=== PATIENT | female | born 1960 | race Caucasian/White ===

== ENCOUNTER 2020-02-05 17:50 | Emergency (ER) | payer BC, SELFPAY ==
[2020-02-05] VITALS (10 sets, daily range): BP systolic 138–160; BP diastolic 84–96; PULSE 77–105; RESP 14–20; TEMP 36.8; O2SAT 94–100
--- NOTE | ~2020-02-05 | XR_ITS ---
XR chest 1V portable DATE: 02/05/2020 18:18 INDICATION: Mid chest pain. Shortness of breath. TECHNIQUE: Portable AP chest on 02/05/2020 at 1822 hours COMPARISON: 12/08/2016 PA and lateral chest FINDINGS: Normal heart size. No hilar or mediastinal enlargement. No pulmonary infiltrate or consolid ation, pleural effusion or pulmonary vascular congestion or pneumothorax. Included skeletal structures are unremarkable. IMPRESSION: No active cardiopulmonary disease Reviewed, dictated and finalized at location A.
--- NOTE | 2020-02-05 18:13 | ECG_ITS ---
Measurements Intervals [place] Rate: 95 P: 61 VT: 158 QRS: 11 QRSD: 82 T: 50 QT: 360 QTc: 454 Interpretive Statements SINUS RHYTHM LOW QRS VOLTAGE IN PRECORDIAL LEADS DELAYED PRECORDIAL R/S TRANSITION BASELINE ARTIFACT- I, III, AVF BORDERLINE ECG Electronically Signed On 02-06-2020 7:15:15 CDT by Ryan Sun D.O.
--- NOTE | 2020-02-05 18:38 | ED.GENADULT ---
HPI - General Adult General Chief complaint: Chest Pain Stated complaint: panic attack Source: patient Mode of arrival: ambulatory Limitations: no limitations History of Present Illness HPI narrative: This 59-year-old female has a history of anxiety attacks and hypothyroidism. All day today she has felt anxious. Approximately 2 hours ago her chest started feeling heavy, while feeling short of breath and scared. The pressure is like a band over her lower chest. She takes a deep breath periodically which helps slightly. She states she feels scared, shaky. She has a hx of similar epidsodes just not as intense as this one. Her landlord has been around her, was recently dx with Covid. Chong Thrasher denies Covid symptoms. She's very worried about having Covid. Also, her Synthroid was increased from 100-112 mcg last week. She states she's very sensitive to thyroid and would like to be tested to see if she's getting too much. Related Data Home Medications Medication Instructions Recorded Confirmed levothyroxine [Synthroid] 112 mcg PO DAILY 02/05/20 02/05/20 Allergies Allergy/AdvReac Type Severity Reaction Status Date / Time ciprofloxacin Allergy Intermediate RASH Verified 11/28/16 13:00 SWELLING nitrofurantoin Allergy Intermediate RASH/SWELLI Verified 11/28/16 13:00 NG Penicillins Allergy Intermediate RASH/SWELLI Verified 11/28/16 13:00 NG sulfamethoxazole Allergy Intermediate RASH Verified 11/28/16 13:00 trimethoprim Allergy Intermediate RASH Verified 11/28/16 13:00 Review of Systems Constitutional: Constitutional: Denies chills and Denies fever(s) ENT: Denies nasal congestion and Denies sore throat Cardiovascular: Cardiovascular: Reports no additional cardiovascular complaints Respiratory: Respiratory: Reports no additional respiratory complaints Genitourinary: Genitourinary: Denies dysuria [facility] Past Medical History Medical History (Updated 02/07/20 @ 16:21 by Yusef Franco MD) Anxiety Chronic kidney disease Hypothyroidism Surgical History Surgical History (Updated 02/07/20 @ 16:17 by Yusef Franco MD) H/O: hysterectomy History of cholecystectomy History of right hip replacement Exam Const: Orientation/consciousness: patient oriented x3 HENMT: Head: normal to inspection Face and sinus: sinuses nontender Mouth: Yes Normal oral and palatal mucosa present Eyes: Conjunctivae: conjunctivae normal Neck: Neck: no lymphadenopathy Chest: Chest palpation & inspection: normal inspection of the chest Resp: Effort & Inspection: normal respiratory effort and not labored Auscultation: clear to auscultation bilaterally Cardio: Rate: regular rate Rhythm: regular rhythm Heart sounds: no murmurs GI: GI Palp: Yes Soft to palpation, No Tenderness to palpation present (GI) and No Guarding due to palpation present (GI) : General: Yes no CVA tenderness Neuro: General: patient oriented x3 Extrem: General: normal to inspection Psych: Appearance: well kempt Affect: Anxious affect present Thought content: Yes Normal thought content present Course Course Emergency Course: Pt drank approximately 1 liter of water while in the E.D. Chest symptoms, SOB resolved after Xanax 0.5 mg. TSH and FT4 ordered to document thyroid status. Covid ordered. Pt. encouraged to f/u with PCP to discuss anxiety and CKD. Vital Signs Vital signs: Vital Signs Temperature 36.8 C 02/05/20 18:00 Pulse Rate 88 02/05/20 18:00 Respiratory Rate 18 02/05/20 18:00 Blood Pressure 160/93 H 02/05/20 18:00 Pulse Oximetry 94 02/05/20 18:00 Temperature 36.8 C 02/05/20 18:00 Pulse Rate 80 02/05/20 20:57 Respiratory Rate 14 02/05/20 20:57 Blood Pressure 138/92 H 02/05/20 20:57 Pulse Oximetry 96 02/05/20 20:57 Medical Decision Making MDM Narrative Medical decision making narrative: no evidence of cardiac etiology of pain. Symptoms, response to Xanax and hx c/w anxiety disorder wi
[2020-02-05] MEDS: ALPRAZolam 0.5 MG TABLET PO (18:45)
[2020-02-05 18:48] LABS: Basophils Absolute Auto 0.02 K/mm3 (0.00-0.10); Basophils Percent Auto 0.4 % (0.0-1.0); Eosinophils Absolute Auto 0.13 K/mm3 (0.02-0.50); Eosinophils Percent Auto 2.6 % (1.0-6.0); Hematocrit 40.6 % (35.0-49.0); Hemoglobin 13.8 g/dL (12.0-15.0); Immature Granulocyte Absolute 0.01 K/mm3 (0.00-0.00); Immature Granulocyte Percent A 0.2 % (0.0-0.0); Lymphocytes Absolute Auto 2.26 K/mm3 (1.10-4.50); Lymphocytes Percent Auto 44.8 % (18.0-42.0); Mean Corpuscular Hemoglobin 31.2 pg (27.0-31.0); Mean Corpuscular Volume 91.6 fL (78.0-102.0); Mean Platelet Volume 9.6 fl (9.2-11.8); Monocytes Absolute Auto 0.45 K/mm3 (0.10-0.90); Monocytes Percent Auto 8.9 % (2.0-11.0); Neutrophils Absolute Auto 2.2 K/mm3 (1.7-7.2); Neutrophils Percent Auto 43.1 % (50.0-70.0); Platelet Count Result 261 K/mm3 (150-420); Red Blood Count 4.43 M/mm3 (4.20-5.40); Red Cell Distribution Width 12.4 % (11.6-14.4); White Blood Count 5.1 K/mm3 (4.8-10.8)
[2020-02-05 19:02] LABS: Alanine Aminotransferase 27 U/L (14-59); Alkaline Phosphatase 82 U/L (46-116); Anion Gap 8 mmol/L (8-16); Aspartate Amino Transferase 22 U/L (15-37); Bilirubin,Total 0.5 mg/dL (0.00-1.00); Blood Urea Nitrogen 16 mg/dL (7-18); Calcium 8.8 mg/dL (8.5-10.1); Carbon Dioxide 28 mmol/L (21-32); Chloride 108 mmol/L (98-108); D Dimer 0.31 mg/L (0.19-0.50); Estimated CRCL calculation 42 ml/min; Estimated Glomerular Filt Rate 44; Glucose 104 mg/dL (70-99); Lipase 105 U/L (73-393); Osmolality Calculated 299 mOsm/kg (285-295); Partial Thromboplastin Time 27.1 SEC (22.3-31.6); Potassium 3.8 mmol/L (3.5-5.1); Prothrombin Time 10.3 Seconds (9.64-11.0); Sodium 144 mmol/L (136-145); Total Protein 7.5 g/dL (6.4-8.2)
[2020-02-05 19:05] LABS: BNP 33 pg/mL (0-100)
[2020-02-05 19:07] LABS: Troponin I < 0.02 ng/mL (0.00-0.056)
[2020-02-05 20:10] LABS: Thyroid Stimulating Hormone 2.87 uIU/mL (0.36-3.74)
[2020-02-05 20:28] LABS: Free T4 Free Thyroxine 1.36 ng/dL (0.76-1.46)
[2020-02-07 00:09] LABS: SARS-CoV-2 RNA PCR Negative
== END 2020-02-05 21:05 | disposition home or self-care (01) ==
PROVIDERS: Emergency Provider Family Medicine
DX: F41.0 Panic disorder [episodic paroxysmal anxiety] (principal); R06.02 Shortness of breath
CPT/HCPCS: 36415; 71045; 80053; 83690; 83880; 84439; 84443; 84484; 85025; 85380; 85610; 85730; 87635; 93005; 99283; 99284; A9270; C9803; U0003

== ENCOUNTER 2020-03-08 16:57 | Outpatient (CLI) | payer BC, SELFPAY ==
[2020-03-12 03:13] LABS: Hepatitis B Core Antibody Nonreactive (Nonreactive)
== END 2020-03-08 16:58 | disposition home or self-care (01) ==
LOC: CHSLAB 17:00
PROVIDERS: Visit Provider Obstetrics & Gynecology
DX: A64 Unspecified sexually transmitted disease (principal)
CPT/HCPCS: 36415; 86705

== ENCOUNTER 2020-05-01 12:18 | Outpatient (CLI) | payer OTHER, SELFPAY ==
[2020-05-02 18:52] LABS: SARS-CoV-2 RNA PCR Negative
== END 2020-05-01 12:19 | disposition home or self-care (01) ==
LOC: CHSLAB 12:24
DX: Z20.828 Contact with and (suspected) exposure to other viral communicable diseases (principal)
CPT/HCPCS: 87635; C9803; U0003

== ENCOUNTER 2020-12-05 19:37 | Emergency (ER) | payer BC, SELFPAY ==
--- NOTE | ~2020-12-05 | XR_ITS ---
[id number]_CR DATE: 12/05/2020 20:17 INDICATION: Back pain radiating to right side and pop after lifting TECHNIQUE: PA chest. 3 views of the right ribs. COMPARISON: None FINDINGS: No right rib fracture or bone destruction is evident. Normal heart size. No hilar or mediastinal enlargement. The lungs appear normally inflated and clear of infiltrate or consolidation. No pleural effusion or pulmonary vascular congestion or pneumothorax. Surgical clips, right upper quadrant, likely due to cholecystectomy. Degenerative spurring of the thoracic and lumbar spine. IMPRESSION: No displaced rib fracture is noted on the right No active cardiopulmonary disease Status post cholecystectomy Reviewed, dictated and finalized at Location [facility]. Reviewed, dictated and finalized at location A.
[2020-12-05 19:40] VITALS: BP 160/85; PULSE 90; RESP 18; TEMP 36.6; O2SAT 98
[2020-12-05 19:56] LABS: Add Urine Microscopic? YES; Appearance Urine Clear (Clear); Bilirubin Urine Negative (Negative); Blood Urine Negative (Negative); Color Urine Light Yellow (Yellow); Glucose Urine UA Negative (Negative); Ketones Urine Negative (Negative); Leukocyte Esterase Ur Trace (Negative); Nitrate Urine Negative (Negative); Protein Urine Negative (Negative); Urobilinogen Urine 0.2 mg/dL (0.2-1.0); pH Urine 5.5 (5.0-8.0)
--- NOTE | 2020-12-05 20:00 | ED.GENADULT ---
HPI - General Adult General Chief complaint: Back Pain/Injury Stated complaint: back pain Source: patient Mode of arrival: ambulatory Limitations: no limitations History of Present Illness HPI narrative: Price Campos is a 60F with a PMH of hypothyroidism that presented to the ED with back pain. She has had mid back pain for a few days. It was getting better until she opened a gate for her horses when she heard a pop and had immediate pain in her right mid back and spasms. No radiation. No trauma. No weakness, numbness or tingling. Related Data Home Medications Medication Instructions Recorded Confirmed alprazolam [Xanax] 0.25 mg PO BID PRN 12/05/20 12/05/20 levothyroxine [Synthroid] 88 mcg PO DAILY 12/05/20 12/05/20 Allergies Allergy/AdvReac Type Severity Reaction Status Date / Time ciprofloxacin Allergy Unknown [place] Verified 12/05/20 19:56 nitrofurantoin Allergy Unknown Hives Verified 12/05/20 19:56 Penicillins Allergy Unknown Hives Verified 12/05/20 19:56 Sulfa (Sulfonamide Allergy Unknown Hives Verified 12/05/20 19:56 Antibiotics) trimethoprim Allergy Unknown Rash Verified 03/27/20 12:21 Review of Systems Constitutional: Constitutional: Reports no additional constitutional complaints Eyes: Eyes: Reports no additional eye complaints ENT: Reports system reviewed and no additional complaints, except as documented Cardiovascular: Cardiovascular: Reports no additional cardiovascular complaints Respiratory: Respiratory: Reports no additional respiratory complaints Gastrointestinal: Gastrointestinal: Reports no additional gastrointestinal complaints Genitourinary: Genitourinary: Reports no additional female genitourinary complaints Musculoskeletal: Musculoskeletal: Reports as per HPI Integumentary/Breasts: Skin/Breast: Reports system reviewed and no additional complaints, except as docu Neurologic: Reports system reviewed and no additional complaints, except as documented Psychiatric: Psychiatric: Reports no additional psychiatric complaints Endocrine: Endocrine: Reports no additional endocrine complaints Hematologic/Lymphatic: Hematologic/Lymphatic: Reports no additional hematologic/lymphatic complaints Allergic/Immunologic: Allergic/Immunologic: Reports no additional allergic/immunologic complaints [facility] Family History Family History Mother Family history of thyroid disease Grandparent Diabetes mellitus, Onset Age: 75 Family history of congestive heart failure, Onset Age: 72 Father Family history of elevated blood lipids Other Family history of malignant neoplasm Social History Social History Smoking status: Never smoker Second hand tobacco smoke exposure: No Alcohol intake: current Gender identity (if verbalized by the patient): Female Exam Const: General: no acute distress and alert Orientation/consciousness: patient oriented x3 Limitations: No altered mental status HENMT: Head: normal to inspection Other: atraumatic Eyes: Conjunctivae: conjunctivae normal Pupils: Equal, round and reactive pupils present Neck: Neck: normal visual inspection Chest: Chest palpation & inspection: normal inspection of the chest Resp: Effort & Inspection: normal respiratory effort, not labored, no retractions, not tachypneic and no use of accessory muscles Cardio: Rate: regular rate Back/Spine/Pelvis: Other: No midline tenderness. Normal ROM. hypertonic paraspinal musculature in the right thoracic region. Skin: General skin exam: normal color Rashes: no rashes Neuro: General: patient oriented x3, moves all extremities, no meningeal signs, no focal motor deficits and CN's II-XI intact bilaterally Speech: normal speech Extrem: General: normal to inspection Other: 5/5 strength in the upper extremities. Psych: Appearance: grossly normal Mental
[2020-12-05 20:01] LABS: Bacteria Urine Trace /hpf; RBC Urine 0-2 /hpf (0-2); Squamous Epithelial Cell Urine Rare /hpf (Few); WBC Urine 0-3 /hpf (0-3)
[2020-12-05 20:27] VITALS: BP 140/88; PULSE 72; RESP 18; TEMP 37; O2SAT 98
== END 2020-12-05 20:29 | disposition home or self-care (01) ==
PROVIDERS: Emergency Provider Family Medicine
DX: M54.9 Dorsalgia, unspecified (principal)
CPT/HCPCS: 71101; 81001; 99283

== ENCOUNTER 2021-01-10 08:17 | Outpatient (CLI) | payer BC, SELFPAY ==
[2021-01-10 08:32] LABS: Basophils Absolute Auto 0.02 K/mm3 (0.00-0.10); Basophils Percent Auto 0.4 % (0.0-1.0); Eosinophils Absolute Auto 0.18 K/mm3 (0.02-0.50); Eosinophils Percent Auto 3.3 % (1.0-6.0); Hematocrit 41.3 % (35.0-49.0); Immature Granulocyte Absolute 0.01 K/mm3 (0.00-0.00); Immature Granulocyte Percent A 0.2 % (0.0-0.0); Lymphocytes Absolute Auto 2.17 K/mm3 (1.10-4.50); Lymphocytes Percent Auto 40.3 % (18.0-42.0); Mean Corpuscular HGB Conc 33.9 g/dL (32.0-36.0); Mean Corpuscular Hemoglobin 31.3 pg (27.0-31.0); Mean Corpuscular Volume 92.2 fL (78.0-102.0); Mean Platelet Volume 9.5 fl (9.2-11.8); Monocytes Absolute Auto 0.35 K/mm3 (0.10-0.90); Monocytes Percent Auto 6.5 % (2.0-11.0); Neutrophils Absolute Auto 2.7 K/mm3 (1.7-7.2); Neutrophils Percent Auto 49.3 % (50.0-70.0); Platelet Count Result 271 K/mm3 (150-420); Red Blood Count 4.48 M/mm3 (4.20-5.40); Red Cell Distribution Width 12.7 % (11.6-14.4); White Blood Count 5.4 K/mm3 (4.8-10.8)
[2021-01-10 08:42] LABS: Hemoglobin A1C 5.2 % (<5.7)
[2021-01-10 08:46] LABS: Add Urine Microscopic? YES; Appearance Urine Sl Cloudy (Clear); Bilirubin Urine Negative (Negative); Blood Urine Negative (Negative); Color Urine Light Yellow (Yellow); Glucose Urine UA Negative (Negative); Ketones Urine Negative (Negative); Leukocyte Esterase Ur 1+ (Negative); Nitrate Urine Negative (Negative); Protein Urine Negative (Negative); Specific Grav Ur >= 1.030 (1.010-1.020); Urobilinogen Urine 0.2 mg/dL (0.2-1.0); pH Urine 5.5 (5.0-8.0)
[2021-01-10 08:59] LABS: Bacteria Urine 1+ /hpf; RBC Urine None seen /hpf (0-2); Squamous Epithelial Cell Urine Moderate /hpf (Few)
[2021-01-10 09:52] LABS: Alanine Aminotransferase 27 U/L (14-59); Albumin Level 3.8 g/dL (3.4-5.0); Alkaline Phosphatase 69 U/L (46-116); Anion Gap 10 mmol/L (8-16); Aspartate Amino Transferase 17 U/L (15-37); Bilirubin,Total 0.5 mg/dL (0.00-1.00); Blood Urea Nitrogen 17 mg/dL (7-18); Calcium 8.8 mg/dL (8.5-10.1); Carbon Dioxide 29 mmol/L (21-32); Chloride 106 mmol/L (98-108); Cholesterol 203 mg/dL (0-200); Estimated Glomerular Filt Rate 52; Free T4 Free Thyroxine 0.54 ng/dL (0.76-1.46); Glucose 100 mg/dL (70-99); HDL Direct 47 mg/dL (40-60); LDL Cholesterol Calculated 125 mg/dL (<130); Osmolality Calculated 301 mOsm/kg (285-295); Potassium 4.5 mmol/L (3.5-5.1); Sodium 145 mmol/L (136-145); Thyroid Stimulating Hormone 58.03 uIU/mL (0.36-3.74); Total Protein 6.8 g/dL (6.4-8.2); Triglycerides 156 mg/dL (0-150)
== END 2021-01-10 08:18 | disposition home or self-care (01) ==
LOC: CHSLAB 08:22
PROVIDERS: PCP Physician Assistant; Visit Provider Physician Assistant
DX: Z00.01 Encounter for general adult medical examination with abnormal findings (principal); E03.9 Hypothyroidism, unspecified; Z13.220 Encounter for screening for lipoid disorders; Z13.1 Encounter for screening for diabetes mellitus
CPT/HCPCS: 36415; 80053; 80061; 81001; 83036; 84439; 84443; 85025; 86769

== ENCOUNTER 2021-03-12 11:21 | Emergency (ER) | payer BC, SELFPAY ==
--- NOTE | ~2021-03-12 | XR_ITS ---
EXAMINATION: XR chest 1V portable EXAM DATE: 03/12/2021 11:43 INDICATION: chest pain radiating into LUE . TECHNIQUE: Portable AP frontal chest x-ray was obtained. Comparison is made to prior examination from 02/05/2020. FINDINGS: The lungs are clear. There are no pleural effusions. The cardiomediastinal silhouette is within normal limits. There is no pneumothorax suspected. The bones and soft tissues are unremarkab le. IMPRESSION: Unremarkable chest x-ray exam. Reviewed, dictated and finalized at location B.
--- NOTE | ~2021-03-12 | CT_ITS ---
EXAMINATION: CTA chest PE protocol EXAM DATE: 03/12/2021 15:55 INDICATION: SOB SOB with pressure @ center of chest with nausea x couple of days. TECHNIQUE: Spiral CTA of the chest (pulmonary arteries) was performed with 100 cc Omnipaque 350 intr avenous contrast injection. Images were acquired during the pulmonary arterial phase. Coronal maxi mum intensity projection 3D-reconstructions were created by the technologist on dedicated workstation . Axial, coronal and sagittal reformatted images were reviewed. The dose-length product (DLP) for t his examination was 428.55 mGy-cm. The exposure was tailored according to patient size (auto mA exp osure control), and iterative reconstruction (ASIR) was used as additional dose reduction technique. There is no prior study for comparison. FINDINGS: Pulmonary arteries are well opacified and without intraluminal filling defects. No thora cic aortic dissection. The lungs are clear. There are no pleural or pericardial effusions. Trach eobronchial tree is patent. There is no mediastinal, hilar or axillary lymphadenopathy. There is no pneumothorax. Heart normal in size. There is mild coronary arterial calcification, arterial sc lerosis. Cholecystectomy clips.There is mild to moderate thoracic spondylosis. Several vague regions of decreased density within the vertebral bodies including T2, T12, L2. These could be hemangiomata but can't exclude metastatic disease or myeloma. No cortical destruction. Consider follow-up nonemerg ent MR thoracic spine without and with contrast. IMPRESSION: 1. No pulmonary emboli or acute findings. 2. Several low-density vertebral body regions could be focal osteopenia or hemangiomata but recommen d follow-up nonemergent MR thoracic spine to exclude metastatic disease or myeloma. Reviewed, dictated and finalized at location B. IMPRESSION: 1. No pulmonary emboli or acute findings. 2. Several low-density vertebral body regions could be focal osteopenia or hem angiomata but recommend follow-up nonemergent MR thoracic spine to exclude meta static disease or myeloma.
[2021-03-12 11:29] VITALS: BP 160/98; PULSE 69; RESP 14; TEMP 36.1; O2SAT 100
--- NOTE | 2021-03-12 11:29 | ECG_ITS ---
Measurements Intervals [place] Rate: 68 P: 65 HI: 157 QRS: 48 QRSD: 82 T: 58 QT: 381 QTc: 406 Interpretive Statements SINUS RHYTHM DELAYED PRECORDIAL R/S TRANSITION LOW QRS VOLTAGE IN PRECORDIAL LEADS BASELINE ARTIFACT- II, III, AVF BORDERLINE ECG Electronically Signed On 03-12-2021 13:00:00 CDT by Ryan Sun D.O.
[2021-03-12 11:30] VITALS: PULSE 69
[2021-03-12] MEDS: ASPIRIN 325 MG ENTERIC TABLET PO (11:50)
[2021-03-12] MEDS: MAG HYDROX/ALUMINUM HYD/SIMETH 30 ML, PHENobarb/HYOSCY/ATROPINE/SCOP 32.4 MG, LIDOCAINE... PO (11:52)
[2021-03-12 11:54] LABS: Basophils Absolute Auto 0.03 K/mm3 (0.00-0.10); Basophils Percent Auto 0.6 % (0.0-1.0); Eosinophils Absolute Auto 0.14 K/mm3 (0.02-0.50); Eosinophils Percent Auto 2.7 % (1.0-6.0); Hematocrit 42.3 % (35.0-49.0); Hemoglobin 14.5 g/dL (12.0-15.0); Immature Granulocyte Absolute 0.02 K/mm3 (0.00-0.00); Immature Granulocyte Percent A 0.4 % (0.0-0.0); Lymphocytes Absolute Auto 2.06 K/mm3 (1.10-4.50); Lymphocytes Percent Auto 39.3 % (18.0-42.0); Mean Corpuscular HGB Conc 34.3 g/dL (32.0-36.0); Mean Corpuscular Hemoglobin 31.4 pg (27.0-31.0); Mean Corpuscular Volume 91.6 fL (78.0-102.0); Mean Platelet Volume 9.8 fl (9.2-11.8); Monocytes Absolute Auto 0.32 K/mm3 (0.10-0.90); Monocytes Percent Auto 6.1 % (2.0-11.0); Neutrophils Absolute Auto 2.7 K/mm3 (1.7-7.2); Neutrophils Percent Auto 50.9 % (50.0-70.0); Platelet Count Result 281 K/mm3 (150-420); Red Blood Count 4.62 M/mm3 (4.20-5.40); White Blood Count 5.2 K/mm3 (4.8-10.8)
[2021-03-12] MEDS: PANTOPRAZOLE SODIUM IV 40 MG VIAL IV PUSH (12:00)
[2021-03-12] MEDS: SODIUM CHLORIDE 0.9% IV 1,000 ML 150 ML IV CONT (12:05)
[2021-03-12] MEDS: ONDANSETRON INJ 4 MG/2 ML VIAL IV PUSH (12:05)
[2021-03-12 12:11] LABS: Alanine Aminotransferase 33 U/L (14-59); Albumin Level 4.1 g/dL (3.4-5.0); Alkaline Phosphatase 69 U/L (46-116); Anion Gap 9 mmol/L (8-16); Aspartate Amino Transferase 25 U/L (15-37); Bilirubin,Total 0.5 mg/dL (0.00-1.00); Blood Urea Nitrogen 16 mg/dL (7-18); Calcium 9.1 mg/dL (8.5-10.1); Carbon Dioxide 29 mmol/L (21-32); Chloride 105 mmol/L (98-108); Estimated CRCL calculation 46 ml/min; Estimated Glomerular Filt Rate 48; Glucose 116 mg/dL (70-99); Osmolality Calculated 298 mOsm/kg (285-295); Sodium 143 mmol/L (136-145); Total Protein 7.3 g/dL (6.4-8.2); Troponin I 4.3 ng/L (0.00-60.4)
--- NOTE | 2021-03-12 13:30 | PC.NURSE ---
PT AMBULATORY TO BATHROOM, PT STATES SHE IS FEELING BETTER.
[2021-03-12 13:33] LABS: Add Urine Microscopic? NO; Appearance Urine Clear (Clear); Bilirubin Urine Negative (Negative); Blood Urine Negative (Negative); Color Urine Light Yellow (Yellow); Glucose Urine UA Negative (Negative); Ketones Urine Negative (Negative); Leukocyte Esterase Ur Negative (Negative); Nitrate Urine Negative (Negative); Protein Urine Negative (Negative); Specific Grav Ur <= 1.005 (1.010-1.020); Urobilinogen Urine 0.2 mg/dL (0.2-1.0)
[2021-03-12 13:36] VITALS: BP 115/78; PULSE 68; RESP 14; O2SAT 98
[2021-03-12 15:14] VITALS: BP 132/80; PULSE 64; RESP 16; O2SAT 98
[2021-03-12 16:17] LABS: Troponin I < 4.0 ng/L (0.00-60.4)
--- NOTE | 2021-03-12 16:51 | ED.CHESTPAIN ---
HPI - Chest Pain General Chief Complaint: Chest Pain Stated Complaint: Chest tightness,nausea Time Seen by Provider: 03/12/21 11:23 Source: patient and RN notes reviewed Mode of arrival: ambulatory Limitations: no limitations History of Present Illness complaint: chest pain Onset (ago): hour(s) Timing of current episode: constant Prior episodes: Yes Onset: during rest Pain location: substernal Pain radiation: none Severity: mild Pain scale (0-10): 5 Quality: tightness, aching and dull Relieving factors: nothing Exacerbating factors: nothing Associated symptoms: nausea Treatment prior to arrival: none Related Data Home Medications Medication Instructions Recorded Confirmed alprazolam [Xanax] 0.25 mg PO BID PRN 12/05/20 03/12/21 levothyroxine 100 mcg PO DAILY 03/12/21 03/12/21 Allergies Allergy/AdvReac Type Severity Reaction Status Date / Time ciprofloxacin Allergy Intermediate RASH Verified 02/15/21 15:45 SWELLING nitrofurantoin Allergy Intermediate RASH/SWELLI Verified 02/15/21 15:45 NG Penicillins Allergy Intermediate RASH/SWELLI Verified 02/15/21 15:45 NG sulfamethoxazole Allergy Intermediate RASH Verified 02/15/21 15:45 trimethoprim Allergy Intermediate RASH Verified 02/15/21 15:45 Sulfa (Sulfonamide Allergy Unknown Hives Verified 02/15/21 15:45 Antibiotics) Review of Systems Review of Systems: All systems reviewed & are unremarkable except as noted in HPI and below PMFSH Past Medical History Medical History Anxiety Chronic kidney disease Hypothyroidism Surgical History Surgical History H/O: hysterectomy History of cholecystectomy History of right hip replacement Family History Family History Mother Family history of thyroid disease Grandparent Diabetes mellitus, Onset Age: 75 Family history of congestive heart failure, Onset Age: 72 Father Family history of elevated blood lipids Other Family history of malignant neoplasm Social History Social History Smoking status: Never smoker Second hand tobacco smoke exposure: No Alcohol intake: current Gender identity (if verbalized by the patient): Female Exam Const: General: cooperative, no acute distress and well developed Nutritional Appearance: average body habitus Orientation/consciousness: oriented to person, oriented to place and patient oriented x3 Limitations: no limitations HENMT: Head: normal to inspection, normocephalic and atraumatic Ears: hearing grossly normal bilaterally and external ears normal General nose exam: Normal external nose present and Normal nares present Face and sinus: normal facial exam Mouth: Yes Normal oral and palatal mucosa present, Yes oropharynx normal and Yes moist mucous membranes Throat: posterior oropharynx normal Eyes: General: appearance normal, both eyes and all related structures Eyelids: eyelids normal Conjunctivae: conjunctivae normal Sclera: sclerae normal Cornea: corneas normal Pupils: Equal, round and reactive pupils present EOM: EOMs intact bilaterally Neck: Neck: normal visual inspection and no lymphadenopathy Chest: Chest palpation & inspection: normal inspection of the chest Resp: Effort & Inspection: normal respiratory effort Auscultation: clear to auscultation bilaterally Cardio: Jugular venous distension: no JVD Rate: regular rate Rhythm: regular rhythm GI: Inspection: normal to inspection GI Palp: Yes abdominal tenderness Auscultation: normal bowel sounds : General: Yes bladder normal to inspection and Yes bladder normal to palpation Back/Spine/Pelvis: Back: no CVA tenderness Thoracic/Lumbar Spine: thoracic and lumbar spine normal to inspection Skin: General skin exam: normal color, no rashes or le
[2021-03-12 17:20] VITALS: BP 113/79; PULSE 78; RESP 18; O2SAT 97
== END 2021-03-12 17:20 | disposition home or self-care (01) ==
PROVIDERS: Emergency Provider Emergency Medicine; PCP Physician Assistant
DX: R10.13 Epigastric pain (principal); R07.89 Other chest pain
CPT/HCPCS: 36415; 71045; 71275; 80053; 81003; 84484; 85025; 93005; 96361; 96374; 96375; 99283; 99284; A9270; C9113; J2405; J7030; Q9967

== ENCOUNTER 2021-03-14 12:01 | Outpatient (CLI) | payer BC, SELFPAY ==
[2021-03-14 13:27] LABS: SARS-CoV-2 RNA PCR Negative (Negative)
== END 2021-03-14 12:02 | disposition home or self-care (01) ==
PROVIDERS: PCP Physician Assistant; Visit Provider Physician Assistant
DX: R06.00 Dyspnea, unspecified (principal); Z20.822 Contact with and (suspected) exposure to COVID-19
CPT/HCPCS: C9803; U0003; U0005

== ENCOUNTER 2021-03-26 16:43 | Outpatient (CLI) | payer BC, SELFPAY ==
--- NOTE | ~2021-03-26 | MR_ITS ---
EXAMINATION: MR thoracic spine wo/w con DATE: 03/26/2021 18:25 INDICATION: Lytic lesions in thoracic spine. Biomechanical lesion. TECHNIQUE: Magnetic resonance imaging (MRI) of the thoracic spine was performed without and with 15 m L MultiHance intravenous contrast. Sequences included sagittal and axial T2-weighted FSE, sagittal ST IR FSE, and sagittal and axial T1-weighted FSE. Postcontrast sequences included sagittal and axial T1 -weighted FS FSE. COMPARISON: Chest CT 03/12/2021, lumbar spine MRI 09/26/2016 FINDINGS: There is 3 mm anterolisthesis of T9 and T10. There is mild chronic anterior wedging of T12 vertebral body. There are hemangiomas in T2, T12, and L2 vertebral bodies. There is mildly decreased disc height at multiple levels in mid and lower thoracic spine. The discs are bulging from T4-T5 thro ugh T8-T9 and at T10-T11 and T11-T12 with mild central canal stenosis. There is multilevel facet join t osteoarthritis, severe bilaterally at T9-T10 and T10-T11 on the right at T2-T3 and T3-T4. There is multilevel mild neural foraminal stenosis bilaterally. On the right, there is moderate neural foramin al stenosis at T9-T10. The spinal cord signal intensity is normal. IMPRESSION: 1. 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 No evidence of malignancy. 2. Mild thoracic spondylosis. Reviewed, dictated and finalized at location A.
[2021-03-26 17:49] LABS: Estimated Glomerular Filt Rate 50
== END 2021-03-26 16:44 | disposition home or self-care (01) ==
PROVIDERS: PCP Physician Assistant; Visit Provider Physician Assistant
DX: M99.9 Biomechanical lesion, unspecified (principal); M47.814 Spondylosis without myelopathy or radiculopathy, thoracic region; D18.09 Hemangioma of other sites
CPT/HCPCS: 72157; A9577

== ENCOUNTER 2021-04-05 07:15 | Outpatient (CLI) | payer BC, SELFPAY ==
--- NOTE | ~2021-04-05 | DEXA_ITS ---
Bone Density Report Name: Shahrzad AggarwalChong Price Dixon Age: 61 Sex: Female Ethnicity: White Date of : 1960 Indication: postmenopausal; screening for osteoporosis; prior fracture; hysterectomy; secondary osteoporosis; Referring Provider: Juan R, Levi Study: Bone densitometry was performed. Exam Date: April 05, 2021 Accession number: [id number] Bone Density: Region BMD T-score Z-score Classification Femoral Neck (Left) 1.018 1.5 2.9 Normal Total Hip (Left) 1.226 2.3 3.3 Normal World Health Organization criteria for BMD impression classify patients as: Normal (T-score at or above -1.0), Osteopenia (T-score between -1.0 and -2.5), or Osteoporosis (T-score at or below -2.5). 10-year Fracture Risk: FRAX not reported because: All T-scores for Spine Total, Hip Total, Femoral Neck at or above -1.0 Prior hip or vertebral fracture Clinical Information Provided by Patient: Have had a previous hip or vertebral fracture Has had a low trauma fracture Has secondary osteoporosis Has the following medical conditions: Hysterectomy Patient maximum height was 63 Menopause Age: 52 No regular weight bearing exercise Drinks caffeinated beverages Onset of menses at age 12 Number of children 3 Impression: The patient has normal bone mass. The patient has risk factors, including: previous fracture. Discussion: INCREASED RISK OF FRACTURE DUE TO HISTORY OF FRACTURE. The patient's previous fracture puts the patient at high risk of a future fracture. In untreated patients, the risk of osteoporotic fracture increases approximately two-fold for each 1.0 SD decrease in T-score. Low bone density is not the only risk factor for fracture; also consider factors such as patient's age, frailty or poor health, risk of falling, risk of injury, previous osteoporotic fracture, family history of osteoporosis, cigarette smoking, low body weight, etc. Not everyone with a low trauma fracture has osteoporosis; osteomalacia and other metabolic bone disorders should also be considered. Patients who have osteoporosis should be evaluated for specific diseases and conditions (secondary causes) that may cause or contribute to bone loss and fracture risk. National Osteoporosis Foundation (NOF) recommends pharmacologic intervention for patients with a prior hip or vertebral fracture regardless of BMD T-score. The patient should follow a healthful lifestyle (good nutrition with adequate calcium and vitamin D, and appropriate weight-bearing exercise). Follow-Up: Consider a repeat BMD and Vertebral Fracture Assessment (VFA) exam in 2 years or sooner if medically necessary, to reassess this patient's status. Reported by: Dr. Luis Alberto Anguiano on 04/05/2021 7:56:00 AM. Reviewed, dictated and finalized at location [facility] JETER
== END 2021-04-05 07:16 | disposition home or self-care (01) ==
LOC: CHSIMG 07:17
PROVIDERS: PCP Physician Assistant; Visit Provider Physician Assistant
DX: Z78.0 Asymptomatic menopausal state (principal)
CPT/HCPCS: 77080

== ENCOUNTER 2021-06-19 07:24 | Outpatient (CLI) | payer BC, SELFPAY ==
--- NOTE | ~2021-06-19 | US_ITS ---
EXAMINATION: US carotid duplex BI DATE: 06/19/2021 07:51 INDICATION: Screening for cardiovascular disease. TECHNIQUE: Grayscale, color Doppler, and pulsed Doppler images of the cervical carotid arteries were obtained. The degree of vessel stenosis is placed in one of the following categories: normal, <50%, 5 0-69%, >=70% but less than near-occlusion, near-occlusion, or total occlusion. Note that percent sten osis relative to normal distal artery lumen diameter is indirectly measured from velocity measurement s as described by Peña, et al. Radiology 2003; 229:340-346. COMPARISON: None. FINDINGS: RIGHT: The right common carotid artery (CCA) peak systolic velocity (PSV) is 83 cm/s. The right internal car otid artery (ICA) PSV is 83 cm/s. The right ICA end-diastolic velocity (EDV) is 39 cm/s. The right IC A/CCA PSV ratio is 1.0. Grayscale and color Doppler images yield an estimate of <50% diameter reducti on from plaque in the ICA. There is antegrade flow in the right vertebral artery. LEFT: The left CCA PSV is 98 cm/s. The left ICA PSV is 87 cm/s. The left ICA EDV is 39 cm/s. The left ICA/C CA PSV ratio is 0.9. Grayscale and color Doppler images yield an estimate of <50% diameter reduction from plaque in the ICA. There is antegrade flow in the left vertebral artery. IMPRESSION: 1. <50% stenosis in the right internal carotid artery. 2. <50% stenosis in the left internal carotid artery. Reviewed, dictated and finalized at location B. HIC MANAGER
== END 2021-06-19 07:25 | disposition home or self-care (01) ==
LOC: CHSIMG 07:27
PROVIDERS: PCP Physician Assistant; Visit Provider Physician Assistant
DX: Z13.6 Encounter for screening for cardiovascular disorders (principal)
CPT/HCPCS: 93880

== ENCOUNTER 2021-07-30 10:07 | Outpatient (CLI) | payer BC, SELFPAY ==
[2021-07-30 11:05] LABS: Free T3 1.95 pg/mL (2.18-3.98); Thyroid Stimulating Hormone 12.45 uIU/mL (0.36-3.74)
== END 2021-07-30 10:08 | disposition home or self-care (01) ==
LOC: CHSLAB 10:10
PROVIDERS: PCP Physician Assistant; Visit Provider Physician Assistant
DX: E03.9 Hypothyroidism, unspecified (principal)
CPT/HCPCS: 36415; 84439; 84443; 84481

== ENCOUNTER 2021-10-14 12:34 | Emergency (ER) | payer BC, SELFPAY ==
[2021-10-14 12:48] VITALS: BP 145/87; PULSE 79; RESP 16; TEMP 36.2; O2SAT 100
--- NOTE | 2021-10-14 12:52 | ECG_ITS ---
Measurements Intervals [place] Rate: 60 P: 42 TN: 155 QRS: 5 QRSD: 85 T: 27 QT: 419 QTc: 422 Interpretive Statements SINUS RHYTHM LOW QRS VOLTAGE IN PRECORDIAL LEADS [QRS DEFLECTION < 1.0 mV IN CHEST LEADS] POOR R-WAVE PROGRESSION COMPARED TO ECG 03/12/2021 11:31:00 NO SIGNIFICANT CHANGES Electronically Signed On 10-14-2021 16:59:25 CDT by Izaiah Ag M.D.
--- NOTE | 2021-10-14 12:54 | ED.GENADULT ---
HPI - General Adult General Chief complaint: Unspecified Stated complaint: numbess in face, chest and arms,difficulty swallow Source: patient Mode of arrival: ambulatory Limitations: no limitations History of Present Illness HPI narrative: patient with history of hypothyroidism and history of panic attacks presents with over the last hour having numbness and tingling in her face with a heaviness in her chest with numbness tingling in her hands and her feet currently there is no shortness of breath no fever chills the patient states that her symptoms have improved but still they are somewhat, the patient does have Xanax that she takes as needed but not take did not take any today after she started having the symptoms. Onset (ago): hour(s) Location: face Severity: mild Related Data Home Medications Medication Instructions Recorded Confirmed alprazolam [Xanax] 0.25 mg PO BID PRN 12/05/20 10/14/21 levothyroxine 100 mcg PO DAILY 03/12/21 10/14/21 Allergies Allergy/AdvReac Type Severity Reaction Status Date / Time ciprofloxacin Allergy Intermediate RASH Verified 10/14/21 12:52 SWELLING nitrofurantoin Allergy Intermediate RASH/SWELLI Verified 10/14/21 12:52 NG Penicillins Allergy Intermediate RASH/SWELLI Verified 10/14/21 12:52 NG sulfamethoxazole Allergy Intermediate RASH Verified 10/14/21 12:52 trimethoprim Allergy Intermediate RASH Verified 10/14/21 12:52 Sulfa (Sulfonamide Allergy Unknown Hives Verified 10/14/21 12:52 Antibiotics) Review of Systems Review of Systems: All systems reviewed & are unremarkable except as noted in HPI and below PMFSH Past Medical History Medical History Anxiety Chronic kidney disease Hypothyroidism Surgical History Surgical History H/O: hysterectomy History of cholecystectomy History of right hip replacement Family History Family History Mother Family history of thyroid disease Grandparent Diabetes mellitus, Onset Age: 75 Family history of congestive heart failure, Onset Age: 72 Father Family history of elevated blood lipids Other Family history of malignant neoplasm Social History Social History Smoking status: Never smoker Second hand tobacco smoke exposure: No Alcohol intake: current Gender identity (if verbalized by the patient): Female Exam Const: General: cooperative HENMT: Head: normal to inspection Ears: hearing grossly normal bilaterally General nose exam: Normal external nose present Face and sinus: normal facial exam Mouth: Yes Normal oral and palatal mucosa present Teeth and gingiva: dentition normal and gingiva normal Throat: posterior oropharynx normal Eyes: General: appearance normal, both eyes and all related structures Neck: Neck: normal visual inspection, full ROM, no lymphadenopathy and no meningeal signs Chest: Chest palpation & inspection: normal inspection of the chest Resp: Effort & Inspection: normal respiratory effort and able to speak in complete sentences Cardio: Jugular venous distension: no JVD Palpation: normal PMI Rate: regular rate Rhythm: regular rhythm GI: Inspection: normal to inspection Back/Spine/Pelvis: Back: no CVA tenderness Skin: General skin exam: normal color and no rashes or lesions noted Neuro: General: oriented to person, oriented to place and oriented to time Course Course Emergency Course: Patient received 0.5 p.o. Xanax, EKG performed as well as blood work, the patient's symptoms have improved after reassessment. Vital Signs Vital signs: Vital Signs Temperature 36.2 C L 10/14/21 12:48 Pulse Rate 79 10/14/21 12:48 Respiratory Rate 16 10/14/21 12:48 Blood Pressure 145/87 H 10/14/21 12:48 Pulse Oximetry 100 10/14/21 12:48
[2021-10-14] MEDS: ALPRAZolam (*CRX) 0.5 MG TABLET PO (13:00)
[2021-10-14 13:09] LABS: Basophils Absolute Auto 0.03 K/mm3 (0.00-0.10); Basophils Percent Auto 0.6 % (0.0-1.0); Eosinophils Absolute Auto 0.14 K/mm3 (0.02-0.50); Eosinophils Percent Auto 2.8 % (1.0-6.0); Hematocrit 40.2 % (35.0-49.0); Hemoglobin 13.7 g/dL (12.0-15.0); Immature Granulocyte Absolute 0.01 K/mm3 (0.00-0.00); Immature Granulocyte Percent A 0.2 % (0.0-0.0); Lymphocytes Absolute Auto 2.13 K/mm3 (1.10-4.50); Lymphocytes Percent Auto 42.6 % (18.0-42.0); Mean Corpuscular HGB Conc 34.1 g/dL (32.0-36.0); Mean Corpuscular Hemoglobin 31.4 pg (27.0-31.0); Monocytes Absolute Auto 0.36 K/mm3 (0.10-0.90); Monocytes Percent Auto 7.2 % (2.0-11.0); Neutrophils Absolute Auto 2.3 K/mm3 (1.7-7.2); Neutrophils Percent Auto 46.6 % (50.0-70.0); Platelet Count Result 260 K/mm3 (150-420); Red Blood Count 4.37 M/mm3 (4.20-5.40); Red Cell Distribution Width 12.8 % (11.6-14.4)
[2021-10-14 13:34] LABS: Alanine Aminotransferase 26 U/L (14-59); Alkaline Phosphatase 65 U/L (46-116); Anion Gap 7 mmol/L (8-16); Aspartate Amino Transferase 18 U/L (15-37); Bilirubin,Total 0.3 mg/dL (0.00-1.00); Blood Urea Nitrogen 18 mg/dL (7-18); Carbon Dioxide 28 mmol/L (21-32); Chloride 105 mmol/L (98-108); Estimated Glomerular Filt Rate 52; Glucose 98 mg/dL (70-99); Osmolality Calculated 291 mOsm/kg (285-295); Sodium 140 mmol/L (136-145); Thyroid Stimulating Hormone 32.79 uIU/mL (0.36-3.74); Total Protein 7.9 g/dL (6.4-8.2); Troponin I 4.7 ng/L (0.00-60.4)
[2021-10-14 13:55] VITALS: BP 125/80; PULSE 66; RESP 16; TEMP 36.2; O2SAT 98
== END 2021-10-14 14:09 | disposition home or self-care (01) ==
PROVIDERS: Emergency Provider Emergency Medicine; PCP Physician Assistant
DX: F41.9 Anxiety disorder, unspecified (principal); E03.9 Hypothyroidism, unspecified
CPT/HCPCS: 36415; 80053; 84443; 84484; 85025; 93005; 99284; A9270

== ENCOUNTER 2021-10-18 07:24 | Outpatient (CLI) | payer BC, SELFPAY ==
--- NOTE | ~2021-10-18 | US_ITS ---
EXAMINATION: US thyroid DATE: 10/18/2021 07:41 INDICATION: Hypothyroidism. TECHNIQUE: Multiple ultrasound images of the thyroid were obtained. COMPARISON: None. FINDINGS: The right thyroid lobe measures 3.0 x 1.6 x 1.2 cm. The left thyroid lobe measures 3.2 x 1.0 x 0.9 c m. The thyroid demonstrates heterogeneous echogenicity. Vascularity is normal. No discrete nodule. IMPRESSION: 1. Heterogeneous thyroid, consistent with chronic lymphocytic (Harshil) thyroiditis. Reviewed, dictated and finalized at location A. IMPRESSION: 1. Heterogeneous thyroid, consistent with chronic lymphocytic (Harshil) thyro iditis.
== END 2021-10-18 07:25 | disposition home or self-care (01) ==
LOC: CHSIMG 07:25
PROVIDERS: PCP Physician Assistant; Visit Provider Physician Assistant
DX: E03.9 Hypothyroidism, unspecified (principal)
CPT/HCPCS: 76536

== ENCOUNTER 2021-11-13 22:28 | Emergency (ER) | payer BC, SELFPAY ==
--- NOTE | ~2021-11-13 | XR_ITS ---
EXAMINATION: XR chest 1V portable DATE: 11/13/2021 23:22 INDICATION: Palpitations. TECHNIQUE: A single frontal view of the chest was obtained. COMPARISON: Chest single view 03/12/2021 FINDINGS: The chest demonstrates clear lungs without pneumonia, pleural effusion, or pneumothorax. Th e heart size is normal. IMPRESSION: 1. No acute cardiopulmonary disease. Reviewed, dictated and finalized at location A.
[2021-11-13 22:43] VITALS: BP 162/92; PULSE 81; RESP 18; TEMP 36.5; O2SAT 100
--- NOTE | 2021-11-13 22:54 | PC.NURSE ---
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 ERP at bedside to assess Pt.
--- NOTE | 2021-11-13 23:04 | ECG_ITS ---
Measurements Intervals [place] Rate: 69 P: 38 OK: 163 QRS: -11 QRSD: 77 T: 19 QT: 393 QTc: 422 Interpretive Statements SINUS RHYTHM LOW QRS VOLTAGE IN PRECORDIAL LEADS BORDERLINE R WAVE PROGRESSION, ANTERIOR LEADS BORDERLINE T WAVE ABNORMALITY- ANT/INF LEADS BASELINE ARTIFACT- I, II, AVL, V1-V3 BORDERLINE ECG Electronically Signed On 11-14-2021 6:35:51 CDT by Ryan Sun D.O.
--- NOTE | 2021-11-13 23:10 | ED.ANXIETY ---
HPI - Anxiety General Chief Complaint: Anxiety Stated Complaint: panic attack Time Seen by Provider: 11/13/21 22:32 Source: patient and RN notes reviewed Mode of arrival: ambulatory Limitations: no limitations History of Present Illness MD complaint: anxiety and heart racing Onset (ago): hour(s) (1) Symptoms: palpitations and other (feels as if she cannot swallow) Severity: mild Quality: constant Place: outdoors History of similar episodes: Yes Provoking factors: none known Relieving factors: medication Exacerbating factors: nothing Associated symptoms: palpitations Related Data Home Medications Medication Instructions Recorded Confirmed alprazolam 0.25 mg tablet (Xanax) 0.25 mg PO BID PRN Anxiety 12/05/20 11/13/21 levothyroxine 100 mcg tablet 100 mcg PO DAILY 03/12/21 11/13/21 Allergies Allergy/AdvReac Type Severity Reaction Status Date / Time ciprofloxacin Allergy Intermediate RASH Verified 11/13/21 22:39 SWELLING nitrofurantoin Allergy Intermediate RASH/SWELLI Verified 11/13/21 22:39 NG Penicillins Allergy Intermediate RASH/SWELLI Verified 11/13/21 22:39 NG sulfamethoxazole Allergy Intermediate RASH Verified 11/13/21 22:39 trimethoprim Allergy Intermediate RASH Verified 11/13/21 22:39 Sulfa (Sulfonamide Allergy Unknown Hives Verified 11/13/21 22:39 Antibiotics) Review of Systems Review of Systems: All systems reviewed & are unremarkable except as noted in HPI and below PMFSH Past Medical History Medical History (Updated 11/14/21 @ 00:56 by Thomas Díaz MD) Anxiety Chronic kidney disease Heart palpitations Hypothyroidism Surgical History Surgical History H/O: hysterectomy History of cholecystectomy History of right hip replacement Family History Family History Mother Family history of thyroid disease Grandparent Diabetes mellitus, Onset Age: 75 Family history of congestive heart failure, Onset Age: 72 Father Family history of elevated blood lipids Other Family history of malignant neoplasm Social History Social History Smoking status: Never smoker Second hand tobacco smoke exposure: No Alcohol intake: current Substance use type: does not use Gender identity (if verbalized by the patient): Female Exam Const: General: healthy appearing and no acute distress Nutritional Appearance: well nourished Orientation/consciousness: patient oriented x3 Limitations: no limitations HENMT: Head: normal to inspection Ears: external ears normal, TM's normal bilaterally and EAC's normal General nose exam: Normal external nose present and Normal nares present Face and sinus: normal facial exam and sinuses nontender Mouth: Yes Normal oral and palatal mucosa present, Yes lip normal and Yes moist mucous membranes Teeth and gingiva: dentition normal Throat: posterior oropharynx normal Eyes: Conjunctivae: conjunctivae normal Pupils: Equal, round and reactive pupils present EOM: EOMs intact bilaterally Neck: Neck: normal visual inspection and no lymphadenopathy Chest: Chest palpation & inspection: normal inspection of the chest Resp: Effort & Inspection: normal respiratory effort Auscultation: clear to auscultation bilaterally Cardio: Rate: regular rate Rhythm: regular rhythm GI: GI Palp: Yes Soft to palpation and No Tenderness to palpation present (GI) Auscultation: normal bowel sounds : General: Yes bladder normal to palpation and Yes no CVA tenderness Back/Spine/Pelvis: Back: no CVA tenderness Skin: General skin exam: normal color Neuro: General: patient oriented x3, moves all extremities, no meningeal signs, no focal motor deficits and CN's II-XI intact bilaterally Speech: normal speech Gait exam (Neuro): Normal gait present Extrem: General: normal to inspection and
[2021-11-13] MEDS: SODIUM CHLORIDE 0.9% IV 1,000 ML 999 ML IV CONT (23:22)
[2021-11-13 23:23] LABS: Basophils Absolute Auto 0.02 K/mm3 (0.00-0.10); Basophils Percent Auto 0.3 % (0.0-1.0); Eosinophils Absolute Auto 0.13 K/mm3 (0.02-0.50); Hematocrit 41.4 % (35.0-49.0); Hemoglobin 13.8 g/dL (12.0-15.0); Immature Granulocyte Absolute 0.02 K/mm3 (0.00-0.00); Immature Granulocyte Percent A 0.3 % (0.0-0.0); Lymphocytes Absolute Auto 2.92 K/mm3 (1.10-4.50); Lymphocytes Percent Auto 45.6 % (18.0-42.0); Mean Corpuscular HGB Conc 33.3 g/dL (32.0-36.0); Mean Corpuscular Hemoglobin 30.7 pg (27.0-31.0); Mean Corpuscular Volume 92.2 fL (78.0-102.0); Mean Platelet Volume 9.5 fl (9.2-11.8); Monocytes Percent Auto 7.8 % (2.0-11.0); Neutrophils Absolute Auto 2.8 K/mm3 (1.7-7.2); Platelet Count Result 298 K/mm3 (150-420); Red Blood Count 4.49 M/mm3 (4.20-5.40); Red Cell Distribution Width 12.5 % (11.6-14.4); White Blood Count 6.4 K/mm3 (4.8-10.8)
[2021-11-13 23:25] LABS: Appearance Urine Clear (Clear); Bilirubin Urine Negative (Negative); Color Urine Light Yellow (Yellow); Glucose Urine UA Negative (Negative); Ketones Urine Negative (Negative); Leukocyte Esterase Ur 2+ (Negative); Nitrate Urine Negative (Negative); Protein Urine Negative (Negative); Specific Grav Ur <= 1.005 (1.010-1.020); Urobilinogen Urine 0.2 mg/dL (0.2-1.0)
[2021-11-13 23:30] LABS: Add Urine Microscopic? YES; Blood Urine Trace-Intact (Negative)
[2021-11-13 23:31] LABS: Amphetamine Screen Urine Negative (Negative); Bacteria Urine Trace /hpf; Barbiturate Screen Urine Negative (Negative); Benzodiazepines Screen Urine Negative (Negative); Cannabinoid Screen Urine Negative (Negative); Cocaine Screen Urine Negative (Negative); Methadone Screen Urine Negative (Negative); Opiate Screen Urine Negative (Negative); Phencyclidine Screen Urine Negative (Negative); RBC Urine 0-2 /hpf (0-2); Squamous Epithelial Cell Urine Few /hpf (Few)
[2021-11-13 23:47] LABS: Alanine Aminotransferase 36 U/L (14-59); Albumin Level 4.2 g/dL (3.4-5.0); Alkaline Phosphatase 74 U/L (46-116); Anion Gap 7 mmol/L (8-16); Aspartate Amino Transferase 21 U/L (15-37); Bilirubin,Total 0.5 mg/dL (0.00-1.00); Blood Urea Nitrogen 13 mg/dL (7-18); Calcium 9.1 mg/dL (8.5-10.1); Carbon Dioxide 29 mmol/L (21-32); Chloride 104 mmol/L (98-108); Estimated CRCL calculation 51 ml/min; Estimated Glomerular Filt Rate 54; Glucose 114 mg/dL (70-99); Osmolality Calculated 291 mOsm/kg (285-295); Potassium 3.5 mmol/L (3.5-5.1); Sodium 140 mmol/L (136-145); Total Protein 7.7 g/dL (6.4-8.2); Troponin I 4.3 ng/L (0.00-60.4)
[2021-11-13 23:48] LABS: Ethanol < 3 mg/dL (0-6)
[2021-11-14 00:36] VITALS: BP 140/89; PULSE 73; RESP 16; O2SAT 98
--- NOTE | 2021-11-14 00:58 | PC.NURSE ---
ERP ordered rocephin for UTI. Pt concerned that she is allergic to medication, saying usually the only thing I take is levaquin . Confirmed with ERP that rocephin is safe to take with Pt's listed allergies. Pt refusing medication at this time, saying I've had enough excitement today. I'll follow up with my doctor tomorrow about the UTI . ERP aware.
[2021-11-14 01:07] VITALS: BP 148/93; PULSE 76; RESP 18; TEMP 36.5; O2SAT 99
== END 2021-11-14 01:11 | disposition home or self-care (01) ==
PROVIDERS: Emergency Provider Emergency Medicine; PCP Physician Assistant
DX: F41.9 Anxiety disorder, unspecified (principal); N39.0 Urinary tract infection, site not specified; N18.9 Chronic kidney disease, unspecified; E03.9 Hypothyroidism, unspecified; R00.2 Palpitations; Z96.641 Presence of right artificial hip joint; Z79.899 Other long term (current) drug therapy
CPT/HCPCS: 36415; 71045; 80053; 80307; 81001; 84443; 84484; 85025; 93005; 96360; 99284; J7030

== ENCOUNTER 2021-11-29 07:05 | Outpatient (CLI) | payer BC, SELFPAY ==
[2021-11-29 08:24] LABS: Hemoglobin A1C 5.3 % (<5.7)
[2021-11-29 08:46] LABS: Alanine Aminotransferase 30 U/L (14-59); Alkaline Phosphatase 76 U/L (46-116); Anion Gap 6 mmol/L (8-16); Aspartate Amino Transferase 15 U/L (15-37); Bilirubin,Total 0.5 mg/dL (0.00-1.00); Blood Urea Nitrogen 18 mg/dL (7-18); Calcium 9.1 mg/dL (8.5-10.1); Carbon Dioxide 31 mmol/L (21-32); Chloride 105 mmol/L (98-108); Cholesterol 202 mg/dL (0-200); Estimated Glomerular Filt Rate 53; Free T3 2.09 pg/mL (2.18-3.98); Free T4 Free Thyroxine 0.92 ng/dL (0.76-1.46); Glucose 99 mg/dL (70-99); HDL Direct 42 mg/dL (40-60); LDL Cholesterol Calculated 130 mg/dL (<130); Osmolality Calculated 295 mOsm/kg (285-295); Potassium 4.1 mmol/L (3.5-5.1); Sodium 142 mmol/L (136-145); Thyroid Stimulating Hormone 5.07 uIU/mL (0.36-3.74); Total Protein 7.6 g/dL (6.4-8.2); Triglycerides 151 mg/dL (0-150); Vitamin B12 400 pg/mL (193-986)
[2021-12-02 07:00] LABS: Folic Acid 15.2 ng/mL (8.6->20)
[2021-12-02 07:58] LABS: Insulin Level Total 9.1 uIU/mL (<=19.6); Thyroid Peroxidase Antibodies 68 IU/mL (<9)
[2021-12-04 10:55] LABS: Metanephrine, Free <25 pg/mL (<=57); Normetanephrine, Free 76 pg/mL (<=148); Total, Free (MN + NMN) 76 pg/mL (<=205)
[2021-12-09 13:36] LABS: Chromogranin A 117
== END 2021-11-29 07:06 | disposition home or self-care (01) ==
LOC: CHSLAB 07:09
PROVIDERS: PCP Physician Assistant; Visit Provider Internal Medicine Endocrinology, Diabetes & Metabolism
DX: F41.9 Anxiety disorder, unspecified (principal); R73.01 Impaired fasting glucose; E03.9 Hypothyroidism, unspecified
CPT/HCPCS: 36415; 80053; 80061; 82607; 82746; 83036; 83525; 83835; 84439; 84443; 84481; 86316; 86376

== ENCOUNTER 2022-03-04 17:57 | Outpatient (CLI) | payer BC, SELFPAY ==
[2022-03-04 18:44] LABS: Alanine Aminotransferase 31 U/L (14-59); Albumin Level 3.9 g/dL (3.4-5.0); Alkaline Phosphatase 75 U/L (46-116); Anion Gap 6 mmol/L (8-16); Aspartate Amino Transferase 21 U/L (15-37); Bilirubin,Total 0.3 mg/dL (0.00-1.00); Blood Urea Nitrogen 16 mg/dL (7-18); Calcium 8.7 mg/dL (8.5-10.1); Carbon Dioxide 28 mmol/L (21-32); Chloride 106 mmol/L (98-108); Estimated Glomerular Filt Rate 46; Free T3 1.92 pg/mL (2.18-3.98); Free T4 Free Thyroxine 0.96 ng/dL (0.76-1.46); Glucose 114 mg/dL (70-99); Osmolality Calculated 292 mOsm/kg (285-295); Potassium 3.7 mmol/L (3.5-5.1); Sodium 140 mmol/L (136-145); Thyroid Stimulating Hormone 5.99 uIU/mL (0.36-3.74); Total Protein 6.8 g/dL (6.4-8.2)
== END 2022-03-04 17:58 | disposition home or self-care (01) ==
LOC: CHSLAB 18:02
PROVIDERS: PCP Physician Assistant; Visit Provider Internal Medicine Endocrinology, Diabetes & Metabolism
DX: E03.9 Hypothyroidism, unspecified (principal)
CPT/HCPCS: 36415; 80053; 84439; 84443; 84481

== ENCOUNTER 2022-03-10 14:23 | Emergency (ER) | payer BC, SELFPAY ==
[2022-03-10] VITALS (10 sets, daily range): BP systolic 126–136; BP diastolic 85–97; PULSE 75–89; RESP 0–24; TEMP 36.5; O2SAT 96–100
--- NOTE | ~2022-03-10 | XR_ITS ---
XR chest 1V portable DATE: 03/10/2022 14:55 INDICATION: Palpitations TECHNIQUE: Portable AP chest on 03/10/2022 at 1457 hours COMPARISON: 11/13/2021 portable AP chest at 2326 hours FINDINGS: Normal heart size. No hilar or mediastinal enlargement. No pulmonary infiltrate or consolid ation, pleural effusion or pulmonary vascular congestion or pneumothorax. Included skeletal structures are unremarkable. IMPRESSION: No active cardiopulmonary disease Reviewed, dictated and finalized at location B.
--- NOTE | 2022-03-10 14:32 | ECG_ITS ---
Measurements Intervals [place] Rate: 82 P: 60 VA: 156 QRS: 8 QRSD: 80 T: 49 QT: 359 QTc: 422 Interpretive Statements SINUS RHYTHM DELAYED PRECORDIAL R/S TRANSITION LOW QRS VOLTAGE IN PRECORDIAL LEADS BORDERLINE T WAVE ABNORMALITY- ANTERIOR LEADS BORDERLINE ECG COMPARED TO ECG 11/13/2021 23:25:31 NO SIGNIFICANT CHANGES Electronically Signed On 03-10-2022 16:59:40 CDT by Ryan Sun D.O.
[2022-03-10 14:53] LABS: Basophils Absolute Auto 0.03 K/mm3 (0.00-0.10); Basophils Percent Auto 0.5 % (0.0-1.0); Eosinophils Absolute Auto 0.16 K/mm3 (0.02-0.50); Eosinophils Percent Auto 2.7 % (1.0-6.0); Hematocrit 38.8 % (35.0-49.0); Hemoglobin 13.3 g/dL (12.0-15.0); Immature Granulocyte Absolute 0.01 K/mm3 (0.00-0.00); Immature Granulocyte Percent A 0.2 % (0.0-0.0); Lymphocytes Absolute Auto 2.24 K/mm3 (1.10-4.50); Lymphocytes Percent Auto 37.3 % (18.0-42.0); Mean Corpuscular HGB Conc 34.3 g/dL (32.0-36.0); Mean Corpuscular Hemoglobin 30.8 pg (27.0-31.0); Mean Corpuscular Volume 89.8 fL (78.0-102.0); Monocytes Absolute Auto 0.45 K/mm3 (0.10-0.90); Monocytes Percent Auto 7.5 % (2.0-11.0); Neutrophils Absolute Auto 3.1 K/mm3 (1.7-7.2); Neutrophils Percent Auto 51.8 % (50.0-70.0); Platelet Count Result 257 K/mm3 (150-420); Red Blood Count 4.32 M/mm3 (4.20-5.40); Red Cell Distribution Width 12.3 % (11.6-14.4)
[2022-03-10] MEDS: SODIUM CHLORIDE 0.9% IV 1,000 ML 999 ML IV CONT (15:00)
[2022-03-10 15:13] LABS: Amphetamine Screen Urine Negative (Negative); Barbiturate Screen Urine Negative (Negative); Benzodiazepines Screen Urine Negative (Negative); Cannabinoid Screen Urine Negative (Negative); Cocaine Screen Urine Negative (Negative); Methadone Screen Urine Negative (Negative); Opiate Screen Urine Negative (Negative); Phencyclidine Screen Urine Negative (Negative)
[2022-03-10 15:17] LABS: Alanine Aminotransferase 27 U/L (14-59); Alkaline Phosphatase 71 U/L (46-116); Anion Gap 7 mmol/L (8-16); Aspartate Amino Transferase 17 U/L (15-37); Bilirubin,Total 0.4 mg/dL (0.00-1.00); Blood Urea Nitrogen 16 mg/dL (7-18); Calcium 8.9 mg/dL (8.5-10.1); Carbon Dioxide 28 mmol/L (21-32); Chloride 104 mmol/L (98-108); Estimated CRCL calculation 42 ml/min; Estimated Glomerular Filt Rate 45; Glucose 105 mg/dL (70-99); Osmolality Calculated 289 mOsm/kg (285-295); Potassium 3.6 mmol/L (3.5-5.1); Sodium 139 mmol/L (136-145); Thyroid Stimulating Hormone 8.01 uIU/mL (0.36-3.74); Total Protein 7.1 g/dL (6.4-8.2); Troponin I 5.6 ng/L (0.00-60.4)
[2022-03-10 15:18] LABS: Ethanol < 3 mg/dL (0-6)
--- NOTE | 2022-03-10 15:35 | ED.ARRPALP ---
HPI - Arrhythmia/Palpitations General Chief Complaint: Arrhythmia/Palpitations Stated Complaint: heart palpatations Time Seen by Provider: 03/10/22 14:27 History of Present Illness HPI narrative: Patient experienced 2 now resolved episodes of heart palpitations. No acute chest pain or shortness of breath. MD complaint: rapid heart beat, heart racing , skipped beats and palpitations Onset (ago): hour(s) (2) Duration: now resolved Severity: mild Context: occurred during exertion Arrhythmia history: atrial fibrillation Associated symptoms: denies other symptoms and chest pain Treatments prior to arrival: other (none.) Related Data Home Medications Medication Instructions Recorded Confirmed alprazolam 0.25 mg tablet (Xanax) 0.25 mg PO BID PRN Anxiety 12/05/20 03/10/22 levothyroxine 100 mcg tablet 100 mcg PO DAILY 03/12/21 03/10/22 Allergies Allergy/AdvReac Type Severity Reaction Status Date / Time ciprofloxacin Allergy Intermediate RASH Verified 03/10/22 14:32 SWELLING nitrofurantoin Allergy Intermediate RASH/SWELLI Verified 03/10/22 14:32 NG Penicillins Allergy Intermediate RASH/SWELLI Verified 03/10/22 14:32 NG sulfamethoxazole Allergy Intermediate RASH Verified 03/10/22 14:32 trimethoprim Allergy Intermediate RASH Verified 03/10/22 14:32 Sulfa (Sulfonamide Allergy Unknown Hives Verified 03/10/22 14:32 Antibiotics) Review of Systems Review of Systems: All systems reviewed & are unremarkable except as noted in HPI and below Constitutional: Constitutional: Reports no additional constitutional complaints Eyes: Eyes: Reports no additional eye complaints ENT: Reports system reviewed and no additional complaints, except as documented Cardiovascular: Cardiovascular: Reports no additional cardiovascular complaints and Reports rapid heart rate Respiratory: Respiratory: Reports no additional respiratory complaints Gastrointestinal: Gastrointestinal: Reports no additional gastrointestinal complaints Genitourinary: Genitourinary: Reports no additional female genitourinary complaints Musculoskeletal: Musculoskeletal: Reports no additional musculoskeletal complaints Integumentary/Breasts: Skin/Breast: Reports system reviewed and no additional complaints, except as docu Neurologic: Reports system reviewed and no additional complaints, except as documented Psychiatric: Psychiatric: Reports no additional psychiatric complaints Endocrine: Endocrine: Reports no additional endocrine complaints Hematologic/Lymphatic: Hematologic/Lymphatic: Reports no additional hematologic/lymphatic complaints Allergic/Immunologic: Allergic/Immunologic: Reports no additional allergic/immunologic complaints PMFSH Past Medical History Medical History Anxiety Chronic kidney disease Heart palpitations Hypothyroidism Surgical History Surgical History H/O: hysterectomy History of cholecystectomy History of right hip replacement Family History Family History Mother Family history of thyroid disease Grandparent Diabetes mellitus, Onset Age: 75 Family history of congestive heart failure, Onset Age: 72 Father Family history of elevated blood lipids Other Family history of malignant neoplasm Social History Social History Smoking status: Never smoker Second hand tobacco smoke exposure: No Alcohol intake: current Substance use type: does not use Gender identity (if verbalized by the patient): Female Exam Const: General: healthy appearing and no acute distress Nutritional Appearance: well nourished Orientation/consciousness: patient oriented x3 Limitations: no limitations HENMT: Head: normal to inspection Ears: external ears normal, TM's normal bilaterally
--- NOTE | 2022-03-10 15:37 | PC.NURSE ---
PT IS SITTING ON STRETCHER, NAD NOTED. PT DENIES ANY NEEDS OR COMPLAINTS. VSS PER MONITOR. WILL CONTINUE TO MONITOR.
== END 2022-03-10 15:50 | disposition home or self-care (01) ==
PROVIDERS: Emergency Provider Emergency Medicine; PCP Physician Assistant
DX: R00.2 Palpitations (principal); E03.9 Hypothyroidism, unspecified
CPT/HCPCS: 36415; 71045; 80053; 80307; 84443; 84484; 85025; 93005; 96360; 99284; J7030

== ENCOUNTER 2022-03-26 07:23 | Outpatient (CLI) | payer BC, SELFPAY ==
--- NOTE | ~2022-03-26 | CT_ITS ---
EXAMINATION: CT abdomen pelvis w con DATE: 03/26/2022 08:16 INDICATION: RT sided abd discomfort/fullness/stiffness x2mo inermittent . History of remote cholecyst ectomy and partial hysterectomy. TECHNIQUE: Computed tomography (CT) of the abdomen and pelvis was performed with 100 mL Omnipaque-350 intravenous contrast. Automated exposure control and iterative reconstruction technique were employe d. The dose-length product was 619.62 mGy-cm. COMPARISON: None. FINDINGS: Lower thorax: Unremarkable Liver: Diffuse fatty infiltration. Biliary/Gallbladder: Gallbladder is absent. No bile duct dilation. Pancreas: Multiple ill-defined hypodense areas in the pancreatic body and pancreatic head. Spleen: Normal. Adrenals:No mass. Kidneys: No mass, stone, or hydronephrosis. GI tract: Mild distal esophageal and gastric wall edema. No small or large bowel dilation. Normal ector endix. Diverticulosis without diverticulitis. Mesentery/Peritoneum: No ascites, mass, or free air. Retroperitoneum: No mass. Pelvis: Obscuration by metallic artifact. Pelvic organs are unremarkable. Soft Tissues: Soft tissues and body wall unremarkable. Bones: No acute osseous finding. Uncomplicated but partially visualized right hip arthroplasty. IMPRESSION: Mild esophagitis/gastritis. Steatosis. Ill-defined hypodensities in the pancreatic head and body, cor relate with pancreatic labs and consider MR of the pancreas for further evaluation. Reviewed, dictated and finalized at location K. IMPRESSION: Mild esophagitis/gastritis. Steatosis. Ill-defined hypodensities in the pancrea tic head and body, correlate with pancreatic labs and consider MR of the pancre as for further evaluation.
[2022-03-26 08:06] LABS: Estimated Glomerular Filt Rate 54
== END 2022-03-26 07:24 | disposition home or self-care (01) ==
LOC: CHSIMG 07:26
PROVIDERS: PCP Physician Assistant; Visit Provider Physician Assistant
DX: R10.9 Unspecified abdominal pain (principal)
CPT/HCPCS: 74177; Q9967

== ENCOUNTER 2022-04-24 06:49 | Outpatient (CLI) | payer BC, SELFPAY ==
--- NOTE | ~2022-04-24 | MR_ITS ---
EXAMINATION: MR abdomen wo/w con DATE: 04/24/2022 08:46 INDICATION: Abnormal findings at the pancreas on prior diagnostic CT imaging TECHNIQUE: Magnetic resonance imaging (MRI) of the abdomen was performed without and with 16 mL Multi [place] intravenous contrast. Sequences included coronal T2-weighted SS-FSE, coronal T2-weighted FS SS -FSE, coronal T2-weighted FS FIESTA, axial T2-weighted FS FIESTA, axial T2-weighted FIESTA, sagittal T2-weighted SS-FSE, axial T1-weighted dual-echo FSPGR, axial T2-weighted SS-FSE, axial T1-weighted LA VA, axial T2-weighted STIR FSE. Thick-slab T2-weighted FRFSE-XL images were obtained for magnetic res onance cholangiopancreatography (MRCP). Rotating maximum intensity projection 3-D reconstructions of the volumetric data were created by the technologist. Postcontrast sequences included a time course o f axial T1-weighted LAVA. COMPARISON: CT abdomen and pelvis dated 03/26/2022 FINDINGS: Heart size is normal. No pericardial or pleural effusion. Diffuse hepatic steatosis with signal dropo ut on opposed phase images. Cholecystectomy clips the gallbladder fossa. Spleen, bilateral adrenal gl ands and kidneys are normal. There is some fatty infiltration in the region of the head and neck of t he pancreas with small foci of T1 hyperintense and saturating fat which correspond to the regions of the decreased attenuation on CT. Pancreatic parenchymal enhancement at appears otherwise uniform with no concerning pancreatic lesions identified. Common bile duct, intrahepatic biliary tree and main pa ncreatic duct are all normal. Visualized bowels are unremarkable. No pathologically enlarged abdomina l lymphadenopathy. Normal bone marrow signal throughout. IMPRESSION: 1. Mild fatty infiltration of the head and neck of the pancreas which accounts for the foci of decrea sed attenuation on prior CT. 2. Diffuse hepatic steatosis. Reviewed, dictated and finalized at location B. IMPRESSION: 1. Mild fatty infiltration of the head and neck of the pancreas which accounts for the foci of decreased attenuation on prior CT. 2. Diffuse hepatic steatosis.
== END 2022-04-24 06:50 | disposition home or self-care (01) ==
LOC: CHSIMG 06:50
PROVIDERS: PCP Physician Assistant; Visit Provider Physician Assistant
DX: R93.3 Abnormal findings on diagnostic imaging of other parts of digestive tract (principal)
CPT/HCPCS: 74183; A9577

== ENCOUNTER 2022-04-29 01:25 | Day surgery (SDC) | payer BC, SELFPAY ==
[2022-04-21 13:58] VITALS: BMI 30.4
[2022-04-29 09:27] VITALS: BP 167/86; PULSE 85; RESP 17; TEMP 36.6; O2SAT 100
[2022-04-29] MEDS: LACTATED RINGERS 1,000 ML 150 ML IV CONT (09:39)
--- NOTE | 2022-04-29 10:02 | WPDANESEPPF ---
Anes - Initial Pre Proc Eval Procedure: Operation Date: 04/29/22 10:45 Proposed Procedures p Esophagogastroduodenoscopy EGD - Jeovany Ha MD Date/Time: 04/29/22 10:02 Surgeon: Jeovany Ha MD Pre Op Diagnosis: GERD Patient Data Age: 62 Gender: F Height: 1.6 m Weight: 75.7 kg Last Vital Signs Temp 36.6 C 04/29/22 09:27 Pulse 85 04/29/22 09:27 Resp 17 04/29/22 09:27 BP 167/86 H 04/29/22 09:27 Pulse Ox 100 04/29/22 09:27 O2 Del Method Room Air 04/29/22 09:27 Allergies Allergy/AdvReac Type Severity Reaction Status Date / Time ciprofloxacin Allergy Intermediate RASH Verified 04/29/22 09:25 SWELLING nitrofurantoin Allergy Intermediate RASH/SWELLI Verified 04/29/22 09:25 NG Penicillins Allergy Intermediate RASH/SWELLI Verified 04/29/22 09:25 NG sulfamethoxazole Allergy Intermediate RASH Verified 04/29/22 09:25 trimethoprim Allergy Intermediate RASH Verified 04/29/22 09:25 Sulfa (Sulfonamide Allergy Unknown Hives Verified 04/29/22 09:25 Antibiotics) injection with animal Allergy Unknown Uncoded 04/29/22 09:25 derivatives Home Medications Medication Instructions Recorded Confirmed Type alprazolam 0.25 mg tablet (Xanax) 0.25 mg PO BID PRN Anxiety 12/05/20 04/29/22 History aspirin 81 mg tablet 81 mg PO DAILY 04/21/22 04/29/22 History levothyroxine 112 mcg tablet 112 mcg PO DAILY 04/21/22 04/29/22 History Patient hx anesthesia problems: none Family hx anesthesia problems: none Results Review: All pre-operative results and documents have been reviewed as part of the pre-operative evaluation. FOR[facility]LY [facility], [facility] Past Medical History Medical History Anxiety Chronic kidney disease Depression GERD (gastroesophageal reflux disease) Heart palpitations Hypothyroidism Panic attacks Surgical History Surgical History H/O: hysterectomy History of cholecystectomy History of right hip replacement Family History Family History Mother Family history of thyroid disease Grandparent Diabetes mellitus, Onset Age: 75 Family history of congestive heart failure, Onset Age: 72 Father Family history of elevated blood lipids Other Family history of malignant neoplasm Social History Social History Smoking status: Never smoker Second hand tobacco smoke exposure: No Alcohol intake: current Substance use type: does not use Gender identity (if verbalized by the patient): Female Spiritual care concerns: No Anes - Eval Final PreProcedure Day of Procedure 04/29/22 10:02 Patient weight: overweight Heart: regular rate and rhythm Lungs: clear to auscultation Airway: Mallampati scale class II Neurological: alert and oriented Last oral intake: >/= 8 hours ASA classification: III Emergent: no Anesthetic plan: proceed Anesthesia type and monitoring: general GIVS and standard monitoring Results Review: All pre-operative results and documents have been reviewed as part of the pre-operative evaluation. Informed Consent: The patient's anesthetic plan and its attendant risks and benefits were discussed with the patient/family/POA. Questions were solicited and answers provided to the satisfaction of the patient/family/POA.
--- NOTE | 2022-04-29 10:48 | PM.HPGS ---
History of Present Illness History of Present Illness Consent: Risks, benefits, and alternatives have been discussed and questions answered. Patient agrees to proceed with procedure. Chief complaint: GERD Narrative: Chong Aggarwal is a 62 year old female with epigastric pain that prompted CT scan that showed mild esophagitis, MRI pancreas only fatty infiltration. She also noted few occasions food getting stuck after eating dry meat. Review of Systems Constitutional: Constitutional: Denies headache(s) and Denies weakness Eyes: Eyes: Denies blurry vision ENT: Reports Normal hearing present, Denies headache(s) and Denies neck pain Cardiovascular: Cardiovascular: Denies chest pain and Denies dyspnea Respiratory: Respiratory: Denies dyspnea Gastrointestinal: Gastrointestinal: Reports no additional gastrointestinal complaints Genitourinary: Genitourinary: Denies dysuria Musculoskeletal: Musculoskeletal: Denies neck pain Integumentary/Breasts: Skin/Breast: Denies dry skin Neurologic: Reports Normal hearing present, Denies headache(s) and Denies weakness Psychiatric: Psychiatric: Denies anxiety Endocrine: Endocrine: Denies change in body appearance Hematologic/Lymphatic: Hematologic/Lymphatic: Denies easy bleeding Allergic/Immunologic: Allergic/Immunologic: Denies urticaria PMFSH Past Medical History Medical History Anxiety Chronic kidney disease Depression GERD (gastroesophageal reflux disease) Heart palpitations Hypothyroidism Panic attacks Surgical History Surgical History H/O: hysterectomy History of cholecystectomy History of right hip replacement Family History Family History Mother Family history of thyroid disease Grandparent Diabetes mellitus, Onset Age: 75 Family history of congestive heart failure, Onset Age: 72 Father Family history of elevated blood lipids Other Family history of malignant neoplasm Social History Social History Smoking status: Never smoker Second hand tobacco smoke exposure: No Alcohol intake: current Substance use type: does not use Gender identity (if verbalized by the patient): Female Spiritual care concerns: No Meds Home Medications and Allergies Home Medications Medication Instructions Recorded Confirmed Type alprazolam 0.25 mg tablet (Xanax) 0.25 mg PO BID PRN Anxiety 12/05/20 04/29/22 History aspirin 81 mg tablet 81 mg PO DAILY 04/21/22 04/29/22 History levothyroxine 112 mcg tablet 112 mcg PO DAILY 04/21/22 04/29/22 History Allergies Allergy/AdvReac Type Severity Reaction Status Date / Time ciprofloxacin Allergy Intermediate RASH Verified 04/29/22 09:25 SWELLING nitrofurantoin Allergy Intermediate RASH/SWELLI Verified 04/29/22 09:25 NG Penicillins Allergy Intermediate RASH/SWELLI Verified 04/29/22 09:25 NG sulfamethoxazole Allergy Intermediate RASH Verified 04/29/22 09:25 trimethoprim Allergy Intermediate RASH Verified 04/29/22 09:25 Sulfa (Sulfonamide Allergy Unknown Hives Verified 04/29/22 09:25 Antibiotics) injection with animal Allergy Unknown Uncoded 04/29/22 09:25 derivatives Vital Signs Vital Signs - 24 hr 04/29/22 09:27 Temperature 97.9 F Pulse Rate 85 Respiratory Rate 17 Blood Pressure 167/86 H Pulse Oximetry 100 Oxygen Delivery Room Air Exam Const: General: comfortable and no acute distress HENMT: Face/Nose/Sinus: Normal nares present Eyes: General: appearance normal, both eyes and all related structures Neck: Neck: no JVD Resp: Auscultation: clear to auscultation bilaterally Cardio: Rate: regular rate Rhythm: regular rhythm GI: Inspection: non-distended GI Palp: Yes Soft to palpation Skin: General skin exam:
[2022-04-29 11:15] VITALS: BP 123/82; PULSE 75; RESP 30; O2SAT 100
[2022-04-29 11:25] VITALS: BP 130/90; PULSE 73; RESP 18; O2SAT 100
[2022-04-29 11:35] VITALS: BP 138/96; PULSE 70; RESP 22; O2SAT 100
== END 2022-04-29 11:44 | disposition home or self-care (01) ==
PROVIDERS: PCP Physician Assistant; Visit Provider Internal Medicine Gastroenterology
PROC: 0DJ08ZZ Inspection of Upper Intestinal Tract, Via Natural or Artificial Opening Endoscopic (ICD-10-PCS; CPT 43235; principal; 2022-04-29 10:45)
DX: K22.2 Esophageal obstruction (principal); K44.9 Diaphragmatic hernia without obstruction or gangrene; K29.70 Gastritis, unspecified, without bleeding; Z79.82 Long term (current) use of aspirin; F41.9 Anxiety disorder, unspecified
CPT/HCPCS: 43239; 43249; 88305; C1726; J2704; J7120

== ENCOUNTER 2022-07-26 18:50 | Emergency (ER) | payer BC, SELFPAY ==
[2022-07-26 18:56] VITALS: BP 155/88; PULSE 88; RESP 17; TEMP 36.6; O2SAT 100
--- NOTE | 2022-07-26 19:10 | ED.ANXIETY ---
HPI - Anxiety General Chief Complaint: Dizziness Stated Complaint: BP 159/105, felt like she was having panic attack Time Seen by Provider: 07/26/22 19:10 Source: patient Mode of arrival: ambulatory Limitations: no limitations History of Present Illness HPI narrative: 62-year-old female with a history of anxiety / depression, panic attacks, CKD, hypothyroidism presents to the ER with -- unsteadiness. took meclizine without any benefit. -- anxiety -- difficulty swallowing complaint: anxiety Onset (ago): day(s) ( Started today) Severity: mild Quality: constant Place: home History of similar episodes: Yes Provoking factors: none known Relieving factors: nothing Exacerbating factors: nothing Associated symptoms: denies other symptoms Related Data Home Medications Medication Instructions Recorded Confirmed alprazolam 0.25 mg tablet (Xanax) 0.25 mg PO BID PRN Anxiety 12/05/20 07/26/22 aspirin 81 mg tablet 81 mg PO DAILY 04/21/22 07/26/22 levothyroxine 112 mcg tablet 112 mcg PO DAILY 04/21/22 07/26/22 Allergies Allergy/AdvReac Type Severity Reaction Status Date / Time ciprofloxacin Allergy Intermediate RASH Verified 04/29/22 09:25 SWELLING nitrofurantoin Allergy Intermediate RASH/SWELLI Verified 04/29/22 09:25 NG Penicillins Allergy Intermediate RASH/SWELLI Verified 04/29/22 09:25 NG sulfamethoxazole Allergy Intermediate RASH Verified 04/29/22 09:25 trimethoprim Allergy Intermediate RASH Verified 04/29/22 09:25 Sulfa (Sulfonamide Allergy Unknown Hives Verified 04/29/22 09:25 Antibiotics) injection with animal Allergy Unknown Uncoded 04/29/22 09:25 derivatives Review of Systems Review of Systems: All systems reviewed & are unremarkable except as noted in HPI and below Constitutional: Constitutional: Reports as per HPI and Reports no additional constitutional complaints Eyes: Eyes: Reports as per HPI and Reports no additional eye complaints ENT: Reports system reviewed and no additional complaints, except as documented and Reports as per HPI Cardiovascular: Cardiovascular: Reports as per HPI and Reports no additional cardiovascular complaints Respiratory: Respiratory: Reports as per HPI and Reports no additional respiratory complaints Gastrointestinal: Gastrointestinal: Reports as per HPI and Reports no additional gastrointestinal complaints Comments: feels like a lump in the throat Genitourinary: Genitourinary: Reports no additional female genitourinary complaints and Reports as per HPI Musculoskeletal: Musculoskeletal: Reports no additional musculoskeletal complaints and Reports as per HPI Integumentary/Breasts: Skin/Breast: Reports system reviewed and no additional complaints, except as docu and Reports as per HPI Neurologic: Reports system reviewed and no additional complaints, except as documented and Reports as per HPI Psychiatric: Psychiatric: Reports no additional psychiatric complaints and Reports as per HPI Endocrine: Endocrine: Reports no additional endocrine complaints and Reports as per HPI Hematologic/Lymphatic: Hematologic/Lymphatic: Reports no additional hematologic/lymphatic complaints and Reports as per HPI Allergic/Immunologic: Allergic/Immunologic: Reports no additional allergic/immunologic complaints and Reports as per HPI PMF Past Medical History Medical History Anxiety Chronic kidney disease Depression GERD (gastroesophageal reflux disease) Heart palpitations Hypothyroidism Panic attacks Surgical History Surgical History H/O: hysterectomy History of cholecystectomy History of right hip replacement Family History Family History Mother Family history of thyroid disease Grandparent Diabetes mellitus, Onset Age: 75 Family history of congestive heart failure, Onset
[2022-07-26 20:00] VITALS: BP 137/87; PULSE 90; RESP 20; O2SAT 100
[2022-07-26 20:06] LABS: Basophils Absolute Auto 0.02 K/mm3 (0.00-0.10); Basophils Percent Auto 0.3 % (0.0-1.0); Eosinophils Absolute Auto 0.13 K/mm3 (0.02-0.50); Eosinophils Percent Auto 2.2 % (1.0-6.0); Hematocrit 44.1 % (35.0-49.0); Hemoglobin 14.9 g/dL (12.0-15.0); Immature Granulocyte Absolute 0.02 K/mm3 (0.00-0.00); Immature Granulocyte Percent A 0.3 % (0.0-0.0); Lymphocytes Absolute Auto 2.04 K/mm3 (1.10-4.50); Lymphocytes Percent Auto 35.1 % (18.0-42.0); Mean Corpuscular HGB Conc 33.8 g/dL (32.0-36.0); Mean Corpuscular Volume 88.9 fL (78.0-102.0); Mean Platelet Volume 9.7 fl (9.2-11.8); Monocytes Absolute Auto 0.41 K/mm3 (0.10-0.90); Neutrophils Absolute Auto 3.2 K/mm3 (1.7-7.2); Neutrophils Percent Auto 55.1 % (50.0-70.0); Platelet Count Result 297 K/mm3 (150-420); Red Blood Count 4.96 M/mm3 (4.20-5.40); Red Cell Distribution Width 12.3 % (11.6-14.4); White Blood Count 5.8 K/mm3 (4.8-10.8)
[2022-07-26 20:07] LABS: Add Urine Microscopic? NO; Appearance Urine Clear (Clear); Bilirubin Urine Negative (Negative); Blood Urine Negative (Negative); Color Urine Light Yellow (Yellow); Glucose Urine UA Negative (Negative); Ketones Urine Negative (Negative); Leukocyte Esterase Ur Negative LEU/UL (Negative); Nitrate Urine Negative (Negative); Protein Urine Negative (Negative); Urobilinogen Urine 0.2 mg/dL (0.2-1.0)
[2022-07-26 20:25] LABS: Lactic Acid Reflex 1.2 mmol/L (0.4-2.0)
[2022-07-26 20:39] LABS: Alanine Aminotransferase 46 U/L (14-59); Albumin Level 4.3 g/dL (3.4-5.0); Alkaline Phosphatase 82 U/L (46-116); Anion Gap 11 mmol/L (8-16); Aspartate Amino Transferase 17 U/L (15-37); Bilirubin,Total 0.3 mg/dL (0.00-1.00); Blood Urea Nitrogen 23 mg/dL (7-18); Calcium 9.6 mg/dL (8.5-10.1); Carbon Dioxide 29 mmol/L (21-32); Chloride 105 mmol/L (98-108); Estimated CRCL calculation 45 ml/min; Estimated Glomerular Filt Rate 47; Glucose 110 mg/dL (70-99); Osmolality Calculated 304 mOsm/kg (285-295); Sodium 145 mmol/L (136-145); Thyroid Stimulating Hormone 0.07 uIU/mL (0.36-3.74); Troponin I 6.1 ng/L (0.00-60.4)
[2022-07-26 20:57] VITALS: BP 135/90; PULSE 92; RESP 20; TEMP 36.6; O2SAT 100
[2022-07-28 09:46] LABS: Free T4 Free Thyroxine 1.38 ng/dL (0.76-1.46)
== END 2022-07-26 21:06 | disposition home or self-care (01) ==
PROVIDERS: Emergency Provider Internal Medicine Critical Care Medicine; PCP Physician Assistant
DX: F41.9 Anxiety disorder, unspecified (principal); N18.2 Chronic kidney disease, stage 2 (mild); E03.9 Hypothyroidism, unspecified; F32.A Depression, unspecified; Z79.82 Long term (current) use of aspirin
CPT/HCPCS: 36415; 80053; 81003; 83605; 84439; 84443; 84481; 84484; 85025; 99284

== ENCOUNTER 2022-11-18 12:10 | Outpatient (CLI) | payer BC, SELFPAY ==
--- NOTE | ~2022-11-18 | CT_ITS ---
. EXAMINATION: CT IAC/mastoids BI wo con DATE: 11/18/2022 12:33 INDICATION: Left-sided hearing loss. TECHNIQUE: Computed tomography (CT) of the temporal bones was performed without intravenous contrast. Automated exposure control and iterative reconstruction technique were employed. The dose-length pro duct was 238.46 mGy-cm. COMPARISON: CT temporal bone 03/09/15 FINDINGS: RIGHT TEMPORAL BONE: The internal auditory canal, cochlea, vestibule, semicircular canals, vestibular aqueduct, carotid ca nal, jugular bulb, facial nerve course, ossicles, scutum, Prussak space are normal. There is a small right mastoid effusion with hypoplastic air cells. A myringotomy tube is noted. There is a small volu me of cerumen in the external auditory canal. LEFT TEMPORAL BONE: The internal auditory canal, cochlea, vestibule, semicircular canals, vestibular aqueduct, carotid ca nal, jugular bulb, and facial nerve course are normal. There is material abutting the posterior and i nferior aspects of the ossicles and the posterior medial aspect of the tympanic membrane. There are e rosions of scutum. A myringotomy tube is noted. There is material at the posterior lateral aspect of the tympanic membrane and posterior aspect of the external auditory canal. There are changes of left mastoidectomy. There is opacification of some of the inferior mastoid air cells. IMPRESSION: 1. Material in left tympanic cavity abutting the ossicles and tympanic membrane with erosions of scut um that may be chronic otitis media or cholesteatoma. 2. Bilateral myringotomy tubes. 3. Left mastoidectomy. Reviewed, dictated and finalized at location [facility]. IMPRESSION: 1. Material in left tympanic cavity abutting the ossicles and tympanic membrane with erosions of scutum that may be chronic otitis media or cholesteatoma. 2. Bilateral myringotomy tubes. 3. Left mastoidectomy.
== END 2022-11-18 12:11 | disposition home or self-care (01) ==
LOC: CHSIMG 12:12
PROVIDERS: PCP Physician Assistant; Visit Provider Otolaryngology
DX: H90.5 Unspecified sensorineural hearing loss (principal); Z96.22 Myringotomy tube(s) status; Z98.890 Other specified postprocedural states
CPT/HCPCS: 70480

== ENCOUNTER 2022-12-06 08:41 | Outpatient (CLI) | payer BC, SELFPAY ==
[2022-12-06 09:32] LABS: Alanine Aminotransferase 37 U/L (14-59); Albumin Level 3.9 g/dL (3.4-5.0); Alkaline Phosphatase 80 U/L (46-116); Anion Gap 6 mmol/L (8-16); Aspartate Amino Transferase 20 U/L (15-37); Bilirubin,Total 0.4 mg/dL (0.00-1.00); Blood Urea Nitrogen 17 mg/dL (7-18); Carbon Dioxide 31 mmol/L (21-32); Chloride 105 mmol/L (98-108); Cholesterol 212 mg/dL (0-200); Estimated Glomerular Filt Rate 52; Free T4 Free Thyroxine 0.74 ng/dL (0.76-1.46); Glucose 98 mg/dL (70-99); HDL Direct 41 mg/dL (40-60); LDL Cholesterol Calculated 126 mg/dL (<130); Osmolality Calculated 295 mOsm/kg (285-295); Potassium 4.1 mmol/L (3.5-5.1); Sodium 142 mmol/L (136-145); Thyroid Stimulating Hormone 11.58 uIU/mL (0.36-3.74); Total Protein 6.9 g/dL (6.4-8.2); Triglycerides 227 mg/dL (0-150)
== END 2022-12-06 08:42 | disposition home or self-care (01) ==
LOC: CHSLAB 08:43
PROVIDERS: PCP Physician Assistant; Visit Provider Internal Medicine Endocrinology, Diabetes & Metabolism
DX: E03.9 Hypothyroidism, unspecified (principal)
CPT/HCPCS: 36415; 80053; 80061; 84439; 84443

== ENCOUNTER 2023-03-09 14:51 | Emergency (ER) | payer BC, SELFPAY ==
[2023-03-09 14:51] VITALS: BP 127/89; PULSE 88; RESP 16; TEMP 36.7; O2SAT 97
--- NOTE | 2023-03-09 15:17 | ED.GENADULT ---
HPI - General Adult General Chief complaint: Wound/Laceration Stated complaint: Scratch; needs tetanus shot Time Seen by Provider: 03/09/23 15:10 History of Present Illness HPI narrative: Healthy 63yo woman presents to request a tetanus shot after stumbling backward against an old metal fence and getting an abrasion to her right back. Pain very mild. No other injuries. Related Data Home Medications Medication Instructions Recorded Confirmed aspirin 81 mg tablet 81 mg PO DAILY 04/21/22 03/09/23 levothyroxine 112 mcg tablet 112 mcg PO DAILY 04/21/22 03/09/23 Allergies Allergy/AdvReac Type Severity Reaction Status Date / Time ciprofloxacin Allergy Intermediate RASH Verified 03/09/23 14:58 SWELLING nitrofurantoin Allergy Intermediate RASH/SWELLI Verified 03/09/23 14:58 NG Penicillins Allergy Intermediate RASH/SWELLI Verified 03/09/23 14:58 NG sulfamethoxazole Allergy Intermediate RASH Verified 03/09/23 14:58 trimethoprim Allergy Intermediate RASH Verified 03/09/23 14:58 Sulfa (Sulfonamide Allergy Unknown Hives Verified 03/09/23 14:58 Antibiotics) injection with animal Allergy Unknown Uncoded 04/29/22 09:25 derivatives Review of Systems Review of Systems: All systems reviewed & are unremarkable except as noted in HPI and below Constitutional: Constitutional: Denies fever(s) ENT: Denies dysphagia Cardiovascular: Cardiovascular: Denies chest pain Respiratory: Respiratory: Denies dyspnea [facility] Past Medical History Medical History Anxiety Chronic kidney disease Depression GERD (gastroesophageal reflux disease) Heart palpitations Hypothyroidism Panic attacks Surgical History Surgical History H/O: hysterectomy History of cholecystectomy History of right hip replacement Family History Family History Mother Family history of thyroid disease Grandparent Diabetes mellitus, Onset Age: 75 Family history of congestive heart failure, Onset Age: 72 Father Family history of elevated blood lipids Other Family history of malignant neoplasm Social History Social History Smoking status: Never smoker Second hand tobacco smoke exposure: No Alcohol intake: current Substance use type: does not use Gender identity (if verbalized by the patient): Female Spiritual care concerns: No Exam Const: General: healthy appearing and no acute distress Nutritional Appearance: well nourished Eyes: Conjunctivae: conjunctivae normal Skin: General skin exam: normal color, no jaundice and no pallor Other: single transverse abrasion to right upper back Neuro: Gait exam (Neuro): Normal gait present Course Vital Signs Vital signs: Vital Signs Temperature 36.7 C 03/09/23 14:51 Pulse Rate 88 03/09/23 14:51 Respiratory Rate 16 03/09/23 14:51 Blood Pressure 127/89 03/09/23 14:51 Pulse Oximetry 97 03/09/23 14:51 Oxygen Delivery Room Air 03/09/23 14:51 Temperature 36.7 C 03/09/23 14:51 Pulse Rate 88 03/09/23 14:51 Respiratory Rate 16 03/09/23 14:51 Blood Pressure 127/89 03/09/23 14:51 Pulse Oximetry 97 03/09/23 14:51 Oxygen Delivery Room Air 03/09/23 14:51 Medical Decision Making MDM Narrative Medical decision making narrative: blunt trauma DDx abrasion, contusion. TDaP provided per request. Vital Signs Vital Signs: Vital Signs Temperature 36.7 C 03/09/23 14:51 Pulse Rate 88 03/09/23 14:51 Respiratory Rate 16 03/09/23 14:51 Blood Pressure 127/89 03/09/23 14:51 Pulse Oximetry 97 03/09/23 14:51 Oxygen Delivery Room Air 03/09/23 14:51 Temperature 36.7 C 03/09/23 14:51 Pulse Rate 88 03/09/23 14:51 Respiratory Rate 16 03/09/23 14:51 Blood Pressure 1
[2023-03-09] MEDS: TETANUS,DIPHTHERIA,AC PERTUSSIS ADULT 0.5 ML (ADACEL) IM (15:27)
== END 2023-03-09 15:53 | disposition home or self-care (01) ==
PROVIDERS: Emergency Provider Emergency Medicine; PCP Physician Assistant
DX: S20.411A Abrasion of right back wall of thorax, initial encounter (principal); N18.9 Chronic kidney disease, unspecified; E03.9 Hypothyroidism, unspecified; Z79.82 Long term (current) use of aspirin; Z23 Encounter for immunization; W01.118A Fall on same level from slipping, tripping and stumbling with subsequent striking against other sharp object, initial encounter
CPT/HCPCS: 90471; 90715; 99282

== ENCOUNTER 2023-04-25 08:03 | Outpatient (CLI) | payer BC, SELFPAY ==
[2023-04-25 08:29] LABS: Basophils Absolute Auto 0.03 K/mm3 (0.00-0.10); Basophils Percent Auto 0.6 % (0.0-1.0); Eosinophils Absolute Auto 0.15 K/mm3 (0.02-0.50); Eosinophils Percent Auto 2.9 % (1.0-6.0); Hematocrit 39.8 % (35.0-49.0); Hemoglobin 13.6 g/dL (12.0-15.0); Immature Granulocyte Absolute 0.02 K/mm3 (0.00-0.00); Immature Granulocyte Percent A 0.4 % (0.0-0.0); Lymphocytes Absolute Auto 2.11 K/mm3 (1.10-4.50); Mean Corpuscular HGB Conc 34.2 g/dL (32.0-36.0); Mean Corpuscular Hemoglobin 30.8 pg (27.0-31.0); Mean Corpuscular Volume 90.2 fL (78.0-102.0); Mean Platelet Volume 9.7 fl (9.2-11.8); Monocytes Absolute Auto 0.36 K/mm3 (0.10-0.90); Neutrophils Absolute Auto 2.5 K/mm3 (1.7-7.2); Neutrophils Percent Auto 48.1 % (50.0-70.0); Platelet Count Result 257 K/mm3 (150-420); Red Blood Count 4.41 M/mm3 (4.20-5.40); Red Cell Distribution Width 12.5 % (11.6-14.4); White Blood Count 5.2 K/mm3 (4.8-10.8)
[2023-04-25 08:37] LABS: Hemoglobin A1C 5.1 % (<5.7)
[2023-04-25 08:41] LABS: Appearance Urine Slightly Cloudy (Clear); Bilirubin Urine Negative (Negative); Blood Urine Negative (Negative); Color Urine Yellow (Yellow); Glucose Urine UA Negative (Negative); Ketones Urine Negative (Negative); Leukocyte Esterase Ur 1+ LEU/UL (Negative); Nitrate Urine Negative (Negative); Protein Urine Trace (Negative); Specific Grav Ur >= 1.030 (1.010-1.020); Urobilinogen Urine 0.2 mg/dL (0.2-1.0); pH Urine 5.5 (5.0-8.0)
[2023-04-25 08:44] LABS: Add Urine Microscopic? YES; Bacteria Urine 1+ /hpf; RBC Urine None seen /hpf (0-2); Renal Epithelial Cells Urine Few /hpf; Squamous Epithelial Cell Urine Few /hpf (Few)
[2023-04-25 08:56] LABS: Alanine Aminotransferase 37 U/L (14-59); Albumin Level 3.6 g/dL (3.4-5.0); Alkaline Phosphatase 78 U/L (46-116); Anion Gap 11 mmol/L (8-16); Aspartate Amino Transferase 18 U/L (15-37); Bilirubin,Total 0.6 mg/dL (0.00-1.00); Blood Urea Nitrogen 16 mg/dL (7-18); Calcium 9.1 mg/dL (8.5-10.1); Carbon Dioxide 26 mmol/L (21-32); Chloride 105 mmol/L (98-108); Cholesterol 183 mg/dL (0-200); Estimated Glomerular Filt Rate 50; Free T3 2.23 pg/mL (2.18-3.98); Free T4 Free Thyroxine 1.27 ng/dL (0.76-1.46); Glucose 104 mg/dL (70-99); HDL Direct 48 mg/dL (40-60); LDL Cholesterol Calculated 110 mg/dL (<130); Magnesium 2.3 mg/dL (1.8-2.4); Osmolality Calculated 295 mOsm/kg (285-295); Potassium 4.1 mmol/L (3.5-5.1); Sodium 142 mmol/L (136-145); Thyroid Stimulating Hormone 2.09 uIU/mL (0.36-3.74); Total Protein 6.5 g/dL (6.4-8.2); Triglycerides 126 mg/dL (0-150)
[2023-04-28 13:51] LABS: Insulin Level Total 11.6 uIU/mL (<=18.4)
== END 2023-04-25 08:04 | disposition home or self-care (01) ==
LOC: CHSLAB 08:10
PROVIDERS: PCP Physician Assistant; Visit Provider Physician Assistant
DX: Z79.899 Other long term (current) drug therapy (principal)
CPT/HCPCS: 36415; 80053; 80061; 81001; 83036; 83525; 83735; 84439; 84443; 84481; 85025; 87086

== ENCOUNTER 2023-06-12 08:06 | Emergency (ER) | payer BC, SELFPAY ==
--- NOTE | ~2023-06-12 | XR_ITS ---
EXAMINATION: XR chest 2V DATE: 06/12/2023 08:41 INDICATION: Shortness of breath TECHNIQUE: PA and lateral views of the chest are obtained. COMPARISON: 03/09/2022 FINDINGS: The lungs are free of acute opacities. No pleural effusion or pneumothorax. The cardiomedia stinal silhouette is normal. There is moderate thoracic spondylosis. Surgical clips in the right uppe r quadrant are likely from prior cholecystectomy. IMPRESSION: 1. No acute cardiopulmonary abnormality. Reviewed, dictated and finalized at location B. [facility]
[2023-06-12 08:10] VITALS: BP 153/97; PULSE 94; RESP 19; TEMP 36.2; O2SAT 100
--- NOTE | 2023-06-12 08:14 | ECG_ITS ---
Measurements Intervals [place] Rate: 83 P: 51 CO: 161 QRS: 0 QRSD: 85 T: 28 QT: 395 QTc: 465 Interpretive Statements SINUS RHYTHM LOW QRS VOLTAGE IN PRECORDIAL LEADS [QRS DEFLECTION < 1.0 mV IN CHEST LEADS] POOR R-WAVE PROGRESSION BORDERLINE ECG COMPARED TO ECG 03/10/2022 14:32:08 NO SIGNIFICANT CHANGES Electronically Signed On 06-12-2023 15:34:02 CALIBRATION CHECKER by Izaiah Ag M.D.
--- NOTE | 2023-06-12 08:28 | ED.BACK ---
HPI - Back Pain/Injury General Chief Complaint: Back Pain/Injury Stated Complaint: Shoulder/back pain Time Seen by Provider: 06/12/23 08:14 Source: patient Mode of arrival: ambulatory Limitations: no limitations History of Present Illness HPI Narrative: Patient is a 63-year-old female with right upper back pain. The pain is worse with movement. She is very anxious. Patient gets anxiety and try to Xanax which helped. She was making the bed and started having this back pain. It is very specific to doing movements. Pain was noted after urinating today. MD elicited complaint: back pain Pertinent past history: prior back pain Onset (ago): day(s) (1) Timing: intermittent Severity: moderate Pain scale (0-10): 5 Similar Symptoms Previously: Yes Quality: burning and sharp Location: right upper back Radiation: none Exacerbating factors: movement Relieving factors: none Context: while lifting and turning/twisting Associated symptoms: denies other symptoms Treatments prior to arrival: NSAIDS Work related injury: No Related Data Home Medications Medication Instructions Recorded Confirmed aspirin 81 mg tablet 81 mg PO DAILY 04/21/22 06/12/23 levothyroxine 112 mcg tablet 112 mcg PO DAILY 04/21/22 06/12/23 Allergies Allergy/AdvReac Type Severity Reaction Status Date / Time ciprofloxacin Allergy Intermediate RASH Verified 06/12/23 08:14 SWELLING nitrofurantoin Allergy Intermediate RASH/SWELLI Verified 06/12/23 08:14 NG Penicillins Allergy Intermediate RASH/SWELLI Verified 06/12/23 08:14 NG sulfamethoxazole Allergy Intermediate RASH Verified 06/12/23 08:14 trimethoprim Allergy Intermediate RASH Verified 06/12/23 08:14 Sulfa (Sulfonamide Allergy Unknown Hives Verified 06/12/23 08:14 Antibiotics) injection with animal Allergy Unknown Uncoded 06/12/23 08:14 derivatives Review of Systems Review of Systems: All systems reviewed & are unremarkable except as noted in HPI and below Constitutional: Constitutional: Reports as per HPI and Reports no additional constitutional complaints Eyes: Eyes: Reports no additional eye complaints ENT: Reports system reviewed and no additional complaints, except as documented Cardiovascular: Cardiovascular: Reports no additional cardiovascular complaints Respiratory: Respiratory: Reports no additional respiratory complaints Gastrointestinal: Gastrointestinal: Reports no additional gastrointestinal complaints Genitourinary: Genitourinary: Reports no additional female genitourinary complaints Musculoskeletal: Musculoskeletal: Reports no additional musculoskeletal complaints Integumentary/Breasts: Skin/Breast: Reports system reviewed and no additional complaints, except as docu Neurologic: Reports system reviewed and no additional complaints, except as documented Psychiatric: Psychiatric: Reports no additional psychiatric complaints Endocrine: Endocrine: Reports no additional endocrine complaints Hematologic/Lymphatic: Hematologic/Lymphatic: Reports no additional hematologic/lymphatic complaints Allergic/Immunologic: Allergic/Immunologic: Reports no additional allergic/immunologic complaints PMFSH Past Medical History Medical History Anxiety Chronic kidney disease Depression GERD (gastroesophageal reflux disease) Heart palpitations Hypothyroidism Panic attacks Surgical History Surgical History H/O: hysterectomy History of cholecystectomy History of right hip replacement Family History Family History Mother Family history of thyroid disease Grandparent Diabetes mellitus, Onset Age: 75 Family history of congestive heart failure, Onset Age: 72 Father Family history of elevated blood lipids Other Family history of malignant neoplasm Social History Social History (
[2023-06-12 08:40] LABS: Basophils Absolute Auto 0.03 K/mm3 (0.00-0.10); Basophils Percent Auto 0.4 % (0.0-1.0); Eosinophils Absolute Auto 0.19 K/mm3 (0.02-0.50); Eosinophils Percent Auto 2.6 % (1.0-6.0); Hematocrit 43.1 % (35.0-49.0); Hemoglobin 14.6 g/dL (12.0-15.0); Immature Granulocyte Absolute 0.02 K/mm3 (0.00-0.00); Immature Granulocyte Percent A 0.3 % (0.0-0.0); Lymphocytes Absolute Auto 3.65 K/mm3 (1.10-4.50); Lymphocytes Percent Auto 50.4 % (18.0-42.0); Mean Corpuscular HGB Conc 33.9 g/dL (32.0-36.0); Mean Corpuscular Hemoglobin 30.7 pg (27.0-31.0); Mean Corpuscular Volume 90.5 fL (78.0-102.0); Mean Platelet Volume 10.1 fl (9.2-11.8); Monocytes Absolute Auto 0.54 K/mm3 (0.10-0.90); Monocytes Percent Auto 7.5 % (2.0-11.0); Neutrophils Absolute Auto 2.8 K/mm3 (1.7-7.2); Neutrophils Percent Auto 38.8 % (50.0-70.0); Platelet Count Result 291 K/mm3 (150-420); Red Blood Count 4.76 M/mm3 (4.20-5.40); Red Cell Distribution Width 12.7 % (11.6-14.4); White Blood Count 7.2 K/mm3 (4.8-10.8)
[2023-06-12 08:55] LABS: D Dimer 0.19 mg/L (0.19-0.50); Partial Thromboplastin Time 28.4 SEC (23.90-30.70); Prothrombin Time 10.5 Seconds (9.50-12.10)
[2023-06-12 09:02] LABS: Alanine Aminotransferase 41 U/L (14-59); Albumin Level 4.1 g/dL (3.4-5.0); Alkaline Phosphatase 94 U/L (46-116); Anion Gap 8 mmol/L (8-16); Aspartate Amino Transferase 12 U/L (15-37); Bilirubin,Total 0.3 mg/dL (0.00-1.00); Blood Urea Nitrogen 16 mg/dL (7-18); Calcium 9.5 mg/dL (8.5-10.1); Carbon Dioxide 29 mmol/L (21-32); Chloride 103 mmol/L (98-108); Estimated CRCL calculation 35 ml/min; Estimated Glomerular Filt Rate 36; Glucose 115 mg/dL (70-99); Lipase 41 U/L (16-77); NT Pro B Type Natriuretic Pept 25 pg/mL (0-125); Osmolality Calculated 292 mOsm/kg (285-295); Potassium 3.6 mmol/L (3.5-5.1); Sodium 140 mmol/L (136-145); Total Protein 8.2 g/dL (6.4-8.2); Troponin I 4.9 ng/L (0.00-60.4)
[2023-06-12] MEDS: ACETAMINOPHEN 500 MG TABLET 1000 MG PO (09:18)
[2023-06-12 09:53] LABS: Appearance Urine Clear (Clear); Bilirubin Urine Negative (Negative); Blood Urine Negative (Negative); Color Urine Light Yellow (Yellow); Glucose Urine UA Negative (Negative); Ketones Urine Negative (Negative); Leukocyte Esterase Ur Trace LEU/UL (Negative); Nitrate Urine Negative (Negative); Protein Urine Negative (Negative); Urobilinogen Urine 0.2 mg/dL (0.2-1.0)
[2023-06-12 09:58] LABS: Add Urine Microscopic? YES; Bacteria Urine Trace /hpf; RBC Urine None seen /hpf (0-2); Squamous Epithelial Cell Urine Rare /hpf (Few); WBC Urine 0-3 /hpf (0-3)
[2023-06-12 11:08] VITALS: BP 140/100; PULSE 78; RESP 16; O2SAT 99
== END 2023-06-12 11:10 | disposition home or self-care (01) ==
PROVIDERS: Emergency Provider Emergency Medicine; PCP Physician Assistant
DX: M62.830 Muscle spasm of back (principal); N17.9 Acute kidney failure, unspecified; N30.00 Acute cystitis without hematuria; Z79.899 Other long term (current) drug therapy; Z79.82 Long term (current) use of aspirin; N18.9 Chronic kidney disease, unspecified; E03.9 Hypothyroidism, unspecified
CPT/HCPCS: 36415; 71046; 80053; 81001; 83690; 83880; 84484; 85025; 85380; 85610; 85730; 93005; 99284

== ENCOUNTER 2023-07-17 11:59 | Outpatient (CLI) | payer BC, SELFPAY ==
[2023-07-17 12:59] LABS: Anion Gap 9 mmol/L (8-16); Blood Urea Nitrogen 19 mg/dL (7-18); Calcium 8.8 mg/dL (8.5-10.1); Carbon Dioxide 29 mmol/L (21-32); Chloride 104 mmol/L (98-108); Estimated Glomerular Filt Rate 51; Glucose 107 mg/dL (70-99); Osmolality Calculated 296 mOsm/kg (285-295); Potassium 4.3 mmol/L (3.5-5.1); Sodium 142 mmol/L (136-145)
== END 2023-07-17 12:00 | disposition home or self-care (01) ==
LOC: CHSLAB 12:01
PROVIDERS: PCP Physician Assistant; Visit Provider Physician Assistant
DX: R79.89 Other specified abnormal findings of blood chemistry (principal)
CPT/HCPCS: 36415; 80048

== ENCOUNTER 2024-04-23 07:49 | Outpatient (CLI) | payer BC, SELFPAY ==
[2024-04-23 08:19] LABS: Basophils Absolute Auto 0.04 K/mm3 (0.00-0.10); Basophils Percent Auto 0.7 % (0.0-1.0); Eosinophils Absolute Auto 0.16 K/mm3 (0.02-0.50); Eosinophils Percent Auto 2.6 % (1.0-6.0); Hematocrit 41.9 % (35.0-49.0); Hemoglobin 14.1 g/dL (12.0-15.0); Immature Granulocyte Absolute 0.03 K/mm3 (0.00-0.00); Immature Granulocyte Percent A 0.5 % (0.0-0.0); Lymphocytes Absolute Auto 2.31 K/mm3 (1.10-4.50); Lymphocytes Percent Auto 38.1 % (18.0-42.0); Mean Corpuscular HGB Conc 33.7 g/dL (32-36); Mean Corpuscular Hemoglobin 30.5 pg (27.0-31.0); Mean Corpuscular Volume 90.5 fL (78.0-102.0); Monocytes Absolute Auto 0.45 K/mm3 (0.10-0.90); Monocytes Percent Auto 7.4 % (2.0-11.0); Neutrophils Absolute Auto 3.07 K/mm3 (1.70-7.20); Neutrophils Percent Auto 50.7 % (50.0-70.0); Platelet Count Result 239 K/mm3 (150-420); Red Blood Count 4.63 M/mm3 (4.20-5.40); Red Cell Distribution Width 12.5 % (11.6-14.4); White Blood Count 6.1 K/mm3 (4.8-10.8)
[2024-04-23 08:59] LABS: Hemoglobin A1C 5.4 % (<5.7)
[2024-04-23 09:06] LABS: Alanine Aminotransferase 50 U/L (14-59); Albumin Level 3.8 g/dL (3.4-5.0); Alkaline Phosphatase 80 U/L (46-116); Anion Gap 8 mmol/L (4-12); Aspartate Amino Transferase 25 U/L (15-37); Bilirubin,Total 0.5 mg/dL (0.00-1.00); Blood Urea Nitrogen 18 mg/dL (7-18); Calcium 8.8 mg/dL (8.5-10.1); Carbon Dioxide 30 mmol/L (21-32); Chloride 106 mmol/L (98-108); Cholesterol 198 mg/dL (0-200); Estimated Glomerular Filt Rate 49; Folic Acid 14.8 ng/mL (8.6->20); Free T3 1.82 pg/mL (2.18-3.98); Free T4 Free Thyroxine 0.73 ng/dL (0.76-1.46); Glucose 96 mg/dL (70-99); HDL Direct 45 mg/dL (40-60); LDL Cholesterol Calculated 124 mg/dL (<130); Osmolality Calculated 299 mOsm/kg (285-295); Potassium 4.3 mmol/L (3.5-5.1); Sodium 144 mmol/L (136-145); Triglycerides 144 mg/dL (0-150); Vitamin B12 468 pg/mL (193-986)
[2024-04-26 02:33] LABS: Cortisol Random 15.8 mcg/dL; Vitamin D 25 Hydroxy 25 ng/mL (30-100)
== END 2024-04-23 07:50 | disposition home or self-care (01) ==
LOC: CHSLAB 07:52
PROVIDERS: PCP Physician Assistant; Visit Provider Physician Assistant
DX: E03.9 Hypothyroidism, unspecified (principal); Z79.899 Other long term (current) drug therapy; Z13.220 Encounter for screening for lipoid disorders; Z13.1 Encounter for screening for diabetes mellitus; E55.9 Vitamin D deficiency, unspecified; R63.5 Abnormal weight gain
CPT/HCPCS: 36415; 80053; 80061; 82306; 82533; 82607; 82746; 83036; 84439; 84443; 84481; 85025

== ENCOUNTER 2024-06-13 00:27 | Emergency (ER) | payer SELFPAY ==
--- NOTE | ~2024-06-13 | XR_ITS ---
EXAMINATION: XR chest 2V DATE: 06/13/2024 01:02 INDICATION: Cough. TECHNIQUE: Frontal and lateral views of the chest were obtained. COMPARISON: Chest 2 views 06/12/2023 FINDINGS: There are mild airspace opacities in right lower lung zone. No pleural effusion or pneumoth orax. The heart size is normal. Surgical clips in the right upper quadrant are likely from cholecyste ctomy. IMPRESSION: 1. Mild airspace opacities in right lower lung zone, consistent with atelectasis versus pneumonia. Reviewed, dictated and finalized at location A. ALOGY TEACHER IMPRESSION: 1. Mild airspace opacities in right lower lung zone, consistent with atelectasi s versus pneumonia.
[2024-06-13 00:27] VITALS: BP 164/107; PULSE 103; RESP 18; TEMP 36.4; O2SAT 98
--- NOTE | 2024-06-13 01:02 | ED.URI ---
HPI - URI/Sore Throat General Chief Complaint: Upper Respiratory Infection Stated Complaint: upper respiratory Time Seen by Provider: 06/13/24 00:42 Source: patient Mode of arrival: ambulatory Limitations: no limitations History of Present Illness HPI Narrative: Patient is a 64-year-old female with significant past medical history presents today for a bad cough. She is has cough now for 2 days his headache got a really deep rattling cough. She feels rattling in her lungs when she coughs. She was worried and does she need to go the emergency department for this. She denies any fevers any sick contacts. Has slight rhinorrhea. MD elicited complaint: cough and rhinorrhea Onset (ago): day(s) Consistency: intermittent Severity: moderate Description of mucous: yellow and green Able to tolerate fluids by mouth: Yes Exacerbating factors: swallowing, exertion and speaking Relieving factors: nothing Associated symptoms: denies other symptoms Treatments prior to arrival: none Related Data Home Medications ?Medication ?Instructions ?Recorded ?Confirmed ?Last Taken ?Type levothyroxine 112 mcg tablet 112 mcg PO DAILY 04/21/22 06/12/23 04/28/22 History alprazolam 0.25 mg tablet (Xanax) 0.25 mg PO PRN anxiety 06/13/24 06/13/24 Unknown History Allergies Allergy/AdvReac Type Severity Reaction Status Date / Time ciprofloxacin Allergy Intermediate RASH Verified 06/13/24 00:54 SWELLING nitrofurantoin Allergy Intermediate RASH/SWELLI Verified 06/13/24 00:54 NG Penicillins Allergy Intermediate RASH/SWELLI Verified 06/13/24 00:54 NG sulfamethoxazole Allergy Intermediate RASH Verified 06/13/24 00:54 trimethoprim Allergy Intermediate RASH Verified 06/13/24 00:54 Sulfa (Sulfonamide Allergy Unknown Hives Verified 06/13/24 00:54 Antibiotics) injection with animal Allergy Unknown Uncoded 06/13/24 00:54 derivatives Review of Systems Review of Systems: All systems reviewed & are unremarkable except as noted in HPI and below Constitutional: Constitutional: Reports as per HPI Eyes: Eyes: Reports no additional eye complaints ENT: Reports as per HPI, Reports nasal congestion and Reports sore throat Cardiovascular: Cardiovascular: Reports as per HPI Respiratory: Respiratory: Reports as per HPI and Reports cough Gastrointestinal: Gastrointestinal: Reports no additional gastrointestinal complaints Genitourinary: Genitourinary: Reports no additional female genitourinary complaints Musculoskeletal: Musculoskeletal: Reports no additional musculoskeletal complaints Integumentary/Breasts: Skin/Breast: Reports system reviewed and no additional complaints, except as docu Neurologic: Reports system reviewed and no additional complaints, except as documented Psychiatric: Psychiatric: Reports no additional psychiatric complaints Endocrine: Endocrine: Reports no additional endocrine complaints Hematologic/Lymphatic: Hematologic/Lymphatic: Reports no additional hematologic/lymphatic complaints Allergic/Immunologic: Allergic/Immunologic: Reports no additional allergic/immunologic complaints [facility] Past Medical History Medical History GERD (gastroesophageal reflux disease) Panic attacks Depression Heart palpitations Chronic kidney disease Anxiety Hypothyroidism Surgical History Surgical History H/O: hysterectomy History of right hip replacement History of cholecystectomy Family History Family History Mother Family history of thyroid disease Grandparent Diabetes mellitus, Onset Age: 75 Family history of congestive heart failure, Onset Age: 72 Father Family history of elevated blood lipids Other Family history of malignant neoplasm Social History Social History Smoking status: Never smoker Second hand tobacco smoke exposure: No Alcohol intake: current Substance use type: does not use Gender identity (if verbalized by the patient): Female Spiritual care concerns: No Exam Const: General: healthy appearing Nutritional Appearance: well nourished Orientation/consciousness: patient oriented x3 HENMT: Head: normal to inspection Ears: external ears normal Face/Nose/Sinus: Normal external nose present Face and sinus: normal facial exam Mouth: Yes Normal oral and palatal mucosa present Teeth and gingiva: dentition normal Throat: posterior oropharynx normal Eyes: Conjunctivae: conjunctivae normal Pupils: Equal, round and reactive pupils present EOM: EOMs intact bilaterally Neck: Neck: normal visual inspection Chest: Chest palpation & inspection: normal inspection of the chest Resp: Effort & Inspection: normal respiratory effort Auscultation: clear to auscultation bilaterally Cardio: Rate: regular rate Rhythm: regular rhythm GI: GI Palp: Yes Soft to palpation Back/Spine/Pelvis: Back: no CVA tenderness Skin: General skin exam: normal color Rashes: no rashes Wounds: no wounds Neuro: General: patient oriented x3 Cranial nerves: Yes Nystagmus not present Speech: normal speech Gait exam (Neuro): Normal gait present Extrem: General: normal to inspection Psych: Mental Status: mental status grossly normal Affect: normal affect Attitude: cooperative Course Vital Signs Vital signs: Vital Signs Temperature 97.5 F L 06/13/24 00:27 Pulse Rate 103 H 06/13/24 00:27 Respiratory Rate 18 06/13/24 00:27 Blood Pressure 164/107 H 06/13/24 00:27 Pulse Oximetry 98 06/13/24 00:27 Oxygen Delivery Room Air 06/13/24 00:27 Temperature 97.5 F L 06/13/24 00:27 Pulse Rate 103 H 06/13/24 00:27 Respiratory Rate 18 06/13/24 00:27 Blood Pressure 164/107 H 06/13/24 00:27 Pulse Oximetry 98 06/13/24 00:27 Oxygen Delivery Room Air 06/13/24 00:27 MDM - URI/Sore Throat MDM Narrative Medical decision making narrative: Patient possibly has pneumonia because she does have crackles and her right upper lower lobes of upon auscultation. She does have a productive cough as well. Will do a chest x-ray to check for pneumonia and do some blood work. She has multiple allergies. Will treat pneumonia with cefdinir and doxycycline. Differential Diagnosis Differential diagnosis: Likely upper respiratory infection and other ( Pneumonia) Medical Records Attestation: I reviewed the patient's medical records. Lab Data Attestation: I reviewed the patient's lab results. Labs: Lab Results 06/13/24 06/13/24 Range/Units 00:42 00:49 Influenza A (RT-PCR) Pending Influenza B (RT-PCR) Pending RSV (RT-PCR) Pending SARS-CoV-2 RNA (RT-PCR) Pending Group A Strep (PCR) Pending Imaging Data Attestation: I personally reviewed and interpreted this imaging study as follows: Discharge Plan Discharge Clinical Impression: Pneumonia Patient Disposition: Home, Self-Care Condition: Stable Instructions: Antibiotic Form, Bacterial Pneumonia (DC) Patient Language: Greek Prescriptions: No Action cephalexin 500 mg capsule 500 mg PO Q12H 5 Days Qty: 10 0RF levothyroxine 112 mcg tablet 112 mcg PO DAILY Adult Low Dose Aspirin 81 mg Tablet 81 mg PO DAILY omeprazole 40 mg capsule,delayed release(DR/EC) 40 mg PO DAILY Qty: 30 5RF Follow-up/Referrals: Juan R,EBONIE Chua [Primary Care Provider] - Time of Disposition: 01:12
[2024-06-13] MEDS: DOXYCYCLINE HYCLATE 100 MG TABLET PO (01:10)
[2024-06-13] MEDS: CEFDINIR 300 MG CAPSULE PO (01:10)
[2024-06-13 01:37] LABS: Strep Group A RT-PCR NOT DETECTED (Negative)
[2024-06-13 01:48] LABS: SARS-CoV-2 RNA PCR Negative (Negative)
[2024-06-13 01:50] LABS: Influenza A QL RT-PCR Negative (Negative); Influenza B QL RT-PCR Negative (Negative); RSV RNA, RT-PCR Negative (Negative)
[2024-06-13] MEDS: LORazepam (*CRX) 0.5 MG TABLET PO (01:51)
[2024-06-13 02:00] VITALS: BP 158/95; PULSE 85; RESP 16; TEMP 36.4; O2SAT 100
--- NOTE | 2024-06-13 02:00 | PC.NURSE ---
ERP aware of pt's vitals. No new orders.
--- OUTSIDE RECORDS SUMMARY | 2024-06-20 02:00 | XMS_ITS | Encounter Summary ---
Author Organization [facility] Address [address] [place] [address] [place] [address] Care Team Providers Care Biomaterials Engineer Name Role Phone Kathy Hooker MD Primary Care Provider [phone] Encounter Details Date Type Department Care Team (Latest Contact Info) Description 06/06/2019 7:22 AM LOG GRADER - 06/06/2019 11:59 PM [facility] Hospital Encounter [facility] [address] [place] [address] Kathy Hooker MD [address] [place], [place] [address] Discharge Disposition: Home or Self Care (Routine Discharge) Social History Tobacco Use Types Packs/Day Years Used Date Smoking Tobacco: Never Smokeless Tobacco: Never Alcohol Use Standard Drinks/Week Comments Yes 0 (1 standard drink = 0.6 oz pur e alcohol) socially AUDIT-C Answer Date Recorded Frequency of Alcohol Consumption 2-4 times a thu06/07/2019 Average Number of Drinks Not on file 019 Frequency of Binge Drinking Not on file 05/22 Comments Unknown Sex and Gender Information Value Date Recorded Sex Assigned at Female 11/04/2022 9:01 AM CDT Legal Sex Female 11:19 PM LOG GRADER Gender Identity Female 11/04/2022 9:01 AM CDT Sexual Orientation Straight 11/04/2022 9: 01 AM CDT documented as of this encounter Functional Status * RETIRED Are you deaf or do you have serious difficulty hearing Answer Date of Assessment Author Status No 07/15/2018 4:29 PM LOG GRADER Activ e * RETIRED Are you blind or do you have serious difficulty seeing, even when wearing glasses? Answer Date of Assessment Author Status No 07/15/2018 4:29 PM LOG GRADER Activ e * Do you have serious difficulty walking or climbing stairs? Answer Date of Assessment Author Status No 07/15/2018 4:29 PM Deidre Merritt RN Active * Do you have difficulty dressing or bathing? Answer Date of Assessment Author Status No 07/15/2018 4:29 PM Deidre Merritt RN Active * Because of a physical, mental, or emotional condition, do you have difficulty doing errands alone such as visiting a doctor's office or shopping? Answer Date of Assessment Author Status No 07/15/2018 4:29 PM Deidre Merritt RN Active documented as of this encounter Mental Status * Because of a physical, mental, or emotional condition, do you have serious difficulty concentrating, remembering, or making decisions? Answer Entry Date Author Status No 07/15/2018 4:29 PM Deidre Merritt RN Active documented in this encounter Medications at Time of Discharge ALPRAZolam 0.25 MG tablet Take 0.25 mg by mouth 3 (three) times daily as needed for Sleep or Anxiety. levothyroxine 100 MCG tabletIndications :Hypothyroidism Take 100 mcg by mouth nightly at bedtime. hydrocodone-aceta minophen (NORCO) 10-325 MG tablet Take 1 tablet by mouth every 6 (six) hours as needed for Pain. 30 tablet 07/15/2018 06/07/2019 traMADol 50 MG tablet Take 1 tablet (50 mg total) by mouth every 6 (six) hours as needed for Pain. 30 tablet 2 07/15/2018 06/07/2019 documented as of this encounter Plan of Treatment Not on file documented as of this encounter Procedures Procedure Name Priority Date/Time Associated Diagnosis Comments LIPID PANEL Routine 06/06/2019 7:50 AM LOG GRADER Healthcare maintenance THYROXINE, FREE (FT4) Routine 06/06/2019 7:50 AM LOG GRADER Hypothyroidism THYROID STIM HORMONE TSH Routine 06/06/2019 7:50 AM LOG GRADER Hypothyroidism documented in this encounter Results * THYROXINE, FREE (FT4) (06/06/2019 7:50 AM LOG GRADER) FREE T4 0.93 0.76 - 1.46 NG/DL 06/06/2019 8:[address] [facility] 06/06/2019 7:50 AM LOG GRADER us Kathy Hooker MD LABORATORY Final Res ult [facility] [address] [place] [address], * (ABNORMAL) LIPID PANEL (06/06/2019 7:50 AM LOG GRADER) CHOLESTEROL 196 <200 MG/DL 06/06/2019 8:[address] [facility] Comment: THE NATIONAL LIPID ASSOCIATION AND THE NATIONAL CHOLESTEROL EDUCATION PROGRAM (NCEP) HAVE SET THE FOLLOWING GUIDELINES FOR TOTAL CHOLESTEROL IN ADULTS AGES 18 AND UP. DESIRABLE: <200 BORDERLINE HIGH: 200-239 HIGH: > OR = 240 TRIGLYCERIDES 165(H) <150 MG/DL 06/06/2019 8:[address] [facility] Comment: THE NATIONAL LIPID ASSOCIATION AND THE NATIONAL CHOLESTEROL EDUCATION PROGAM (NCEP) HAVE SET THE FOLLOWING GUIDELINES FOR TRIGLYCERIDES IN ADULTS AGES 18 AND UP. NORMAL: <150 BORDERLINE HIGH: 150 TO 199 HIGH: 200 TO 499 VERY HIGH: >499 HDL 46(L) >49 MG/DL 06/06/2019 8:[address] [facility] Comment: THE NATIONAL LIPID ASSOCIATION AND THE NATIONAL CHOLESTEROL EDUCATION PROGAM (NCEP) HAVE SET THE FOLLOWING GUIDELINES FOR HDL CHOLESTEROL IN ADULTS AGES 18 AND UP. MALES: >39 FEMALES: >49 LDL (CALCULATED) 117(H) <100 MG/DL 06/06/20 19 8:[address] [facility] Comment: THE NATIONAL LIPID ASSOCIATION AND THE NATIONAL CHOLESTEROL EDUCATION PROGAM (NCEP) HAVE SET THE FOLLOWING GUIDELINES FOR LDL CHOLESTEROL IN ADULTS AGES 18 AND UP. DESIRABLE: <100 ABOVE DESIRABLE: 100 TO 129 BORDERLINE HIGH: 130 TO 159 HIGH: 160 TO 189 VERY HIGH: >189 VLDL CALCULATION 33 MG/DL 06/06/20 19 8:[address] [facility] Comment:REFERENCE RANGE NOT ESTABLISHED CHOL/HDL RATIO 4.3 06/06/2019 8:[address] [facility] Comment:REFERENCE RANGE NOT ESTABLISHED LDL/HDL 2.5 06/06/2019 8:[address] [facility] Comment:REFERENCE RANGE NOT ESTABLISHED NON HDL CHOLESTEROL 150 MG/DL 06/06/2019 8:[address] [facility] Comment:REFERENCE RANGE NOT ESTABLISHED 06/06/2019 7:50 AM LOG GRADER us Kathy Hooker MD LABORATORY Final Res ult Performing Organization Address [facility]/ZIP Co de Phone Number [facility] [address] [place] [address], * (ABNORMAL) THYROID STIM HORMONE, TSH (06/06/2019 7:50 AM LOG GRADER) TSH 14.019(H) 0.358 - 3.740 uIU/ML 06/06/2019 8:[address] [facility] 06/06/2019 7:50 AM LOG GRADER Kathy Hooker MD LABORATORY Final Res ult Performing Organization Address City/[facility] Co de Phone Number [facility] [address] [place] [address], documented in this encounter Visit Diagnoses Diagnosis Hypothyroidism Unspecified hypothyroidism Healthcare maintenance Routine general medical examination at a health care facility documented in this encounter Care Teams Biomaterials Engineer Relationship Specialty Start Date End Date Kathy Hooker MD PCP - General INTERNAL MEDICINE 05/04/18 11/18/22 documented as of this encounter
--- OUTSIDE RECORDS SUMMARY | 2024-06-20 02:00 | XMS_ITS | Encounter Summary ---
Author Organization [facility] Address Formerly [facility], [id number] [facility] [place] [address] [place] [address] Care Team Providers Care Manager Call Name Role Phone Stephany Novoa MD Primary Care Provider [phone] Reason for Visit * Auth/Cert Specialty Diagnoses / Procedures Referred By Umair freeman Referred To Contact Diagnoses OSTEOARTHRITIS, PAIN Procedures ARTHROPLASTY HIP TOTAL, AUTOGRAFT TO ACETABULUM Referral ID Status Reason Start Date Expiration Date Visits Re quested Visits Authorized [id number] 1 1 Encounter Details Date Type Department Care Team (Late st Contact Info) Description 07/15/2018 10:30 AM ANIMAL ATTENDANT - 07/15/2018 1:01 PM ANIMAL ATTENDANT Surgery [facility] OR [address] [place] [address] Chong Brenner MD [facility] [place], [place] [address] ARTHROPLASTY HIP TOTAL, AUTOGRAFT TO ACETABULUM Surgery Details Date/Time Status Location OR Service Patient Class Case Class Case Type Trauma Case? 07/15/2018 10:30 AM Posted [facility] OR [facility] 15 Orthopedics Morning Admit E - Elective No Panel 1 Procedure LRB Anes Op Region Wound Class Comments ARTHROPLASTY HIP TOTAL, AUTO GRAFT TO ACETABULUM Right Spinal Hip Clean Surgeon Surgeon Role Service Panel Chong Brenner MD Primary Orthopedics 1 Antoine Sharif MD Resident - Assisting Orthopedics 1 Case Notes HEATH ML TAPER CERAMIC/POLYDIRECT LATERALOFFICE TO NOTIFY REPREP CONTACTED BY [facility] HOSPITALIST documented in this encounter Social History Tobacco Use Types Packs/Day Years Used Date Smoking Tobacco: Never Smokeless Tobacco: Never Alcohol Use Standard Drinks/Week Comments Yes 0 (1 standard drink = 0.6 oz pur e alcohol) socially Comments Unknown Sex and Gender Information Value Date Recorded Sex Assigned at Female 11/04/2022 9:01 AM CDT Legal Sex Female 11:19 PM ANIMAL ATTENDANT Gender Identity Female 11/04/2022 9:01 AM CDT Sexual Orientation Straight 11/04/2022 9: 01 AM CDT documented as of this encounter Last Filed Vital Signs Vital Sign Reading Time Taken Comments Blood Pressure 148/94 07/15/2018 9:34 AM ANIMAL ATTENDANT Pulse 88 07/15/2018 9:34 AM ANIMAL ATTENDANT Temperature 36.8 ??C (98.2 ??F) 07/15/2018 9:34 AM CS T Respiratory Rate 20 07/15/2018 9:34 AM ANIMAL ATTENDANT Oxygen Saturation 98% 07/15/2018 9:34 AM ANIMAL ATTENDANT Inhaled Oxygen Concentration - - Weight 78.9 kg (174 lb) 06/18/2018 3:06 PM ANIMAL ATTENDANT Height 157.5 cm (5' 2 ) 06/18/2018 3:06 PM ANIMAL ATTENDANT Body Mass Index 31.83 07/15/2018 3:59 PM ANIMAL ATTENDANT documented in this encounter Functional Status * RETIRED Are you deaf or do you have serious difficulty hearing Answer Date of Assessment Author Status No 07/15/2018 4:29 PM ANIMAL ATTENDANT Activ e * RETIRED Are you blind or do you have serious difficulty seeing, even when wearing glasses? Answer Date of Assessment Author Status No 07/15/2018 4:29 PM ANIMAL ATTENDANT Activ e * Do you have serious difficulty walking or climbing stairs? Answer Date of Assessment Author Status No 07/15/2018 4:29 PM ANIMAL ATTENDANT Deidre Escalera RN Active * Do you have difficulty [...] Date Author Status No 07/15/2018 4:29 PM ANIMAL ATTENDANT Deidre Escalera RN Active documented in this encounter Discharge Summaries * Chrissy Juárez PA-C - 07/16/2018 10:06 AM CST Physician Discharge Summary Patient ID: Ciera Aggarwal [id number] 58-year-old 1960 Admit date: 07/15/2018 Expected Discharge Date: Admitting Physician: Chong Brenner MD Discharge Physician: Chong Brenner MD Admission Diagnoses: OSTEOARTHRITIS, PAIN Primary osteoarthritis of right hip Discharge Diagnoses: Patient Active Problem List Diagnosis ??? Primary osteoarthritis of right hip Admission Condition: good Discharged Condition: stable Hospital Course: Patient was admitted for the above diagnosis. Hospital course was as expected. Please see progress notes for full details. Consults: Code Status: Full Code Procedures: ARTHROPLASTY HIP TOTAL, AUTOGRAFT TO ACETABULUM Follow up: Patient to follow up in Dr. Brenner's office in 6 weeks. Other follow ups as described to patient in discharge. Disposition: Final discharge disposition not confirmed Patient Instructions: Weight bearing status: weight bearing as tolerated right lower extremity Diet:Diet general Appropriate Wound Care: The Prineo dressing should remain in place and intact for two weeks. After two weeks, you may remove it by gently pealing it away from your skin. Discharge Medications: Current Discharge Medication List START taking these medications Details aspirin EC 81 MG EC tablet Take 1 tablet (81 mg total) by mouth 2 (two) times a day for 30 days. Qty: 60 tablet, Refills: 0 hydrocodone-acetaminophen (NORCO) 10-325 MG tablet Take 1 tablet by mouth every 6 (six) hours as needed for Pain. Qty: 30 tablet, Refills: 0 meloxicam 15 MG tablet Take 1 tablet (15 mg total) by mouth daily for 14 days. Qty: 14 tablet, Refills: 3 traMADol 50 MG tablet Take 1 tablet (50 mg total) by mouth every 6 (six) hours as needed for Pain. Qty: 30 tablet, Refills: 2 CONTINUE these medications which have NOT CHANGED Details ALPRAZolam 0.25 MG tablet Take 0.25 mg by mouth 3 (three) times daily as needed for Sleep or Anxiety. levothyroxine 100 MCG tablet Take 100 mcg by mouth nightly at bedtime. Signed: CHRISSY JUÁREZ PA-C 07/16/2018 10:06 AM Cosigned by Chong Brenner MD at 07/19/2018 8:15 AM ANIMAL ATTENDANT AL ATTENDANT AL ATTENDANT documented in this encounter Discharge Instructions * Discharge Instructions* Chrissy Juárez PA-C - 07/16/2018 10:09 AM ANIMAL ATTENDANT - If you have a Prineo dressing, it should remain intact and in place for 14 days. Do not tamper with or remove the Prineo dressing for the entire 14 days. - After 14 days you may remove the Prineo dressing yourself by gently peeling it away from your skin. It will not be necessary for a medical professional to do this. - Resume light activity. Walk for 5-10 minutes every hour during waking hours. - Begin outpatient physical therapy as soon as possible, no later than 7 days after surgery. Make arrangements for this as soon as you get home. - Blood thinner as prescribed and instructed. - If possible, use Tylenol (acetaminophen) to control your pain. Use [place]field (hydrocodone) and tramadol pain medication only if the Tylenol doesn't work. Stay ahead of the pain, but do not take you pain medication based on time. Only use them as needed. - Your hip precautions are: - No extension beyond 10?? - No external rotation - No vigorous abduction - If you have question contact Dr. Brenner at [facility] ([phone]). Do not contact your primary care provider for concerns about this surgery or surgical incision. AL ATTENDANT * Attachments The following attachments cannot be sent through Care Everywhere. * Anterior Hip Replacement (Belgian) * Deep Vein Thrombosis (Blood Clots in the Legs) (Belgian) * Pulmonary Embolism (Blood Clot in the Lungs) (Belgian) * How to Prevent Surgical Site Infections (Belgian) documented in this encounter Medications at Time of Discharge ALPRAZolam 0.25 MG tablet Take 0.25 mg by mouth 3 (three) times daily as needed for Sleep or Anxiety. levothyroxine 100 MCG tabletIndications :Hypothyroidism Take 100 mcg by mouth nightly at bedtime. aspirin EC 81 MG EC tablet Take 1 tablet (81 mg total) by mouth 2 (two) times a day for 30 days. 60 tablet 07/15/2018 08/14/2018 hydrocodone-aceta minophen (NORCO) 10-325 MG tablet Take 1 tablet by mouth every 6 (six) hours as needed for Pain. 30 tablet 07/15/2018 06/07/2019 meloxicam 15 MG tablet Take 1 tablet (15 mg total) by mouth daily for 14 days. 14 tablet 3 07/15/2018 07/29/2018 traMADol 50 MG tablet Take 1 tablet (50 mg total) by mouth every 6 (six) hours as needed for Pain. 30 tablet 2 07/15/2018 06/07/2019 documented as of this encounter Progress Notes * Teena Ellington RN - 07/16/2018 10:37 AM CST CM met with pt to discuss discharge plan and needs. Pt lives alone but her mother will be staying with her for a few days upon discharge. She has outpt therapy set up at [facility] 3 times a week and has a front wheeled walker. CM will continue to follow for a safe discharge plan. 07/16/18 1036 Referral Data Referral Source Self-referral Referral Reason Discharge Planning Source of Information Patient Patient Information Primary Caregiver Self Support System Immediate family Baseline ADL's Functional Status Independent Assistive Device Front wheel walker Living Arrangements Alone Type of Residence Private residence Ambulation Independent Bathing/Grooming Independent Dressing Independent Behavior Oriented Communication Talks Psychological Needs: Potential Harm to Self or Others No Suspected Drug or Alcohol Abuse No Inappropriate Patient/Family Behaviors No Difficult Adjustment to Diagnosis No Anticipated Discharge Needs In-Home Care or Equipment No Discharge Planning Living Arrangements Alone Support Systems Children;Family members Type of Residence Private residence Patient expects to be discharged to: Home AL ATTENDANT * Antoine Sharif MD - 07/16/2018 10:36 AM CST Orthopaedic Surgery - Progress Note - Total Hip Arthroplasty Attending Physician: Dr. Brenda Brenner MD Date of Admission: 07/15/2018 Admission Diagnosis: Primary osteoarthritis of the right hip Date of Procedure: 07/15/2018 Procedure Performed: Primary total hip arthroplasty, cementless right Postoperative Day: 1 Day Post-Op Subjective: No acute events were reported overnight to orthopaedics. Ciera reports that her pain is well controlled with oral pain medications. She has been working well with physical therapy. She is eating and drinking without difficulty. She denies new calf pain, chest pain, or shortness of breath. She denies new lightheadedness, dizziness, numbness or weakness. She has no new or acute complaints. Objective: Vitals: 07/16/18 0814 BP: 146/80 Pulse: 91 Resp: Temp: 98.2 ??F (36.8 ??C) SpO2: Physical Exam: General - Alert, no acute distress. Respiratory - Non-labored respirations. Cardiovascular - Limbs are warm and well perfused. Abdomen - Soft, non-tender, non-distended. Musculoskeletal - right lower extremity - The incision over the anterolateral hip is well approximated with Dermabond/Prineo. There is no drainage, erythema, induration or sign of infection. The hip is appropriately swollen and tender to palpation. There is no pain with palpation of bilateral calves. Range of motion is 0-65 degrees of flexion at the hip limited further by pain and swelling. Neurologic: The patient actively dorsi/plantar flexes the right ankle and great toe. Moves all toes. 5/5 of strength in the lower extremities except that which is limited by pain. Sensibility to light touch throughout the lower extremity is reported as normal. Pulses: 2+ pedal pulses with brisk capillary refill in the toes. Labs: No results for input(s): WBC, RBC, HGB, HCT, PLT in the last 168 hours. Lab Results Component Value Date/Time CR 1.03 (H) 07/05/2018 09:52 AM Lab Results Component Value Date/Time GLU 99 07/05/2018 09:52 AM Lab Results Component Value Date/Time NA 140 07/05/2018 09:52 AM Lab Results Component Value Date/Time K 3.7 07/05/2018 09:52 AM Medications: ??? acetaminophen 500 mg Oral Q6H ??? aspirin 81 mg Oral BID ??? docusate sodium 100 mg Oral Daily ??? levothyroxine 100 mcg Oral Nightly at bedtime ??? meloxicam 15 mg Oral Daily ??? traMADol 50 mg Oral Q6H acetaminophen, ALPRAZolam, diphenhydrAMINE OR diphenhydrAMINE OR diphenhydrAMINE, hydrocodone-acetaminophen, HYDROmorphone, ketorolac, metaxalone, ondansetron, oxyCODONE immediate release Assessment: Ciera Aggarwal is a 58-year-old She with osteoarthritis of the right hip now 1 Day Post-Op s/p primary total hip arthroplasty, cementless, right via direct lateral approach. Medical Problems: Patient Active Problem List Diagnosis ??? Primary osteoarthritis of right hip Plan: Admitted to: Orthopaedic Surgery, 9th Floor. Consults to: Hospitalists, PT/OT Pain Control: Roxicodone, [place], Tramadol, Celebrex, Tylenol, Skelaxin. Activity: Weightbearing as tolerated, no formal hip precautions, directed by PT/OT. Labs: As above. Expected acute blood loss anemia. Continue to monitor clinically. Diet: Advance to home diet. Medications: Home medications restarted. Drains: None. GI/: Docusate. No urinary retention. Dressing: Reinforce for drainage as needed per nursing. Stays on for 2 weeks to be removed at home by the patient. DVT Prophylaxis: SCD's, ASA 81 mg BID for 30 days at discharge. Disposition: Home when cleared by physical therapy and pain is well controlled. Plan for return to clinic in 6 weeks. Antoine Sharif MD Adult Hip and Knee Reconstruction Fellow Department of Orthopaedic Surgery [facility] [employer] Cosigned by Chong Brenner MD at 07/19/2018 8:15 AM ANIMAL ATTENDANT AL ATTENDANT AL ATTENDANT * Yuly Damian, PT - 07/16/2018 9:00 AM CST PT Re-Evaluation Discharge Recommendation: home with assistance; outpatient P/T DME equipment recommendation: 2 wheeled walker Activity Recommendation for speech and drama teacher: Up with supervision and 2 wheeled walker Time in: 818 Time out: 0900 Total time: 41 minutes 07/16/18818 Therapy Visit Ordering Provider Arjun Brenner MD PT Received On 07/16/18 Subjective Patient was agreeable to therapy evaluation and RN okayed session. Patient reports overall her hip pain is different and improved but still hurts when standing or walking due to surgicalpain. She feels able to return home and has outpatient P/T scheduled. Reason for admission Patient presented for scheduled non-cemented R YAEL with autograft to acetabulum secondary to primary OA on 07/15/18.......PMH: hypothyroidism, arthritis, anxiety, mastoidectomy, B/L oophorectomy, cholecystectomy, myringotomy, self reports peripheral neuropathy........Orders: Eval and treat.........Activity: WBAT RLE; Anterior Hip Precautions; Up with assist Relevant Comorbidities/ Personal Factors to PT anxiety, arthritis Verified Two Patient Identifiers Yes Patient consents to therapy Yes Precautions Total Hip Replacement Extension (Limited active R hip abduction) Weight Bearing Status RLE;As tolerated Instructed on Precautions Yes;Verbalizes understanding Skin Integrity R hip lateral incision Other IV Home Living Type of Home House Home Layout One level Home Accessibility 2-4 Steps to enter (3 JITENDRA with HR) Bathroom Shower/Tub Walk-in shower Bathroom Toilet Grab bars around toilet;Sink/counter next to toilet;Standard Toilet Bathroom Equipment Grab bars in shower;Built-in shower seat Bathroom Accessibility Accessible Home Equipment 2 Wheeled walker Prior Function Level of [place] Independent with ADLs;Independent with functional transfers;Independent with ambulation;Independent with homemaking with ambulation Device used at baseline None (Sheep's crook occasionally) Fall History No Lives With Alone Receives Help From Family ADL Assistance Independent Homemaking Assistance Independent 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 Grown chidren that can assist PRN. Pain Pain Yes Pain Score (1/10 sitting; 8/10 in standing/ambulating) Location R hip Interventions Re-direction;Re-positioning Activity Tolerance Activity Tolerance Comments Limited by post-op pain and weakness Vision - Basic Assessment Current Vision Wears glasses only for reading Vision - Complex Assessment Additional Comments No acute visual changes Cognition Overall Cognitive Status WFL Arousal/Alertness Appropriate responses to stimuli Attention Span Appears intact Memory Appears intact Orientation Level Oriented X4 Following Commands Follows all commands and directions without difficulty Safety Judgment Good awareness of safety precautions Awareness of Errors Good awareness of errors made Deficits Fully aware of deficits Problem Solving Able to problem solve independently Sensation Light Touch No apparent deficits Additional Comments Reports baseline tingling in B/L feet - states she may have history of peripheral neuropathy. No acute changes and intact to light touch sensation Proprioception Proprioception No apparent deficits Overall Extremity Assessment Lower Extremity AROM WFL;Tone WFL;Strength WFL Lower Extremity Comment Gross coordination intact RLE Assessment RLE Comment Gross MMT: hip flexion: 3-/5, knee extension/flexion: 3/5, ankle dorsiflexion: 4+/5 (limited assessment due to post-op pain) LLE Assessment LLE Comment Gross MMT: 4+/5 TRANSFERS Sit to Stand SBA/supervision (2 wheeled walker) Other (Comment) Verbal cues for sequencing and hand placement with use of walker Gait Gait Assistance SBA/supervision Assistive Device 2 Wheeled walker Ambulation Distance (Feet) 100 feet Other (Comment) Patient exhibited antalgic gait with decreased gait speed. Patient able to demonstrate reciprocal step pattern with cueing, but appears to have slight leg length discrepancy (RLE greater than LLE). Patient limited with distance due to pain. Utilized walker significantly as a result.No loss of balance exhibited. Stairs Stair Management Assistance SBA/supervision Stair Management Technique One rail L;One rail R;Two rails;Step to pattern Number of Stairs 3 Other (Comment) Patient educated on step-to pattern, use of 1 handrail vs bilateral handheld support on rail. Balance Sitting - Static Independent Sitting - Dynamic Independent Standing - Static SBA;Support of both upper extremities Standing - Dynamic SBA;Support of both upper extremities Other (Comment) 2 wheeled walker for support in standing. No loss of balance demonstrated, but patient reports increased pain in R hip in standing, compensates with weight shift to L Patient/Family Training Exercise Program Patient educated on YAEL exercises in sitting and supine. Patient stated understanding Assessment Personal Factors/Comorbidities Impacting Care 1-2 personal factors/comorbidities Examination of Body Systems Moderate (3 or more Elements) Objectives of Body Systems Impaired ambulation;Impaired stair negotiation;Decreased LE ROM;Decreased LE strength;Decreased endurance Clinical Presentation of Patient Evolving and changing characteristics Complexity Level of Evaluation Moderate Prognosis Good Recommendation PT Recommendation Home with assistance;Outpatient PT PT Equipment Recommended 2 Wheeled walker Plan PT Treatments/Interventions Gait Training;Therapeutic Exercises;Therapeutic Activities;Patient/family training PT Frequency BID PT - Next Appointment 07/16/18 If this is the last treatment note,it will serve as the discharge summary Yes Assessment: Patient is a pleasant 58 y/o female who presented for elective R YAEL on 07/15/18. She demonstrates post-op limitations in strength and ROM of RLE, but compensates well, completing functional tasks with only supervision. Patient was noted to have significant antalgic gait, utilizing walker for support and would recommend continued use of device at this time. Recommend return home at [facility] with family assist and follow-up outpatient P/T to address impairments. AL ATTENDANT * Radha Middleton, OT - 07/16/2018 8:19 AM CST OT Initial Evaluation Discharge Recommendation: home with assistance Activity Recommendation for speech and drama teacher: Up with SBA and 2ww, gait belt. Up to chair for all meals. Ambulate to/from bathroom Time in: 08 Time out: 0900 Total time: 41 07/16/18 0800 Therapy Visit OT Received On 07/16/18 Reason for admission Patient presented for scheduled non-cemented R YAEL with autograft to acetabulum secondary to primary OA on 07/15/18.......PMH: hypothyroidism, arthritis, anxiety, mastoidectomy, B/L oophorectomy, cholecystectomy, myringotomy, self reports peripheral neuropathy........Orders: Eval and treat.........Activity: WBAT RLE; Anterior Hip Precautions; Up with assist Ordering Provider Arjun Muñoz MD Verified Two Patient Identifiers Yes Patient consents to therapy Yes Precautions Total Hip Replacement Extension (Limited active R hip abduction) Weight Bearing Status RLE;As tolerated Skin Integrity R hip incision Other IV Subjective Subjective RN ok'd therapy. Pt finishing up using bathroom upon arrival, agreeable to therapy session. Home Living Type of Home House Home Layout One level Home Accessibility 2-4 Steps to enter (3 JITENDRA with HR) Bathroom Shower/Tub Walk-in shower Bathroom Toilet Grab bars around toilet;Sink/counter next to toilet;Standard Toilet Bathroom Equipment Grab bars in shower;Built-in shower seat Bathroom Accessibility Accessible Home Equipment 2 Wheeled walker Prior Function Level of [place] Independent with ADLs;Independent with functional transfers;Independent with ambulation;Independent with homemaking with ambulation Device used at baseline None (Sheep's crook occasionally) Fall History No Lives With Alone Receives Help From Family ADL Assistance Independent Homemaking Assistance Independent 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 Grown chidren that can assist PRN. Pain Pain Yes Pain Score 1 (in sitting, 8 in walking) Location R hip Interventions Re-direction;Re-positioning;Informed RN Activity Tolerance Endurance Endurance does not limit participation in activity Vision - Basic Assessment Current Vision Wears glasses only for reading Vision - Complex Assessment Additional Comments No visual changes post-op Cognition Overall Cognitive Status WFL Arousal/Alertness Appropriate responses to stimuli Attention Span Appears intact Memory Appears intact Orientation Level Oriented X4 Following Commands Follows all commands and directions without difficulty Safety Judgment Good awareness of safety precautions Awareness of Errors Good awareness of errors made Deficits Fully aware of deficits Problem Solving Able to problem solve independently Overall Extremity Assessment Upper Extremity Bilat UE AROM and MMT WFL Hand Function Hand Dominance Left Gross Grasp Functional Coordination Functional Sensation Light Touch Partial deficits in the RUE;Partial deficits in the LUE (Tingling in fingers at baseline) ADL Additional Comments Dressed UB and LB with modified independence requiring extra time, min verbal cues for dressing affected side first. Functional Transfers Sit to Stand SBA/supervision Toilet Transfers Supervision;Grab bars Balance Sitting - Static Independent Sitting - Dynamic Independent Standing - Static SBA;Support of both upper extremities Standing - Dynamic SBA;Support of both upper extremities Assessment Pt admitted s/p elective R YAEL. Pt demonstrates independence with ADL's and is safe to return home with assist from family PRN upon D/C. No skilled OT is recommended at this time, OT will sign off. Occupational Profile and History Complexity Low (Brief) Performance Skills Deficits Functional mobility Performance Deficit Level Low (1-3 deficits) Clinical Decision Making Low (no modifications) Complexity Level of Evaluation Low Prognosis Good Recommendation OT Recommendation Home with assistance;No skilled OT No Skilled OT Safe to return home Plan Progress Discontinue OT OT - Next Appointment 07/16/18 If this is the last treatment note,it will serve as the discharge summary Yes Objective Objective Pt seen for therapy seated EOB. AL ATTENDANT documented in this encounter Consult Notes * Katie Gonzales MD - 07/16/2018 12:22 PM CST [place] Hospitalist Consultation Note Attending Provider: Chong Brenner MD PCP: STEPHANY NOVOA MD IMPRESSION: Hypothyroidism Recent urinary tract infection completed antibiotic course Arthritis status post hip replacement Anxiety PLAN: Postoperatively she feels much better denies any pain she is planning to be discharged home today restarted home medications Advised to watch for constipation DVT prophylaxis as per primary team thank you for consult will follow prn Reason for Consult: Hypothyroidism HPI: 58-year-old female who has a known history of hypothyroidism history of right hip arthritis was admitted by orthopedics for elective right hip replacement surgery. She is relatively healthy lady not much medical history. She was recently seen by primary care physician and July 05 at that time UA was positive urine culture was growing more than 100,000 E. coli. CBC BMP noted she was treated with levofloxacin for 3 days She was noted to have elevated TSH of 6.3 free T4 was within normal limits she is on levothyroxine of 100 mcg daily. She was trying to go home today her mom is going to stay with her for a couple of days Past medical history Hypothyroidism Osteoarthritis Anxiety past surgical history Cholecystectomy Hysterectomy Mastoidectomy Tubal ligation Family history Arthritis and cardiac disorder Diabetes mellitus Social history never smoker occasional alcohol use Allergies Allergen Reactions ??? Bactrim [Sulfamethoxazole-Trimethoprim] Swelling Facial swelling, was on Bactrim, Cipro & Macrobid for ear infection-so not sure which one I wasallergic to ??? Ciprofloxacin Swelling ??? Macrobid [Nitrofurantoin] Swelling ??? Penicillins Rash No current facility-administered medications on file prior to encounter. Current Outpatient Medications on File Prior to Encounter Medication Sig ??? ALPRAZolam 0.25 MG tablet Take 0.25 mg by mouth 3 (three) times daily as needed for Sleep or Anxiety. ??? levothyroxine 100 MCG tablet Take 100 mcg by mouth nightly at bedtime. Review of Systems GENERAL --denies any fever or chills, denies any weakness fatigue, denies any recent weight loss HEENT - denies any recent hearing problems denies any vision changes, denies any sore throat, denies any swallowing difficulty denies any nasal congestion LUNGS - denies any shortness of breath, denies any cough, CVS - denies any chest pain, denies any orthopnea, denies any palpitations ABDOMEN -denies any nausea or vomiting denies any abdominal pain, denies any diarrhea or change in bowelhabits MUSCULOSKELETAL -denies any swelling of the legs denies any back pain denies any joint pains, SKIN -denies any rash or pruritus NEUROLOGICAL -denies change in mental status denies any speech difficulties or swallowing difficulty denies any Gait changes Past Medical History: Diagnosis Date ??? Anxiety ??? Arthritis to have Right THR ??? Hypothyroid Past Surgical History: Procedure Laterality Date ??? BREAST SURGERY Augmentation & then reduction ??? CHOLECYSTECTOMY ??? LAPAROSCOPIC OOPHORECTOMY Bilateral ??? MASTOIDECTOMY ??? MYRINGOTOMY WITH TUBE INSERTION Bilateral ??? TUBAL LIGATION Social History Tobacco Use ??? Smoking status: Never Smoker ??? Smokeless tobacco: Never Used Substance Use Topics ??? Alcohol use: Yes Comment: socially Family History Problem Relation Name Age of Onset ??? Heart Disease Father Blood pressure 145/82, pulse 84, temperature 98.1 ??F (36.7 ??C), resp. rate 18, height 5' 2 (1.575 m), weight 78.9 kg (174 lb), SpO2 98 %. Physical exam GENERAL -alert awake oriented, no acute distress HEENT-extraocular movements are intact , normal conjunctiva, nonicteric, normocephalic, oral mucosamoist, no jugular venous distention LUNGS -clear to auscultation Bilaterally, nonlabored respiration, symmetrical chest wall expansion,no wheezing, no tachypnea CVS - regular rate and rhythm nondisplaced PMI ABDOMEN -soft non tender non distended normal bowel sounds, no organomegaly MUSCULOSKELETAL -normal range of motion normal strength no edema SKIN -warm, no rash NEUROLOGICAL -alert awake Oriented, no focal deficits, cranial examination within normal limits, noweakness PSYCHIATRY -appropriate mood and affect cooperative Results for orders placed or performed during the hospital encounter of 07/09/18 CULTURE URINE (OUTPATIENTS) Result Value Ref Range Spec. Description URINE, UNSPECIFIED Special Requests: NO SPECIAL REQUEST Culture Result: >100,000 CFU/mL ESCHERICHIA COLI Susceptibility Escherichia coli - BHUPENDRA (VITEK) AMPICILLIN Intermediate AMOXICILLIN/CLAVULANIC A Sensitive AZTREONAM Sensitive CEFEPIME Sensitive CEFTRIAXONE Sensitive CEFAZOLIN Sensitive CIPROFLOXACIN Sensitive ESBL NEG Sensitive ERTAPENEM Sensitive NITROFURANTOIN Sensitive GENTAMICIN Sensitive IMIPENEM Sensitive LEVOFLOXACIN Sensitive MEROPENEM Sensitive PIPRACIL/TAZO Sensitive TRIMETH-SULFAMETH. Sensitive TETRACYCLINE Sensitive KATIE GONZALES MD 07/16/2018 AL ATTENDANT * Katie Gonzales MD - 07/15/2018 2:45 PM CST [place] Hospitalist Consultation Note AL ATTENDANT documented in this encounter OR Notes * Op Note - Chong Brenner MD - 07/15/2018 12:48 PM CST Ciear Lundy Jasen, 1960, CSN: @[email or web address]@ D ARJUN BRENNER MD 07/15/2018 Surgeon: Chong BRENNER MD Anesthesia: Anesthesiologist: Sandrine Contreras MD AUTOMATIC HEAD SAWYER: Hayley Shankar CRNA Implants: Implant Name Type Inv. Item Serial No. Bulk Station Agent Lot No. LRB No. Used SHELL HEATH CONTINUUM TM CH 48MM GG - [id number] SHELL HEATH CONTINUUM TM CH 48MM GG [employer] [id number] Right 1 continium trilogy poly HEATH INC [id number] Right 1 SCREW HEATH BONE 30MM - [id number] SCREW HEATH BONE 30MM [employer] [id number] Right 1 SCREW HEATH BONE 30MM - [id number] SCREW HEATH BONE 30MM [employer] INC [id number] Right 1 femoral stem HEATH INC [id number] Right 1 SHELL HEATH CONTINUUM TM CH 48MM GG - [id number] SHELL HEATH CONTINUUM TM CH 48MM GG [employer] [id number] Right 1 HEAD FEMORAL BIOLOX OPTION CERAMIC HEATH - [id number] HEAD FEMORAL BIOLOX OPTION CERAMIC HEATH [employer] [id number] Right 1 Preoperative diagnosis: Primary osteo-arthritis right hip Operation proposed: Right non- cemented total hip arthroplasty Postoperative diagnosis: As preop Operation performed: As preop nutrition services assistant: Antoine Sharif M.D. Indications for procedure: This 58-year-old lady has advanced primary osteo- arthritis of the right hip that has failed conservative measures. She has a large supra acetabular cyst that will likely require bone grafting as it communicates with the joint. Risks and alternatives to care have been discussed and the patient wishes to proceed with surgery today. Description of procedure: Under spinal anesthesia the patient was positioned laterally. The hip wasprepped and draped in usual fashion. A formal timeout was called and patient was identified as was the side and site of surgery. Intravenous antibiotics were given. A longitudinal skin incision was made over the greater trochanter. We dissected down through the subcutaneous tissues and the fascia was opened longitudinally. The anterior half of the vastus lateralis was taken down in conjunction with the anterior half of the abductors. The joint capsule was taken up with these structures. The hip was dislocated anteriorly. The femoral neck was transected with an oscillating saw. The femoral head is markedly arthritic and eroded. We exposed the acetabulum andremoved what remained of the labrum. We reamed sequentially up to a size of 47 mm, medializing as we went. The medial wall was quite thick and that has some shallow. We entered the subchondral cyst an teromedially and we curetted out the contents. We packed it with morselized femoral head autograft.A 48 mm Continuum cup was impacted in place with an excellent press fit. It was secured with 2 further screws and a 28 mm inner diameter vitamin E impregnated polyethylene was inserted. The proximal femur was delivered into the wound and we gained entrance to the canal to box osteotome and a canal finder. We broached sequentially stopping at a size 4 and a x-ray was obtained. This showed good proximal filling of the metaphysis. The soft tissue was still a little lax we did trial reduction so we thought we could go up one size further. We broached to a size 5 and a repeat trial reduction was excellent. The trial was removed and and a Heath ML taper standard neck length standard offset size 5 stem was inserted was inserted with an excellent press fit. A trial reduction was done and we selected a -3 mm 28 mm diameter ceramic head was impacted in place and it was reduced. It was very stable and soft tissue tension seem to be appropriate. Stability was assessed both anteriorly and posteriorly. We irrigated and closed the capsule, the gluteus minimus, gluteus medius and the fascia of the vastus lateralis all with #5 Ethibond. The fascia angeles was closed using #1 Stratofix and interspersed # 5 Ethibond. The subcutaneous tissues were closed with 2-0 Stratofix. A Prineo dressing was applied and the patient was returned to the recovery room in satisfactory condition. Blood loss was approximately 200 mL. There were no specimens and there were no complications. AL ATTENDANT documented in this encounter Plan of Treatment Not on file documented as of this encounter Procedures Procedure Name Priority Date/Time Associated Diagnosis Comments SURG XR HIP RT 1V Routine 07/15/2018 12:31 PM ANIMAL ATTENDANT ARTHROPLASTY HIP TOTAL 07/15/2018 10:58 AM ANIMAL ATTENDANT OSTEOARTHRITIS, PAIN Case Notes HEATH ML TAPER CERAMIC/POLYDIRECT LATERALOFFICE TO NOTIFY REPREP CONTACTED BY [facility] HOSPITALIST documented in this encounter Results * SURG XR HIP RT 1V (07/15/2018 12:31 PM ANIMAL ATTENDANT) Anatomical Region Laterality Modality Hip Radiographic Mary Jo ging 07/15/2018 6:23 PM ANIMAL ATTENDANT Narrative 07/15/2018 6:24 PM ANIMAL ATTENDANT Examination: SURG XR HIP RT 1V Exam time: 07/15/2018 11:55 PM Clinical history: Right hip arthroplasty Comparison: 10/17/2017 Technique: Right hip, one view Findings: Post surgical changes of right hip arthroplasty. The acetabular component appears anchored with 2 screws. The acetabular and femoral components appear grossly intact and without definite fracture on this single supine image. The femoral head has not yet been placed upon the stem. The femoral stem projects over the inferomedial margin of the acetabular cup. Post surgical changes and gas seen within the overlying soft tissues. Pelvic phleboliths. IMPRESSION: 1. Changes of right hip arthroplasty as above. Interpreted By: Joseph Scott MD, 07/15/2018 6:23 PM Procedure Note Joseph Scott MD - 07/15/2018 Examination: SURG XR HIP RT 1V Exam time: 07/15/2018 11:55 PM Clinical history: Right hip arthroplasty Comparison: 10/17/2017 Technique: Right hip, one view Findings: Post surgical changes of right hip arthroplasty. The acetabularcomponent appears anchored with 2 screws. The acetabular and femoralcomponents appear grossly intact and without definite fracture on thissingle supine image. The femoral head has not yet been placed upon thestem. The femoral stem projects over the inferomedial margin of theacetabular cup. Post surgical changes and gas seen within the overlyingsoft tissues. Pelvic phleboliths. IMPRESSION: 1. Changes of right hip arthroplasty as above. Interpreted By: Joseph Scott MD, 07/15/2018 6:23 PM D Arjun Brenner MD IMAGES ONLY Final Result documented in this encounter Visit Diagnoses Not on filedocumented in this encounter Administered Medications Inactive Administered Medications - up to 3 most recent administrations Medication Order MAR Action Action Date Dose Rate Site aspirin chewable tablet 81 mg 81 mg, Oral, 2 times daily, First dose on Thu07/16/18 at 0915, Until Discontinued Given 07/16/2018 9:31 AM ANIMAL ATTENDANT 81 mg BUpivacaine-EPINEPHrine (PF) 0.25% -[id number] injection As needed, Starting on Thu07/15/18 at 1218, Until Thu07/15/18 at 1302, Intra-Op Given 07/15/2018 12:18 PM ANIMAL ATTENDANT 20 mLs Right Hip diphenhydrAMINE (BENADRYL) 12.5 MG/5ML elixir 25 mg 25 mg, Oral, Every 6 hours PRN, Itching, Starting on Thu07/15/18 at 1551, Until Thu07/16/18 at 1446, Give if unable to swallow tablets/capsules or if patient prefers liquid., Post-Op diphenhydrAMINE (BENADRYL) capsule 25 mg 25 mg, Oral, Every 6 hours PRN, Itching, Starting on Mana 07/15/18 at 1551, Until Thu07/16/18 at 1446, Post-Op diphenhydrAMINE (BENADRYL) injection 25 mg 25 mg, Intravenous, Every 6 hours PRN, Itching, Starting on Mana 07/15/18 at 1551, Until Thu07/16/18 at 1446, Give if unable to take PO. For IV administration, give no faster than 25 mg/min., Post-Op docusate sodium (COLACE) capsule 100 mg 100 mg, Oral, Daily, First dose on Thu07/15/18 at 1700, Until Discontinued, Post-Op Given 07/16/2018 8:04 AM ANIMAL ATTENDANT 100 mg ketorolac (TORADOL) injection 15 mg 15 mg, Intravenous, Every 6 hours PRN, Moderate pain (Scale 4 - 7), Starting on Thu07/15/18 at 1325, Until Thu07/16/18 at 1324, For patients 65 years or greater, less than 50 kg, or CrCl less than 30 mL/min., Post-Op Given 07/15/2018 1:31 PM ANIMAL ATTENDANT 15 mg lactated ringers infusion at 10 mL/hr, Intravenous, Continuous, Starting on Thu07/15/18 at 1000, Until Thu07/16/18 at 1446, Pre-Op New Bag 07/15/2018 12:56 PM ANIMAL ATTENDANT New Bag 07/15/2018 12:00 PM ANIMAL ATTENDANT New Bag 07/15/2018 9:55 AM ANIMAL ATTENDANT 10 mL/hr lactated ringers infusion at 100 mL/hr, Intravenous, Continuous, Starting on Thu07/15/18 at 1345, Until Thu07/16/18 at 1446, May discontinue IV Fluid when adequate oral intake, Post-Op New Bag 07/15/2018 1:27 PM ANIMAL ATTENDANT 100 mL/hr levothyroxine (SYNTHROID) tablet 100 mcg 100 mcg, Oral, Nightly at bedtime, First dose on Thu07/15/18 at 2100, Until Discontinued, Avoid iron, calcium, and antacids within 4 hours of administration.Indications:Hypothy roidism Given 07/15/2018 8:27 PM ANIMAL ATTENDANT 100 mcg meloxicam (MOBIC) tablet 15 mg 15 mg, Oral, Daily, First dose on Thu07/15/18 at 1700, Until Discontinued Given 07/16/2018 8:04 AM ANIMAL ATTENDANT 15 mg Given 07/15/2018 5:40 PM ANIMAL ATTENDANT 15 mg traMADol (ULTRAM) tablet 50 mg 50 mg, Oral, Every 6 hours, 4 doses, First dose on Mana 07/15/18 at 1915, Last dose on Thu07/16/18 at 1315, Max daily dose of tramadol equals 400 mg (200 mg if elderly or renally impaired), Post-Op Given 07/16/2018 8:04 AM ANIMAL ATTENDANT 50 mg Given 07/16/2018 1:32 AM ANIMAL ATTENDANT 50 mg Given 07/15/2018 7:06 PM ANIMAL ATTENDANT 50 mg documented in this encounter Active and Recently Administered Medications Times are shown in ANIMAL ATTENDANT. Scheduled Medication Order 07/14/2018 07/15/2018 07/16/2018 acetaminophen (TYLENOL) tablet 1,000 mg (COMPLETED) 1,000 mg, Oral, Once, 1 dose, On Mana 07/15/18 at 1045, Maximum dose of acetaminophen is 4000 mg from all sources in 24 hours., Pre-Op 0936 (Given - Provider: Melba Gifford RN) acetaminophen (TYLENOL) tablet 500 mg 500 mg, Oral, Every 6 hours, 4 doses, First dose on Mana 07/15/18 at 1615, Last dose on Thu07/16/18 at 1200, Maximum dose of acetaminophen is 4000 mg from all sources in 24 hours., Post-Op 1740 (Given - Provider: Deidre Escalera RN)2355 (Given - Provider: Hansa Boateng RN) 0534 (Given - Provider: Marcus Bunch RN)1200 (Canceled Entry - Provider: Automatic Discharge Provider - Comment: Automatically canceled at discontinue of medication order) aspirin chewable tablet 81 mg 81 mg, Oral, 2 times daily, First dose on Thu07/16/18 at 0915, Until Discontinued 0931 (Given - Provid er: Beau Valenzuela RN) ceFAZolin (ANCEF) syringe 2 g (COMPLETED) 2 g, Intravenous, at 240 mL/hr, Once, 1 dose, On Mana 07/15/18 at 1045, Pre-Op 1144 (Given - Provider: Hayley Shankar CRNA)1149 (Infusion Stop Time - Provider: Hayley Shankar CRNA) ceFAZolin (ANCEF) syringe 2 g (COMPLETED)(Linked Group 1) 2 g, Intravenous, at 240 mL/hr, Every 8 hours, 2 doses, First dose on Mana 07/15/18 at 2000, Last dose on Thu07/16/18 at 0400, Give 2 gram dose for patients less than 120 kg. PHARMACY TO ADJUST administration times based on pre-op/intra-op dose. Do NOT continue greater than 24 hours after anesthesia end time., Post-Op 1735 (See Alternative - Provider: Deidre Escalera RN)2020 (Given - Provider: Hansa Boateng RN) 435 (Given - Provider: Marcus Bunch, RAVI) dexamethasone (DECADRON) injection 10 mg (COMPLETED) 10 mg, Intravenous, Once, 1 dose, On Mana 07/15/18 at 1045, Administer slowly over 1-4 minutes., Pre-Op 09 (Given - Provider: Melba Gifford RN) dexamethasone PF (DECADRON) injection 10 mg (COMPLETED) 10 mg, Intravenous, Once, 1 dose, On Thu07/16/18 at 0600, Administer slowly over 1-4 minutes., Post-Op 05 (Given - Provid er: Marcus Bunch RN) docusate sodium (COLACE) capsule 100 mg 100 mg, Oral, Daily, First dose on Mana 07/15/18 at 1700, Until Discontinued, Post-Op 174 (Not Given - Provider: Deidre Escalera RN - Reason: Patient/family declined) 08 (Given - Provider: Beau Valenzuela, RAVI) levothyroxine (SYNTHROID) tablet 100 mcg 100 mcg, Oral, Nightly at bedtime, First dose on Mana 07/15/18 at 2100, Until Discontinued, Avoid iron, calcium, and antacids within 4 hours of administration. 2026 (Given - Provider: Hansa Boateng, RAVI) meloxicam (MOBIC) tablet 15 mg 15 mg, Oral, Daily, First dose on Mana 07/15/18 at 1700, Until Discontinued 1740 (Given - Provider: Deidre Escalera RN) 0804 (Given - Provider: Beau Valenzuela, RAVI) meloxicam (MOBIC) tablet 7.5 mg (COMPLETED) 7.5 mg, Oral, Once, 1 dose, On Mana 07/15/18 at 1045, Pre-Op 0936 (Given - Provider: Melba Gifford, RAVI) ondansetron (ZOFRAN) injection 4 mg (COMPLETED) 4 mg, Intravenous, Once, 1 dose, On Mana 07/15/18 at 1045, IV push over 2-5 minutes., Pre-Op 0937 (Given - Provider: Melba Gifford, RN) traMADol (ULTRAM) tablet 100 mg (COMPLETED) 100 mg, Oral, Once, 1 dose, On Mana 07/15/18 at 1045, Pre-Op 0935 (Given - Provider: Melba Gifford, RAVI) traMADol (ULTRAM) tablet 50 mg 50 mg, Oral, Every 6 hours, 4 doses, First dose on Mana 07/15/18 at 1915, Last dose on Thu07/16/18 at 1315, Max daily dose of tramadol equals 400 mg (200 mg if elderly or renally impaired), Post-Op 1906 (Given - Provider: Deidre Escalera RN) 0132 (Given - Provider: Marcus Bunch RN)0804 (Given - Provider: Beau Valenzuela RN)1315 (Canceled Entry - Provider: Automatic Discharge Provider - Comment: Automatically canceled at discontinue of medication order) Continuous Medication Order 07/14/2018 07/15/2018 07/16/2018 lactated ringers infusion at 10 mL/hr, Intravenous, Continuous, Starting on Mana 07/15/18 at 1000, Until Thu07/16/18 at 1446, Pre-Op 0955 (New Bag - Provider: Melba Gifford RN)1200 (New Bag - Provider: Hayley Shankar CRNA)1256 (New Bag - Provider: Hayley Shankar CRNA)1301 (Anesthesia Volume Adjustment - Provider: Hayley Shankar CRNA) lactated ringers infusion at 100 mL/hr, Intravenous, Continuous, Starting on Mana 07/15/18 at 1345, Until Thu07/16/18 at 1446, May discontinue IV Fluid when adequate oral intake, Post-Op 1327 (New Bag - Provider: James Palomino RN) PRN Medication Order 07/14/2018 07/15/2018 07/16/2018 acetaminophen (TYLENOL) tablet 650 mg 650 mg, Oral, Every 4 hours PRN, Mild pain (Scale 1 - 3), Fever, Starting on Mana 07/15/18 at 1551, Until Thu07/16/18 at 1446, Maximum dose of acetaminophen is 4000 mg from all sources in 24 hours., Post-Op ALPRAZolam (XANAX) tablet 0.25 mg 0.25 mg, Oral, 3 times daily PRN, Sleep, Anxiety, Starting on Mana 07/15/18 at 1551, Until Thu07/16/18 at 1446 BUpivacaine-EPINEPHrine (PF) 0.25% -1:[id number] injection (CANCELED) As needed, Starting on Mana 07/15/18 at 1218, Until Mana 07/15/18 at 1302, Intra-Op 1218 (Given - Provider: Chong Brenner MD) diphenhydrAMINE (BENADRYL) 12.5 MG/5ML elixir 25 mg(Linked Group 2) 25 mg, Oral, Every 6 hours PRN, Itching, Starting on Mana 07/15/18 at 1551, Until Thu07/16/18 at 1446, Give if unable to swallow tablets/capsules or if patient prefers liquid., Post-Op diphenhydrAMINE (BENADRYL) capsule 25 mg(Linked Group 2) 25 mg, Oral, Every 6 hours PRN, Itching, Starting on Mana 07/15/18 at 1551, Until Thu07/16/18 at 1446, Post-Op diphenhydrAMINE (BENADRYL) injection 25 mg(Linked Group 2) 25 mg, Intravenous, Every 6 hours PRN, Itching, Starting on Mana 07/15/18 at 1551, Until Thu07/16/18 at 1446, Give if unable to take PO. For IV administration, give no faster than 25 mg/min., Post-Op hydrocodone-acetaminophen (NORCO) 10-325 MG tablet 1 tablet 1 tablet, Oral, Every 4 hours PRN, Moderate pain (Scale 4 - 7), Starting on Mana 07/15/18 at 1551, Until Thu07/16/18 at 1446, Maximum dose of acetaminophen is 4000 mg from all sources in 24 hours., Post-Op HYDROmorphone (DILAUDID) injection 0.2 mg 0.2 mg, Intravenous, Every 30 min PRN, Other, Breakthrough Pain, Starting on Mana 07/15/18 at 1551, Until Thu07/16/18 at 1446, Post-Op ketorolac (TORADOL) injection 15 mg 15 mg, Intravenous, Every 6 hours PRN, Moderate pain (Scale 4 - 7), Starting on Mana 07/15/18 at 1325, Until Thu07/16/18 at 1324, For patients 65 years or greater, less than 50 kg, or CrCl less than 30 mL/min., Post-Op 1331 (Given - Provider: Esthela Palomino RN) metaxalone (SKELAXIN) tablet 800 mg 800 mg, Oral, Every 8 hours PRN, Spasms, Starting on Mana 07/15/18 at 1551, Until Thu07/16/18 at 1446, Post-Op ondansetron (ZOFRAN) injection 4 mg 4 mg, Intravenous, Every 6 hours PRN, Nausea, Vomiting, Starting on Mana 07/15/18 at 1551, Until Thu07/16/18 at 1446, Post-Op oxyCODONE immediate release (ROXICODONE) tablet 10 mg 10 mg, Oral, Every 4 hours PRN, Severe pain (Scale 8 - 10), Starting on Mana 07/15/18 at 1551, Until Thu07/16/18 at 1446, Post-Op Linked Groups Order Group 1: ceFAZolin (ANCEF) syringe 2 g (COMPLETED)Jump to med 2 g, Intravenous, at 240 mL/hr, Every 8 hours, 2 doses, First dose on Mana 07/15/18 at 2000, Last dose on Thu07/16/18 at 0400, Give 2 gram dose for patients less than 120 kg. PHARMACY TO ADJUST administration times based on pre-op/intra-op dose. Do NOT continue greater than 24 hours after anesthesia end time., Post-Op Or ceFAZolin (ANCEF) 3 g in NS 100 mL IVPB (CANCELED) 3 g, Intravenous, at 200 mL/hr, Every 8 hours, 2 doses, First dose on Mana 07/15/18 at 1615, Last dose on Thu07/16/18 at 0015, Give 3 gram dose for patients 120 kg and greater. PHARMACY TO ADJUST administration times based on pre-op/intra-op dose. Do NOT continue greater than 24 hours after anesthesia end time., Post-Op Group 2: diphenhydrAMINE (BENADRYL) injection 25 mgJump to med 25 mg, Intravenous, Every 6 hours PRN, Itching, Starting on Mana 07/15/18 at 1551, Until 07/16/18 at 1446, Give if unable to take PO. For IV administration, give no faster than 25 mg/min., Post-Op Or diphenhydrAMINE (BENADRYL) capsule 25 mgJump to med 25 mg, Oral, Every 6 hours PRN, Itching, Starting on Mana 07/15/18 at 1551, Until Thu07/16/18 at 1446, Post-Op Or diphenhydrAMINE (BENADRYL) 12.5 MG/5ML elixir 25 mgJump to med 25 mg, Oral, Every 6 hours PRN, Itching, Starting on Mana 07/15/18 at 1551, Until Thu07/16/18 at 1446, Give if unable to swallow tablets/capsules or if patient prefers liquid., Post-Op documented in this encounter Care Teams Manager Call Relationship Specialty Start Date End Date Stephany Novoa MD PCP - General INTERNAL MEDICINE 05/04/18 11/18/22 documented as of this encounter
--- OUTSIDE RECORDS SUMMARY | 2024-06-20 02:00 | XMS_ITS | Encounter Summary ---
Author Organization [facility] Address [address] [place] [address]. [place] [address] [place] [address] Care Team Providers Care Benefit Director Name Role Phone Kathy Hooker MD Primary Care Provider [phone] Encounter Details Date Type Department Care Team (Latest Contact Info) Description 11/28/2019 Travel Social History Tobacco Use Types Packs/Day Years [...] AM CDT Legal Sex Female 11:19 PM INTERNAL COMBUSTION ENGINE ASSEMBLER Gender Identity Female 11/04/2022 9:01 AM CDT Sexual Orientation Straight 11/04/2022 9: 01 AM CDT COVID-19 Exposure Response Date Recorded In the last month, have you been in contact with someone who was confirmed or suspected to have Coronavirus / COVID-19? No / Unsure 11/28/2019 3:01 PM CDT documented as of this encounter Functional Status * RETIRED Are you deaf or do you have serious difficulty hearing Answer Date of Assessment Author Status No 07/15/2018 4:29 PM INTERNAL COMBUSTION ENGINE ASSEMBLER Activ e * RETIRED Are you blind or do you have serious difficulty seeing, even when wearing glasses? Answer Date of Assessment Author Status No 07/15/2018 4:29 PM INTERNAL COMBUSTION ENGINE ASSEMBLER Activ e * Do you have serious [...] Merritt RN Active documented in this encounter Plan of Treatment Not on file documented as of this encounter Visit Diagnoses Not on filedocumented in this encounter Care Teams Benefit Director Relationship Specialty Start Date End Date Kathy Hooker MD PCP - General INTERNAL MEDICINE 05/04/18 11/18/22 documented as of this encounter
--- OUTSIDE RECORDS SUMMARY | 2024-06-20 02:00 | XMS_ITS | Encounter Summary ---
Author Organization [facility] Address [address] [place] [address]. [place] [address] [place] [address] Care Team Providers Care Hazardous Substances Engineer Name Role Phone Kathy Hooker MD Primary Care Provider [phone] Encounter Details Date Type Department Care Team (Late st Contact Info) Description 11/28/2019 Orders Only [facility] [address] [facility] [place] [address] Kathy Hooker MD [address] [place] [address] Social History Tobacco Use Types Packs/Day Years [...] AM CDT Legal Sex Female 11:19 PM INSPECTOR CHIEF Gender Identity Female 11/04/2022 9:01 AM CDT [...] Assessment Author Status No 07/15/2018 4:29 PM INSPECTOR CHIEF Activ e * RETIRED Are you blind or do you have serious difficulty seeing, even when wearing glasses? Answer Date of Assessment Author Status No 07/15/2018 4:29 PM INSPECTOR CHIEF Activ e * Do you have serious [...] on file documented as of this encounter Results * THYROXINE, FREE (FT4) (11/28/2019 3:17 PM CDT) FREE T4 0.86 0.76 - 1.46 NG/DL 11/28/2019 3:50 PM CDT [facility] 11/28/2019 3:17 PM CDT us Kathy Hooker MD LABORATORY Final Res ult [facility] [address] [place] [address], * (ABNORMAL) THYROID STIM HORMONE, TSH (11/28/2019 3:17 PM CDT) TSH 8.973(H) 0.358 - 3.740 uIU/ML 11/28/2019 3:50 PM CDT [facility] 11/28/2019 3:17 PM CDT us Kathy Hooker MD LABORATORY Final Res ult [facility] [address] [place] [address], documented in this encounter Visit Diagnoses Diagnosis Hypothyroidism- Primary Unspecified hypothyroidism documented in this encounter Care Teams Hazardous Substances Engineer Relationship Specialty Start Date End Date Kathy Hooker MD PCP - General INTERNAL MEDICINE 05/04/18 11/18/22 documented as of this encounter
--- OUTSIDE RECORDS SUMMARY | 2024-06-20 02:00 | XMS_ITS | Encounter Summary ---
Author Organization [facility] Address Formerly [facility] [facility] [place] [address] [place] [address] Care Team Providers Care Solar Designer Name Role Phone Kathy Hooker MD Primary Care Provider [phone] Encounter Details Date Type Department Care Team (Latest Contact Info) Description 11/28/2019 3:00 PM CDT - 11/28/2019 11:59 PM CDT Hospital Encounter [facility] [place] [address] Kathy Hooker MD [address] [place] [address] Discharge Disposition: Home or Self Care (Routine [...] AM CDT Legal Sex Female 11:19 PM BOAT WRAPPER Gender Identity Female 11/04/2022 9:01 AM CDT [...] Assessment Author Status No 07/15/2018 4:29 PM BOAT WRAPPER Activ e * RETIRED Are you blind or do you have serious difficulty seeing, even when wearing glasses? Answer Date of Assessment Author Status No 07/15/2018 4:29 PM BOAT WRAPPER Activ e * Do you have serious [...] 100 mcg by mouth nightly at bedtime. documented as of this encounter Plan of Treatment Not on file documented as of this encounter Procedures Procedure Name Priority Date/Time Associated Diagnosis Comments THYROXINE, FREE (FT4) Routine 11/28/2019 3:17 PM CDT Hypothyroidism THYROID STIM HORMONE TSH Routine 11/28/2019 3:17 PM CDT Hypothyroidism documented in this encounter Results * THYROXINE, FREE (FT4) (11/28/2019 3:17 PM CDT) FREE T4 0.86 0.76 - 1.46 NG/DL 11/28/2019 3:50 PM CDT [facility] 11/28/2019 3:17 PM CDT Kathy Hooker MD LABORATORY Final Res ult Performing Organization Address City/[facility]/ZIP Co de Phone Number [facility] [address] [place] [address], * (ABNORMAL) THYROID STIM HORMONE, TSH (11/28/2019 3:17 PM CDT) TSH 8.973(H) 0.358 - 3.740 uIU/ML 11/28/2019 3:50 PM CDT [facility] 11/28/2019 3:17 PM CDT Kathy Hooker MD LABORATORY Final Res ult Performing Organization Address [facility]/ZIP Co de Phone Number [facility] [address] [place] [address], documented in this encounter Visit Diagnoses Diagnosis Hypothyroidism Unspecified hypothyroidism documented in this encounter Care Teams Solar Designer Relationship Specialty Start Date End Date Kathy Hooker MD PCP - General INTERNAL MEDICINE 05/04/18 11/18/22 documented as of this encounter
--- OUTSIDE RECORDS SUMMARY | 2024-06-20 02:00 | XMS_ITS | Clinical Summary ---
Author Organization [facility] Address Critical access hospital[address] [facility] [place] [address] [place] [address] Care Team Providers Care Sports Book Writer Name Role Phone Toma Pete Primary Care Provider [phone] Allergies Active Allergy Reactions Criticality Noted Date Comments Sulfamethoxazole-Trimethoprim Swelling 2017 Facial swelling, was on Bactrim, Cipro & Macrobid for ear infection-so not sure which one I was allergic to Ciprofloxacin Swelling Low 06/18/2018 Nitrofurantoin Swelling Low 06/18/2018 Penicillins Rash Low 06/18/2018 Medications levothyroxine 100 MCG tabletIndicatio ns:Hypothyroidi sm Take 100 mcg by mouth nightly at bedtime. Active ALPRAZolam 0.25 MG tablet Take 0.25 mg by mouth 3 (three) times daily as needed for Sleep or Anxiety. Active Active Problems Problem Noted Date Diagnosed Date Primary osteoarthritis of right hip 07/15/2018 Family History Medical History Relation Comments Heart Disease Father Breast Cancer Maternal Aunt Cancer Paternal Uncle melanoma Relation Status Comments Father Alive Maternal Aunt Mother Alive Paternal Uncle Social History Tobacco Use Types Packs/Day Years [...] AM CDT Legal Sex Female 11:19 PM LOGGING SUPERVISOR Gender Identity Female 11/04/2022 9:01 AM CDT Sexual Orientation Straight 11/04/2022 9: 01 AM CDT Last Filed Vital Signs Vital Sign Reading Time Taken Comments Blood Pressure 140/90 06/07/2019 11:31 AM LOGGING SUPERVISOR Pulse 96 06/07/2019 11:31 AM LOGGING SUPERVISOR Temperature 37 ??C (98.6 ??F) 06/07/2019 11:31 AM LOGGING SUPERVISOR Respiratory Rate 16 06/07/2019 11:31 AM LOGGING SUPERVISOR Oxygen Saturation 98% 06/07/2019 11:31 AM LOGGING SUPERVISOR Inhaled Oxygen Concentration - - Weight 78.9 kg (174 lb) 07/15/2018 3:59 PM LOGGING SUPERVISOR Height 157.5 cm (5' 2 ) 06/07/2019 11:31 AM LOGGING SUPERVISOR Body Mass Index 31.83 07/15/2018 3:59 PM LOGGING SUPERVISOR Plan of Treatment Health Maintenance Due Date Last Done Comments Cervical Cancer Screening Pa p Smear (Age 30 to 64) Every 3 Years 1960 Colorectal Cancer Screening Colonoscopy (10 Years) 1960 Annual Physical 02/08/1963 Hepatitis C 02/08/1978 Cervical Cancer Screening Pa p with HPV Testing (Age 30 to 64) Every 5 Years 02/08/1990 Cervical Cancer Screening wi th HPV 02/08/1990 Zoster Vaccines (1 of 2) 02/08/2010 DTaP, Tdap and Td Vaccines ( 2 - Td or Tdap) 09/15/2023 09/14/2013 COVID-19 Vaccine (1 - 2023-2 5 season) 2024 Influenza Adult (#1) 2024 Mammogram Screening 11/19/2024 11/19/2022, 06/06/2019 RSV Immunization or 60+ Years (1 - 1-dose 75+ series) 02/08/2035 Meningococcal Vaccine Aged Out No osman dov eligible based on patient's age to complete this topic Pneumococcal Vaccine: Pediatrics (0 to 5 Years) and At-Risk Patients (6 to 64 Years) Aged Out No longer eligible b ased on patient's age to complete this topic RSV Immunizations Under 20 Months Aged Out No longer eligible b ased on patient's age to complete this topic Medical Devices Implanted Type Area Senior Firmware Engineer Device Identifier Shelf Expiration Date Model / Serial / Lot Shell Heath Continuum Tm Ch 48mm Gg - [id number] Implanted:Qty: 1 on 07/15/2018 by Chong Aviles MD at [facility] Right: Hip [employer] 04/21/2028 [id number] / / [id number] Continium Trilogy Poly Implanted:Qty: 1 on 07/15/2018 by Chong Aviles MD at [facility] Right: Hip [employer] 07/22/2022 [id number] / / [id number] Screw Heath Bone 30mm - [id number] Implanted:Qty: 1 on 07/15/2018 by Chong Aviles MD at [facility] Right: Hip [employer] 09/20/2027 [id number] / / [id number] Screw Heath Bone 30mm - [id number] Implanted:Qty: 1 on 07/15/2018 by Chong Aviles MD at [facility] Right: Hip [employer] 04/21/2028 [id number] / / [id number] Femoral Stem Implanted:Qty: 1 on 07/15/2018 by Chong Aviles MD at [facility] Right: Hip [employer] 10/20/2027 [id number] / / [id number] Head Femoral Biolox Option Ceramic Heath - [id number] Implanted:Qty: 1 on 07/15/2018 by Chong Aviles MD at [facility] Right: Hip [employer] 03/21/2028 [id number] / / [id number] Explanted Type Area Senior Firmware Engineer Device Identifier Shelf Expiration Date Model / Serial / Lot Disposable Bit Explanted:Qty: 1 on 07/15/2018 at [facility] Right: Hip [employer] [id number] / / Procedures Procedure Name Priority Date/Time Associated Diagnosis Comments MG SCREENING W PATY DANIELLA DIGI Routine 11/19/2022 4:21 PM CDT Visit for screening mammogram from Last 3 Months or Most Recently Relevant to Health Maintenance Results * MG SCREENING W PATY DANIELLA DIGI (11/19/2022 4:21 PM CDT) Anatomical Region Laterality Modality Breast Bilateral Mammography 11/21/2022 3:32 PM CDT Narrative 11/21/2022 3:33 PM CDT Examination: Digital screening mammogram with CAD. Clinical history: Asymptomatic patient presents for routine screening. Comparison: 06/06/2019, 04/09/2018, 10/06/2014. Technique: Bilateral digital mammograms. The exam was interpreted with the use of a computer-aided detection (CAD) system. ??Additional 3-D tomosynthesis images were acquired. Tissue density: The breast tissue contains scattered fibroglandular densities. Findings: The breast tissue contains scattered fibroglandular densities. ?? Benign-appearing calcification noted. No suspicious mass, microcalcification or area of architectural distortion can be identified. From a mammographic standpoint, routine followup in one year would seem adequate. IMPRESSION: No suspicious change since the previous exams. Recommendation: 1: Routine Screening ??Bilateral ??in 1 Year Assessment: ACR BI-RADS 2 - BENIGN FINDING(S) Ordered By: ANGELINA OVALLES Interpreted By: Daniel Wilhelm MD, 11/21/2022 3:32 PM Angelina Ovalles BATHING SUIT MAKER-BC MAMMO Final Result from Last 3 Months or Most Recently Relevant to Health Maintenance Insurance [facility] Advance Directives * Full Code (Latest Code Status on File) Date Activated Date Inactivated Comments 07/15/2018 3:51 PM 07/16/2018 2:46 PM Care Teams Sports Book Writer Relationship Specialty Start Date End Date Toma Pete PA [address] [place] [address] PCP - General PHYSICIAN PATENTS EXAMINER 11/19/22
--- OUTSIDE RECORDS SUMMARY | 2024-06-20 02:00 | XMS_ITS | Encounter Summary ---
Author Organization [facility] Address [facility] [place] [address] [place] [address] Care Team Providers Care Bung Sewer Name Role Phone Stephany Hooker MD Primary Care Provider [phone] Reason for Visit * Reason Comments Anxiety feeling anxious. Sit ting at work looking at her computer and completely lost focus and can not remember what she is doing. [place] her heart was racing. Encounter Details Date Type Department Care Team (Late st Contact Info) Description 06/07/2019 11:30 AM HEAD COACH Office Visit [facility] Priority Care - [address] [place] [id number] Hair Buchanan MD [address] [place], [place] [address] Mckenzie Villarreal, PIPE AND TEST SUPERVISOR [address] [place] [address] Anxiety (feeling anxious. Sitting at work looking at her computer and completely lost focus and can not remember what she is doing. [place] her heart was racing.) Social History Tobacco Use Types Packs/Day Years [...] AM CDT Legal Sex Female 11:19 PM HEAD COACH Gender Identity Female 11/04/2022 9:01 AM CDT Sexual Orientation Straight 11/04/2022 9: 01 AM CDT documented as of this encounter Last Filed Vital Signs Vital Sign Reading Time Taken Comments Blood Pressure 140/90 06/07/2019 11:31 AM HEAD COACH Pulse 96 06/07/2019 11:31 AM HEAD COACH Temperature 37 ??C (98.6 ??F) 06/07/2019 11:31 AM HEAD COACH Respiratory Rate 16 06/07/2019 11:31 AM HEAD COACH Oxygen Saturation 98% 06/07/2019 11:31 AM HEAD COACH Inhaled Oxygen Concentration - - Weight - - Height 157.5 cm (5' 2 ) 06/07/2019 11:31 AM HEAD COACH Body Mass Index - - documented in this encounter Functional Status * RETIRED Are you deaf or do you have serious difficulty hearing Answer Date of Assessment Author Status No 07/15/2018 4:29 PM HEAD COACH Activ e * RETIRED Are you blind or do you have serious difficulty seeing, even when wearing glasses? Answer Date of Assessment Author Status No 07/15/2018 4:29 PM HEAD COACH Activ e * Do you have serious [...] Merritt RN Active documented in this encounter Progress Notes * Mckenzie Schwarz Phil, VIKTORIYA - 06/07/2019 11:30 AM CST Reason for Visit: Anxiety (feeling anxious. Sitting at work looking at her computer and completely lost focus and cannot remember what she is doing. [place] her heart was racing.) History of Present Illness: Erika is a 59 year old female here today for evaluation of anxiety. States that she was at work today and couldn't remember what she was doing. She states that she has been on xanax for quite some time. She states that she feels disconnected. Heart was racing in a meeting but it is better now. She states that after this happened, she couldn't remember things. States that her heart is racing andcan feel it coming and going. She has had a lot of stress over the past 6 months. Her parents both had CABGs. She herself has had a hip replacement. No headache or shortness of breath. ROS: Review of Systems Constitutional: Negative for fever. HENT: Negative for ear discharge. Eyes: Negative. Respiratory: Negative for cough. Cardiovascular: Negative for leg swelling. Gastrointestinal: Negative for constipation, nausea and vomiting. Genitourinary: Negative for hematuria. Musculoskeletal: Negative for joint pain. Skin: Negative for itching. Neurological: Negative for tingling. Endo/Heme/Allergies: Negative for environmental allergies. Psychiatric/Behavioral: Positive for memory loss. The patient is nervous/anxious. Medications: Current Outpatient Medications: ??? ALPRAZolam 0.25 MG tablet, Take 0.25 mg by mouth 3 (three) times daily as needed for Sleep or Anxiety., Disp: , Rfl: ??? levothyroxine 100 MCG tablet, Take 100 mcg by mouth nightly at bedtime. , Disp: , Rfl: Allergies Allergen Reactions ??? Bactrim [Sulfamethoxazole-Trimethoprim] Swelling Facial swelling, was on Bactrim, Cipro & Macrobid for ear infection-so not sure which one I wasallergic to ??? Ciprofloxacin Swelling ??? Macrobid [Nitrofurantoin] Swelling ??? Penicillins Rash Past Medical History: Diagnosis Date ??? Anxiety ??? Arthritis to have Right THR ??? Hypothyroid Past Surgical History: Procedure Laterality Date ??? BREAST SURGERY Augmentation & then reduction ??? CHOLECYSTECTOMY ??? LAPAROSCOPIC OOPHORECTOMY Bilateral ??? MASTOIDECTOMY ??? MYRINGOTOMY WITH TUBE INSERTION Bilateral ??? TUBAL LIGATION Social History Socioeconomic History ??? Marital status: Single Spouse name: Not on file ??? Number of children: Not on file ??? Years of education: Not on file ??? Highest education level: Not on file Occupational History ??? Not on file Social Needs ??? Financial resource strain: Not on file ??? Food insecurity: Worry: Not on file Inability: Not on file ??? Transportation needs: Medical: Not on file Non-medical: Not on file Tobacco Use ??? Smoking status: Never Smoker ??? Smokeless tobacco: Never Used Substance and Sexual Activity ??? Alcohol use: Yes Frequency: 2-4 times a month Comment: socially ??? Drug use: No ??? Sexual activity: Not on file Lifestyle ??? Physical activity: Days per week: Not on file Minutes per session: Not on file ??? Stress: Not on file Relationships ??? Social connections: Talks on phone: Not on file Gets together: Not on file Attends baptist service: Not on file Active member of club or organization: Not on file Attends meetings of clubs or organizations: Not on file Relationship status: Not on file ??? Intimate partner violence: Fear of current or ex partner: Not on file Emotionally abused: Not on file Physically abused: Not on file Forced sexual activity: Not on file Other Topics Concern ??? Not on file Social History Narrative ??? Not on file Family History Problem Relation Name Age of Onset ??? Heart Disease Father ??? Breast Cancer Maternal Aunt ??? Cancer Paternal Uncle melanoma Family Status Relation Name Status ??? Mother Alive ??? Father Alive ??? MAunt (Not Specified) ??? PUncle (Not Specified) Physical Exam Constitutional: She is oriented to person, place, and time. She appears well- developed and well-nourished. HENT: Head: Normocephalic and atraumatic. Right Ear: External ear normal. Left Ear: External ear normal. Nose: Nose normal. Mouth/Throat: Oropharynx is clear and moist. No oropharyngeal exudate. Eyes: Conjunctivae and EOM are normal. Pupils are equal, round, and reactive to light. Neck: Normal range of motion. Neck supple. Cardiovascular: Normal rate, regular rhythm, normal heart sounds and normal pulses. Pulmonary/Chest: Effort normal and breath sounds normal. Abdominal: Soft. Bowel sounds are normal. Musculoskeletal: Normal range of motion. Lymphadenopathy: She has no cervical adenopathy. Neurological: She is alert and oriented to person, place, and time. Skin: Skin is warm and dry. Psychiatric: Her speech is normal and behavior is normal. Judgment and thought content normal. Her mood appears anxious. Cognition and memory are normal. Sobbing and crying during exam Filed Vitals: 06/07/19 1131 BP: 140/90 Pulse: 96 Resp: 16 Temp: 98.6 ??F (37 ??C) SpO2: 98% Height: 5' 2 (1.575 m) Diagnoses/Impression: 1. Anxiety disorder, unspecified type ELECTROCARDIOGRAM, COMPLETE COMPREHENSIVE METABOLIC PANEL CBC W/DIFF AUTOMATED D-DIMER, QUANTITATIVE TROPONIN, QUANT 2. Abnormal heart rate ELECTROCARDIOGRAM, COMPLETE COMPREHENSIVE METABOLIC PANEL CBC W/DIFF AUTOMATED D-DIMER, QUANTITATIVE TROPONIN, QUANT Recommendations and Plan: All labs today are essentially normal. She did have previous labs done by PCP and TSH is abnormal. She does not take her thyroid meds as directed. I encouraged her to do so. I also encouraged her to seek counseling. She may have had an anxiety/panic attack. Should she have worsening symptoms or no i mprovement, she should RTC or follow up with PCP. She and I have discussed this plan of care. She is agreeable to the plan and verbalizes understanding. VIKTORIYA Deluca Referring Provider: No ref. provider found PCP: STEPHANY HOOKER MD COACH documented in this encounter Plan of Treatment Not on file documented as of this encounter Procedures Procedure Name Priority Date/Time Associated Diagnosis Comments COMPREHENSIVE METABOLIC PANEL STAT 06/07/2019 12:01 PM HEAD COACH Anxiety disorder, unspecified type Abnormal heart rate D-DIMER, QUANTITATIVE STAT 06/07/2019 12:01 PM HEAD COACH Anxiety disorder, unspecified type Abnormal heart rate CBC W/DIFF AUTOMATED STAT 06/07/2019 12:01 PM HEAD COACH Anxiety disorder, unspecified type Abnormal heart rate TROPONIN, QUANT STAT 06/07/2019 12:01 PM HEAD COACH Anxiety disorder, unspecified type Abnormal heart rate ELECTROCARDIOGRAM, COMPLETE Routine 06/07/2019 Anxiety disorder, unspecified type Abnormal heart rate documented in this encounter Results * TROPONIN, QUANT (06/07/2019 12:01 PM HEAD COACH) Pathologist [facility] TROPONIN I <0.05 0.00 - 0.40 ng/mL. 06/07/2019 12:37 PM HEAD COACH [facility] 06/07/2019 12:0 1 PM HEAD COACH Mckenzie Villarreal NP LABORATORY Final Result Performing Organization Address [facility] Co de Phone Number [facility] [address] [place] [address], * (ABNORMAL) D-DIMER, QUANTITATIVE (06/07/2019 12:01 PM HEAD COACH) Pathologist [facility] D-DIMER <100(L) 100 - 500 D DU ng/mL 06/07/2019 12:37 PM HEAD COACH [facility] 06/07/2019 12:0 1 PM HEAD COACH Mckenzie Villarreal NP LABORATORY Final Result Performing Organization Address City/[facility]/ZIP Co de Phone Number [facility] [address] [place] [address], * CBC W/DIFF AUTOMATED (06/07/2019 12:01 PM HEAD COACH) Pathologist [facility] WBC 5.1 4.50 - 10.80 x10'3/uL 06/07/2019 12:14 PM HEAD COACH [facility] RBC 4.96 4.10 - 5.40 x10'6/uL 06/07/2019 12:14 PM [facility] HGB 15.4 12.0 - 16.0 G/DL 06/07/2019 12:14 PM [facility] HCT 45.3 36.0 - 47.0 % 06/07/2019 12:14 PM [facility] MCV 91.3 78.0 - 100.0 FL 06/07/2019 12:14 PM [facility] MCH 31.0 27.0 - 31.0 PG 06/07/2019 12:14 PM [facility] MCHC 34.0 33.0 - 36.0 G/DL 06/07/2019 12:14 PM [facility] RDW 12.8 11.5 - 14.5 % 06/07/2019 12:14 PM [facility] PLT 280 150 - 350 x10'3/uL 06/07/2019 12:14 PM [facility] MPV 9.8 7.4 - 10.4 FL 06/07/2019 12:14 PM [facility] DIFFERENTIAL TYPE AUTOMATED DIFFERENTIAL 06/07/2019 12:14 PM [facility] NEUTROPHILS % 57.8 % 06/07/2019 12:14 PM [facility] LYMPHOCYTES % 32.3 % 06/07/2019 12:14 PM [facility] MONOCYTES % 7.7 % 06/07/2019 12:14 PM [facility] EOSINOPHILS % 1.8 % 06/07/2019 12:14 PM [facility] BASOPHILS % 0.4 % 06/07/2019 12:14 PM [facility] ABS. NEUTROPHILS 2.93 1.60 - 8.30 x10'3/uL 06/07/2019 12:14 PM [facility] ABS. LYMPHOCYTES 1.64 0.80 - 4.70 x10'3/uL 06/07/2019 12:14 PM [facility] [place] ABS. MONOCYTES 0.39 0.00 - 1.50 x10'3/uL 06/07/2019 12:14 PM [facility] [place] ABS. EOSINOPHILS 0.09 0.00 - 0.40 x10'3/uL 06/07/2019 12:14 PM [facility] [place] ABS. BASOPHILS 0.02 0.00 - 0.20 x10'3/uL 06/07/2019 12:14 PM [facility] [place] 06/07/2019 12:0 1 PM HEAD COACH Mckenzie Villarreal NP LABORATORY Final Result [facility] [address] [facility] [place] [address], * (ABNORMAL) COMPREHENSIVE METABOLIC PANEL (06/07/2019 12:01 PM HEAD COACH) [facility] SODIUM S/P/B 140 136 - 145 MMOL/L 06/07/2019 12:28 PM [facility] [place] POTASSIUM S/P/B 4.3 3.5 - 5.1 MMOL/L 06/07/2019 12:28 PM [facility] [place] CHLORIDE S/P/B 102 98 - 107 MMOL/L 06/07/2019 12:28 PM [facility] [place] CO2 26.7 21 - 32 MMOL/L 06/07/2019 12:28 PM [facility] 107(H) 70 - 99 MG/DL 06/07/2019 12:28 PM [facility] [place] BUN 12 6 - 24 MG/DL 06/07/2019 12:28 PM [facility] CREATININE S/P/B 1.09(H) 0.55 - 1.02 MG/DL 06/07/2019 12:28 PM [facility] CALCIUM S/P/B 9.3 8.4 - 10.5 MG/DL 06/07/2019 12:28 PM [facility] [place] BILIRUBIN TOTAL S/P/B 0.4 0.2 - 1.0 MG/DL 06/07/2019 12:28 PM [facility] [place] ALKALINE PHOSPHATASE S/P/B 96 46 - 118 U/L 06/07/2019 12:28 PM [facility] [place] AST 21 15 - 37 U/L 06/07/2019 12:28 PM [facility] [place] ALT 36 14 - 59 U/L 06/07/2019 12:28 PM [facility] [place] TOTAL PROTEIN S/P/B 8.7(H) 6.4 - 8.2 G/DL 06/07/2019 12:28 PM [facility] [place] ALBUMIN S/P/B 4.7 3.4 - 5.0 G/DL 06/07/2019 12:28 PM [facility] [place] ANION GAP 11.3 5 - 15 MMOL/L 06/07/2019 12:28 PM [facility] [place] Comment:REFERENCE RANGE NOT ESTABLISHED OSMOLALITY (CALC) 290 MOSM/KG 06/07/2019 12:28 PM [facility] [place] Comment:REFERENCE RANGE NOT ESTABLISHED EGFR NON-AFR. AMER. 56(L) >90 ML/MIN/1 .73 M2 06/07/2019 12:28 PM [facility] [place] EGFR AFR. AMER. 64(L) >90 ML/MIN/1 .73 M2 06/07/2019 12:28 PM [facility] [place] GFR NOTES THE ESTIMATED GFR IS CALCULATED USING THE 2009 CKD-EPI EQUATION. THE FOLLOWING CATEGORIES FOR GRADING RENAL FUNCTION ARE RECOMMENDED BY THE INTERNATIONAL SOCIETY OF NEPHROLOGY (KDIGO 2012 CLINICAL PRACTICE GUIDELINE). 06/07/2019 12:28 PM [facility] [place] Comment: G1,NORMAL OR HIGH: >89 ml/min/1.73 m2 G2,MILDLY DECREASED: 60-89 ml/min/1.73 m2 G3A,MILDLY TO MODERATELY DECREASED: 45-59 ml/min/1.73 m2 G3B,MODERATELY TO SEVERELY DECREASED: 30-44 ml/min/1.73 m2 G4,SEVERELY DECREASED: 15-29 ml/min/1.73 m2 G5,KIDNEY FAILURE: <15 ml/min/1.73 m2 06/07/2019 12:0 1 PM HEAD COACH Mckenzie Villarreal NP LABORATORY Final Result [facility] [address] [place] [address], * [id number] - Electrocardiogram, Complete (06/07/2019) Mckenzie Villarreal NP PROCEDURES-RESULTABLE Edited Result - Final documented in this encounter Visit Diagnoses Diagnosis Anxiety disorder, unspecified type- Primary Abnormal heart rate Other abnormal heart sounds documented in this encounter Care Teams Bung Sewer Relationship Specialty Start Date End Date Stephany Hooker MD PCP - General INTERNAL MEDICINE 05/04/18 11/18/22 documented as of this encounter
--- OUTSIDE RECORDS SUMMARY | 2024-06-20 02:00 | XMS_ITS | Encounter Summary ---
Author Organization [facility] Address [facility] [place] [address] [place] [address] Care Team Providers Care Lighting Equipment Operator Name Role Phone Ktahy Hooker MD Primary Care Provider [phone] Reason for Visit * Auth/Cert Specialty Diagnoses / Procedures Referred By Umair freeman Referred To Contact Diagnoses OSTEOARTHRITIS, PAIN Procedures ARTHROPLASTY HIP TOTAL, AUTOGRAFT TO ACETABULUM Referral ID Status Reason Start Date Expiration Date Visits Re quested Visits Authorized [id number] 1 1 Encounter Details Date Type Department Care Team (Late st Contact Info) Description 07/15/2018 11:19 AM DYNAMITE RECLAIMER Anesthesia Event [facility] [address] [place] [address] Sandrine Contreras MD [address] [place] [address] [place] [address] Charlotte Horan, RN Anesthesia Record Procedure Summary Procedure Name Responsible Anesthesiologist Anesthesia Start Time Anesthesia Stop Time ARTHROPLASTY HIP TOTAL, AUTOGRAFT TO ACETABULUM (Right: Hip) Sandrine Contreras MD 07/15/18 1119 07/15/18 1308 Events Date Time Event Comment 07/15/2018 0947 0922 AN Anesthesia Prepped 1119 An Start Patient ID and consent checked and patient reassessed. 1119 An Start Data 1127 An Block 1130 Face Mask Applied 1131 Anesthesia Ready 1301 Face Mask Removed 1301 an stop data 1305 Post Anesthetic Care Handoff I completed my handoff to the receiving nurse during which we: 1. Identified the patient 2. Identified the responsible provider 3. Reviewed the pertinent medical history 4. Discussed the surgical course 5. Reviewed intra-op anesthesia management and issues during anesthesia 6. Set expectations for post-procedure period 7. Allowed opportunity for questions and acknowledgement of understanding. 1308 An Stop Meds Name Total midazolam 2 mg/2 mL injection 5 mg propofol (DIPRIVAN) 500 mg/50 mL injecti on 717.99 mg phenylephrine (STEVEN-SYNEPHRINE) 1 mg/10 m L IV premix syringe 1,000 mcg tranexamic acid (CYKLOKAPRON) injection 1,000 mg BUpivacaine 0.75%-dextrose 8.25% intrath ecal injection 1.8 mL ceFAZolin (ANCEF) syringe 2 g 2 g lidocaine (PF) 1% injection 30 mg lactated ringers infusion 2,100 mL * Agents Name O2 N2O Air Ancillary O2 * Blood No blood administrations on file. Lines, Drains, and Airways Type Details Placement Removal Peripheral IV Placement Date: 07/15/18; Placement Time: 0932; Size: 18 G; Orientation: Right; Location: Forearm; Site Prep: Chlorhexidine; Local Anesthetic: None; Inserted By: Javad Bolden Rn ; Insertion attempts: (Lolis RODRIGUES (1 unsuccessful) ); Ultrasound-guided Placement?: No; Patient Tolerance: Tolerated well; Removal Date: 07/16/18; Removal Time: 1234; Removal Reason: Patient Discharged 07/15/18 0932 by Melba Gifford RN 07/16/18 1234 by Beau Valenzuela RN Supraglottic Airway Placement Date: 07/15/18; Placement Time: 1130; Airway Device: Facemask; Removal Date: 07/15/18; Removal Time: 1301 07/15/18 1130 by Hayley Shankar CRNA 07/15/18 1301 by Hayley Shankar CRNA Surgical/Incision 07/15/18; 1308; Surgical Wound; Hip; Right; ADHESIVE DERMABOND PRINEO SKIN CLOSURE STRIP; 07/16/18; 1441 07/15/18 1308 by Savannah Keys RN 07/16/18 1441 by Automatic Discharge Provider documented in this encounter Social History Tobacco Use Types Packs/Day Years Used Date Smoking Tobacco: Never Smokeless Tobacco: Never Alcohol Use Standard Drinks/Week Comments Yes 0 (1 standard drink = 0.6 oz pur e alcohol) socially Comments Unknown Sex and Gender Information Value Date Recorded Sex Assigned at Female 11/04/2022 9:01 AM CDT Legal Sex Female 11:19 PM DYNAMITE RECLAIMER Gender Identity Female 11/04/2022 9:01 AM CDT Sexual Orientation Straight 11/04/2022 9: 01 AM CDT documented as of this encounter Mental Status * Because of a physical, mental, or emotional condition, do you have serious difficulty concentrating, remembering, or making decisions? Answer Entry Date Author Status No 07/15/2018 4:29 PM DYNAMITE RECLAIMER Deidre Escalera RN Active documented in this encounter OR Notes * Anesthesia Postprocedure Evaluation - Ferny Clark MD - 07/15/2018 2:54 PM CST Anesthesia Post-op Note Ciera Aggarwal Procedure(s): ARTHROPLASTY HIP TOTAL, AUTOGRAFT TO ACETABULUM (Right Hip) Anesthesia type: spinal Vitals: 07/15/18 1400 BP: 123/85 Vitals: 07/15/18 1445 Pulse: 87 Vitals: 07/15/18 1445 Resp: 18 Vitals: 07/15/18 1305 Temp: 36 ??C Vitals: 07/15/18 1445 SpO2: 97% Patient Location: PACU Level of Consciousness: awake, alert and oriented Pain Management: adequate analgesia Airway Patency: patent Respiratory Status: acceptable Cardiovascular Status: acceptable Post-Op Nausea: none Postoperative Hydration: euvolemic Complications: no anesthesia complication MITE RECLAIMER * Anesthesia Procedure Notes - Hayley Shankar CRNA - 07/15/2018 11:29 AM DYNAMITE RECLAIMER Associated Order(s): Spinal Block Spinal Block Patient location during procedure: OR Reason for block: primary anesthetic Staffing Anesthesiology Provider: Sandrine Contreras MD Performed by: anesthesiologist Preanesthetic Checklist Completed: patient identified, site marked, surgical consent, pre-op evaluation, timeout performed,IV checked, risks and benefits discussed and monitors and equipment checked Spinal Block Patient position: sitting Prep: patient draped and chlorhexidine Patient monitoring: night monitor, continuous pulse oximetry and blood pressure Approach: midline Ultrasound-guided Placement: No Location: L3-4 L3-4 Attempts: 1 Local: lidocaine 1%, Dose: 2 mL Needle Needle type: Pencil tip Needle gauge: 25 G Needle length: 3.5 in Needle attempts: 1 Assessment Sensory level: T10 Events: negative paresthesia, negative aspiration, positive free flow CSF and patient tolerated well MITE RECLAIMER * Anesthesia Preprocedure Evaluation - Sandrine Contreras MD - 07/14/2018 11:52 AM CST Anesthesia ROS/MED History Reviewed: Patient summary , Nursing notes , Family history anesthesia, Anesthesia history , Medications , Labs Pre-Anesthetic State: alert, awake and responds appropriately no history of anesthetic complications Pulmonary neg pulmonary ROS Cardiovascular ROS comment: SINUS RHYTHM WITH SINUS ARRHYTHMIA LOW QRS VOLTAGE IN PRECORDIAL LEADS MITE RECLAIMER Neuro/Psych (+) neuromuscular disease, (neuropathy), psychiatric problem, (anxiety) Comments: Hip pain Generalized pain GI/Hepatic/Renal neg GI/hepatic/renal ROS Endo/Other (+) obese (BMI 31), hypothyroidism, arthritis, (OA) GENERAL COMMENTS Procedure: ARTHROPLASTY HIP TOTAL, AUTOGRAFT TO ACETABULUM (Right Hip) Pre-op diagnosis: OSTEOARTHRITIS, PAIN Physical Evaluation Airway Mallampati: I TM Distance: >3 FB Neck ROM: normal Dental (upper dentures) Pulmonary Breath sounds clear to auscultation Cardiovascular Rhythm: regular Rate: normal Anesthesia Plan ASA 2 Induction Anesthesia type: spinal Informed Consent Anesthetic plan and risks discussed with patient of whom consent was obtained. . MITE RECLAIMER MITE RECLAIMER MITE RECLAIMER MITE RECLAIMER documented in this encounter Plan of Treatment Not on file documented as of this encounter Procedures Procedure Name Priority Date/Time Associated Diagnosis Comments AN SPINAL Routine 07/15/2018 11:29 AM DYNAMITE RECLAIMER Procedure Note - Hayley ShankarTANYA - 07/15/2018 11:29 AM CSTThis note is in progress. Spinal Block Patient location during procedure: OR Reason for block: primary anesthetic Staffing Anesthesiology Provider: Sandrine Contreras MD Performed by: anesthesiologist Preanesthetic Checklist Completed: patient identified, site marked, surgical consent, pre-opevaluation, timeout performed, IV checked, risks and benefits discussedand monitors and equipment checked Spinal Block Patient position: sitting Prep: patient draped and chlorhexidine Patient monitoring: night monitor, continuous pulse oximetry and bloodpressure Approach: midline Ultrasound-guided Placement: No Location: L3-4 L3-4 Attempts: 1 Local: lidocaine 1%, Dose: 2 mL Needle Needle type: Pencil tip Needle gauge: 25 G Needle length: 3.5 in Needle attempts: 1 Assessment Sensory level: T10 Events: negative paresthesia, negative aspiration, positive free flow CSFand patient tolerated well documented in this encounter Visit Diagnoses Not on filedocumented in this encounter Administered Medications Inactive Administered Medications - up to 3 most recent administrations Medication Order MAR Action Action Date Dose Rate Site BUpivacaine 0.75% in dextrose 8.25% (intrathecal) (SENSORCAINE) 0.75-8.25 % injection PRN, Starting on Mana 07/15/18 at 1127, Until Mana 07/15/18 at 1308, Anesthesia Intra-Op Given 07/15/2018 11:27 AM DYNAMITE RECLAIMER 1.8 mLs ceFAZolin (ANCEF) syringe 2 g 2 g, Intravenous, at 240 mL/hr, Once, 1 dose, On Mana 07/15/18 at 1045, Pre-Op Given 07/15/2018 11:44 AM DYNAMITE RECLAIMER 2 g lactated ringers infusion at 10 mL/hr, Intravenous, Continuous, Starting on Mana 07/15/18 at 1000, Until Thu07/16/18 at 1446, Pre-Op New Bag 07/15/2018 12:56 PM DYNAMITE RECLAIMER New Bag 07/15/2018 12:00 PM DYNAMITE RECLAIMER New Bag 07/15/2018 9:55 AM DYNAMITE RECLAIMER 10 mL/hr lidocaine (PF) (XYLOCAINE) 1 % injection PRN, Starting on Mana 07/15/18 at 1127, Until Mana 07/15/18 at 1308, Anesthesia Intra-Op Given 07/15/2018 11:27 AM DYNAMITE RECLAIMER 30 mg midazolam (VERSED) injection Intravenous, PRN, Starting on Mana 07/15/18 at 1115, Until Mana 07/15/18 at 1308, Anesthesia Intra-Op Given 07/15/2018 11:27 AM DYNAMITE RECLAIMER 1 mg Given 07/15/2018 11:25 AM DYNAMITE RECLAIMER 1 mg Given 07/15/2018 11:22 AM DYNAMITE RECLAIMER 1 mg phenylephrine (STEVEN-SYNEPHRINE) injection Intravenous, PRN, Starting on Mana 07/15/18 at 1158, Until Mana 07/15/18 at 1308, Anesthesia Intra-Op Given 07/15/2018 12:54 PM DYNAMITE RECLAIMER 100 mcg Given 07/15/2018 12:50 PM DYNAMITE RECLAIMER 100 mcg Given 07/15/2018 12:44 PM DYNAMITE RECLAIMER 100 mcg propofol (DIPRIVAN) IV bolus Intravenous, Continuous PRN, Starting on Mana 07/15/18 at 1130, Until Mana 07/15/18 at 1308, Anesthesia Intra-Op Rate/Dose Change 07/15/2018 11:40 AM DYNAMITE RECLAIMER 100 mcg/kg/min 47.3 mL/hr New Bag 07/15/2018 11:30 AM DYNAMITE RECLAIMER 150 mcg/kg/min 71 mL/hr tranexamic acid (CYKLOKAPRON) injection Intravenous, PRN, Starting on Mana 07/15/18 at 1143, Until Mana 07/15/18 at 1308, Anesthesia Intra-Op Given 07/15/2018 11:43 AM DYNAMITE RECLAIMER 1,000 mg documented in this encounter Care Teams Lighting Equipment Operator Relationship Specialty Start Date End Date Kathy Hooker MD PCP - General INTERNAL MEDICINE 05/04/18 11/18/22 documented as of this encounter
--- OUTSIDE RECORDS SUMMARY | 2024-06-20 02:00 | XMS_ITS | Encounter Summary ---
Author Organization [facility] Address [facility] [place] [address] [place] [address] Care Team Providers Care Pattern Marking Supervisor Name Role Phone Kathy Hooker MD Primary Care Provider [phone] Encounter Details Date Type Department Care Team (Late st Contact Info) Description 08/23/2018 Abstract [facility] [address] [place] [address] Chong Aviles MD [address] [place], [place] [id number] Social History Tobacco Use Types Packs/Day Years Used Date Smoking Tobacco: Never Smokeless Tobacco: Never Alcohol Use Standard Drinks/Week Comments Yes 0 (1 standard drink = 0.6 oz pur e alcohol) socially Comments Unknown Sex and Gender Information Value Date Recorded Sex Assigned at Female 11/04/2022 9:01 AM CDT Legal Sex Female 11:19 PM INFORMATION TECHNOLOGY SECURITY ANALYST Gender Identity Female 11/04/2022 9:01 AM CDT Sexual Orientation Straight 11/04/2022 9: 01 AM CDT documented as of this encounter Functional Status * RETIRED Are you deaf or do you have serious difficulty hearing Answer Date of Assessment Author Status No 07/15/2018 4:29 PM INFORMATION TECHNOLOGY SECURITY ANALYST Activ e * RETIRED Are you blind or do you have serious difficulty seeing, even when wearing glasses? Answer Date of Assessment Author Status No 07/15/2018 4:29 PM INFORMATION TECHNOLOGY SECURITY ANALYST Activ e * Do you have serious [...] documented as of this encounter Visit Diagnoses Diagnosis Pain in right hip Pain in joint, pelvic region and thigh documented in this encounter Care Teams Pattern Marking Supervisor Relationship Specialty Start Date End Date Kathy Hooker MD PCP - General INTERNAL MEDICINE 05/04/18 11/18/22 documented as of this encounter
--- OUTSIDE RECORDS SUMMARY | 2024-06-20 02:00 | XMS_ITS | Encounter Summary ---
Author Organization [facility] Address [address] [place] [address]. [place] [address] [place] [address] Care Team Providers Care Wire Coiner Name Role Phone Kathy Hooker MD Primary Care Provider [phone] Encounter Details Date Type Department Care Team (Latest Contact Info) Description 06/07/2019 Scan HEALTH INFO [facility] Scanned, Documents Social History Tobacco Use Types Packs/Day Years [...] AM CDT Legal Sex Female 11:19 PM NURSING CARE PARTNER Gender Identity Female 11/04/2022 9:01 AM CDT Sexual Orientation Straight 11/04/2022 9: 01 AM CDT documented as of this encounter Functional Status * RETIRED Are you deaf or do you have serious difficulty hearing Answer Date of Assessment Author Status No 07/15/2018 4:29 PM NURSING CARE PARTNER Activ e * RETIRED Are you blind or do you have serious difficulty seeing, even when wearing glasses? Answer Date of Assessment Author Status No 07/15/2018 4:29 PM NURSING CARE PARTNER Activ e * Do you have serious [...] on filedocumented in this encounter Care Teams Wire Coiner Relationship Specialty Start Date End Date Kathy Hooker MD PCP - General INTERNAL MEDICINE 05/04/18 11/18/22 documented as of this encounter
--- OUTSIDE RECORDS SUMMARY | 2024-06-20 02:00 | XMS_ITS | Encounter Summary ---
Author Organization [facility] Address [address] [place] [address]. [place] [address] [place] [address] Care Team Providers Care Fruit Canner Name Role Phone Toma Pete Primary Care Provider [phone] Reason for Visit * Imaging (Routine) - Closed Specialty Diagnoses / Procedures Referred By Umair freeman Referred To Contact RADIOLOGY Diagnoses Visit for screening mammogram Procedures MG SCREENING W PATY DANIELLA DIGI Angelina Ovalles, STRAIGHT EDGER-BC [address] [place] [address] Phone: tel: fax: Referral ID Status Reason Start Date Expiration Date Visits Re quested Visits Authorized [id number] Closed 10/15/2022 10/16/2023 1 1 Encounter Details Date Type Department Care Team (Late st Contact Info) Description 11/19/2022 4:00 PM CDT - 11/19/2022 11:59 PM CDT Hospital Encounter [facility] [address] [place] [address] Angelina Ovalles, STRAIGHT EDGER-BC [address] [place] [address] Discharge Disposition: Home or Self Care (Routine [...] AM CDT Legal Sex Female 11:19 PM FORMING YARDAGE CONTROL OPERATOR Gender Identity Female 11/04/2022 9:01 AM CDT Sexual Orientation Straight 11/04/2022 9: 01 AM CDT COVID-19 Exposure Response Date Recorded In the last 10 days, have yo u been in contact with someone who was confirmed or suspected to have Coronavirus/COVID-19? No / Unsure 11/19/2022 4:03 PM CDT documented as of this encounter Functional Status * RETIRED Are you deaf or do you have serious difficulty hearing Answer Date of Assessment Author Status No 07/15/2018 4:29 PM FORMING YARDAGE CONTROL OPERATOR Activ e * RETIRED Are you blind or do you have serious difficulty seeing, even when wearing glasses? Answer Date of Assessment Author Status No 07/15/2018 4:29 PM FORMING YARDAGE CONTROL OPERATOR Activ e * Do you have serious [...] Assessment Author Status No 07/15/2018 4:29 PM eDidre Merritt RN Active documented as of this [...] 4:21 PM CDT Visit for screening mammogram documented in this encounter Results * MG SCREENING W PATY DANIELLA [...] Wilhelm MD, 11/21/2022 3:32 PM Angelina Ovalles STRAIGHT EDGER-BC MAMMO Final Result documented in this encounter Visit Diagnoses Not on filedocumented in this encounter Care Teams Fruit Canner Relationship Specialty Start Date End Date Toma Pete PA [address] [place] [id number] PCP - General PHYSICIAN PRODUCTION GRADER 11/19/22 documented as of this encounter
--- OUTSIDE RECORDS SUMMARY | 2024-06-20 02:00 | XMS_ITS | Encounter Summary ---
Author Organization [facility] Address [address] [place] [address]. [place] [address] [place] [address] Care Team Providers Care Printing Services Coordinator Name Role Phone Toma Pete Primary Care Provider [phone] Encounter Details Date Type Department Care Team (Latest Contact Info) Description 11/19/2022 Travel Social History Tobacco Use Types Packs/Day [...] AM CDT Legal Sex Female 11:19 PM HOSPITALITY WORKERS Gender Identity Female 11/04/2022 9:01 AM CDT [...] Assessment Author Status No 07/15/2018 4:29 PM HOSPITALITY WORKERS Activ e * RETIRED Are you blind or do you have serious difficulty seeing, even when wearing glasses? Answer Date of Assessment Author Status No 07/15/2018 4:29 PM HOSPITALITY WORKERS Activ e * Do you have serious [...] on filedocumented in this encounter Care Teams Printing Services Coordinator Relationship Specialty Start Date End Date Toma Pete PA [address] [place] [address] PCP - General PHYSICIAN RELAY WORKER 11/19/22 documented as of this encounter
--- OUTSIDE RECORDS SUMMARY | 2024-06-20 02:00 | XMS_ITS | Encounter Summary ---
Author Organization [facility] Address [address] [place] [address]. [place] [address] [place] [address] Care Team Providers Care Market Specialist Name Role Phone Kathy Hooker MD Primary Care Provider [phone] Encounter Details Date Type Department Care Team (Late st Contact Info) Description 06/06/2019 Orders Only [facility] [address] [place] [address] Kathy Hooker MD [address] [place] [address] Social History Tobacco Use Types [...] AM CDT Legal Sex Female 11:19 PM GERICARE AIDE Gender Identity Female 11/04/2022 9:01 AM CDT Sexual Orientation Straight 11/04/2022 9: 01 AM CDT documented as of this encounter Functional Status * RETIRED Are you deaf or do you have serious difficulty hearing Answer Date of Assessment Author Status No 07/15/2018 4:29 PM GERICARE AIDE Activ e * RETIRED Are you blind or do you have serious difficulty seeing, even when wearing glasses? Answer Date of Assessment Author Status No 07/15/2018 4:29 PM GERICARE AIDE Activ e * Do you have serious [...] * THYROXINE, FREE (FT4) (06/06/2019 7:50 AM GERICARE AIDE) FREE T4 0.93 0.76 - 1.46 NG/DL 06/06/2019 8:47 AM GERICARE AIDE [facility] 06/06/2019 7:50 AM GERICARE AIDE us Kathy Hooker MD LABORATORY Final Res ult [facility] [address] [place] [address], * (ABNORMAL) LIPID PANEL (06/06/2019 7:50 AM GERICARE AIDE) CHOLESTEROL 196 <200 MG/DL 06/06/2019 8:47 AM GERICARE AIDE [facility] Comment: THE NATIONAL LIPID ASSOCIATION AND THE NATIONAL CHOLESTEROL EDUCATION PROGRAM (NCEP) HAVE SET THE FOLLOWING GUIDELINES FOR TOTAL CHOLESTEROL IN ADULTS AGES 18 AND UP. DESIRABLE: <200 BORDERLINE HIGH: 200-239 HIGH: > OR = 240 TRIGLYCERIDES 165(H) <150 MG/DL 06/06/2019 8:[address] [facility] Comment: THE NATIONAL LIPID ASSOCIATION AND THE NATIONAL CHOLESTEROL EDUCATION PROGAM (NCEP) HAVE SET THE FOLLOWING GUIDELINES FOR TRIGLYCERIDES IN ADULTS AGES 18 AND UP. NORMAL: <150 BORDERLINE HIGH: 150 TO 199 HIGH: 200 TO 499 VERY HIGH: >499 HDL 46(L) >49 MG/DL 06/06/2019 8:47 AM GERICARE AIDE [facility] Comment: THE NATIONAL LIPID ASSOCIATION AND THE NATIONAL CHOLESTEROL EDUCATION PROGAM (NCEP) HAVE SET THE FOLLOWING GUIDELINES FOR HDL CHOLESTEROL IN ADULTS AGES 18 AND UP. MALES: >39 FEMALES: >49 LDL (CALCULATED) 117(H) <100 MG/DL 06/06/20 8:[address] [facility] Comment: THE NATIONAL LIPID ASSOCIATION AND THE NATIONAL CHOLESTEROL EDUCATION PROGAM (NCEP) HAVE SET THE FOLLOWING GUIDELINES FOR LDL CHOLESTEROL IN ADULTS AGES 18 AND UP. DESIRABLE: <100 ABOVE DESIRABLE: 100 TO 129 BORDERLINE HIGH: 130 TO 159 HIGH: 160 TO 189 VERY HIGH: >189 VLDL CALCULATION 33 MG/DL 06/06/20 8:[address] [facility] Comment:REFERENCE RANGE NOT ESTABLISHED CHOL/HDL RATIO 4.3 06/06/2019 8:[address] [facility] Comment:REFERENCE RANGE NOT ESTABLISHED LDL/HDL 2.5 06/06/2019 8:[address] [facility] Comment:REFERENCE RANGE NOT ESTABLISHED NON HDL CHOLESTEROL 150 MG/DL 06/06/2019 8:[address] [facility] Comment:REFERENCE RANGE NOT ESTABLISHED 06/06/2019 7:50 AM GERICARE AIDE us Kathy Hooker MD LABORATORY Final Res ult [facility] [address] [place] [address], * (ABNORMAL) THYROID STIM HORMONE, TSH (06/06/2019 7:50 AM GERICARE AIDE) TSH 14.019(H) 0.358 - 3.740 uIU/ML 06/06/2019 8:47 AM GERICARE AIDE [facility] 06/06/2019 7:50 AM GERICARE AIDE us Kathy Hooker MD LABORATORY Final Res ult [facility] [address] [address], documented in this encounter Visit Diagnoses Diagnosis Hypothyroidism- Primary Unspecified hypothyroidism Healthcare maintenance Routine general medical examination at a health care facility documented in this encounter Care Teams Market Specialist Relationship Specialty Start Date End Date Kathy Hooker MD PCP - General INTERNAL MEDICINE 05/04/18 11/18/22 documented as of this encounter
--- OUTSIDE RECORDS SUMMARY | 2024-06-20 02:00 | XMS_ITS | Encounter Summary ---
Author Organization [facility] Address [facility] [place] [address] [place] [address] Care Team Providers Care Angiography Nurse Name Role Phone Stephany Novoa MD Primary Care Provider [phone] Reason for Referral * (Routine) - Canceled Specialty Diagnoses / Procedures Referred By Contac t Referred To Contact Procedures PT Eval and Treat Chong Brenner MD [address] [place] [address] Phone: tel: fax: Referral ID Status Reason Start Date Expiration Date V isits Requested Visits Authorized [id number] Canceled 07/15/2018 08/15/2019 1 1 AND SHANK DEPARTMENT SUPERVISOR * (Routine) - Closed Specialty Diagnoses / Procedures Referred By Contac t Referred To Contact Procedures OT Eval and Treat Chong Brenner MD [address] [place] [address] Phone: tel: fax: Referral ID Status Reason Start Date Expiration Date Visits Re quested Visits Authorized [id number] Closed 07/15/2018 08/15/2019 1 1 AND SHANK DEPARTMENT SUPERVISOR Reason for Visit * Auth/Cert Specialty Diagnoses / Procedures Referred By Contac t Referred To Contact Diagnoses OSTEOARTHRITIS, PAIN Procedures ARTHROPLASTY HIP TOTAL, AUTOGRAFT TO ACETABULUM Referral ID Status Reason Start Date Expiration Date Visits Re quested Visits Authorized [id number] 1 1 Encounter Details Date Type Department Care Team (Latest Contact Info) Description 07/15/2018 8:09 AM BIT AND SHANK DEPARTMENT SUPERVISOR - 07/16/2018 12:27 PM BIT AND SHANK DEPARTMENT SUPERVISOR Hospital Encounter [facility] [address] [place] [address] Chong Brenner MD [address] [place] [address] Discharge Disposition: Home or Self Care (Routine Discharge) Social History Tobacco Use Types Packs/Day Years Used Date Smoking Tobacco: Never Smokeless Tobacco: Never Alcohol Use Standard Drinks/Week Comments Yes 0 (1 standard drink = 0.6 oz pur e alcohol) socially Comments Unknown Sex and Gender Information Value Date Recorded Sex Assigned at Female 11/04/2022 9:01 AM CDT Legal Sex Female 11:19 PM BIT AND SHANK DEPARTMENT SUPERVISOR Gender Identity Female 11/04/2022 9:01 AM CDT Sexual Orientation Straight 11/04/2022 9: 01 AM CDT documented as of this encounter Last Filed Vital Signs Vital Sign Reading Time Taken Comments Blood Pressure 145/82 07/16/2018 12:01 PM BIT AND SHANK DEPARTMENT SUPERVISOR Pulse 84 07/16/2018 12:01 PM BIT AND SHANK DEPARTMENT SUPERVISOR Temperature 36.7 ??C (98.1 ??F) 07/16/2018 12:01 PM C Respiratory Rate 18 07/16/2018 5:03 AM BIT AND SHANK DEPARTMENT SUPERVISOR Oxygen Saturation 98% 07/16/2018 12:01 PM BIT AND SHANK DEPARTMENT SUPERVISOR Inhaled Oxygen Concentration - - Weight 78.9 kg (174 lb) 07/15/2018 3:59 PM BIT AND SHANK DEPARTMENT SUPERVISOR Height 157.5 cm (5' 2 ) 07/15/2018 3:59 PM BIT AND SHANK DEPARTMENT SUPERVISOR Body Mass Index 31.83 07/15/2018 3:59 PM BIT AND SHANK DEPARTMENT SUPERVISOR documented in this encounter Functional Status * Question Answer Date of Assessment Author Status Do you have serious difficulty walking or climbing stairs? No 07/15/2018 4:29 PM BIT AND SHANK DEPARTMENT SUPERVISOR Deidre Escalera RN Activ e * Question Answer Date of Assessment Author Status Do you have difficulty dressing or bathing? No 07/15/2018 4:29 PM BIT AND SHANK DEPARTMENT SUPERVISOR Deidre Escalera RN A ctive Because of a physical, mental, or emotional condition, do you have difficulty doing errands alone such as visiting a doctor's office or shopping? No 07/15/2018 4:29 PM Shahrzad Merritt RN Active * RETIRED Are you deaf or do you have serious difficulty hearing Answer Date of Assessment Author Status No 07/15/2018 4:29 PM BIT AND SHANK DEPARTMENT SUPERVISOR Activ e * RETIRED Are you blind or do you have serious difficulty seeing, even when wearing glasses? Answer Date of Assessment Author Status No 07/15/2018 4:29 PM BIT AND SHANK DEPARTMENT SUPERVISOR Activ e * Do you have serious [...] as of this encounter Mental Status * Question Answer Entry Date Author Status Because of a physical, mental, or emotional condition, do you have serious difficulty concentrating, remembering, or making decisions? No 07/15/2018 4:29 PM Deidre Merritt RN A ctive * Because of a physical, mental, or emotional condition, do you have serious difficulty concentrating, remembering, or making decisions? Answer Entry Date Author Status No 07/15/2018 4:29 PM Deidre Merritt RN Active documented in this encounter Discharge Summaries * Chrissy Juárez PA-C - 07/16/2018 10:06 AM CST Physician Discharge Summary Patient ID: Ciera Aggarwal [id number] 58-year-old 1960 Admit date: 07/15/2018 Expected Discharge [...] Chong Brenner MD at 07/19/2018 8:15 AM BIT AND SHANK DEPARTMENT SUPERVISOR AND SHANK DEPARTMENT SUPERVISOR AND SHANK DEPARTMENT SUPERVISOR documented in this encounter Discharge Instructions * Discharge Instructions* Chrissy Juárez PA-C - 07/16/2018 10:09 AM BIT AND SHANK DEPARTMENT SUPERVISOR - If you have a Prineo dressing, [...] Tylenol (acetaminophen) to control your pain. Use Silverthorne (hydrocodone) and tramadol pain medication only if the Tylenol doesn't work. Stay ahead of the pain, but do not take you pain medication based on time. Only use them as needed. - Your hip precautions are: - No extension beyond 10?? - No external rotation - No vigorous abduction - If you have question contact Dr. Brenner at [facility] ([phone]). Do not contact your primary care provider for concerns about this surgery or surgical incision. AND SHANK DEPARTMENT SUPERVISOR * Attachments The following attachments cannot be sent through Care Everywhere. * Anterior Hip Replacement ([place]) * Deep Vein Thrombosis (Blood Clots in the Legs) ([place]) * Pulmonary Embolism (Blood Clot in the Lungs) ([place]) * How to Prevent Surgical Site Infections ([place]) documented in this encounter Medications at Time [...] She has outpt therapy set up at [facility] 3 times a week and has a [...] Patient expects to be discharged to: Home AND SHANK DEPARTMENT SUPERVISOR * Antoine Sharif MD - 07/16/2018 10:36 AM CST Orthopaedic Surgery - Progress Note - Total Hip Arthroplasty Attending Physician: Dr. Brenda Brennre MD Date of Admission: 07/15/2018 Admission Diagnosis: [...] Consults to: Hospitalists, PT/OT Pain Control: Roxicodone, Silverthorne, Tramadol, Celebrex, Tylenol, Skelaxin. Activity: Weightbearing as [...] Knee Reconstruction Fellow Department of Orthopaedic Surgery [facility] Cosigned by Chong Brenner MD at 07/19/2018 8:15 AM BIT AND SHANK DEPARTMENT SUPERVISOR AND SHANK DEPARTMENT SUPERVISOR AND SHANK DEPARTMENT SUPERVISOR * Yuly Damian, PT - 07/16/2018 9:00 AM CST PT Re-Evaluation Discharge Recommendation: home with assistance; outpatient P/T DME equipment recommendation: 2 wheeled walker Activity Recommendation for piano mover: Up with supervision and 2 wheeled walker Time in: 08 Time out: 0900 Total time: 41 minutes 07/16/18 08 Therapy Visit Ordering Provider Arjun Brenner MD [...] 2 Wheeled walker Prior Function Level of [place] Independent with ADLs;Independent with functional transfers;Independent with ambulation;Independent with homemaking with ambulation Device used at baseline None (Sheep's crook occasionally) Fall History No Lives With Alone Receives Help From Family ADL Assistance Independent Homemaking Assistance Independent 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 Grown chidren that can assist PRN. Pain [...] at this time. Recommend return home at [facility] with family assist and follow-up outpatient P/T to address impairments. AND SHANK DEPARTMENT SUPERVISOR * Radha Middleton, OT - 07/16/2018 8:19 AM CST OT Initial Evaluation Discharge Recommendation: home with assistance Activity Recommendation for piano mover: Up with SBA and 2ww, gait belt. Up to chair for all meals. 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 Grown chidren that can assist PRN. Pain [...] Objective Pt seen for therapy seated EOB. AND SHANK DEPARTMENT SUPERVISOR documented in this encounter Consult Notes * Katie Gonzales MD - 07/16/2018 12:22 PM CST [place] Hospitalist Consultation Note Attending Provider: Chong Brenner [...] Sensitive TETRACYCLINE Sensitive KATIE GONZALES MD 07/16/2018 AND SHANK DEPARTMENT SUPERVISOR * Katie Gonzales MD - 07/15/2018 2:45 PM CST [place] Hospitalist Consultation Note AND SHANK DEPARTMENT SUPERVISOR documented in this encounter OR Notes * Op Note - Chong Brenner MD - 07/15/2018 12:48 PM CST Ciera Aggarwal, 1960, CSN: @[email or web address]@ D ARJUN BRENNER MD 07/15/2018 Surgeon: Chong BRENNER MD Anesthesia: Anesthesiologist: Sandrine Contreras MD VESSEL BUILDER: Hayley Shankar CRNA Implants: Implant Name Type Inv. Item Serial No. Furnace Cooler Lot No. LRB No. Used SHELL HEATH CONTINUUM TM CH 48MM GG - [id number] SHELL HEATH CONTINUUM TM CH 48MM GG [employer] [id number] Right 1 continium trilogy poly HEATH INC [id number] Right 1 SCREW HEATH BONE 30MM - [id number] SCREW HEATH BONE 30MM BIOMET INC [id number] Right 1 SCREW HEATH BONE 30MM - [id number] SCREW HEATH BONE 30MM BIOMET INC [id number] Right 1 femoral stem HEATH INC [id number] Right 1 SHELL HEATH CONTINUUM TM CH 48MM GG - [id number] SHELL HEATH CONTINUUM TM CH 48MM GG [employer] [id number] Right 1 HEAD FEMORAL BIOLOX OPTION CERAMIC HEATH - [id number] HEAD FEMORAL BIOLOX OPTION CERAMIC HEATH BI[employer] INC [id number] Right 1 Preoperative diagnosis: Primary osteo-arthritis right hip Operation proposed: Right non- cemented total hip arthroplasty Postoperative diagnosis: As preop Operation performed: As preop botany laboratory assistant: Antoine Sharif M.D. Indications for procedure: [...] no specimens and there were no complications. AND SHANK DEPARTMENT SUPERVISOR documented in this encounter Plan of Treatment Not on file documented as of this encounter Procedures Procedure Name Priority Date/Time Associated Diagnosis Comments SURG XR HIP RT 1V Routine 07/15/2018 12:31 PM BIT AND SHANK DEPARTMENT SUPERVISOR ARTHROPLASTY HIP TOTAL 07/15/2018 10:58 AM BIT AND SHANK DEPARTMENT SUPERVISOR OSTEOARTHRITIS, PAIN Case Notes HEATH ML TAPER CERAMIC/POLYDIRECT LATERALOFFICE TO NOTIFY REPREP CONTACTED BY [facility] HOSPITALIST documented in this encounter Results * SURG XR HIP RT 1V (07/15/2018 12:31 PM BIT AND SHANK DEPARTMENT SUPERVISOR) Anatomical Region Laterality Modality Hip Radiographic Mary Jo ging 07/15/2018 6:23 PM BIT AND SHANK DEPARTMENT SUPERVISOR Narrative 07/15/2018 6:24 PM BIT AND SHANK DEPARTMENT SUPERVISOR Examination: SURG XR HIP RT 1V Exam [...] By: Joseph Scott MD, 07/15/2018 6:23 PM Chong Brenner MD IMAGES ONLY Final Result documented in this encounter Visit Diagnoses Diagnosis Primary osteoarthritis of right hip- Primary Primary localized osteoarthrosis, pelvic region and thigh Primary osteoarthritis of right hip Primary localized osteoarthrosis, pelvic region and thigh documented in this encounter Administered Medications Inactive Administered Medications - up to 3 most recent administrations Medication Order MAR Action Action Date Dose Rate Site acetaminophen (TYLENOL) tablet 1,000 mg 1,000 mg, Oral, Once, 1 dose, On Thu07/15/18 at 1045, Maximum dose of acetaminophen is 4000 mg from all sources in 24 hours., Pre-Op Given 07/15/2018 9:36 AM BIT AND SHANK DEPARTMENT SUPERVISOR 1,000 mg acetaminophen (TYLENOL) tablet 500 mg 500 mg, Oral, Every 6 hours, 4 doses, First dose on Thu07/15/18 at 1615, Last dose on Thu07/16/18 at 1200, Maximum dose of acetaminophen is 4000 mg from all sources in 24 hours., Post-Op Given 07/16/2018 5:34 AM BIT AND SHANK DEPARTMENT SUPERVISOR 500 mg Given 07/15/2018 11:55 PM BIT AND SHANK DEPARTMENT SUPERVISOR 500 mg Given 07/15/2018 5:40 PM BIT AND SHANK DEPARTMENT SUPERVISOR 500 mg aspirin chewable tablet 81 mg 81 mg, Oral, 2 times daily, First dose on Thu07/16/18 at 0915, Until Discontinued Given 07/16/2018 9:31 AM BIT AND SHANK DEPARTMENT SUPERVISOR 81 mg ceFAZolin (ANCEF) syringe 2 g 2 g, Intravenous, at 240 mL/hr, Every 8 hours, 2 doses, First dose on Thu07/15/18 at 2000, Last dose on Thu07/16/18 at 0400, Give 2 gram dose for patients less than 120 kg. PHARMACY TO ADJUST administration times based on pre-op/intra-op dose. Do NOT continue greater than 24 hours after anesthesia end time., Post-Op Given 07/16/2018 4:36 AM BIT AND SHANK DEPARTMENT SUPERVISOR 2 g 240 mL/hr Given 07/15/2018 8:21 PM BIT AND SHANK DEPARTMENT SUPERVISOR 2 g 240 mL/hr dexamethasone (DECADRON) injection 10 mg 10 mg, Intravenous, Once, 1 dose, On Mana 07/15/18 at 1045, Administer slowly over 1-4 minutes., Pre-Op Given 07/15/2018 9:36 AM BIT AND SHANK DEPARTMENT SUPERVISOR 10 mg dexamethasone PF (DECADRON) injection 10 mg 10 mg, Intravenous, Once, 1 dose, On Thu07/16/18 at 0600, Administer slowly over 1-4 minutes., Post-Op Given 07/16/2018 5:52 AM BIT AND SHANK DEPARTMENT SUPERVISOR 10 mg diphenhydrAMINE (BENADRYL) 12.5 MG/5ML elixir 25 mg [...] Until Discontinued, Post-Op Given 07/16/2018 8:04 AM BIT AND SHANK DEPARTMENT SUPERVISOR 100 mg ketorolac (TORADOL) injection 15 mg 15 mg, Intravenous, Every 6 hours PRN, Moderate pain (Scale 4 - 7), Starting on Mana 07/15/18 at 1325, Until Thu07/16/18 at 1324, For patients 65 years or greater, less than 50 kg, or CrCl less than 30 mL/min., Post-Op Given 07/15/2018 1:31 PM BIT AND SHANK DEPARTMENT SUPERVISOR 15 mg lactated ringers infusion at 10 mL/hr, Intravenous, Continuous, Starting on Mana 07/15/18 at 1000, Until Thu07/16/18 at 1446, Pre-Op New Bag 07/15/2018 12:56 PM BIT AND SHANK DEPARTMENT SUPERVISOR New Bag 07/15/2018 12:00 PM BIT AND SHANK DEPARTMENT SUPERVISOR New Bag 07/15/2018 9:55 AM BIT AND SHANK DEPARTMENT SUPERVISOR 10 mL/hr lactated ringers infusion at 100 mL/hr, Intravenous, Continuous, Starting on Mana 07/15/18 at 1345, Until Thu07/16/18 at 1446, May discontinue IV Fluid when adequate oral intake, Post-Op New Bag 07/15/2018 1:27 PM BIT AND SHANK DEPARTMENT SUPERVISOR 100 mL/hr levothyroxine (SYNTHROID) tablet 100 mcg 100 mcg, Oral, Nightly at bedtime, First dose on Mana 07/15/18 at 2100, Until Discontinued, Avoid iron, calcium, and antacids within 4 hours of administration.Indications:Hypothy roidism Given 07/15/2018 8:27 PM BIT AND SHANK DEPARTMENT SUPERVISOR 100 mcg meloxicam (MOBIC) tablet 15 mg 15 mg, Oral, Daily, First dose on Mana 07/15/18 at 1700, Until Discontinued Given 07/16/2018 8:04 AM BIT AND SHANK DEPARTMENT SUPERVISOR 15 mg Given 07/15/2018 5:40 PM BIT AND SHANK DEPARTMENT SUPERVISOR 15 mg meloxicam (MOBIC) tablet 7.5 mg 7.5 mg, Oral, Once, 1 dose, On Mana 07/15/18 at 1045, Pre-Op Given 07/15/2018 9:36 AM BIT AND SHANK DEPARTMENT SUPERVISOR 7.5 mg ondansetron (ZOFRAN) injection 4 mg 4 mg, Intravenous, Once, 1 dose, On Mana 07/15/18 at 1045, IV push over 2-5 minutes., Pre-Op Given 07/15/2018 9:37 AM BIT AND SHANK DEPARTMENT SUPERVISOR 4 mg traMADol (ULTRAM) tablet 100 mg 100 mg, Oral, Once, 1 dose, On Mana 07/15/18 at 1045, Pre-Op Given 07/15/2018 9:35 AM BIT AND SHANK DEPARTMENT SUPERVISOR 100 mg traMADol (ULTRAM) tablet 50 mg 50 mg, Oral, Every 6 hours, 4 doses, First dose on Mana 07/15/18 at 1915, Last dose on Thu07/16/18 at 1315, Max daily dose of tramadol equals 400 mg (200 mg if elderly or renally impaired), Post-Op Given 07/16/2018 8:04 AM BIT AND SHANK DEPARTMENT SUPERVISOR 50 mg Given 07/16/2018 1:32 AM BIT AND SHANK DEPARTMENT SUPERVISOR 50 mg Given 07/15/2018 7:06 PM BIT AND SHANK DEPARTMENT SUPERVISOR 50 mg documented in this encounter Active and Recently Administered Medications Times are shown in BIT AND SHANK DEPARTMENT SUPERVISOR. Scheduled Medication Order 07/14/2018 07/15/2018 07/16/2018 acetaminophen [...] Boateng RN) 0534 (Given - Provider: Marcus Bunch, RAVI)1200 (Canceled Entry - Provider: Automatic Discharge Provider [...] 24 hours after anesthesia end time., Post-Op 1736 (See Alternative - Provider: Deidre Escalera RN)202 (Given - Provider: Hansa Boateng RN) 0436 (Given - Provider: Marcus Bunch RN) dexamethasone (DECADRON) injection 10 mg (COMPLETED) 10 mg, Intravenous, Once, 1 dose, On Mana 07/15/18 at 1045, Administer slowly over 1-4 minutes., Pre-Op 09 (Given - Provider: Melba Gifford, RAVI) dexamethasone PF (DECADRON) injection 10 mg (COMPLETED) 10 mg, Intravenous, Once, 1 dose, On Thu07/16/18 at 0600, Administer slowly over 1-4 minutes., Post-Op 05 (Given - Provid er: Marcus Bunch RN) docusate sodium (COLACE) capsule 100 mg 100 mg, Oral, Daily, First dose on Mana 07/15/18 at 1700, Until Discontinued, Post-Op 1740 (Not Given - Provider: Deidre Escalera RN - Reason: Patient/family declined) 803 (Given - Provider: Beau Valenzuela RN) levothyroxine (SYNTHROID) tablet 100 mcg 100 mcg, Oral, Nightly at bedtime, First dose on Thu07/15/18 at 2100, Until Discontinued, Avoid iron, calcium, and antacids within 4 hours of administration. 2026 (Given - Provider: Hansa Boateng RN) meloxicam (MOBIC) tablet 15 mg 15 mg, Oral, Daily, First dose on Mana 07/15/18 at 1700, Until Discontinued 1740 (Given - Provider: Deidre Escalera RN) 803 (Given - Provider: Beau Valenzuela RN) meloxicam (MOBIC) tablet 7.5 mg (COMPLETED) 7.5 mg, Oral, Once, 1 dose, On Thu07/15/18 at 1045, Pre-Op 09 (Given - Provider: Melba Gifford, RAVI) ondansetron (ZOFRAN) injection 4 mg (COMPLETED) 4 mg, Intravenous, Once, 1 dose, On Mana 07/15/18 at 1045, IV push over 2-5 minutes., Pre-Op 09 (Given - Provider: Melba Gifford, RAVI) traMADol (ULTRAM) tablet 100 mg (COMPLETED) 100 mg, Oral, Once, 1 dose, On Mana 07/15/18 at 1045, Pre-Op 09 (Given - Provider: Melba Gifford RN) traMADol (ULTRAM) tablet 50 mg 50 mg, [...] Until Thu07/16/18 at 1446 BUpivacaine-EPINEPHrine (PF) 0.25% -[id number] injection (CANCELED) As needed, Starting on Mana [...] 07/15/18 at 1551, Until 07/16/18 at 1446, Post-Op Or diphenhydrAMINE (BENADRYL) 12.5 MG/5ML elixir 25 mgJump to med 25 mg, Oral, Every 6 hours PRN, Itching, Starting on Mana 07/15/18 at 1551, Until Thu07/16/18 at 1446, Give if unable to swallow tablets/capsules or if patient prefers liquid., Post-Op documented in this encounter Care Teams Angiography Nurse Relationship Specialty Start Date End Date Stephany Novoa MD PCP - General INTERNAL MEDICINE 05/04/18 11/18/22 documented as of this encounter
--- OUTSIDE RECORDS SUMMARY | 2024-06-20 02:00 | XMS_ITS | Encounter Summary ---
Author Organization [facility] Address [facility] [place] [address] [place] [address] Care Team Providers Care Glass Technician/Installer Name Role Phone Kathy Hooker MD Primary Care Provider [phone] Reason for Visit * Imaging (Routine) - Closed Specialty Diagnoses / Procedures Referred By Umair freeman Referred To Contact RADIOLOGY Diagnoses Breast cancer screening Procedures MG SCREENING W PATY DANIELLA Kathy Oreilly MD Phone: tel: fax: Referral ID Status Reason Start Date Expiration Date Visits Re quested Visits Authorized [id number] Closed 06/02/2019 07/03/2020 1 1 Encounter Details Date Type Department Care Team (Latest Contact Info) Description 06/06/2019 7:00 AM MANAGER TRUST - 06/06/2019 7:21 AM [facility] Hospital Encounter [facility] [address] [place] [address] Kathy Hooker MD [address] [place] [address] Discharge Disposition: Home or Self Care (Routine [...] AM CDT Legal Sex Female 11:19 PM MANAGER TRUST Gender Identity Female 11/04/2022 9:01 AM CDT Sexual Orientation Straight 11/04/2022 9: 01 AM CDT documented as of this encounter Functional Status * RETIRED Are you deaf or do you have serious difficulty hearing Answer Date of Assessment Author Status No 07/15/2018 4:29 PM MANAGER TRUST Activ e * RETIRED Are you blind or do you have serious difficulty seeing, even when wearing glasses? Answer Date of Assessment Author Status No 07/15/2018 4:29 PM MANAGER TRUST Activ e * Do you have serious [...] MG SCREENING W PATY DANIELLA DIGI Routine 06/06/2019 7:44 AM MANAGER TRUST Breast cancer screening documented in this encounter Results * MG SCREENING W PATY DANIELLA DIGI (06/06/2019 7:44 AM MANAGER TRUST) Anatomical Region Laterality Modality Breast Bilateral Mammography 06/08/2019 8:59 AM MANAGER TRUST Impressions 06/08/2019 9:01 AM MANAGER TRUST IMPRESSION: No suspicious change since the previous exams. Recommendation: 1: Routine screening mammogram ??Bilateral ?? in 1 Year Assessment: ACR BI-RADS Category 2 - Benign. Interpreted By: Daniel Wilhelm, 06/08/2019 8:59 AM Narrative 06/08/2019 9:01 AM MANAGER TRUST Examination: Digital screening mammogram with CAD. Clinical history: Asymptomatic patient presents for routine screening. History of retropectoral saline implant placement. Following spontaneous rupture of one of the implants, the patient requested deflation of the other. Comparison: 04/09/2018, 10/06/2014. Technique: Bilateral digital mammograms. The exam was interpreted with the use of a computer-aided detection (CAD) system. ??Additional 3-D tomosynthesis images were acquired. Tissue density: The breast tissue contains scattered fibroglandular densities. Findings: The breast tissue contains scattered fibroglandular densities. ?? Benign-appearing calcification noted. A portion of the left-sided implant is visible on the MLO view. No suspicious mass, microcalcification or area of architectural distortion can be identified. From a mammographic standpoint, routine followup in one year would seem adequate. us Kathy Hooker MD MAMMO Final Res ult documented in this encounter Visit Diagnoses Not on filedocumented in this encounter Care Teams Glass Technician/Installer Relationship Specialty Start Date End Date Kathy Hooker MD PCP - General INTERNAL MEDICINE 05/04/18 11/18/22 documented as of this encounter
--- OUTSIDE RECORDS SUMMARY | 2024-06-20 02:01 | XMS_ITS | Encounter Summary ---
Author Organization [facility] Address [facility] [place] [address] [place] [address] Care Team Providers Care Chef Passenger Vessel Name Role Phone Kathy Hooker MD Primary Care Provider [phone] Reason for Referral * Imaging (Routine) - Closed Specialty Diagnoses / Procedures Referred By Contac t Referred To Contact Diagnoses Acetabular dysplasia (HHS/HCC) Procedures CT HIP RT WO Chong Sauceda MD [address] [place] [address] Phone: tel: fax: [address] [address] Phone: tel: fax: Referral ID Status Reason Start Date Expiration Date Visits Re quested Visits Authorized [id number] Closed 05/06/2018 06/06/2019 1 1 CONDUCTOR WAFERS TESTER Reason for Visit * Imaging (Routine) - Closed Specialty Diagnoses / Procedures Referred By Contac t Referred To Contact Diagnoses Acetabular dysplasia (HHS/HCC) Procedures CT HIP RT WO Chong Sauceda MD [address] [place] [address] Phone: tel: fax: [facility] [address] [place] [address] Phone: tel: fax: Referral ID Status Reason Start Date Expiration Date Visits Re quested Visits Authorized [id number] Closed 05/06/2018 06/06/2019 1 1 Encounter Details Date Type Department Care Team (Latest Contact Info) Description 05/06/2018 3:46 PM SEMICONDUCTOR WAFERS TESTER - 05/06/2018 11:59 PM SEMICONDUCTOR WAFERS TESTER Hospital Encounter [facility] [address] [place] [address] Chong Aviles MD [address] [place] [address] Discharge Disposition: Home or Self Care (Routine Discharge) Social History Tobacco Use Types Packs/Day Years Used Date Smoking Tobacco: Never Assessed Comments Unknown Sex and Gender Information Value Date Recorded Sex Assigned at Female 11/04/2022 9:01 AM CDT Legal Sex Female 11:19 PM SEMICONDUCTOR WAFERS TESTER Gender Identity Female 11/04/2022 9:01 AM CDT Sexual Orientation Straight 11/04/2022 9: 01 AM CDT documented as of this encounter Plan of Treatment Not on file documented as of this encounter Procedures Procedure Name Priority Date/Time Associated Diagnosis Comments CT HIP RT WO CON Routine 05/06/2018 4:05 PM SEMICONDUCTOR WAFERS TESTER Acetabular dysplasia (HHS/HCC) documented in this encounter Results * CT HIP RT WO CON (05/06/2018 4:05 PM SEMICONDUCTOR WAFERS TESTER) Anatomical Region Laterality Modality Hip Computed Tomogra phy 05/06/2018 9:21 PM SEMICONDUCTOR WAFERS TESTER Narrative 05/06/2018 9:23 PM SEMICONDUCTOR WAFERS TESTER Examination: CT HIP RT WO CON Clinical history: Pain Comparison: X-ray February 08, 2018 DATE/TIME: 05/06/2018 3:46 PM Technique: Multiplanar images of the right hip were obtained. A dose lowering technique was used for this procedure, which may include, but is not limited to, dose reduction technique, automated exposure control, the use of iterative reconstruction, and ALARA (As Low As Reasonably Achievable) / Image Gently techniques. Findings: Severe right hip osteoarthritis with total loss of superior joint space suggesting full-thickness cartilage loss. ??Marked osteophyte formation and subchondral cyst formation associated, with subchondral sclerosis as well. ??No obvious avascular necrosis. ??No acute fracture or dislocation. ??No significant soft tissue abnormality about the hip. ??No worrisome bone lesion. ??Incidental low lumbar degenerative facet arthritis. ??Calcified pelvic phleboliths. IMPRESSION: Severe osteoarthritis. Interpreted By: Servando Hassan MD, 05/06/2018 9:21 PM Procedure Note Servando Hassan MD - 05/06/2018 Examination: CT HIP RT WO CON Clinical history: Pain Comparison: X-ray February 08, 2018 DATE/TIME: 05/06/2018 3:46 PM Technique: Multiplanar images of the right hip were obtained. A doselowering technique was used for this procedure, which may include, but isnot limited to, dose reduction technique, automated exposure control, theuse of iterative reconstruction, and ALARA (As Low As ReasonablyAchievable) / Image Gently techniques. Findings: Severe right hip osteoarthritis with total loss of superiorjoint space suggesting full-thickness cartilage loss. Marked osteophyteformation and subchondral cyst formation associated, with subchondralsclerosis as well. No obvious avascular necrosis. No acute fracture ordislocation. No significant soft tissue abnormality about the hip. Noworrisome bone lesion. Incidental low lumbar degenerative facetarthritis. Calcified pelvic phleboliths. IMPRESSION: Severe osteoarthritis. Interpreted By: Servando Hassan MD, 05/06/2018 9:21 PM us D Arjun Aviles MD CT Final Result documented in this encounter Visit Diagnoses Diagnosis Acetabular dysplasia (HHS/HCC) Other congenital deformity of hip (joint) documented in this encounter Care Teams Chef Passenger Vessel Relationship Specialty Start Date End Date Kathy Hooker MD PCP - General INTERNAL MEDICINE 05/04/18 11/18/22 documented as of this encounter
--- OUTSIDE RECORDS SUMMARY | 2024-06-20 02:01 | XMS_ITS | Encounter Summary ---
Author Organization [facility] Address [address] [place] [address]. [place] [address] [place] [address] Care Team Providers Care Bill Checker Name Role Phone Unavailable Primary Care Provider Unavailabl e Encounter Details Date Type Department Care Team (Latest Contact Info) Description 10/19/2017 7:00 PM CDT - 10/19/2017 11:59 PM CDT Hospital Encounter [facility] [address] [place] [address] External, Ordering Provider Discharge Disposition: Home or Self Care (Routine Discharge) Social History Tobacco Use Types Packs/Day Years Used Date Smoking Tobacco: Never Assessed Comments Unknown Sex and Gender Information Value Date Recorded Sex Assigned at Female 11/04/2022 9:01 AM CDT Legal Sex Female 11:19 PM LETTER OF CREDIT CLERK Gender Identity Female 11/04/2022 9:01 AM CDT Sexual Orientation Straight 11/04/2022 9: 01 AM CDT documented as of this encounter Plan of Treatment Not on file documented as of this encounter Procedures Procedure Name Priority Date/Time Associated Diagnosis Comments TBGOLD-TUBERCULOSIS TST CELL MEDIATED IMMUNITY Routine 10/20/2017 11:02 AM CDT VARICELLA ZOSTER IGG Routine 10/20/2017 11:02 AM CDT RUBEOLA IGG Routine 10/20/2017 11:02 AM CDT RUBELLA IGG Routine 10/20/2017 11:02 AM CDT MUMPS ANTIBODY Routine 10/20/2017 11:02 AM CDT documented in this encounter Results * TBGOLD-TUBERCULOSIS TST CELL MEDIATED IMMUNITY (10/20/2017 11:02 AM CDT) TB INTERPRETATION No immune response to Mycobacterium tuberculosis noted. 10/21/2017 12:22 PM CDT [facility] TB QUANTIFERON 0.00 IU/ML 10/21/2017 12:22 PM CDT [facility] Comment:ONLY QUALITATIVE RES ULTS ARE FDA APPROVED 10/20/2017 11:0 2 AM CDT us Ordering Provider External LABORATORY Final Result Performing Organization Address [facility] de Phone Number [facility] [address] [place] [address], [phone] * VARICELLA ZOSTER IGG (10/20/2017 11:02 AM CDT) Pathologist [facility] VARICELLA ZOSTER IGG EIA POSITIVE 10/22/2017 10:17 AM CDT [facility] Comment:IN THE ABSENCE OF AC [place] SYMPTOMS, A POSITIVE RESULT SUGGESTS PAST IMMUNITY. 10/20/2017 11:0 2 AM CDT us Ordering Provider External LABORATORY Final Result Performing Organization Address [facility] de Phone Number [facility] [address] [place] [address], [phone] * RUBELLA IGG (10/20/2017 11:02 AM CDT) RUBELLA IGG AB 99.4 IU/ML 10/21/2017 11:19 AM CDT [facility] Comment: In the absence of acute symptoms, a result of 10.0 or greater indicates past immunity. 10/20/2017 11:0 2 AM CDT us Ordering Provider External LABORATORY Final Result Performing Organization Address [facility] de Phone Number [facility] [address] [place] [address], [place] [phone] * RUBEOLA IGG (10/20/2017 11:02 AM CDT) RUBEOLA IGG POSITIVE 10/22/2017 10:17 AM CDT [facility] Comment:IN THE ABSENCE OF AC [place] SYMPTOMS, A POSITIVE RESULT SUGGESTS PAST IMMUNITY. 10/20/2017 11:0 2 AM CDT us Ordering Provider External LABORATORY Final Result Performing Organization Address [facility] de Phone Number [facility] [address] [place] [address], [place] [phone] * MUMPS ANTIBODY (10/20/2017 11:02 AM CDT) MUMPS IGG EIA POSITIVE 10/22/2017 10:17 AM CDT [facility] Comment:IN THE ABSENCE OF AC [place] SYMPTOMS, A POSITIVE RESULT SUGGESTS PAST IMMUNITY. 10/20/2017 11:0 2 AM CDT us Ordering Provider External LABORATORY Final Result Performing Organization Address [facility] de Phone Number [facility] [address] [place] [address], [place] [phone] documented in this encounter Visit Diagnoses Not on filedocumented in this encounter
--- OUTSIDE RECORDS SUMMARY | 2024-06-20 02:01 | XMS_ITS | Encounter Summary ---
Author Organization [facility] Address [address] [place] [address]. [place] [address] [place] [address] Care Team Providers Care Railroad Car Letterer Name Role Phone Unavailable Primary Care Provider Unavailabl e Encounter Details Date Type Department Care Team (Late st Contact Info) Description 02/03/[address] [facility] [address] [place] [address] , Joan Rizo MD Social History Tobacco Use Types Packs/Day Years Used Date Smoking Tobacco: Never Assessed Comments Unknown Sex and Gender Information Value Date Recorded Sex Assigned at Female 11/04/2022 9:01 AM CDT Legal Sex Female 11:19 PM EVIDENCE TECHNICIAN Gender Identity Female 11/04/2022 9:01 AM CDT Sexual Orientation Straight 11/04/2022 9: 01 AM CDT documented as of this encounter Plan of Treatment Not on file documented as of this encounter Visit Diagnoses Not on filedocumented in this encounter
--- OUTSIDE RECORDS SUMMARY | 2024-06-20 02:01 | XMS_ITS | Encounter Summary ---
Author Organization [facility] Address [facility] 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 Gender Identity Female 11/04/2022 9:01 AM CDT Sexual Orientation Straight 11/04/2022 9: 01 AM CDT documented as of this encounter Last Filed Vital Signs Vital Sign Reading Time Taken Comments Blood Pressure 112/70 04/20/2018 9:01 AM CDT Pulse 77 04/20/2018 9:01 AM CDT Temperature - - Respiratory Rate - - Oxygen Saturation - - Inhaled Oxygen Concentration - - Weight 54.4 kg (120 lb) 04/20/2018 9:01 AM CDT Height 165.1 cm (5' 5 ) 04/20/2018 9:01 AM CDT Body Mass Index 19.97 04/20/2018 9:01 AM CDT documented in this encounter Progress Notes * Hair Morris DPM - 04/20/2018 8:20 AM CDT Reason For Visit New patient. Bilateral foot pain. Left worse than Right foot, Pain in the ball of feet. PT states Right hip needs replaced. Feels like he is walking on rocks. X-rays at PCP. History of Present Illness Patient presents to clinic she has a multitude of foot issues. She has had pain associated with herright hip and is in need of a total hip replacement potentially on the right side. She has also hadfoot pain bilaterally mostly in the ball of the foot. She feels tightness or tingling in the ball of the foot and arch area. Also, some cimv-poz-lhzmbih type sensation especially at night when she isresting and she is unable to go barefoot because of the increased pain in the ball of the foot and toes. She has a hallux valgus deformity bilaterally but does not feel like this is contributing to the problem. She does not have a history of diabetes but has also had a history some upper extremity n europathy-type symptoms and underwent bilateral carpal tunnel release. Her medical history is notedhere in the chart and reviewed. No other issues noted per se. She notes that she has a family history of neuropathy and that her father had idiopathic neuropathy especially later in life and also hasa history of thyroid issues. Foot Problem: Corinna Aggarwal presents with complaints of foot problem. Associated symptoms include foot pain. Review of Systems Constitutional: as noted in HPI. Cardiovascular: negative. Respiratory: negative. Gastrointestinal: negative. Musculoskeletal: toe pain. Neurological: numbness, difficulty walking and increased pain/touch sensitivity. Psychiatric: negative. Active Problems 1. Laceration of finger (883.0) (S61.219A) Past Medical History 1. History of anxiety (V11.8) (Z86.59) 2. History of hypothyroidism (V12.29) (Z86.39) 3. History of Osteoarthritis (715.90) (M19.90) Social History ?? Consumes alcohol occasionally (V49.89) (Z78.9) ?? Never used tobacco (V49.89) (Z78.9) Current Meds 1. Synthroid 50 MCG Oral Tablet; Therapy: (Recorded:[id number]) to Recorded 2. Xanax 0.25 MG Oral Tablet; Therapy: (Recorded:[id number]) to Recorded Allergies 1. No Known Drug Allergies Vitals Recorded: 20Apr2018 09:01AM Heart Rate 77 Systolic 112 Diastolic 70 Height 5 ft 5 in Weight 120 lb BMI Calculated 19.97 BSA Calculated 1.59 Physical Exam Vascular: There are palpable pulses dorsalis pedis and posterior tibial bilaterally. Capillary refill is brisk. Neurological: Patient is able to palpate the Ogden-Jeremy monofilament 10/10 although again subjectively she reports odd numb-type sensation. Dermatological evaluation: Within normal limits. Musculoskeletal evaluation: Good range of motion noted and muscle strength is noted to be within normal limits. However, she has some pain associated with the metatarsophalangeal joint areas bilaterally, right greater than left and has a lateral deviated hallux with concomitant medial deviated 1st metatarsal head noted bilaterally with left worse than right. No other issues or abnormalities noted. Assessment 1. Metatarsalgia, unspecified laterality (726.70) (M77.40) 1. Painful metatarsalgia. 2. Idiopathic neuropathy. Plan Metatarsalgia, unspecified laterality 1. MethylPREDNISolone 4 MG Oral Tablet Therapy Pack; Take as directed 2. Pre-printed Instructions given to patient; Status:Complete; Done: 21Apr2018 I have advised the patient that I would like to do a short course of Medrol Dosepak to assess how the foot feels with the reduction in acute inflammation obtained by the oral steroid. If this helps the pain, then most of these symptoms may be associated with mechanical issues such as metatarsalgia.However if there continues to be problems, I would think this then seems to be suggesting neuropathy-type of sensations and we might consider a course of oral Lyrica. Certainly, there could be both issues concomitantly, but again I would like to see how she responds to one medication at a time. We also discussed appropriate shoe gear and the potential for insoles to help support the region. We will see her back when she has finished the Medrol Dosepak. Signatures Electronically signed by : Hair Morris DPM; Apr 21 2018 8:33AM MILK HOUSE WORKER (Author) HOUSE WORKER documented in this encounter Plan of Treatment Not on file documented as of this encounter Visit Diagnoses Not on filedocumented in this encounter
--- OUTSIDE RECORDS SUMMARY | 2024-06-20 02:01 | XMS_ITS | Encounter Summary ---
Author Organization [facility] Address [address] [place] [address]. 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 Finger Problem Patient is here with a cut across her finger. History of Present Illness HPI Free Text: 58 yo female presents with a laceration to the 3rd digit of her left hand. States she was cutting plastic off of a salt lick at home with a clean pocket knife and sliced her finger. Denies numbness and tingling of finger, coolness to finger. Review of Systems See HPI for pertinent positives. Allergies 1. No Known Drug Allergies Recorded By: Felicitas Raygoza; 03/11/2018 5:43:01 PM Vitals Signs Temperature: 98.4 F Heart Rate: 81 Systolic: 116 Diastolic: 78 O2 Saturation: 97 Physical Exam Constitutional. no acute distress, well appearing and well nourished.. Head/Face. normal.. Eyes. conjunctiva and lids with no swelling, erythema or discharge.. ENT. no sinus tenderness or nasal discharge and no erythema or edema of the ears and nose.. Pulmonary. no increased work of breathing or signs of respiratory distress.. Skin Skin Lesions: (2 cm laceration noted to 3rd digit of left hand that starts just below the nailand angles upward across the nail to other side. Approximately 1 cm deep or less. Nail bed with good capillary refill and entire finger normal temperature) A 2 cm laceration was noted.. Psychiatric. oriented to person, place, and time. . mood and affect normal.. Assessment 1. Laceration of finger (883.0) (S61.219A) Plan Laceration of finger 1. Tdap (Boostrix); INJECT 0.5 ML Intramuscular; To Be Done: 11Mar2018 For: Laceration of finger; Ordered By:Felicitas Raygoza; Effective Date:11Mar2018 Tdap given Antibiotic ointment to laceration and keep clean and dry Stop antibiotic ointment after 2-3 days Keep area covered Return to clinic should s/s of infection appear: Red streaks, purulent drainage, increased pain, numbness or tingling Discussion/Summary Treatment plan includes increased fluid intake, acetaminophen and non-steroidal anti-inflammatory drugs. Patient instructed to call the office if not better, if fever increases, if fever does not decreasewith medications, for persistent fever and for increased pain. Patient Discussion: discussed with the patient, follow-up in clinic if s/s of infection appear and PRN. Patient agreeable to plan Signatures Electronically signed by : Felicitas Raygoza APN; Mar 11 2018 5:43PM HAND MEXICAN FOOD MAKER (Author) documented in this encounter Plan of Treatment Not on file documented as of this encounter Visit Diagnoses Not on filedocumented in this encounter
--- OUTSIDE RECORDS SUMMARY | 2024-06-20 02:01 | XMS_ITS | Encounter Summary ---
Author Organization [facility] Address [facility] [place] [address] [place] [address] Care Team Providers Care Director Hris Name Role Phone Unavailable Primary Care Provider Unavailabl e Encounter Details Date Type Department Care Team (Latest Contact Info) Description 02/16/2018 7:25 AM CDT - 02/16/2018 7:29 AM CDT Hospital Encounter [facility] [address] [place], [place] [id number] Kathy Hooker MD [address] [place] [address] [id number] Discharge Disposition: Home or Self Care (Routine Discharge) Social History Tobacco Use Types Packs/Day Years Used Date Smoking Tobacco: Never Assessed Comments Unknown Sex and Gender Information Value Date Recorded Sex Assigned at Female 11/04/2022 9:01 AM CDT Legal Sex Female 11:19 PM YARN WEIGHER Gender Identity Female 11/04/2022 9:01 AM CDT Sexual Orientation Straight 11/04/2022 9: 01 AM CDT documented as of this encounter Plan of Treatment Not on file documented as of this encounter Procedures Procedure Name Priority Date/Time Associated Diagnosis Comments URINALYSIS Routine 02/16/2018 7:49 AM CDT Routine health maintenance Numbness Hypothyroidism VITAMIN B-12 Routine 02/16/2018 7:49 AM CDT Routine health maintenance Numbness Hypothyroidism LIPID PANEL Routine 02/16/2018 7:49 AM CDT Routine health maintenance Numbness Hypothyroidism GENERAL HEALTH PANEL Routine 02/16/2018 7:49 AM CDT Routine health maintenance Numbness Hypothyroidism THYROXINE, FREE (FT4) Routine 02/16/2018 7:49 AM CDT Routine health maintenance Numbness Hypothyroidism documented in this encounter Results * (ABNORMAL) THYROXINE, FREE (FT4) (02/16/2018 7:49 AM CDT) FREE T4 0.71(L) 0.76 - 1.46 NG/DL 02/16/2018 10:40 AM CDT [facility] 02/16/2018 7:49 AM CDT Kathy Hooker MD LABORATORY Final Res ult [facility] [address] [place] [address], [id number] * VITAMIN B-12 (02/16/2018 7:49 AM CDT) VITAMIN B12 S/P/B 386 193 - 986 PG/ML 02/16/2018 1:11 PM CDT [facility] 02/16/2018 7:49 AM CDT Kathy Hooker MD LABORATORY Final Res ult [facility] [address] [place] [address], [place] [phone] * (ABNORMAL) LIPID PANEL (02/16/2018 7:49 AM CDT) CHOLESTEROL 206 MG/DL 02/16/2018 10:40 AM CDT [facility] Comment:HIGH: > OR = 240 TRIGLYCERIDES 221 MG/DL 02/16/2018 10:40 AM CDT [facility] Comment:200-499 HIGH HDL 48(L) >49 MG/DL 02/16/2018 10:40 AM CDT [facility] LDL-C 114 MG/DL 02/16/2018 10:40 AM CDT [facility] Comment:100-129 NEAR OR ABOV E OPTIMAL VLDL CALCULATION 44 MG/DL 02/17/20 18 10:40 AM CDT [facility] Comment:REFERENCE RANGE NOT ESTABLISHED CHOL/HDL RATIO 4.3 02/16/2018 10:40 AM CDT [facility] Comment:REFERENCE RANGE NOT ESTABLISHED LDL/HDL 2.4 02/16/2018 10:40 AM CDT [facility] Comment:REFERENCE RANGE NOT ESTABLISHED NON HDL CHOLESTEROL 158 MG/DL 02/16/2018 10:40 AM CDT [facility] Comment:REFERENCE RANGE NOT ESTABLISHED 02/16/2018 7:49 AM CDT us Kathy Hooker MD LABORATORY Final Res ult [facility] [address] [place] [address], [id number] * (ABNORMAL) URINALYSIS (02/16/2018 7:49 AM CDT) COLOR (U) YELLOW 02/16/2018 8:20 AM CDT [facility] TRANSPARENCY HAZY 02/16/2018 8:20 AM CDT [facility] SPECIFIC GRAVITY (U) 1.021 1.002 - 1.035 02/16/2018 8:20 AM CDT [facility] U PH 5.0 5 - 8 02/16/2018 8:20 AM CDT [facility] PROTEIN (U) NEGATIVE NEGATIVE 02/16/2018 8:20 AM CDT [facility] URINE GLUCOSE NEGATIVE NEGATIVE MG/DL 02/16/2018 8:20 AM CDT [facility] KETONES MG/DL (U) NEGATIVE NEGATIVE 02/16/2018 8:20 AM CDT [facility] BILIRUBIN (U) NEGATIVE NEGATIVE 02/16/2018 8:20 AM CDT [facility] BLOOD (U) NEGATIVE NEGATIVE 02/16/2018 8:20 AM CDT [facility] NITRITES NEGATIVE NEGATIVE 02/16/2018 8:20 AM CDT [facility] UROBILINOGEN NORMAL 0 - 1 EU/DL 02/16/2018 8:20 AM CDT [facility] LEUKOCYTES (U) SMALL(A) NEGATIVE 02/16/2018 8:20 AM CDT [facility] RBC/HPF <1 0 - 3 /HPF 02/16/2018 8:20 AM CDT [facility] WBC/HPF 3 0 - 6 /HPF 02/16/2018 8:20 AM CDT [facility] BACTERIA (U) PRESENT /HPF 02/16/2018 8:20 AM CDT [facility] SQUAMOUS EPITHELIALS 3 02/16/2018 8:20 AM CDT [facility] URINE SPECIMEN FROM URETHRA / Unknown 02/16/2018 7:49 AM CDT us Kathy Hooker MD URINE ORDERABLES Final Re sult [facility] [address] [place] [address], [id number] * (ABNORMAL) GENERAL HEALTH PANEL (02/16/2018 7:49 AM CDT) WBC 6.6 4.0 - 10.8 x10'3/uL 02/16/2018 8:03 AM CDT [facility] RBC 4.72 4.10 - 5.40 x10'6/uL 02/16/2018 8:03 AM CDT [facility] HGB 14.7 12.0 - 16.0 G/DL 02/16/2018 8:03 AM CDT [facility] HCT 42.9 36.0 - 47.0 % 02/16/2018 8:03 AM CDT [facility] MCV 90.9 78.0 - 100.0 FL 02/16/2018 8:03 AM CDT [facility] MCH 31.1(H) 27.0 - 31.0 PG 02/16/2018 8:03 AM CDT [facility] MCHC 34.3 33.0 - 36.0 G/DL 02/16/2018 8:03 AM CDT [facility] RDW 12.6 11.5 - 14.5 % 02/16/2018 8:03 AM CDT [facility] PLT 277 150 - 350 x10'3/uL 02/16/2018 8:03 AM CDT [facility] MPV 9.7 7.4 - 10.4 FL 02/16/2018 8:03 AM CDT [facility] ABS. NEUTROPHILS TOTAL 3.32 1.60 - 8.30 x10'3/uL 02/16/2018 8:03 AM CDT [facility] ABS. LYMPHOCYTES 2.38 0.80 - 4.70 x10'3/uL 02/16/2018 8:03 AM CDT [facility] ABS. MONOCYTES 0.41 0.00 - 1.50 x10'3/uL 02/16/2018 8:03 AM CDT [facility] ABS. EOSINOPHILS 0.49(H) 0.00 - 0.40 x10'3/uL 02/16/2018 8:03 AM CDT [facility] ABS. BASOPHILS 0.02 0.00 - 0.20 x10'3/uL 02/16/2018 8:03 AM CDT [facility] ABS. IMMATURE GRANULOCYTES 0.02 0.00 - 0.03 x10'3/uL 02/16/2018 8:03 AM CDT [facility] ABS. NUCLEATED RBC'S 0.00 0.0 x10'3/uL 02/16/2018 8:03 AM CDT [facility] SODIUM S/P/B 140 136 - 145 MMOL/L 02/16/2018 8:59 AM CDT [facility] POTASSIUM S/P/B 4.0 3.5 - 5.1 MMOL/L 02/16/2018 8:59 AM CDT [facility] CHLORIDE S/P/B 106 98 - 107 MMOL/L 02/16/2018 8:59 AM CDT [facility] CO2 29.5 21.0 - 32.0 MMOL/L 02/16/2018 8:59 AM CDT [facility] GLUCOSE 106 74 - 106 MG/DL 02/16/2018 8:59 AM CDT [facility] BUN 17 7 - 18 MG/DL 02/16/2018 8:59 AM CDT [facility] CREATININE S/P/B 1.19(H) 0.55 - 1.02 MG/DL 02/16/2018 8:59 AM CDT [facility] CALCIUM S/P/B 8.7 8.4 - 10.5 MG/DL 02/16/2018 8:59 AM CDT [facility] BILIRUBIN TOTAL S/P/B 0.5 0.2 - 1.0 MG/DL 02/16/2018 8:59 AM CDT [facility] ALKALINE PHOSPHATASE S/P/B 82 46 - 118 U/L 02/16/2018 8:59 AM CDT [facility] AST 20 15 - 37 U/L 02/16/2018 8:59 AM CDT [facility] ALT 31 13 - 56 U/L 02/16/2018 8:59 AM CDT [facility] TOTAL PROTEIN S/P/B 8.2 6.4 - 8.2 G/DL 02/16/2018 8:59 AM CDT [facility] ALBUMIN S/P/B 4.0 3.4 - 5.0 G/DL 02/16/2018 8:59 AM [facility] ANION GAP 4.5 MMOL/L 02/16/2018 8:59 AM [facility] Comment:REFERENCE RANGE NOT ESTABLISHED OSMOLALITY (CALC) 292 MOSM/KG 018 8:59 AM [facility] Comment:REFERENCE RANGE NOT ESTABLISHED EGFR NON-AFR. AMER. 50(L) >90 ML/MIN/1. 73 M2 02/16/2018 8:59 AM [facility] Comment: THE ESTIMATED GFR IS CALCULATED USING THE 2009 CKD-EPI EQUATION. THE FOLLOWING CATEGORIES FOR GRADING RENAL FUNCTION ARE RECOMMENDED BY THE INTERNATIONAL SOCIETY OF NEPHROLOGY (KDIGO 2012 CLINICAL PRACTICE GUIDELINE). G1,NORMAL OR HIGH: >89 ml/min/1.73 m2 G2,MILDLY DECREASED: 60-89 ml/min/1.73 m2 G3A,MILDLY TO MODERATELY DECREASED: 45-59 ml/min/1.73 m2 G3B,MODERATELY TO SEVERELY DECREASED: 30-44 ml/min/1.73 m2 G4,SEVERELY DECREASED: 15-29 ml/min/1.73 m2 G5,KIDNEY FAILURE: <15 ml/min/1.73 m2 EGFR AFR. AMER. 58(L) >90 ML/MIN/1. 73 M2 02/16/2018 8:59 AM [facility] Comment: THE ESTIMATED GFR IS CALCULATED USING THE 2009 CKD-EPI EQUATION. THE FOLLOWING CATEGORIES FOR GRADING RENAL FUNCTION ARE RECOMMENDED BY THE INTERNATIONAL SOCIETY OF NEPHROLOGY (KDIGO 2012 CLINICAL PRACTICE GUIDELINE). G1,NORMAL OR HIGH: >89 ml/min/1.73 m2 G2,MILDLY DECREASED: 60-89 ml/min/1.73 m2 G3A,MILDLY TO MODERATELY DECREASED: 45-59 ml/min/1.73 m2 G3B,MODERATELY TO SEVERELY DECREASED: 30-44 ml/min/1.73 m2 G4,SEVERELY DECREASED: 15-29 ml/min/1.73 m2 G5,KIDNEY FAILURE: <15 ml/min/1.73 m2 TSH 67.300(H) 0.358 - 3.740 uIU/ML 02/16/2018 8:59 AM CDT [facility] 02/16/2018 7:49 AM CDT us Kathy Hooker MD LABORATORY Final Res ult [facility] [address] [place] [address], [id number] documented in this encounter Visit Diagnoses Diagnosis Routine health maintenance- Primary Routine general medical examination at a health care facility Numbness Disturbance of skin sensation Hypothyroidism Unspecified hypothyroidism documented in this encounter
--- OUTSIDE RECORDS SUMMARY | 2024-06-20 02:01 | XMS_ITS | Encounter Summary ---
Author Organization [facility] Address [address] [place] [address]. [place] [address] [place] [address] Care Team Providers Care Oracle Database Architect Name Role Phone Kathy Hooker MD Primary Care Provider [phone] Reason for Visit * Reason Comments Lab (SCAN) URINE CULTURE AND SE NSI Encounter Details Date Type Department Care Team (Late st Contact Info) Description 07/09/2018 Scan HEALTH INFO [facility] Scanned, Documents Lab (SCAN) (URINE CULTURE AND SENSI) Social History Tobacco Use Types Packs/Day Years Used Date Smoking Tobacco: Never Smokeless Tobacco: Never Alcohol Use Standard Drinks/Week Comments Yes 0 (1 standard drink = 0.6 oz pur e alcohol) socially Comments Unknown Sex and Gender Information Value Date Recorded Sex Assigned at Female 11/04/2022 9:01 AM CDT Legal Sex Female 11:19 PM BRAND AMBASSADOR PROMOTIONAL MODEL Gender Identity Female 11/04/2022 9:01 AM CDT Sexual Orientation Straight 11/04/2022 9: 01 AM CDT documented as of this encounter Functional Status documented as of this encounter Mental Status * Question Answer Entry Date Author Status Because of a physical, mental, or emotional condition, do you have serious difficulty concentrating, remembering, or making decisions? No 07/15/2018 4:29 PM BRAND AMBASSADOR PROMOTIONAL MODEL Deidre Escalera RN A ctive documented in this encounter Plan of Treatment Not on file documented as of this encounter Visit Diagnoses Not on filedocumented in this encounter Care Teams Oracle Database Architect Relationship Specialty Start Date End Date Kathy Hooker MD PCP - General INTERNAL MEDICINE 05/04/18 11/18/22 documented as of this encounter
--- OUTSIDE RECORDS SUMMARY | 2024-06-20 02:01 | XMS_ITS | Encounter Summary ---
Author Organization [facility] Address [facility] [place] [address] [place] [address] Care Team Providers Care Heel Seat Flap Stapler Name Role Phone Unavailable Primary Care Provider Unavailabl e Encounter Details Date Type Department Care Team (Late st Contact Info) Description 02/03/[address] [facility] [address] [place] [address] Anselmo Yanes MD [address] [place] [address] [address] Social History Tobacco Use Types Packs/Day Years Used Date Smoking Tobacco: Never Assessed Comments Unknown Sex and Gender Information Value Date Recorded Sex Assigned at Female 11/04/2022 9:01 AM CDT Legal Sex Female 11:19 PM COILER Gender Identity Female 11/04/2022 9:01 AM CDT Sexual Orientation Straight 11/04/2022 9: 01 AM CDT documented as of this encounter Plan of Treatment Not on file documented as of this encounter Visit Diagnoses Diagnosis Other laboratory examination documented in this encounter
--- OUTSIDE RECORDS SUMMARY | 2024-06-20 02:01 | XMS_ITS | Encounter Summary ---
Author Organization [facility] Address [address] [place] [address]. [place] [address] [place] [address] Care Team Providers Care Screen Printing Equipment Setter Name Role Phone Unavailable Primary Care Provider Unavailabl e Encounter Details Date Type Department Care Team (Late st Contact Info) Description 01/28/1996 Abstract [facility] [address] [place] [address] , Generic Conversion, Social History Tobacco Use Types Packs/Day Years Used Date Smoking Tobacco: Never Assessed Comments Unknown Sex and Gender Information Value Date Recorded Sex Assigned at Female 11/04/2022 9:01 AM CDT Legal Sex Female 11:19 PM AGED OR DISABLED CARE WORKER Gender Identity Female 11/04/2022 9:01 AM CDT Sexual Orientation Straight 11/04/2022 9: 01 AM CDT documented as of this encounter Plan of Treatment Not on file documented as of this encounter Visit Diagnoses Not on filedocumented in this encounter
--- OUTSIDE RECORDS SUMMARY | 2024-06-20 02:01 | XMS_ITS | Encounter Summary ---
Author Organization [facility] Address [address] [place] [address]. [place] [address] [place] [address] Care Team Providers Care Doctor Of Dental Surgery Name Role Phone Kathy Hooker MD Primary Care Provider [phone] Encounter Details Date Type Department Care Team (Late st Contact Info) Description 07/07/2018 Abstract [facility] [address] [facility] [place] [address] Kathy Hooker MD [address] [place], [place] [id number] Social History Tobacco Use Types Packs/Day Years Used Date Smoking Tobacco: Never Smokeless Tobacco: Never Alcohol Use Standard Drinks/Week Comments Yes 0 (1 standard drink = 0.6 oz pur e alcohol) socially Comments Unknown Sex and Gender Information Value Date Recorded Sex Assigned at Female 11/04/2022 9:01 AM CDT Legal Sex Female 11:19 PM TELEGRAPHER AGENT Gender Identity Female 11/04/2022 9:01 AM CDT Sexual Orientation Straight 11/04/2022 9: 01 AM CDT documented as of this encounter Functional Status documented as of this encounter Mental Status * Question Answer Entry Date Author Status Because of a physical, mental, or emotional condition, do you have serious difficulty concentrating, remembering, or making decisions? No 07/15/2018 4:29 PM TELEGRAPHER AGENT Deidre Escalera RN A ctive documented in this encounter Plan of Treatment Not on file documented as of this encounter Procedures Procedure Name Priority Date/Time Associated Diagnosis Comments URINALYSIS Routine 07/07/2018 6:30 PM TELEGRAPHER AGENT documented in this encounter Results * (ABNORMAL) URINALYSIS (07/07/2018 6:30 PM TELEGRAPHER AGENT) COLOR (U) YELLOW 07/07/2018 7:45 PM [facility] TRANSPARENCY CLEAR 07/07/2018 7:45 PM [facility] SPECIFIC GRAVITY (U) 1.025 1.000 - 1.025 07/07/2018 7:45 PM [facility] U PH 6.5 5.0 - 8.0 07/07/2018 7:45 PM [facility] LEUKOCYTES (U) TRACE(A) NEGATIVE 07/07/2018 7:45 PM [facility] NITRITES NEGATIVE NEGATIVE 07/07/2018 7:45 PM [facility] PROTEIN (U) NEGATIVE NEGATIVE 07/07/2018 7:45 PM [facility] URINE GLUCOSE NEGATIVE NEGATIVE 07/07/2018 7:45 PM [facility] KETONES MG/DL (U) NEGATIVE NEGATIVE 07/07/2018 7:45 PM [facility] UROBILINOGEN 0.2 <1.0 EU/DL 07/07/2018 7:45 PM [facility] BILIRUBIN (U) NEGATIVE NEGATIVE 07/07/2018 7:45 PM [facility] BLOOD (U) NEGATIVE NEGATIVE 07/07/2018 7:45 PM [facility] WBC/HPF 5-10(A) 0 - 5 /HPF 07/07/2018 7:45 PM [facility] EPI/HPF MODERATE /LPF 07/07/2018 7:45 PM [facility] BACTERIA (U) 3+ /HPF 07/07/2018 7:45 PM [facility] MUCUS PRESENT 07/07/2018 7:45 PM [facility] 07/07/2018 6:30 PM TELEGRAPHER AGENT 07/07/2018 7:33 PM TELEGRAPHER AGENT us Generic Conversion Md BRIAN URINE ORDERABLES Final Result Performing Organization Address City/State/RUST Co de Phone Number [facility] [address] [place] [address], documented in this encounter Visit Diagnoses Diagnosis Abnormal finding in urine Other nonspecific finding on examination of urine documented in this encounter Care Teams Doctor Of Dental Surgery Relationship Specialty Start Date End Date Kathy Hooker MD PCP - General INTERNAL MEDICINE 05/04/18 11/18/22 documented as of this encounter
--- OUTSIDE RECORDS SUMMARY | 2024-06-20 02:01 | XMS_ITS | Encounter Summary ---
Author Organization [facility] Address [address] [place] [address]. 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
--- OUTSIDE RECORDS SUMMARY | 2024-06-20 02:01 | XMS_ITS | Encounter Summary ---
Author Organization [facility] Address [facility] [place] [address] [place] [address] Care Team Providers Care Investigator Internal Revenue Name Role Phone Kathy Hooker MD Primary Care Provider [phone] Reason for Visit * Reason Onset Date Comments Record Request 05/27/2018 Notes needed for referral Encounter Details Date Type Department Care Team (Late st Contact Info) Description 05/27/2018 Telephone [facility] [place] [address] [facility], [place] [address] Hair Morris, DPM [address] [place] [address] Record Request (Notes needed for referral) Social History Tobacco Use Types Packs/Day Years Used Date Smoking Tobacco: Never Assessed Comments Unknown Sex and Gender Information Value Date Recorded Sex Assigned at Female 11/04/2022 9:01 AM CDT Legal Sex Female 11:19 PM BAKING POWDER MIXER Gender Identity Female 11/04/2022 9:01 AM CDT Sexual Orientation Straight 11/04/2022 9: 01 AM CDT documented as of this encounter Progress Notes * Gianna Vazquez - 05/27/2018 10:22 AM CST Randa from Dr. Key's office called requesting visit note and any lab results or x-rays that indicate why Dr. Morris wants Dr. Key to rule out rheumatoid arthritis for patient Ciera Aggarwal,whom he referred. Please fax info to [phone], Attn: Randa NG POWDER MIXER documented in this encounter Plan of Treatment Not on file documented as of this encounter Visit Diagnoses Not on filedocumented in this encounter Care Teams Investigator Internal Revenue Relationship Specialty Start Date End Date Kathy Hooker MD PCP - General INTERNAL MEDICINE 05/04/18 11/18/22 documented as of this encounter
--- OUTSIDE RECORDS SUMMARY | 2024-06-20 02:01 | XMS_ITS | Encounter Summary ---
Author Organization [facility] Address [facility] [place] [address] [place] [address] Care Team Providers Care Rubber Cutting Machine Tender Name Role Phone Kathy Hooker MD Primary Care Provider [phone] [phone] Encounter Details Date Type Department Care Team (Late st Contact Info) Description 04/09/2018 Abstract [facility] [address] [facility] [place] [address] Kathy Hooker MD [address] [place], [place] [address] Social History Tobacco Use Types Packs/Day Years Used Date Smoking Tobacco: Never Assessed Comments Unknown Sex and Gender Information Value Date Recorded Sex Assigned at Female 11/04/2022 9:01 AM CDT Legal Sex Female 11:19 PM HEALTH TECHNICAL WRITER Gender Identity Female 11/04/2022 9:01 AM CDT Sexual Orientation Straight 11/04/2022 9: 01 AM CDT documented as of this encounter Plan of Treatment Not on file documented as of this encounter Procedures Procedure Name Priority Date/Time Associated Diagnosis Comments THYROXINE, FREE (FT4) Routine 04/09/2018 3:00 PM CDT UREA NITROGEN, BLOOD (BUN) QUANT Routine 04/09/2018 3:00 PM CDT THYROID STIM HORMONE TSH Routine 04/09/2018 3:00 PM CDT CREATININE Routine 04/09/2018 3:00 PM CDT documented in this encounter Results * (ABNORMAL) THYROID STIM HORMONE, TSH (04/09/2018 3:00 PM CDT) TSH 6.248(H) 0.358 - 3.740 uIU/ML 04/09/2018 3:33 PM CDT [facility] SERUM OR PLASMA SPECIMEN / Unknown 04/09/2018 3:00 PM CDT 04/09/2018 3:10 PM CDT us Generic Conversion Md [facility] Final R esult Performing Organization Address City/[facility]/ZIP Co de Phone Number [facility] [address] [place] [address], * THYROXINE, FREE (FT4) (04/09/2018 3:00 PM CDT) FREE T4 0.91 0.76 - 1.46 NG/DL 04/09/2018 3:33 PM CDT [facility] SERUM OR PLASMA SPECIMEN / Unknown 04/09/2018 3:00 PM CDT 04/09/2018 3:10 PM CDT us Generic Conversion Md [facility] Final R esngozi Performing Organization Address City/[facility]/ZIP Co de Phone Number [facility] [address] [place] [address], [place] [phone] * (ABNORMAL) CREATININE (04/09/2018 3:00 PM CDT) CREATININE S/P/B 1.12(H) 0.55 - 1.02 MG/DL 04/09/2018 3:33 PM CDT [facility] EGFR NON-AFR. AMER. 54(L) >89 ML/MIN/1 .73 M2 04/09/2018 3:33 PM CDT [facility] EGFR AFR. AMER. 63(L) >89 ML/MIN/1 .73 M2 04/09/2018 3:33 PM CDT [facility] GFR NOTES THE ESTIMATED GFR IS CALCULATED USING THE 2009 CKD-EPI EQUATION. THE FOLLOWING CATEGORIES FOR GRADING RENAL FUNCTION ARE RECOMMENDED BY THE INTERNATIONAL SOCIETY OF NEPHROLOGY (KDIGO 2012 CLINICAL PRACTICE GUIDELINE). 04/09/2018 3:33 PM CDT [facility] Comment: G1,NORMAL OR HIGH: >89 ml/min/1.73 m2G2,MILDLY DECREASED: 60-89 ml/min/1.73 m2G3A,MILDLY TO MODERATELY DECREASED: 45-59 ml/min/1.73 m2G3B,MODERATELY TO SEVERELY DECREASED: 30-44 ml/min/1.73 m2G4,SEVERELY DECREASED: 15-29 ml/min/1.73 m2G5,KIDNEY FAILURE: <15 ml/min/1.73 m2 SERUM OR PLASMA SPECIMEN / Unknown 04/09/2018 3:00 PM CDT 04/09/2018 3:10 PM CDT us Generic Conversion Md [facility] Final R esult Performing Organization Address City/[facility]/ZIP Co de Phone Number [facility] [address] [place] [address], * UREA NITROGEN, BLOOD (BUN) QUANT (04/09/2018 3:00 PM CDT) BUN 23 6 - 24 MG/DL 04/09/2018 3:33 PM CDT [facility] SERUM OR PLASMA SPECIMEN / Unknown 04/09/2018 3:00 PM CDT 04/09/2018 3:10 PM CDT us Generic Conversion Md [facility] Final R esult Performing Organization Address City/[facility]/ZIP Co de Phone Number [facility] [address] [place] [address], [place] [phone] documented in this encounter Visit Diagnoses Diagnosis Pain of foot Pain in limb documented in this encounter Care Teams Rubber Cutting Machine Tender Relationship Specialty Start Date End Date Kathy Hooker MD PCP - General INTERNAL MEDICINE 05/04/18 11/18/22 documented as of this encounter
--- OUTSIDE RECORDS SUMMARY | 2024-06-20 02:01 | XMS_ITS | Encounter Summary ---
Author Organization [facility] Address [address] [place] [address]. [place] [address] [place] [address] Care Team Providers Care Drawer In Stitch Bonding Machine Name Role Phone Unavailable Primary Care Provider Unavailabl e Encounter Details Date Type Department Care Team (Late st Contact Info) Description 02/19/1996 Abstract [facility] [address] [place] [address] , Generic Conversion, Social History Tobacco Use Types Packs/Day Years Used Date Smoking Tobacco: Never Assessed Comments Unknown Sex and Gender Information Value Date Recorded Sex Assigned at Female 11/04/2022 9:01 AM CDT Legal Sex Female 11:19 PM CIRCULATION MANAGER Gender Identity Female 11/04/2022 9:01 AM CDT Sexual Orientation Straight 11/04/2022 9: 01 AM CDT documented as of this encounter Plan of Treatment Not on file documented as of this encounter Visit Diagnoses Not on filedocumented in this encounter
--- OUTSIDE RECORDS SUMMARY | 2024-06-20 02:01 | XMS_ITS | Encounter Summary ---
Author Organization [facility] Address [facility] [place] [address] [place] [address] Care Team Providers Care Manager Wireless Name Role Phone Kathy Hooker MD Primary Care Provider [phone] [phone] Encounter Details Date Type Department Care Team (Latest Contact Info) Description 07/05/2018 9:38 AM FORENSIC ECONOMIST - 07/05/2018 11:59 PM [facility] Hospital Encounter [facility] Pre-Admission Testing [address] [place] [address] Chong Brenner MD [address] [place], [place] [address] Discharge Disposition: Home or Self Care (Routine Discharge) Social History Tobacco Use Types Packs/Day Years Used Date Smoking Tobacco: Never Smokeless Tobacco: Never Alcohol Use Standard Drinks/Week Comments Yes 0 (1 standard drink = 0.6 oz pur e alcohol) socially Comments Unknown Sex and Gender Information Value Date Recorded Sex Assigned at Female 11/04/2022 9:01 AM CDT Legal Sex Female 11:19 PM FORENSIC ECONOMIST Gender Identity Female 11/04/2022 9:01 AM CDT Sexual Orientation Straight 11/04/2022 9: 01 AM CDT documented as of this encounter Medications at Time of Discharge [...] Procedure Name Priority Date/Time Associated Diagnosis Comments ECG 12-LEAD Routine 07/05/2018 11:26 AM FORENSIC ECONOMIST Preop testing MRSA SCREENING Routine 07/05/2018 9:52 AM FORENSIC ECONOMIST Pain in joint, pelvic region and thigh URINALYSIS Routine 07/05/2018 9:52 AM FORENSIC ECONOMIST Pain in joint, pelvic region and thigh COMPREHENSIVE METABOLIC PANEL Routine 07/05/2018 9:52 AM FORENSIC ECONOMIST Pain in joint, pelvic region and thigh CBC W/DIFF AUTOMATED Routine 07/05/2018 9:52 AM FORENSIC ECONOMIST Pain in joint, pelvic region and thigh THYROXINE, FREE (FT4) Routine 07/05/2018 9:52 AM FORENSIC ECONOMIST Pain in joint, pelvic region and thigh THYROID STIM HORMONE TSH Routine 07/05/2018 9:52 AM FORENSIC ECONOMIST Pain in joint, pelvic region and thigh documented in this encounter Results * ECG 12 lead (07/05/2018 11:26 AM FORENSIC ECONOMIST) 07/05/2018 11:2 6 AM FORENSIC ECONOMIST Narrative [facility] - 07/05/2018 1:20 PM FORENSIC ECONOMIST ? [facility] ?[address] [place], [place] ??[address] ? Test Date: ?2018-07-05 Pat Name: ? CALIXTO LEIDY ?Department: ? Room: ? Gender: ? Female ? Sizing End Bander: ?? MS : ?1960 ? Requested By: D JORDIN Order Number: [id number] ? Reading MD: ?? Kam Bergman ? Measurements Intervals ?[facility] ? Rate: ? 62 ? P: ?43 PA: ? 154 ?QRS: ?10 QRSD: ? 81 ? T: ?15 QT: ? 384 ? QTc: ?391 ? Interpretive Statements SINUS RHYTHM WITH SINUS ARRHYTHMIA LOW QRS VOLTAGE IN PRECORDIAL LEADS NSIC ECONOMIST Procedure Note Kam Bergman MD - 07/05/[address] [address] Test Date: 2018-07-05 Pat Name: CALIXTO AGGARWAL Department: Room: Gender: Female Sizing End Bander: MS : 1960 Requested By: Chong BRENNER Order Number: [id number] Reading MD: Kam Bergman Measurements Intervals [facility] Rate: 62 P: 43 PA: 154 QRS: 10 QRSD: 81 T: 15 QT: 384 QTc: 391 Interpretive Statements SINUS RHYTHM WITH SINUS ARRHYTHMIA LOW QRS VOLTAGE IN PRECORDIAL LEADS NSIC ECONOMIST us Chong Brenner MD ECG ORDERABLES Final Result [facility] * THYROXINE, FREE (FT4) (07/05/2018 9:52 AM FORENSIC ECONOMIST) FREE T4 1.02 0.76 - 1.46 NG/DL 07/05/2018 11:31 AM FORENSIC ECONOMIST [facility] 07/05/2018 9:52 AM FORENSIC ECONOMIST us Kathy Hooker MD LABORATORY Final Res ult Performing Organization Address [facility] Co de Phone Number [facility] [address] [place] [address], [phone] * (ABNORMAL) THYROID STIM HORMONE, TSH (07/05/2018 9:52 AM FORENSIC ECONOMIST) TSH 6.330(H) 0.358 - 3.740 uIU/ML 07/05/2018 11:31 AM FORENSIC ECONOMIST [facility] 07/05/2018 9:52 AM FORENSIC ECONOMIST Kathy Hooker MD LABORATORY Final Res ult Performing Organization Address [facility] Co de Phone Number [facility] [address] [place] [address], [phone] * MRSA PCR nares Screening (07/05/2018 9:52 AM FORENSIC ECONOMIST) SPECIMEN SOURCE RESPIRATORY, NOSE 07/05/2018 9:45 AM FORENSIC ECONOMIST [facility] MRSA BY PCR NASAL METHICILLIN RESISTANT STAPH AUREUS NOT DETECTED 07/05/2018 2:39 PM FORENSIC ECONOMIST [facility] NASAL STRUCTURE / Unknown 07/05/2018 9:52 AM FORENSIC ECONOMIST Kathy Hooker MD MICROBIOLOGY - GENERAL OR DERABLES Final Result Performing Organization Address [facility] Co de Phone Number [facility] [address] [place] [address], [place] [phone] * (ABNORMAL) COMPREHENSIVE METABOLIC PANEL (07/05/2018 9:52 AM FORENSIC ECONOMIST) SODIUM S/P/B 140 136 - 145 MMOL/L 07/05/2018 11:31 AM FORENSIC ECONOMIST [facility] POTASSIUM S/P/B 3.7 3.5 - 5.1 MMOL/L 07/05/2018 11:31 AM [facility] CHLORIDE S/P/B 108(H) 98 - 107 MMOL/L 07/05/2018 11:31 AM [facility] CO2 26.8 21.0 - 32.0 MMOL/L 07/05/2018 11:31 AM [facility] GLUCOSE 99 74 - 106 MG/DL 07/05/2018 11:31 AM [facility] BUN 19(H) 7 - 18 MG/DL 07/05/2018 11:31 AM [facility] CREATININE S/P/B 1.03(H) 0.55 - 1.02 MG/DL 07/05/2018 11:31 AM [facility] CALCIUM S/P/B 8.8 8.4 - 10.5 MG/DL 07/05/2018 11:31 AM [facility] BILIRUBIN TOTAL S/P/B 0.5 0.2 - 1.0 MG/DL 07/05/2018 11:31 AM [facility] ALKALINE PHOSPHATASE S/P/B 69 46 - 118 U/L 07/05/2018 11:31 AM [facility] AST 18 15 - 37 U/L 07/05/2018 11:31 AM [facility] ALT 26 13 - 56 U/L 07/05/2018 11:31 AM [facility] TOTAL PROTEIN S/P/B 7.5 6.4 - 8.2 G/DL 07/05/2018 11:31 AM [facility] ALBUMIN S/P/B 4.1 3.4 - 5.0 G/DL 07/05/2018 11:31 AM [facility] ANION GAP 5.2 MMOL/L 07/05/2018 11:31 AM [facility] Comment:REFERENCE RANGE NOT ESTABLISHED OSMOLALITY (CALC) 292 MOSM/KG 07/05/2018 11:31 AM [facility] Comment:REFERENCE RANGE NOT ESTABLISHED EGFR NON-AFR. AMER. 60(L) >90 ML/MIN/1 .73 M2 07/05/2018 11:31 AM [facility] EGFR AFR. AMER. 69(L) >90 ML/MIN/1 .73 M2 07/05/2018 11:31 AM [facility] GFR NOTES THE ESTIMATED GFR IS CALCULATED USING THE 2009 CKD-EPI EQUATION. THE FOLLOWING CATEGORIES FOR GRADING RENAL FUNCTION ARE RECOMMENDED BY THE INTERNATIONAL SOCIETY OF NEPHROLOGY (KDIGO 2012 CLINICAL PRACTICE GUIDELINE). 07/05/2018 11:31 AM [facility] Comment: G1,NORMAL OR HIGH: >89 ml/min/1.73 m2 G2,MILDLY DECREASED: 60-89 ml/min/1.73 m2 G3A,MILDLY TO MODERATELY DECREASED: 45-59 ml/min/1.73 m2 G3B,MODERATELY TO SEVERELY DECREASED: 30-44 ml/min/1.73 m2 G4,SEVERELY DECREASED: 15-29 ml/min/1.73 m2 G5,KIDNEY FAILURE: <15 ml/min/1.73 m2 07/05/2018 9:52 AM FORENSIC ECONOMIST us Kathy Hooker MD LABORATORY Final Res ult [facility] [address] [place] [phone], [id number] * CBC W/DIFF AUTOMATED (07/05/2018 9:52 AM FORENSIC ECONOMIST) WBC 5.6 4.0 - 10.8 x10'3/uL 07/05/2018 10:06 AM [facility] RBC 4.63 4.10 - 5.40 x10'6/uL 07/05/2018 10:06 AM [facility] HGB 14.3 12.0 - 16.0 G/DL 07/05/2018 10:06 AM [facility] HCT 41.9 36.0 - 47.0 % 07/05/2018 10:06 AM [facility] MCV 90.5 78.0 - 100.0 FL 07/05/2018 10:06 AM [facility] MCH 30.9 27.0 - 31.0 PG 07/05/2018 10:06 AM [facility] MCHC 34.1 33.0 - 36.0 G/DL 07/05/2018 10:06 AM [facility] RDW 12.8 11.5 - 14.5 % 07/05/2018 10:06 AM [facility] PLT 258 150 - 350 x10'3/uL 07/05/2018 10:06 AM [facility] MPV 9.7 7.4 - 10.4 FL 07/05/2018 10:06 AM [facility] ABS. NEUTROPHILS TOTAL 2.93 1.60 - 8.30 x10'3/uL 07/05/2018 10:06 AM [facility] ABS. LYMPHOCYTES 2.18 0.80 - 4.70 x10'3/uL 07/05/2018 10:06 AM [facility] ABS. MONOCYTES 0.34 0.00 - 1.50 x10'3/uL 07/05/2018 10:06 AM [facility] ABS. EOSINOPHILS 0.13 0.00 - 0.40 x10'3/uL 07/05/2018 10:06 AM [facility] ABS. BASOPHILS 0.03 0.00 - 0.20 x10'3/uL 07/05/2018 10:06 AM [facility] ABS. IMMATURE GRANULOCYTES 0.02 0.00 - 0.03 x10'3/uL 07/05/2018 10:06 AM [facility] ABS. NUCLEATED RBC'S 0.00 0.0 x10'3/uL 07/05/2018 10:06 AM [facility] 07/05/2018 9:52 AM FORENSIC ECONOMIST us Kathy Hooker MD LABORATORY Final Res ult [facility] [address] [place] [address], [phone] * (ABNORMAL) URINALYSIS (07/05/2018 9:52 AM FORENSIC ECONOMIST) COLOR (U) YELLOW 07/05/2018 10:36 AM [facility] TRANSPARENCY SLIGHTLY CLOUDY 07/05/2018 10:36 AM [facility] SPECIFIC GRAVITY (U) 1.024 1.002 - 1.035 07/05/2018 10:36 AM [facility] U PH 5.0 5 - 8 07/05/2018 10:36 AM [facility] PROTEIN (U) NEGATIVE NEGATIVE 07/05/2018 10:36 AM [facility] URINE GLUCOSE NEGATIVE NEGATIVE MG/DL 07/05/2018 10:36 AM [facility] KETONES MG/DL (U) NEGATIVE NEGATIVE 07/05/2018 10:36 AM [facility] BILIRUBIN (U) NEGATIVE NEGATIVE 07/05/2018 10:36 AM [facility] BLOOD (U) NEGATIVE NEGATIVE 07/05/2018 10:36 AM [facility] NITRITES NEGATIVE NEGATIVE 07/05/2018 10:36 AM [facility] UROBILINOGEN NORMAL 0 - 1 EU/DL 07/05/2018 10:36 AM [facility] LEUKOCYTES (U) LARGE(A) NEGATIVE 07/05/2018 10:36 AM [facility] RBC/HPF 2 0 - 3 /HPF 07/05/2018 10:36 AM [facility] WBC/HPF 19(H) 0 - 6 /HPF 07/05/2018 10:36 AM [facility] BACTERIA (U) PRESENT /HPF 07/05/2018 10:36 AM [facility] SQUAMOUS EPITHELIALS 19 07/05/2018 10:36 AM [facility] NON SQUAMOUS EPITHELIAL 2 /HPF 07/05/2018 10:36 AM FORENSIC ECONOMIST [facility] URINE SPECIMEN FROM URETHRA / Unknown 07/05/2018 9:52 AM FORENSIC ECONOMIST us Kathy Hooker MD URINE ORDERABLES Final Re sult [facility] [address] [place] [address], [phone] documented in this encounter Visit Diagnoses Diagnosis Preop testing- Primary Preoperative examination, unspecified Pain in joint, pelvic region and thigh documented in this encounter Care Teams Manager Wireless Relationship Specialty Start Date End Date Kathy Hooker MD PCP - General INTERNAL MEDICINE 05/04/18 11/18/22 documented as of this encounter
--- OUTSIDE RECORDS SUMMARY | 2024-06-20 02:01 | XMS_ITS | Encounter Summary ---
Author Organization [facility] Address [address] [place] [address]. [place] [address] [place] [address] Care Team Providers Care Matchbook Maker Name Role Phone Kathy Hooker MD Primary Care Provider [phone] Encounter Details Date Type Department Care Team (Latest Contact Info) Description 05/31/2018 Scan HEALTH INFO SRVCS Scanned, Documents Social History Tobacco Use Types Packs/Day Years Used Date Smoking Tobacco: Never Assessed Comments Unknown Sex and Gender Information Value Date Recorded Sex Assigned at Female 11/04/2022 9:01 AM CDT Legal Sex Female 11:19 PM CAR SANDER Gender Identity Female 11/04/2022 9:01 AM CDT Sexual Orientation Straight 11/04/2022 9: 01 AM CDT documented as of this encounter Functional Status documented as of this encounter Mental Status * Question Answer Entry Date Author Status Because of a physical, mental, or emotional condition, do you have serious difficulty concentrating, remembering, or making decisions? No 07/15/2018 4:29 PM CAR SANDER Deidre Escalera RN A ctive documented in this encounter Plan of Treatment Not on file documented as of this encounter Visit Diagnoses Not on filedocumented in this encounter Care Teams Matchbook Maker Relationship Specialty Start Date End Date Kathy Hooker MD PCP - General INTERNAL MEDICINE 05/04/18 11/18/22 documented as of this encounter
--- OUTSIDE RECORDS SUMMARY | 2024-06-20 02:01 | XMS_ITS | Encounter Summary ---
Author Organization [facility] Address [facility] [place] [address] [place] [address] Care Team Providers Care Air Turning Machine Feeder Name Role Phone Unavailable Primary Care Provider Unavailabl e Encounter Details Date Type Department Care Team (Latest Contact Info) Description 02/16/2018 7:30 AM CDT - 02/16/2018 11:59 PM CDT Hospital Encounter [facility] [address] [place] [address] Kathy Novoa MD [address] [place] [phone] Discharge Disposition: Home or Self Care (Routine Discharge) Social History Tobacco Use Types Packs/Day Years Used Date Smoking Tobacco: Never Assessed Comments Unknown Sex and Gender Information Value Date Recorded Sex Assigned at Female 11/04/2022 9:01 AM CDT Legal Sex Female 11:19 PM SUPERINTENDENT POLICE Gender Identity Female 11/04/2022 9:01 AM CDT Sexual Orientation Straight 11/04/2022 9: 01 AM CDT documented as of this encounter Plan of Treatment Not on file documented as of this encounter Procedures Procedure Name Priority Date/Time Associated Diagnosis Comments XR HIP RT 2V Routine 02/16/2018 8:05 AM CDT Hip pain Numbness documented in this encounter Results * XR HIP RT 2V (02/16/2018 8:05 AM CDT) Anatomical Region Laterality Modality Hip Radiographic Mary Jo ging 02/16/2018 4:23 PM CDT Impressions 02/16/2018 4:24 PM CDT IMPRESSION: Severe degenerative changes Interpreted By: Scotty Mcneil MD, 02/16/2018 4:23 PM Order Doctor: KATHY NOVOA Narrative 02/16/2018 4:24 PM CDT 2 VIEWS OF THE RIGHT HIP Clinical History: Pain, no known injury Comparison: None 2 views of the right hip demonstrate no evidence of fracture or dislocation. Severe degenerative osteoarthritis is noted with complete loss of joint space, subchondral sclerosis, and subchondral cyst formation. Osteophytes protrude from the superior margin of the acetabulum. The bony elements of the pelvis are intact. The surrounding soft tissues appear normal Procedure Note Scotty Mcneil MD - 02/16/2018 2 VIEWS OF THE RIGHT HIP Clinical History: Pain, no known injury Comparison: None 2 views of the right hip demonstrate no evidence of fracture or dislocation. Severe degenerative osteoarthritis is noted with completeloss of joint space, subchondral sclerosis, and subchondral cyst formation. Osteophytes protrude from the superior margin of the acetabulum. Thebony elements of the pelvis are intact. The surrounding soft tissues appear normal IMPRESSION: Severe degenerative changes Interpreted By: Scotty Mcneil MD, 02/16/2018 4:23 PM Order Doctor: KATHY NOVOA us Kathy Novoa MD GENERAL IMAGING Final Res ult documented in this encounter Visit Diagnoses Diagnosis Hip pain Pain in joint, pelvic region and thigh Numbness Disturbance of skin sensation documented in this encounter
--- OUTSIDE RECORDS SUMMARY | 2024-06-20 02:01 | XMS_ITS | Encounter Summary ---
Author Organization [facility] Address [facility] [place] [address] [place] [address] Care Team Providers Care Production Checker Name Role Phone Kathy Hooker MD Primary Care Provider [phone] Encounter Details Date Type Department Care Team (Late st Contact Info) Description 02/16/2018 Abstract [facility] [address] [facility] [place] [address] Kathy Hooker MD [address] [place] [address] Social History Tobacco Use Types Packs/Day Years Used Date Smoking Tobacco: Never Assessed Comments Unknown Sex and Gender Information Value Date Recorded Sex Assigned at Female 11/04/2022 9:01 AM CDT Legal Sex Female 11:19 PM COOK HOUSE SUPERVISOR Gender Identity Female 11/04/2022 9:01 AM CDT Sexual Orientation Straight 11/04/2022 9: 01 AM CDT documented as of this encounter Plan of Treatment Not on file documented as of this encounter Visit Diagnoses Not on filedocumented in this encounter Care Teams Production Checker Relationship Specialty Start Date End Date Kathy Hooker MD PCP - General INTERNAL MEDICINE 05/04/18 11/18/22 documented as of this encounter
--- OUTSIDE RECORDS SUMMARY | 2024-06-20 02:01 | XMS_ITS | Encounter Summary ---
Author Organization [facility] Address [address] [place] [address]. [place] [address] [place] [address] Care Team Providers Care Rfp Writer Name Role Phone Kathy Hooker MD Primary Care Provider [phone] Encounter Details Date Type Department Care Team (Late st Contact Info) Description 07/05/2018 Orders Only [facility] [address] [place] [address] Kathy Hooker MD [address] [place] [address] Social History Tobacco Use Types Packs/Day Years Used Date Smoking Tobacco: Never Smokeless Tobacco: Never Alcohol Use Standard Drinks/Week Comments Yes 0 (1 standard drink = 0.6 oz pur e alcohol) socially Comments Unknown Sex and Gender Information Value Date Recorded Sex Assigned at Female 11/04/2022 9:01 AM CDT Legal Sex Female 11:19 PM TELEPHONE SOLICITOR SUPERVISOR Gender Identity Female 11/04/2022 9:01 AM CDT Sexual Orientation Straight 11/04/2022 9: 01 AM CDT documented as of this encounter Plan of Treatment Not on file documented as of this encounter Results * CULTURE URINE (OUTPATIENTS) (07/09/2018 12:00 PM TELEPHONE SOLICITOR SUPERVISOR) SPEC DESCRIPTION URINE, UNSPECIFIED 07/10/2018 5:59 AM TELEPHONE SOLICITOR SUPERVISOR [facility] SPECIAL REQUESTS NO SPECIAL REQUEST 07/10/2018 5:59 AM TELEPHONE SOLICITOR SUPERVISOR [facility] CULTURE RESULT >100,000 CFU/mL ESCHERICHIA COLI 07/12/2018 7:31 AM TELEPHONE SOLICITOR SUPERVISOR [facility] URINE SPECIMEN / Unknown 07/09/2018 12:00 PM TELEPHONE SOLICITOR SUPERVISOR 07/10/2018 6:14 AM TELEPHONE SOLICITOR SUPERVISOR Narrative Organism Antibiotic Method Susceptibility Escherichia coli AMPICILLIN BHUPENDRA (VITEK) Intermediate Escherichia coli AMOXICILLIN/CLAVULANIC A BHUPENDRA (VITEK) Sensitive Escherichia coli AZTREONAM BHUPENDRA (VITEK) Sensitive Escherichia coli CEFEPIME BHUPENDRA (VITEK) Sensitive Escherichia coli CEFTRIAXONE BHUPENDRA (VITEK) Sensitive Escherichia coli CEFAZOLIN BHUPENDRA (VITEK) Sensitive Escherichia coli CIPROFLOXACIN BHUPENDRA (VITEK) Sensitive Escherichia coli ESBL BHUPENDRA (VITEK) NEG: Sensitive Escherichia coli ERTAPENEM BHUPENDRA (VITEK) Sensitive Escherichia coli NITROFURANTOIN BHUPENDRA (VITEK) Sensitive Escherichia coli GENTAMICIN BHUPENDRA (VITEK) Sensitive Escherichia coli IMIPENEM BHUPENDRA (VITEK) Sensitive Escherichia coli LEVOFLOXACIN BHUPENDRA (VITEK) Sensitive Escherichia coli MEROPENEM BHUPENDRA (VITEK) Sensitive Escherichia coli PIPRACIL/TAZO BHUPENDRA (VITEK) Sensitive Escherichia coli TRIMETH-SULFAMETH. BHUPENDRA (VITEK) Sensitive Escherichia coli TETRACYCLINE BHUPENDRA (VITEK) Sensitive Kathy Hooker MD MICROBIOLOGY - GENERAL OR DERABLES Edited Result - Final Performing Organization Address [facility]/ZIP Co de Phone Number [facility] [address] [place] [address], [id number] * THYROXINE, FREE (FT4) (07/05/2018 9:52 AM TELEPHONE SOLICITOR SUPERVISOR) FREE T4 1.02 0.76 - 1.46 NG/DL 07/05/2018 11:31 AM TELEPHONE SOLICITOR SUPERVISOR [facility] 07/05/2018 9:52 AM TELEPHONE SOLICITOR SUPERVISOR Ktahy Hooker MD LABORATORY Final Res ult [facility] [address] [place] [address], [phone] * (ABNORMAL) THYROID STIM HORMONE, TSH (07/05/2018 9:52 AM TELEPHONE SOLICITOR SUPERVISOR) TSH 6.330(H) 0.358 - 3.740 uIU/ML 07/05/2018 11:31 AM TELEPHONE SOLICITOR SUPERVISOR [facility] 07/05/2018 9:52 AM TELEPHONE SOLICITOR SUPERVISOR Kathy Hooker MD LABORATORY Final Res ult Performing Organization Address City/[facility]/ZIP Co de Phone Number [facility] [address] [place] [address], [phone] * MRSA PCR nares Screening (07/05/2018 9:52 AM TELEPHONE SOLICITOR SUPERVISOR) Pathologist [facility] SPECIMEN SOURCE RESPIRATORY, NOSE 07/05/2018 9:45 AM TELEPHONE SOLICITOR SUPERVISOR [facility] MRSA BY PCR NASAL METHICILLIN RESISTANT STAPH AUREUS NOT DETECTED 07/05/2018 2:39 PM TELEPHONE SOLICITOR SUPERVISOR [facility] NASAL STRUCTURE / Unknown 07/05/2018 9:52 AM TELEPHONE SOLICITOR SUPERVISOR Kathy Hooker MD MICROBIOLOGY - GENERAL OR DERABLES Final Result Performing Organization Address City/[facility]/ZIP Co de Phone Number [facility] [address] [place] [address], [phone] * (ABNORMAL) COMPREHENSIVE METABOLIC PANEL (07/05/2018 9:52 AM TELEPHONE SOLICITOR SUPERVISOR) SODIUM S/P/B 140 136 - 145 MMOL/L 07/05/2018 11:31 AM TELEPHONE SOLICITOR SUPERVISOR [facility] POTASSIUM S/P/B 3.7 3.5 - 5.1 MMOL/L 07/05/2018 11:31 AM TELEPHONE SOLICITOR SUPERVISOR [facility] CHLORIDE S/P/B 108(H) 98 - 107 MMOL/L 07/05/2018 11:31 AM [facility] CO2 26.8 21.0 - 32.0 MMOL/L 07/05/2018 11:31 AM [facility] GLUCOSE 99 74 - 106 MG/DL 07/05/2018 11:31 AM [facility] BUN 19(H) 7 - 18 MG/DL 07/05/2018 11:31 AM [facility] CREATININE S/P/B 1.03(H) 0.55 - 1.02 MG/DL 07/05/2018 11:31 AM [facility] CALCIUM S/P/B 8.8 8.4 - 10.5 MG/DL 07/05/2018 11:31 AM [facility] BILIRUBIN TOTAL S/P/B 0.5 0.2 - 1.0 MG/DL 07/05/2018 11:31 AM [facility] ALKALINE PHOSPHATASE S/P/B 69 46 - 118 U/L 07/05/2018 11:31 AM [facility] AST 18 15 - 37 U/L 07/05/2018 11:31 AM [facility] ALT 26 13 - 56 U/L 07/05/2018 11:31 AM [facility] TOTAL PROTEIN S/P/B 7.5 6.4 - 8.2 G/DL 07/05/2018 11:31 AM [facility] ALBUMIN S/P/B 4.1 3.4 - 5.0 G/DL 07/05/2018 11:31 AM [facility] ANION GAP 5.2 MMOL/L 07/05/2018 11:31 AM [facility] Comment:REFERENCE RANGE NOT ESTABLISHED OSMOLALITY (CALC) 292 MOSM/KG 07/05/2018 11:31 AM [facility] Comment:REFERENCE RANGE NOT ESTABLISHED EGFR NON-AFR. AMER. 60(L) >90 ML/MIN/1 .73 M2 07/05/2018 11:31 AM [facility] EGFR AFR. AMER. 69(L) >90 ML/MIN/1 .73 M2 07/05/2018 11:31 AM [facility] GFR NOTES THE ESTIMATED GFR IS CALCULATED USING THE 2009 CKD-EPI EQUATION. THE FOLLOWING CATEGORIES FOR GRADING RENAL FUNCTION ARE RECOMMENDED BY THE INTERNATIONAL SOCIETY OF NEPHROLOGY (KDIGO 2012 CLINICAL PRACTICE GUIDELINE). 07/05/2018 11:31 AM [facility] Comment: G1,NORMAL OR HIGH: >89 ml/min/1.73 m2 G2,MILDLY DECREASED: 60-89 ml/min/1.73 m2 G3A,MILDLY TO MODERATELY DECREASED: 45-59 ml/min/1.73 m2 G3B,MODERATELY TO SEVERELY DECREASED: 30-44 ml/min/1.73 m2 G4,SEVERELY DECREASED: 15-29 ml/min/1.73 m2 G5,KIDNEY FAILURE: <15 ml/min/1.73 m2 07/05/2018 9:52 AM TELEPHONE SOLICITOR SUPERVISOR us Kathy Hooker MD LABORATORY Final Res ult [facility] [address] [place] [address], [id number] * CBC W/DIFF AUTOMATED (07/05/2018 9:52 AM TELEPHONE SOLICITOR SUPERVISOR) WBC 5.6 4.0 - 10.8 x10'3/uL 07/05/2018 10:06 AM [facility] RBC 4.63 4.10 - 5.40 x10'6/uL 07/05/2018 10:06 AM [facility] HGB 14.3 12.0 - 16.0 G/DL 07/05/2018 10:06 AM [facility] HCT 41.9 36.0 - 47.0 % 07/05/2018 10:06 AM [facility] MCV 90.5 78.0 - 100.0 FL 07/05/2018 10:06 AM [facility] MCH 30.9 27.0 - 31.0 PG 07/05/2018 10:06 AM [facility] MCHC 34.1 33.0 - 36.0 G/DL 07/05/2018 10:06 AM [facility] RDW 12.8 11.5 - 14.5 % 07/05/2018 10:06 AM [facility] PLT 258 150 - 350 x10'3/uL 07/05/2018 10:06 AM [facility] MPV 9.7 7.4 - 10.4 FL 07/05/2018 10:06 AM [facility] ABS. NEUTROPHILS TOTAL 2.93 1.60 - 8.30 x10'3/uL 07/05/2018 10:06 AM [facility] ABS. LYMPHOCYTES 2.18 0.80 - 4.70 x10'3/uL 07/05/2018 10:06 AM [facility] ABS. MONOCYTES 0.34 0.00 - 1.50 x10'3/uL 07/05/2018 10:06 AM [facility] ABS. EOSINOPHILS 0.13 0.00 - 0.40 x10'3/uL 07/05/2018 10:06 AM [facility] ABS. BASOPHILS 0.03 0.00 - 0.20 x10'3/uL 07/05/2018 10:06 AM [facility] ABS. IMMATURE GRANULOCYTES 0.02 0.00 - 0.03 x10'3/uL 07/05/2018 10:06 AM [facility] ABS. NUCLEATED RBC'S 0.00 0.0 x10'3/uL 07/05/2018 10:06 AM [facility] 07/05/2018 9:52 AM TELEPHONE SOLICITOR SUPERVISOR us Kathy Hooker MD LABORATORY Final Res ult [facility] [address] [place] [address], [place] [phone] * (ABNORMAL) URINALYSIS (07/05/2018 9:52 AM TELEPHONE SOLICITOR SUPERVISOR) COLOR (U) YELLOW 07/05/2018 10:36 AM [facility] TRANSPARENCY SLIGHTLY CLOUDY 07/05/2018 10:36 AM [facility] SPECIFIC GRAVITY (U) 1.024 1.002 - 1.035 07/05/2018 10:36 AM [facility] U PH 5.0 5 - 8 07/05/2018 10:36 AM [facility] PROTEIN (U) NEGATIVE NEGATIVE 07/05/2018 10:36 AM [facility] URINE GLUCOSE NEGATIVE NEGATIVE MG/DL 07/05/2018 10:36 AM [facility] KETONES MG/DL (U) NEGATIVE NEGATIVE 07/05/2018 10:36 AM [facility] BILIRUBIN (U) NEGATIVE NEGATIVE 07/05/2018 10:36 AM [facility] BLOOD (U) NEGATIVE NEGATIVE 07/05/2018 10:36 AM [facility] NITRITES NEGATIVE NEGATIVE 07/05/2018 10:36 AM [facility] UROBILINOGEN NORMAL 0 - 1 EU/DL 07/05/2018 10:36 AM [facility] LEUKOCYTES (U) LARGE(A) NEGATIVE 07/05/2018 10:36 AM [facility] RBC/HPF 2 0 - 3 /HPF 07/05/2018 10:36 AM [facility] WBC/HPF 19(H) 0 - 6 /HPF 07/05/2018 10:36 AM [facility] BACTERIA (U) PRESENT /HPF 07/05/2018 10:36 AM [facility] SQUAMOUS EPITHELIALS 19 07/05/2018 10:36 AM [facility] NON SQUAMOUS EPITHELIAL 2 /HPF 07/05/2018 10:36 AM [facility] URINE SPECIMEN FROM URETHRA / Unknown 07/05/2018 9:52 AM 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
--- OUTSIDE RECORDS SUMMARY | 2024-06-20 02:01 | XMS_ITS | Encounter Summary ---
Author Organization [facility] Address [address] [place] [address]. [place] [address] [place] [address] Care Team Providers Care Data Analyst Report Writer Name Role Phone Kathy Hooker MD Primary Care Provider [phone] Encounter Details Date Type Department Care Team (Late st Contact Info) Description 05/31/2018 Abstract [facility] [address] [address] Kvng Key MD [address] [facility] [address] [address] [place] [address] Social History Tobacco Use Types Packs/Day Years Used Date Smoking Tobacco: Never Assessed Comments Unknown Sex and Gender Information Value Date Recorded Sex Assigned at Female 11/04/2022 9:01 AM CDT Legal Sex Female 11:19 PM CONFERENCE CONCIERGE Gender Identity Female 11/04/2022 9:01 AM CDT Sexual Orientation Straight 11/04/2022 9: 01 AM CDT documented as of this encounter Functional Status documented as of this encounter Mental Status * Question Answer Entry Date Author Status Because of a physical, mental, or emotional condition, do you have serious difficulty concentrating, remembering, or making decisions? No 07/15/2018 4:29 PM CONFERENCE CONCIERGE Deidre Escalera RN A ctive documented in this encounter Plan of Treatment Not on file documented as of this encounter Procedures Procedure Name Priority Date/Time Associated Diagnosis Comments RHEUMATOID FACTOR, QUANT Routine 05/31/2018 6:37 PM CONFERENCE CONCIERGE CYCLIC CITRULLINATED PEPTIDE (CCP)ANTIBODY(IGG) Routine 05/31/2018 6:37 PM CONFERENCE CONCIERGE HEMOGLOBIN, GLYCOSYLATED Routine 05/31/2018 6:37 PM CONFERENCE CONCIERGE SED RATE, ERYTHROCYTE (ESR) Routine 05/31/2018 6:37 PM CONFERENCE CONCIERGE LYME DISEASE ANTIBODY Routine 05/31/2018 6:37 PM CONFERENCE CONCIERGE C-REACTIVE PROTEIN Routine 05/31/2018 6: 37 PM CONFERENCE CONCIERGE PROTEIN, ELECTROPHORESIS Routine 05/31/2018 6:37 PM CONFERENCE CONCIERGE CK (CPK) Routine 05/31/2018 6:37 PM CONFERENCE CONCIERGE documented in this encounter Results * LYME DISEASE ANTIBODY (05/31/2018 6:37 PM CONFERENCE CONCIERGE) LYME IGG/IGM <0.90 <0.90 Index 06/02/2018 8:37 PM CONFERENCE CONCIERGE [facility] Comment: Reference ranges:Index ? Interpretation----- ? <0.90 ? Negative0.90-1.09 ? Equivocal>1.09 ? PositiveAs recommended by the Food and Drug Aministration(FDA), all samples with positive or equivocal resultsin a Borrelia burgdorferi antibody EIA (screening)will be tested using a blot method. Positive orequivocal screening test results should not beinterpreted as truly positive until verified as suchusing a supplemental assay (e.g., B. burgdorferiblot).The screening test and/or blot for B. burgdorferiantibodies may be falsely negative in early stagesof Lyme disease, including the period when erythemamigrans is apparent. COMMENT REPORT 06/02/2018 8:37 PM CONFERENCE CONCIERGE [facility] Comment: Not indicatedTest Performed by [employer],[address] [place], [place] [address]BacslfgHeather Shipman M.D., Ph.D., Director of [phone], CLIA [id number] SERUM SPECIMEN / Unknown 05/31/2018 6:37 PM CONFERENCE CONCIERGE 05/31/2018 7:42 PM CONFERENCE CONCIERGE us Generic Conversion Md [facility] Final R esult Performing Organization Address [facility] Co de Phone Number [facility] [address] [place], [place] , [place] [phone] * CYCLIC CITRULLINATED PEPTIDE (CCP)ANTIBODY(IGG) (05/31/2018 6:37 PM CONFERENCE CONCIERGE) CITRULLINE PEPTIDE ANTIBODY <16 <20 Units 06/02/2018 10:37 PM CONFERENCE CONCIERGE [facility] Comment: Negative: ? <20Weak Positive: ?20 - 39Moderate Positive: ?40 - 59Strong Positive: ?>59Test Performed by [employer],[address] [place], [place] [address]UznlptyHeather Shipman M.D., Ph.D., Director of [phone], CLIA [id number] SERUM SPECIMEN / Unknown 05/31/2018 6:37 PM CONFERENCE CONCIERGE 05/31/2018 7:41 PM CONFERENCE CONCIERGE us Generic Conversion Md [facility] Final R esult Performing Organization Address [facility]/ZIP Co de Phone Number [facility] [address] [place] [address], * PROTEIN, ELECTROPHORESIS (05/31/2018 6:37 PM CONFERENCE CONCIERGE) TOTAL PROTEIN (ELECTROPHORESIS SERUM) 7.3 6.0 - 8.3 G/DL 06/02/2018 3:20 PM CONFERENCE CONCIERGE [facility] ALBUMIN ELECTROPHORESIS S/P/B 4.4 3.4 - 4.9 G/DL 06/02/2018 3:17 PM CONFERENCE CONCIERGE [facility] [id number] CSF 0.3 0.2 - 0.4 G/DL 06/02/2018 3:17 PM CONFERENCE CONCIERGE [facility] [id number] S/P/B 0.8 0.4 - 1.0 G/DL 06/02/2018 3:17 PM CONFERENCE CONCIERGE [facility] BETA GLOBULIN S/P/B 0.8 0.5 - 1.2 G/DL 06/02/2018 3:17 PM CONFERENCE CONCIERGE [facility] GAMMA GLOBULIN S/P/B 1.0 0.6 - 1.6 G/DL 06/02/2018 3:17 PM CONFERENCE CONCIERGE [facility] ELECTROPHORESIS INTERPRETATION THIS SERUM PEP WAS INTERPRETED BY 06/03/2018 4:39 PM [facility] Comment: DR TAL BRITTON MDTHE TOTAL SERUM PROTEIN IS NORMAL. ELECTROPHORESIS IDENTIFIES NO QUANTITATIVE ABNORMALITIES WITHIN THE PROTEIN FRACTIONS. MONOCLONAL PROTEINS ARE NOT DETECTED. 05/31/2018 6:37 PM CONFERENCE CONCIERGE 05/31/2018 7:41 PM CONFERENCE CONCIERGE us Generic Conversion Md [facility] Final R esult [facility] [address] [place] [address], [id number] * RHEUMATOID FACTOR, QUANT (05/31/2018 6:37 PM CONFERENCE CONCIERGE) Pathologist [facility] RHEUMATOID FACTOR <10 <15 IU/ML 06/01/2018 2:43 PM CONFERENCE CONCIERGE [facility] SERUM OR PLASMA SPECIMEN / Unknown 05/31/2018 6:37 PM CONFERENCE CONCIERGE 05/31/2018 7:41 PM CONFERENCE CONCIERGE us Generic Conversion Md [facility] Final R esngozi [facility] [address] [place] [address], [place] [phone] * HEMOGLOBIN, GLYCOSYLATED (05/31/2018 6:37 PM CONFERENCE CONCIERGE) HGB A1C 5.4 <5.7 % 05/31/2018 8:29 PM CONFERENCE CONCIERGE [facility] Comment: 5.7 TO 6.4% INCREASED RISK OF DIABETES> OR = 6.5% CONSISTENT WITH DIABETESPER ADA GUIDELINES ESTIMATED AVG GLUCOSE 108 70 - 140 MG/DL 05/31/2018 8:29 PM CONFERENCE CONCIERGE [facility] 05/31/2018 6:37 PM CONFERENCE CONCIERGE 05/31/2018 7:41 PM CONFERENCE CONCIERGE us Generic Conversion Md [facility] Final R esult Performing Organization Address City/[facility]/ZIP Co de Phone Number [facility] [place] [address], [place] [phone] * SED RATE, ERYTHROCYTE (ESR) (05/31/2018 6:37 PM CONFERENCE CONCIERGE) ESR 13 0 - 30 MM/HR 05/31/2018 8:25 PM CONFERENCE CONCIERGE [facility] WHOLE BLOOD SPECIMEN / Unknown 05/31/2018 6:37 PM CONFERENCE CONCIERGE 05/31/2018 7:41 PM CONFERENCE CONCIERGE us Generic Conversion Md [facility] Final R esult Performing Organization Address City/[facility]/ZIP Co de Phone Number [facility] [place] [address], [place] [phone] * C-REACTIVE PROTEIN (05/31/2018 6:37 PM CONFERENCE CONCIERGE) C-REACTIVE PROTEIN 0.10 <0.30 mg/dL 05/31/2018 8:09 PM CONFERENCE CONCIERGE [facility] SERUM OR PLASMA SPECIMEN / Unknown 05/31/2018 6:37 PM CONFERENCE CONCIERGE 05/31/2018 7:41 PM CONFERENCE CONCIERGE us Generic Conversion Md [facility] Final R esult Performing Organization Address City/[facility]/ZIP Co de Phone Number [facility] [address] [place] [address], [place] [phone] * CK (CPK) (05/31/2018 6:37 PM CONFERENCE CONCIERGE) CPK 78 26 - 192 U/L 05/31/2018 8:09 PM CONFERENCE CONCIERGE [facility] SERUM OR PLASMA SPECIMEN / Unknown 05/31/2018 6:37 PM CONFERENCE CONCIERGE 05/31/2018 7:41 PM CONFERENCE CONCIERGE us Generic Conversion Md [facility] Final R esult Performing Organization Address City/[facility]/ZIP Co de Phone Number [facility] [address] [place] [address], [place] [phone] documented in this encounter Visit Diagnoses Diagnosis Pain of foot Pain in limb documented in this encounter Care Teams Data Analyst Report Writer Relationship Specialty Start Date End Date Kathy Hooker MD PCP - General INTERNAL MEDICINE 05/04/18 11/18/22 documented as of this encounter
--- OUTSIDE RECORDS SUMMARY | 2024-06-20 02:01 | XMS_ITS | Encounter Summary ---
Author Organization [facility] Address [address] [place] [address]. [place] [address] [place] [address] Care Team Providers Care Wicker Molded Candles Name Role Phone Unavailable Primary Care Provider Unavailabl e Encounter Details Date Type Department Care Team (Latest Contact Info) Description 04/26/2018 Abstract [facility] Medical Group Md, Generic Conversion, Social History Tobacco Use Types Packs/Day Years Used Date Smoking Tobacco: Never Assessed Comments Unknown Sex and Gender Information Value Date Recorded Sex Assigned at Female 11/04/2022 9:01 AM CDT Legal Sex Female 11:19 PM FINISH PHOTOGRAPHER Gender Identity Female 11/04/2022 9:01 AM CDT Sexual Orientation Straight 11/04/2022 9 :01 AM CDT documented as of this encounter Last Filed Vital Signs Vital Sign Reading Time Taken Comments Blood Pressure 120/73 04/26/2018 9:19 AM FINISH PHOTOGRAPHER Pulse 84 04/26/2018 9:19 AM FINISH PHOTOGRAPHER Temperature - - Respiratory Rate - - Oxygen Saturation - - Inhaled Oxygen Concentration - - Weight 54.4 kg (120 lb) 04/26/2018 9:19 AM FINISH PHOTOGRAPHER Height 165.1 cm (5' 5 ) 04/26/2018 9:19 AM FINISH PHOTOGRAPHER Body Mass Index 19.97 04/26/2018 9:19 AM FINISH PHOTOGRAPHER documented in this encounter Progress Notes * Hair Morris DPM - 04/26/2018 9:00 AM CST Reason For Visit The patient is here for a follow up on the bilateral foot pain. She says she did take her last pillin the Medrol Dose Pack this morning-KP History of Present Illness Patient returns to clinic. She felt much improvement while utilizing the Medrol Dosepak. She had a lot of improvement in general, seemed to focus her pain more to the metatarsal head area. She has noted no changes otherwise. Her pain seems to be a little more localized today to the metatarsophalangeal joint region specifically the 2nd metatarsophalangeal joint of her left foot. Although, there is definitely some pain associated with the other metatarsal heads. She has no other issues or problems noted per se and has been following instructions otherwise. Active Problems 1. Laceration of finger (883.0) (S61.219A) 2. Metatarsalgia, unspecified laterality (726.70) (M77.40) Past Medical History 1. History of anxiety (V11.8) (Z86.59) 2. History of hypothyroidism (V12.29) (Z86.39) 3. History of Osteoarthritis (715.90) (M19.90) Social History ?? Consumes alcohol occasionally (V49.89) (Z78.9) ?? Never used tobacco (V49.89) (Z78.9) Current Meds 1. Synthroid 50 MCG Oral Tablet; Therapy: (Recorded:20Apr2018) to Recorded 2. Xanax 0.25 MG Oral Tablet; Therapy: (Recorded:20Apr2018) to Recorded Allergies 1. No Known Drug Allergies Vitals Recorded: 26Apr2018 09:19AM Heart Rate 84 Systolic 120 Diastolic 73 Height 5 ft 5 in Weight 120 lb BMI Calculated 19.97 BSA Calculated 1.59 Physical Exam Vascular exam: Palpable pulses dorsalis pedis and posterior tibial. Neurological sensation: Intact. Dermatologic evaluation: Also within normal limits. Musculoskeletal evaluation: There is pain well localized to the forefoot area bilaterally especially left 2nd metatarsal. It seems to be the worst spot especially with palpation and with range of motion. Assessment 1. Metatarsalgia, unspecified laterality (726.70) (M77.40) 1. Metatarsalgia with capsulitis, 2nd metatarsophalangeal joint left. Plan Metatarsalgia, unspecified laterality 1. Bupivacaine HCl - 0.5 % Injection Solution (Marcaine) Formulary Override Reason: No Formulary Equivalent Exists 2. Kenalog 10 MG/ML Injection Suspension (Triamcinolone Acetonide) Formulary Override Reason: No Formulary Equivalent Exists 3. Lidocaine HCl - 1 % Injection Solution I have explained to patient, because she has so many different areas that are painful including hands, ankles, feet, hip, I think it would be a good idea for her to be evaluated by rheumatology. In the meantime, we are going to do a localized injection at the 2nd metatarsophalangeal joint with ?? cc Kenalog, ?? cc of lidocaine, ?? cc of Marcaine which is given with informed consent using a typical aseptic technique. The patient will continue to ice, use support and whatever anti-inflammatories she is comfortable using, and then we will see her back after her consult with Dr. Schmidt. Signatures Electronically signed by : Hair Morris DPM; Apr 27 2018 7:02AM FINISH PHOTOGRAPHER (Author) SH PHOTOGRAPHER * Generic Conversion , - 04/26/2018 9:00 AM CST Message PER DR LEBRON SCHEDULED PT WITH DR SCHMIDT AT HIS [facility] LOCATION TO RULE OUT RHEUMATOID ARTHRITIS. HIS TELEPHONE NUMBER IS [phone]. SCHEDULED HER APPT FOR 05/31/18 AT 9:45 AM. HIS LOCATION IS [address] [place] [address], CALLED PT TO LET HER KNOW [facility] [place] 1. Bupivacaine HCl - 0.5 % Injection Solution (Marcaine) Rx By: Hair Morris; For: Metatarsalgia, unspecified laterality; Dose of 0.25 CC; Injection; SRIDHAR= N; Administered by: Camilla Hernandez MA: 04/26/2018 10:24:00 AM; Last Updated By: Camilla Hernandez; 04/26/2018 10:25:06 AM Formulary Override Reason: No Formulary Equivalent Exists 2. Kenalog 10 MG/ML Injection Suspension (Triamcinolone Acetonide) Rx By: Hair Morris; For: Metatarsalgia, unspecified laterality; Dose of 0.5 ML; Injection; SRIDHAR = N; Administered by: Camilla Hernandez MA: 04/26/2018 10:23:00 AM; Last Updated By: Camilla Hernandez; 04/26/2018 10:23:16 AM Formulary Override Reason: No Formulary Equivalent Exists 3. Lidocaine HCl - 1 % Injection Solution Rx By: Hair Morris; For: Metatarsalgia, unspecified laterality; Dose of 0.25 ML; Injection; SRIDHAR= N; Administered by: Camilla Hernandez MA: 04/26/2018 10:25:00 AM; Last Updated By: Camilla Hernandez; 04/26/2018 10:25:49 AM Signatures Electronically signed by : Camilla Hernandez MA; May 07 2018 11:23AM FINISH PHOTOGRAPHER (Author) SH PHOTOGRAPHER documented in this encounter Miscellaneous Notes * Letter - Hair Morris DPM - 04/26/2018 9:[address] Schmidt: I would like to refer one of my patients to you, D^Buddy Aggarwal. If you could please evaluate and treat the patient for whatever systemic or arthritic it might be present. I will continue to follow up her with any foot and ankle needs. She has demonstrated chronic pain in hip, lower back, hands and feet which responded well to a short course of oral steroid. I am concerned with some underlying systemic arthropathy. Thank for your input with the patient. With regards, Hair Morris D.P.M., F.A.C.F.A.S. Electronically signed by:Hair Morris DPM Apr 27 2018 7:03AM FINISH PHOTOGRAPHER Author SH PHOTOGRAPHER documented in this encounter Plan of Treatment Not on file documented as of this encounter Visit Diagnoses Not on filedocumented in this encounter
--- OUTSIDE RECORDS SUMMARY | 2024-06-20 02:01 | XMS_ITS | Encounter Summary ---
Author Organization [facility] Address [address] [place] [address]. [place] [address] [place] [address] Care Team Providers Care Bed Placement Coordinator Name Role Phone Donta Hooker MD Primary Care Provider [phone] Reason for Visit * Reason Comments UTI Symptoms lab order for cultur e and sensitivity Encounter Details Date Type Department Care Team (Late st Contact Info) Description 07/09/2018 1:30 PM TRUCK BODY BUILDER APPRENTICE Office Visit [facility] Walk-in Clinic at [address] [phone] UTI Symptoms (lab order for culture and sensitivity ) Social History Tobacco Use Types Packs/Day Years Used Date Smoking Tobacco: Never Smokeless Tobacco: Never Alcohol Use Standard Drinks/Week Comments Yes 0 (1 standard drink = 0.6 oz pur e alcohol) socially Comments Unknown Sex and Gender Information Value Date Recorded Sex Assigned at Female 11/04/2022 9:01 AM CDT Legal Sex Female 11:19 PM TRUCK BODY BUILDER APPRENTICE Gender Identity Female 11/04/2022 9:01 AM CDT Sexual Orientation Straight 11/04/2022 9: 01 AM CDT documented as of this encounter Functional Status documented as of this encounter Mental Status * Question Answer Entry Date Author Status Because of a physical, mental, or emotional condition, do you have serious difficulty concentrating, remembering, or making decisions? No 07/15/2018 4:29 PM TRUCK BODY BUILDER APPRENTICE Deidre Escalera RN A ctive documented in this encounter Progress Notes * Elyse Montejo MA - 07/09/2018 1:30 PM CST Collected urine for C&S for [facility] donta Hawk K BODY BUILDER APPRENTICE documented in this encounter Plan of Treatment Not on file documented as of this encounter Visit Diagnoses Diagnosis UTI (urinary tract infection)- Primary Urinary tract infection, site not specified documented in this encounter Care Teams Bed Placement Coordinator Relationship Specialty Start Date End Date Donta Hooker MD PCP - General INTERNAL MEDICINE 05/04/18 11/18/22 documented as of this encounter
--- OUTSIDE RECORDS SUMMARY | 2024-06-20 02:01 | XMS_ITS | Encounter Summary ---
Author Organization [facility] Address [facility]ly [facility] [place] [address] [place] [address] Care Team Providers Care Safe Deposit Clerk Name Role Phone Kathy Hooker MD Primary Care Provider [phone] Encounter Details Date Type Department Care Team (Latest Contact Info) Description 07/09/2018 5:58 AM HVAC/R SERVICE TECHNICIAN - 07/09/2018 11:59 PM [facility] Encounter [facility] [address] [place] [address] Kathy Hooker MD [address] [place] [id number] Discharge Disposition: Home or Self Care (Routine Discharge) Social History Tobacco Use Types Packs/Day Years Used Date Smoking Tobacco: Never Smokeless Tobacco: Never Alcohol Use Standard Drinks/Week Comments Yes 0 (1 standard drink = 0.6 oz pur e alcohol) socially Comments Unknown Sex and Gender Information Value Date Recorded Sex Assigned at Female 11/04/2022 9:01 AM CDT Legal Sex Female 11:19 PM HVAC/R SERVICE TECHNICIAN Gender Identity Female 11/04/2022 9:01 AM [...] Procedure Name Priority Date/Time Associated Diagnosis Comments CULTURE URINE (OUTPATIENTS) Routine 07/09/2018 12:00 PM HVAC/R SERVICE TECHNICIAN Abnormal finding in urine documented in this encounter Results * CULTURE URINE (OUTPATIENTS) (07/09/2018 12:00 PM HVAC/R SERVICE TECHNICIAN) SPEC DESCRIPTION URINE, UNSPECIFIED 07/10/2018 5:59 AM [facility] SPECIAL REQUESTS NO SPECIAL REQUEST 07/10/2018 5:59 AM [facility] CULTURE RESULT >100,000 CFU/mL ESCHERICHIA COLI 07/12/2018 7:31 AM [facility] URINE SPECIMEN / Unknown 07/09/2018 12:00 PM HVAC/R SERVICE TECHNICIAN 07/10/2018 6:14 AM HVAC/R SERVICE TECHNICIAN Narrative Organism Antibiotic Method Susceptibility Escherichia coli [...] Sensitive Escherichia coli TETRACYCLINE BHUPENDRA (VITEK) Sensitive us Kathy Hooker MD MICROBIOLOGY - GENERAL OR DERABLES Edited Result - Final [facility] [address] [id number], [id number] documented in this encounter Visit Diagnoses Diagnosis Abnormal finding in urine Other nonspecific finding on examination of urine documented in this encounter Care Teams Safe Deposit Clerk Relationship Specialty Start Date End Date Kathy Hooker MD PCP - General INTERNAL MEDICINE 05/04/18 11/18/22 documented as of this encounter
--- OUTSIDE RECORDS SUMMARY | 2024-06-20 04:32 | XMS_ITS | Encounter Summary ---
Author Organization [facility] Address [address] [place] [address]. [place] [address] [place] [address] Care Team Providers Care Superintendent Schools Name Role Phone Kathy Hooker MD Primary Care Provider [phone] Encounter Details Date Type Department Care Team (Late st Contact Info) Description 07/07/2018 Abstract [facility] [address] [facility] [place] [place] [address] Kathy Hooker MD [address] [place], [place] [id number] Social History Tobacco Use Types Packs/Day Years Used Date Smoking Tobacco: Never Smokeless Tobacco: Never Alcohol Use Standard Drinks/Week Comments Yes 0 (1 standard drink = 0.6 oz pur e alcohol) socially Comments Unknown Sex and Gender Information Value Date Recorded Sex Assigned at Female 11/04/2022 9:01 AM CDT Legal Sex Female 11:19 PM SORTING COWS WORKER Gender Identity Female 11/04/2022 9:01 AM CDT Sexual Orientation Straight 11/04/2022 9: 01 AM CDT documented as of this encounter Functional Status documented as of this encounter Mental Status * Question Answer Entry Date Author Status Because of a physical, mental, or emotional condition, do you have serious difficulty concentrating, remembering, or making decisions? No 07/15/2018 4:29 PM SORTING COWS WORKER Deidre Escalera RN A ctive documented in this encounter Plan of Treatment Not on file documented as of this encounter Procedures Procedure Name Priority Date/Time Associated Diagnosis Comments URINALYSIS Routine 07/07/2018 6:30 PM SORTING COWS WORKER documented in this encounter Results * (ABNORMAL) URINALYSIS (07/07/2018 6:30 PM SORTING COWS WORKER) COLOR (U) YELLOW 07/07/2018 7:45 PM [facility] TRANSPARENCY CLEAR 07/07/2018 7:45 PM [facility] SPECIFIC GRAVITY (U) 1.025 1.000 - 1.025 07/07/2018 7:45 PM [facility] U PH 6.5 5.0 - 8.0 07/07/2018 7:45 PM [facility] LEUKOCYTES (U) TRACE(A) NEGATIVE 07/07/2018 7:45 PM [facility] NITRITES NEGATIVE NEGATIVE 07/07/2018 7:45 PM [facility] PROTEIN (U) NEGATIVE NEGATIVE 07/07/2018 7:45 PM [facility] URINE GLUCOSE NEGATIVE NEGATIVE 07/07/2018 7:45 PM [facility] KETONES MG/DL (U) NEGATIVE NEGATIVE 07/07/2018 7:45 PM [facility] UROBILINOGEN 0.2 <1.0 EU/DL 07/07/2018 7:45 PM [facility] BILIRUBIN (U) NEGATIVE NEGATIVE 07/07/2018 7:45 PM [facility] BLOOD (U) NEGATIVE NEGATIVE 07/07/2018 7:45 PM [facility] WBC/HPF 5-10(A) 0 - 5 /HPF 07/07/2018 7:45 PM [facility] EPI/HPF MODERATE /LPF 07/07/2018 7:45 PM [facility] BACTERIA (U) 3+ /HPF 07/07/2018 7:45 PM [facility] MUCUS PRESENT 07/07/2018 7:45 PM [facility] 07/07/2018 6:30 PM SORTING COWS WORKER 07/07/2018 7:33 PM SORTING COWS WORKER us Generic Conversion Md BRIAN URINE ORDERABLES Final Result Performing Organization Address City/State/[facility] Co de Phone Number [facility] [address] [place] [address], documented in this encounter Visit Diagnoses Diagnosis Abnormal finding in urine Other nonspecific finding on examination of urine documented in this encounter Care Teams Superintendent Schools Relationship Specialty Start Date End Date Kathy Hooker MD PCP - General INTERNAL MEDICINE 05/04/18 11/18/22 documented as of this encounter
--- OUTSIDE RECORDS SUMMARY | 2024-06-20 04:32 | XMS_ITS | Encounter Summary ---
Author Organization [facility] Address [facility] [place] [address] [place] [address] Care Team Providers Care Veteran Appeals Reviewer Name Role Phone Stephany Hooker MD Primary Care Provider [phone] Reason for Visit * Reason Comments Anxiety feeling anxious. Sit ting at work looking at her computer and completely lost focus and can not remember what she is doing. [place] her heart was racing. Encounter Details Date Type Department Care Team (Late st Contact Info) Description 06/07/2019 11:30 AM TOUR GUIDE Office Visit [facility] Priority Care - [address]. M[address] [place] [phone] Hair Buchanan MD [address] [place], [place] [id number] Mckenzie Villarreal, LABORATORY WORKER [address] [place] [address] Anxiety (feeling anxious. Sitting at work looking at her computer and completely lost focus and can not remember what she is doing. [place] her heart was racing.) Social History Tobacco [...] AM CDT Legal Sex Female 11:19 PM TOUR GUIDE Gender Identity Female 11/04/2022 9:01 AM CDT Sexual Orientation Straight 11/04/2022 9: 01 AM CDT documented as of this encounter Last Filed Vital Signs Vital Sign Reading Time Taken Comments Blood Pressure 140/90 06/07/2019 11:31 AM TOUR GUIDE Pulse 96 06/07/2019 11:31 AM TOUR GUIDE Temperature 37 ??C (98.6 ??F) 06/07/2019 11:31 AM TOUR GUIDE Respiratory Rate 16 06/07/2019 11:31 AM TOUR GUIDE Oxygen Saturation 98% 06/07/2019 11:31 AM TOUR GUIDE Inhaled Oxygen Concentration - - Weight - - Height 157.5 cm (5' 2 ) 06/07/2019 11:31 AM TOUR GUIDE Body Mass Index - - documented in this encounter Functional Status * RETIRED Are you deaf or do you have serious difficulty hearing Answer Date of Assessment Author Status No 07/15/2018 4:29 PM TOUR GUIDE Activ e * RETIRED Are you blind or do you have serious difficulty seeing, even when wearing glasses? Answer Date of Assessment Author Status No 07/15/2018 4:29 PM TOUR GUIDE Activ e * Do you have serious [...] and cannot remember what she is doing. [place] her heart was racing.) History of Present [...] file Gets together: Not on file Attends holiness service: Not on file Active member of [...] ref. provider found PCP: STEPHANY HOOKER MD GUIDE documented in this encounter Plan of Treatment Not on file documented as of this encounter Procedures Procedure Name Priority Date/Time Associated Diagnosis Comments COMPREHENSIVE METABOLIC PANEL STAT 06/07/2019 12:01 PM TOUR GUIDE Anxiety disorder, unspecified type Abnormal heart rate D-DIMER, QUANTITATIVE STAT 06/07/2019 12:01 PM TOUR GUIDE Anxiety disorder, unspecified type Abnormal heart rate CBC W/DIFF AUTOMATED STAT 06/07/2019 12:01 PM TOUR GUIDE Anxiety disorder, unspecified type Abnormal heart rate TROPONIN, QUANT STAT 06/07/2019 12:01 PM TOUR GUIDE Anxiety disorder, unspecified type Abnormal heart rate ELECTROCARDIOGRAM, COMPLETE Routine 06/07/2019 Anxiety disorder, unspecified type Abnormal heart rate documented in this encounter Results * TROPONIN, QUANT (06/07/2019 12:01 PM TOUR GUIDE) Pathologist [facility] TROPONIN I <0.05 0.00 - 0.40 ng/mL. 06/07/2019 12:37 PM TOUR GUIDE [facility] 06/07/2019 12:0 1 PM TOUR GUIDE Mckenzie Villarreal NP LABORATORY Final Result Performing Organization Address [facility] Co de Phone Number [facility] [address] [place] [address], * (ABNORMAL) D-DIMER, QUANTITATIVE (06/07/2019 12:01 PM TOUR GUIDE) Pathologist [facility] D-DIMER <100(L) 100 - 500 D DU ng/mL 06/07/2019 12:37 PM TOUR GUIDE [facility] 06/07/2019 12:0 1 PM TOUR GUIDE Mckenzie Villarreal NP LABORATORY Final Result Performing Organization Address City/[facility]/ZIP Co de Phone Number [facility] [address] [place] [address], * CBC W/DIFF AUTOMATED (06/07/2019 12:01 PM TOUR GUIDE) Pathologist [facility] WBC 5.1 4.50 - 10.80 x10'3/uL 06/07/2019 12:14 PM TOUR GUIDE [facility] RBC 4.96 4.10 - 5.40 x10'6/uL 06/07/2019 12:14 PM [facility] HGB 15.4 12.0 - 16.0 G/DL 06/07/2019 12:14 PM [facility] HCT 45.3 36.0 - 47.0 % 06/07/2019 12:14 PM [facility] MCV 91.3 78.0 - 100.0 FL 06/07/2019 12:14 PM [facility] MCH 31.0 27.0 - 31.0 PG 06/07/2019 12:14 PM [facility] MCHC 34.0 33.0 - 36.0 G/DL 06/07/2019 12:14 PM [facility] RDW 12.8 11.5 - 14.5 % 06/07/2019 12:14 PM [facility] PLT 280 150 - 350 x10'3/uL 06/07/2019 12:14 PM [facility] MPV 9.8 7.4 - 10.4 FL 06/07/2019 12:14 PM [facility] DIFFERENTIAL TYPE AUTOMATED DIFFERENTIAL 06/07/2019 12:14 PM [facility] NEUTROPHILS % 57.8 % 06/07/2019 12:14 PM [facility] LYMPHOCYTES % 32.3 % 06/07/2019 12:14 PM [facility] MONOCYTES % 7.7 % 06/07/2019 12:14 PM [facility] EOSINOPHILS % 1.8 % 06/07/2019 12:14 PM [facility] BASOPHILS % 0.4 % 06/07/2019 12:14 PM [facility] ABS. NEUTROPHILS 2.93 1.60 - 8.30 x10'3/uL 06/07/2019 12:14 PM [facility] ABS. LYMPHOCYTES 1.64 0.80 - 4.70 x10'3/uL 06/07/2019 12:14 PM [facility] [place] ABS. MONOCYTES 0.39 0.00 - 1.50 x10'3/uL 06/07/2019 12:14 PM [facility]SA [facility] [place] ABS. EOSINOPHILS 0.09 0.00 - 0.40 x10'3/uL 06/07/2019 12:14 PM [facility] ABS. BASOPHILS 0.02 0.00 - 0.20 x10'3/uL 06/07/2019 12:14 PM [facility] 06/07/2019 12:0 1 PM TOUR GUIDE Mckenzie Villarreal NP LABORATORY Final Result [facility]YA[facility] [address] [place] [address], * (ABNORMAL) COMPREHENSIVE METABOLIC PANEL (06/07/2019 12:01 PM TOUR GUIDE) [facility] SODIUM S/P/B 140 136 - 145 MMOL/L 06/07/2019 12:28 PM [facility] POTASSIUM S/P/B 4.3 3.5 - 5.1 MMOL/L 06/07/2019 12:28 PM [facility] CHLORIDE S/P/B 102 98 - 107 MMOL/L 06/07/2019 12:28 PM [facility] CO2 26.7 21 - 32 MMOL/L 06/07/2019 12:28 PM [facility] GLUCOSE 107(H) 70 - 99 MG/DL 06/07/2019 12:28 PM [facility] BUN 12 6 - 24 MG/DL 06/07/2019 12:28 PM [facility] CREATININE S/P/B 1.09(H) 0.55 - 1.02 MG/DL 06/07/2019 12:28 PM [facility] CALCIUM S/P/B 9.3 8.4 - 10.5 MG/DL 06/07/2019 12:28 PM [facility] BILIRUBIN TOTAL S/P/B 0.4 0.2 - 1.0 MG/DL 06/07/2019 12:28 PM [facility] ALKALINE PHOSPHATASE S/P/B 96 46 - 118 U/L 06/07/2019 12:28 PM [facility] AST 21 15 - 37 U/L 06/07/2019 12:28 PM [facility] ALT 36 14 - 59 U/L 06/07/2019 12:28 PM [facility] TOTAL PROTEIN S/P/B 8.7(H) 6.4 - 8.2 G/DL 06/07/2019 12:28 PM [facility] ALBUMIN S/P/B 4.7 3.4 - 5.0 G/DL 06/07/2019 12:28 PM [facility] ANION GAP 11.3 5 - 15 MMOL/L 06/07/2019 12:28 PM [facility] Comment:REFERENCE RANGE NOT ESTABLISHED OSMOLALITY (CALC) 290 MOSM/KG 06/07/2019 12:28 PM [facility] Comment:REFERENCE RANGE NOT ESTABLISHED EGFR NON-AFR. AMER. 56(L) >90 ML/MIN/1 .73 M2 06/07/2019 12:28 PM [facility] [place] EGFR AFR. AMER. 64(L) >90 ML/MIN/1 .73 M2 06/07/2019 12:28 PM [facility] GFR NOTES THE ESTIMATED GFR IS CALCULATED USING THE 2009 CKD-EPI EQUATION. THE FOLLOWING CATEGORIES FOR GRADING RENAL FUNCTION ARE RECOMMENDED BY THE INTERNATIONAL SOCIETY OF NEPHROLOGY (KDIGO 2012 CLINICAL PRACTICE GUIDELINE). 06/07/2019 12:28 PM [facility] ELISSA LOU [place] Comment: G1,NORMAL OR HIGH: >89 ml/min/1.73 m2 G2,MILDLY DECREASED: 60-89 ml/min/1.73 m2 G3A,MILDLY TO MODERATELY DECREASED: 45-59 ml/min/1.73 m2 G3B,MODERATELY TO SEVERELY DECREASED: 30-44 ml/min/1.73 m2 G4,SEVERELY DECREASED: 15-29 ml/min/1.73 m2 G5,KIDNEY FAILURE: <15 ml/min/1.73 m2 06/07/2019 12:0 1 PM TOUR GUIDE Mckenzie Villarreal NP LABORATORY Final Result [facility] [address] [place] [address], * [id number] - Electrocardiogram, Complete (06/07/2019) Mckenzie Villarreal NP PROCEDURES-RESULTABLE Edited Result - Final documented in this encounter Visit Diagnoses Diagnosis Anxiety disorder, unspecified type- Primary Abnormal heart rate Other abnormal heart sounds documented in this encounter Care Teams Veteran Appeals Reviewer Relationship Specialty Start Date End Date Stephany Hooker MD PCP - General INTERNAL MEDICINE 05/04/18 11/18/22 documented as of this encounter
--- OUTSIDE RECORDS SUMMARY | 2024-06-20 04:32 | XMS_ITS | Encounter Summary ---
Author Organization [facility] Address [address] [place] [address]. [place] [address] [place] [address] Care Team Providers Care Corn Detasseler Name Role Phone Unavailable Primary Care Provider Unavailabl e Encounter Details Date Type Department Care Team (Late st Contact Info) Description 04/05/1996 Abstract [facility] CONVERSION [address] [place] [address] , Generic Conversion, Social History Tobacco Use Types Packs/Day Years Used Date Smoking Tobacco: Never Assessed Comments Unknown Sex and Gender Information Value Date Recorded Sex Assigned at Female 11/04/2022 9:01 AM CDT Legal Sex Female 11:19 PM SOCIAL WORK PROFESSOR Gender Identity Female 11/04/2022 9:01 AM CDT Sexual Orientation Straight 11/04/2022 9: 01 AM CDT documented as of this encounter Plan of Treatment Not on file documented as of this encounter Visit Diagnoses Not on filedocumented in this encounter
--- OUTSIDE RECORDS SUMMARY | 2024-06-20 04:32 | XMS_ITS | Encounter Summary ---
Author Organization [facility] Address [address] [place] [address]. [place] [address] [place] [address] Care Team Providers Care Correctional Captain Name Role Phone Kathy Hooker MD Primary Care Provider [phone] Reason for Visit * Reason Comments Lab [...] AM CDT Legal Sex Female 11:19 PM MILL WORK Gender Identity Female 11/04/2022 9:01 AM CDT Sexual Orientation Straight 11/04/2022 9: 01 AM CDT documented as of this encounter Functional Status documented as of this encounter Mental Status * Question Answer Entry Date Author Status Because of a physical, mental, or emotional condition, do you have serious difficulty concentrating, remembering, or making decisions? No 07/15/2018 4:29 PM MILL WORK Deidre Escalera RN A ctive documented in this encounter Plan of Treatment Not on file documented as of this encounter Visit Diagnoses Not on filedocumented in this encounter Care Teams Correctional Captain Relationship Specialty Start Date End Date Kathy Hooker MD PCP - General INTERNAL MEDICINE 05/04/18 11/18/22 documented as of this encounter
--- OUTSIDE RECORDS SUMMARY | 2024-06-20 04:32 | XMS_ITS | Encounter Summary ---
Author Organization [facility] Address [address] [place] [address]. [place] [address] [place] [address] Care Team Providers Care University Administrator Name Role Phone Unavailable Primary Care Provider Unavailabl e Encounter Details Date Type Department Care Team (Latest Contact Info) Description 10/19/2017 7:00 PM CDT - 10/19/2017 11:59 PM CDT Hospital Encounter [facility] [address] [place] [address] External, Ordering Provider Discharge Disposition: Home or Self Care (Routine Discharge) Social History Tobacco Use Types Packs/Day Years Used Date Smoking Tobacco: Never Assessed Comments Unknown Sex and Gender Information Value Date Recorded Sex Assigned at Female 11/04/2022 9:01 AM CDT Legal Sex Female 11:19 PM BUSINESS ARCHITECT Gender Identity Female 11/04/2022 9:01 AM CDT [...] Mycobacterium tuberculosis noted. 10/21/2017 12:22 PM CDT [facility] TB QUANTIFERON 0.00 IU/ML 10/21/2017 12:22 PM CDT [facility] Comment:ONLY QUALITATIVE RES ULTS ARE FDA APPROVED 10/20/2017 11:0 2 AM CDT us Ordering Provider External LABORATORY Final Result Performing Organization Address [facility] de Phone Number [facility] [address] [place] [address], [phone] * VARICELLA ZOSTER IGG (10/20/2017 11:02 AM CDT) Pathologist [facility] VARICELLA ZOSTER IGG EIA POSITIVE 10/22/2017 10:17 AM CDT [facility] Comment:IN THE ABSENCE OF AC CHOCTAW SYMPTOMS, A POSITIVE RESULT SUGGESTS PAST IMMUNITY. 10/20/2017 11:0 2 AM CDT us Ordering Provider External LABORATORY Final Result Performing Organization Address [facility] de Phone Number [facility] [address] [place] [address], [id number] * RUBELLA IGG (10/20/2017 11:02 AM CDT) RUBELLA IGG AB 99.4 IU/ML 10/21/2017 11:19 AM CDT [facility] Comment: In the absence of acute symptoms, a result of 10.0 or greater indicates past immunity. 10/20/2017 11:0 2 AM CDT us Ordering Provider External LABORATORY Final Result Performing Organization Address [facility] de Phone Number [facility] [address] [place] [address], [place] [phone] * RUBEOLA IGG (10/20/2017 11:02 AM CDT) RUBEOLA IGG POSITIVE 10/22/2017 10:17 AM CDT [facility] Comment:IN THE ABSENCE OF AC CHOCTAW SYMPTOMS, A POSITIVE RESULT SUGGESTS PAST IMMUNITY. 10/20/2017 11:0 2 AM CDT us Ordering Provider External LABORATORY Final Result Performing Organization Address [facility] de Phone Number [facility] [address] [place] [address], [place] [phone] * MUMPS ANTIBODY (10/20/2017 11:02 AM CDT) MUMPS IGG EIA POSITIVE 10/22/2017 10:17 AM CDT [facility] Comment:IN THE ABSENCE OF AC CHOCTAW SYMPTOMS, A POSITIVE RESULT SUGGESTS PAST IMMUNITY. 10/20/2017 11:0 2 AM CDT us Ordering Provider External LABORATORY Final Result Performing Organization Address [facility] de Phone Number [facility] [address] [place] [address], [place] [phone] documented in this encounter Visit Diagnoses Not on filedocumented in this encounter
--- OUTSIDE RECORDS SUMMARY | 2024-06-20 04:32 | XMS_ITS | Encounter Summary ---
Author Organization [facility] Address [facility] [place] [address] [place] [address] Care Team Providers Care Equity Manager Name Role Phone Kathy Hooker MD Primary Care Provider [phone] Reason for Visit * Auth/Cert Specialty Diagnoses / Procedures Referred By Umair freeman Referred To Contact Diagnoses OSTEOARTHRITIS, PAIN Procedures ARTHROPLASTY HIP TOTAL, AUTOGRAFT TO ACETABULUM Referral ID Status Reason Start Date Expiration Date Visits Re quested Visits Authorized [id number] 1 1 Encounter Details Date Type Department Care Team (Late st Contact Info) Description 07/15/2018 11:19 AM GRADER MEAT Anesthesia Event [facility] [address] [place] [address] Sandrine Contreras MD [address] [place] [address] [place] [address] Charlotte Horan, RN Anesthesia Record Procedure Summary Procedure Name Responsible Anesthesiologist Anesthesia Start Time Anesthesia Stop Time ARTHROPLASTY HIP TOTAL, AUTOGRAFT TO ACETABULUM (Right: Hip) Sandrine Contreras MD 07/15/18 1119 07/15/18 1308 Events Date Time Event Comment 07/15/2018 0947 0976 AN Anesthesia Prepped 1119 An Start Patient [...] Removal Time: 1301 07/15/18 1130 by Hayley Shnakar CRNA 07/15/18 1301 by Hayley Shankar CRNA [...] AM CDT Legal Sex Female 11:19 PM GRADER MEAT Gender Identity Female 11/04/2022 9:01 AM CDT Sexual Orientation Straight 11/04/2022 9: 01 AM CDT documented as of this encounter Mental Status * Because of a physical, mental, or emotional condition, do you have serious difficulty concentrating, remembering, or making decisions? Answer Entry Date Author Status No 07/15/2018 4:29 PM GRADER MEAT Deidre Escalera RN Active documented in this [...] Postoperative Hydration: euvolemic Complications: no anesthesia complication ER MEAT * Anesthesia Procedure Notes - Hayley Shankar CRNA - 07/15/2018 11:29 AM GRADER MEAT Associated Order(s): Spinal Block Spinal Block Patient location during procedure: OR Reason for block: primary anesthetic Staffing Anesthesiology Provider: Sandrine Contreras MD Performed by: anesthesiologist Preanesthetic Checklist Completed: patient identified, site marked, surgical consent, pre-op evaluation, timeout performed,IV checked, risks and benefits discussed and monitors and equipment checked Spinal Block Patient position: sitting Prep: patient draped and chlorhexidine Patient monitoring: senior oracle dba, continuous pulse oximetry and blood pressure Approach: midline Ultrasound-guided Placement: No Location: L3-4 L3-4 Attempts: 1 Local: lidocaine 1%, Dose: 2 mL Needle Needle type: Pencil tip Needle gauge: 25 G Needle length: 3.5 in Needle attempts: 1 Assessment Sensory level: T10 Events: negative paresthesia, negative aspiration, positive free flow CSF and patient tolerated well ER MEAT * Anesthesia Preprocedure Evaluation - Sandrine Contreras MD - 07/14/2018 11:52 AM CST Anesthesia ROS/MED History Reviewed: Patient summary , Nursing notes , Family history anesthesia, Anesthesia history , Medications , Labs Pre-Anesthetic State: alert, awake and responds appropriately no history of anesthetic complications Pulmonary neg pulmonary ROS Cardiovascular ROS comment: SINUS RHYTHM WITH SINUS ARRHYTHMIA LOW QRS VOLTAGE IN PRECORDIAL LEADS ER MEAT Neuro/Psych (+) neuromuscular disease, (neuropathy), psychiatric problem, [...] patient of whom consent was obtained. . ER MEAT ER MEAT ER MEAT ER MEAT documented in this encounter Plan of Treatment Not on file documented as of this encounter Procedures Procedure Name Priority Date/Time Associated Diagnosis Comments AN SPINAL Routine 07/15/2018 11:29 AM GRADER MEAT Procedure Note - Hayley ShankarTANYA - 07/15/2018 [...] Prep: patient draped and chlorhexidine Patient monitoring: senior oracle dba, continuous pulse oximetry and bloodpressure Approach: midline [...] 1308, Anesthesia Intra-Op Given 07/15/2018 11:27 AM GRADER MEAT 1.8 mLs ceFAZolin (ANCEF) syringe 2 g 2 g, Intravenous, at 240 mL/hr, Once, 1 dose, On Mana 07/15/18 at 1045, Pre-Op Given 07/15/2018 11:44 AM GRADER MEAT 2 g lactated ringers infusion at 10 mL/hr, Intravenous, Continuous, Starting on Mana 07/15/18 at 1000, Until Thu07/16/18 at 1446, Pre-Op New Bag 07/15/2018 12:56 PM GRADER MEAT New Bag 07/15/2018 12:00 PM GRADER MEAT New Bag 07/15/2018 9:55 AM GRADER MEAT 10 mL/hr lidocaine (PF) (XYLOCAINE) 1 % injection PRN, Starting on Mana 07/15/18 at 1127, Until Mana 07/15/18 at 1308, Anesthesia Intra-Op Given 07/15/2018 11:27 AM GRADER MEAT 30 mg midazolam (VERSED) injection Intravenous, PRN, Starting on Mana 07/15/18 at 1115, Until Mana 07/15/18 at 1308, Anesthesia Intra-Op Given 07/15/2018 11:27 AM GRADER MEAT 1 mg Given 07/15/2018 11:25 AM GRADER MEAT 1 mg Given 07/15/2018 11:22 AM GRADER MEAT 1 mg phenylephrine (STEVEN-SYNEPHRINE) injection Intravenous, PRN, Starting on Mana 07/15/18 at 1158, Until Mana 07/15/18 at 1308, Anesthesia Intra-Op Given 07/15/2018 12:54 PM GRADER MEAT 100 mcg Given 07/15/2018 12:50 PM GRADER MEAT 100 mcg Given 07/15/2018 12:44 PM GRADER MEAT 100 mcg propofol (DIPRIVAN) IV bolus Intravenous, Continuous PRN, Starting on Mana 07/15/18 at 1130, Until Mana 07/15/18 at 1308, Anesthesia Intra-Op Rate/Dose Change 07/15/2018 11:40 AM GRADER MEAT 100 mcg/kg/min 47.3 mL/hr New Bag 07/15/2018 11:30 AM GRADER MEAT 150 mcg/kg/min 71 mL/hr tranexamic acid (CYKLOKAPRON) injection Intravenous, PRN, Starting on Mana 07/15/18 at 1143, Until Mana 07/15/18 at 1308, Anesthesia Intra-Op Given 07/15/2018 11:43 AM GRADER MEAT 1,000 mg documented in this encounter Care Teams Equity Manager Relationship Specialty Start Date End Date Kathy Hooker MD PCP - General INTERNAL MEDICINE 05/04/18 11/18/22 documented as of this encounter
--- OUTSIDE RECORDS SUMMARY | 2024-06-20 04:32 | XMS_ITS | Clinical Summary ---
Author Organization [facility] Address [facility] [place] [address] [place] [address] Care Team Providers Care Development Editor Name Role Phone Toma Pete Primary Care Provider [phone] Allergies Active Allergy Reactions Criticality Noted Date [...] AM CDT Legal Sex Female 11:19 PM SPEEDOMETER INSPECTOR Gender Identity Female 11/04/2022 9:01 AM CDT Sexual Orientation Straight 11/04/2022 9: 01 AM CDT Last Filed Vital Signs Vital Sign Reading Time Taken Comments Blood Pressure 140/90 06/07/2019 11:31 AM SPEEDOMETER INSPECTOR Pulse 96 06/07/2019 11:31 AM SPEEDOMETER INSPECTOR Temperature 37 ??C (98.6 ??F) 06/07/2019 11:31 AM SPEEDOMETER INSPECTOR Respiratory Rate 16 06/07/2019 11:31 AM SPEEDOMETER INSPECTOR Oxygen Saturation 98% 06/07/2019 11:31 AM SPEEDOMETER INSPECTOR Inhaled Oxygen Concentration - - Weight 78.9 kg (174 lb) 07/15/2018 3:59 PM SPEEDOMETER INSPECTOR Height 157.5 cm (5' 2 ) 06/07/2019 11:31 AM SPEEDOMETER INSPECTOR Body Mass Index 31.83 07/15/2018 3:59 PM SPEEDOMETER INSPECTOR Plan of Treatment Health Maintenance Due Date [...] this topic Medical Devices Implanted Type Area Commercial Baker Helper Device Identifier Shelf Expiration Date Model / Serial / Lot Shell Heath Continuum Tm Ch 48mm Gg - [id number] Implanted:Qty: 1 on 07/15/2018 by Chong Aviles MD at [facility] Right: Hip [employer] 04/21/2028 [id number] / / [id number] Continium Trilogy Poly Implanted:Qty: 1 on 07/15/2018 by Chong Aviles MD at [facility] Right: Hip [employer] 07/22/2022 [id number] / / [id number] Screw Heath Bone 30mm - [id number] Implanted:Qty: 1 on 07/15/2018 by Chong Aviles MD at [facility] Right: Hip [employer] 09/20/2027 [id number] / / [id number] Screw Heath Bone 30mm - [id number] Implanted:Qty: 1 on 07/15/2018 by Chong Aviles MD at [facility] Right: Hip [employer] 04/21/2028 [id number] / / [id number] Femoral Stem Implanted:Qty: 1 on 07/15/2018 by Chong Aviles MD at [facility] Right: Hip [employer] 10/20/2027 [id number] / / [id number] Head Femoral Biolox Option Ceramic Heath - [id number] Implanted:Qty: 1 on 07/15/2018 by Chong Aviles MD at [facility] Right: Hip [employer] 03/21/2028 [id number] / / [id number] Explanted Type Area Commercial Baker Helper Device Identifier Shelf Expiration Date Model / Serial / Lot Disposable Bit Explanted:Qty: 1 on 07/15/2018 at [facility] Right: Hip [employer] [id number] / / [...] Wilhelm MD, 11/21/2022 3:32 PM Angelina Ovalles STRATEGIC MARKETING MANAGER-BC MAMMO Final Result from Last 3 Months or Most Recently Relevant to Health Maintenance Insurance [facility] Advance Directives * Full Code (Latest Code Status on File) Date Activated Date Inactivated Comments 07/15/2018 3:51 PM 07/16/2018 2:46 PM Care Teams Development Editor Relationship Specialty Start Date End Date Toma Pete PA [address] [place] [address] PCP - General PHYSICIAN HELIX COIL WINDER 11/19/22
--- OUTSIDE RECORDS SUMMARY | 2024-06-20 04:32 | XMS_ITS | Encounter Summary ---
Author Organization [facility] Address [facility]6 [facility] [address] [place] [address] Care Team Providers Care Founding Partner Name Role Phone Kathy Hooker MD Primary Care Provider [phone] [phone] Encounter Details Date Type Department Care Team (Late st Contact Info) Description 02/16/2018 Abstract [facility] [address] [facility] [place] [address] Kathy Hooker MD [address] [place] [address] Social History Tobacco Use Types Packs/Day Years Used Date Smoking Tobacco: Never Assessed Comments Unknown Sex and Gender Information Value Date Recorded Sex Assigned at Female 11/04/2022 9:01 AM CDT Legal Sex Female 11:19 PM FLAGSETTER Gender Identity Female 11/04/2022 9:01 AM CDT Sexual Orientation Straight 11/04/2022 9: 01 AM CDT documented as of this encounter Plan of Treatment Not on file documented as of this encounter Visit Diagnoses Not on filedocumented in this encounter Care Teams Founding Partner Relationship Specialty Start Date End Date Kathy Hooker MD PCP - General INTERNAL MEDICINE 05/04/18 11/18/22 documented as of this encounter
--- OUTSIDE RECORDS SUMMARY | 2024-06-20 04:32 | XMS_ITS | Encounter Summary ---
Author Organization [facility] Address [facility]6 [facility] [place] [address] [place] [address] Care Team Providers Care Receiver Dispatcher Name Role Phone Kathy Hooker MD Primary Care Provider [phone] [phone] Reason for Referral * Imaging (Routine) - Closed Specialty Diagnoses / Procedures Referred By Contac t Referred To Contact Diagnoses Acetabular dysplasia (HHS/HCC) Procedures CT HIP RT WO Chong Sauceda MD [address] [place] [address] Phone: tel: fax: [address] [address] Phone: tel: fax: Referral ID Status Reason Start Date Expiration Date Visits Re quested Visits Authorized [id number] Closed 05/06/2018 06/06/2019 1 1 ORATE CONTROLLER Reason for Visit * Imaging (Routine) - Closed Specialty Diagnoses / Procedures Referred By Contac t Referred To Contact Diagnoses Acetabular dysplasia (HHS/HCC) Procedures CT HIP RT WO Chong Sauceda MD [address] [place] [address] Phone: tel: fax: [facility] [address] [place] [address] Phone: tel: fax: Referral ID Status Reason Start Date Expiration Date Visits Re quested Visits Authorized [id number] Closed 05/06/2018 06/06/2019 1 1 Encounter Details Date Type Department Care Team (Latest Contact Info) Description 05/06/2018 3:46 PM CORPORATE CONTROLLER - 05/06/2018 11:59 PM CORPORATE CONTROLLER Hospital Encounter [facility] [address] [place] [address] Chong Aviles MD [address] [place] [address] Discharge Disposition: Home or Self Care (Routine Discharge) Social History Tobacco Use Types Packs/Day Years Used Date Smoking Tobacco: Never Assessed Comments Unknown Sex and Gender Information Value Date Recorded Sex Assigned at Female 11/04/2022 9:01 AM CDT Legal Sex Female 11:19 PM CORPORATE CONTROLLER Gender Identity Female 11/04/2022 9:01 AM CDT Sexual Orientation Straight 11/04/2022 9: 01 AM CDT documented as of this encounter Plan of Treatment Not on file documented as of this encounter Procedures Procedure Name Priority Date/Time Associated Diagnosis Comments CT HIP RT WO CON Routine 05/06/2018 4:05 PM CORPORATE CONTROLLER Acetabular dysplasia (HHS/HCC) documented in this encounter Results * CT HIP RT WO CON (05/06/2018 4:05 PM CORPORATE CONTROLLER) Anatomical Region Laterality Modality Hip Computed Tomogra phy 05/06/2018 9:21 PM CORPORATE CONTROLLER Narrative 05/06/2018 9:23 PM CORPORATE CONTROLLER Examination: CT HIP RT WO CON Clinical [...] (joint) documented in this encounter Care Teams Receiver Dispatcher Relationship Specialty Start Date End Date Kathy Hooker MD PCP - General INTERNAL MEDICINE 05/04/18 11/18/22 documented as of this encounter
--- OUTSIDE RECORDS SUMMARY | 2024-06-20 04:32 | XMS_ITS | Encounter Summary ---
Author Organization [facility] Address [facility] [place] [address] [place] [address] Care Team Providers Care Degreaser Name Role Phone Unavailable Primary Care Provider Unavailabl e Encounter Details Date Type Department Care Team (Late st Contact Info) Description 02/03/[address] [facility] [address] [place] [address] Anselmo Yanes MD [address] [place] [address] [address] Social History Tobacco Use Types Packs/Day Years Used Date Smoking Tobacco: Never Assessed Comments Unknown Sex and Gender Information Value Date Recorded Sex Assigned at Female 11/04/2022 9:01 AM CDT Legal Sex Female 11:19 PM ACTUARIAL ASSOCIATE Gender Identity Female 11/04/2022 9:01 AM CDT Sexual Orientation Straight 11/04/2022 9: 01 AM CDT documented as of this encounter Plan of Treatment Not on file documented as of this encounter Visit Diagnoses Diagnosis Other laboratory examination documented in this encounter
--- OUTSIDE RECORDS SUMMARY | 2024-06-20 04:32 | XMS_ITS | Encounter Summary ---
Author Organization [facility] Address [address] [place] [address]. [place] [address] [place] [address] Care Team Providers Care Heel Slicker Name Role Phone Kathy Hooker MD Primary Care Provider [phone] Encounter Details Date Type Department Care Team (Latest Contact Info) Description 05/31/2018 Scan HEALTH INFO SRV[facility] Scanned, Documents Social History Tobacco Use Types Packs/Day Years Used Date Smoking Tobacco: Never Assessed Comments Unknown Sex and Gender Information Value Date Recorded Sex Assigned at Female 11/04/2022 9:01 AM CDT Legal Sex Female 11:19 PM ELECTRIC REPAIR SUPERVISOR Gender Identity Female 11/04/2022 9:01 AM CDT Sexual Orientation Straight 11/04/2022 9: 01 AM CDT documented as of this encounter Functional Status documented as of this encounter Mental Status * Question Answer Entry Date Author Status Because of a physical, mental, or emotional condition, do you have serious difficulty concentrating, remembering, or making decisions? No 07/15/2018 4:29 PM ELECTRIC REPAIR SUPERVISOR Deidre Escalera RN A ctive documented in this encounter Plan of Treatment Not on file documented as of this encounter Visit Diagnoses Not on filedocumented in this encounter Care Teams Heel Slicker Relationship Specialty Start Date End Date Kathy Hooker MD PCP - General INTERNAL MEDICINE 05/04/18 11/18/22 documented as of this encounter
--- OUTSIDE RECORDS SUMMARY | 2024-06-20 04:32 | XMS_ITS | Encounter Summary ---
Author Organization [facility] Address [facility] [place] [address] [place] [address] Care Team Providers Care Finishing Room Supervisor Name Role Phone Unavailable Primary Care Provider Unavailabl e Encounter Details Date Type Department Care Team (Latest Contact Info) Description 02/16/2018 7:25 AM CDT - 02/16/2018 7:29 AM CDT Hospital Encounter [facility] [address] [place], [place] [address] Kathy Hooker MD [address] [place] [phone] Discharge Disposition: Home or Self Care (Routine Discharge) Social History Tobacco Use Types Packs/Day Years Used Date Smoking Tobacco: Never Assessed Comments Unknown Sex and Gender Information Value Date Recorded Sex Assigned at Female 11/04/2022 9:01 AM CDT Legal Sex Female 11:19 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 Gender Identity Female 11/04/2022 9:01 AM CDT [...] - 1.46 NG/DL 02/16/2018 10:40 AM CDT [facility] 02/16/2018 7:49 AM CDT Kathy Hooker MD LABORATORY Final Res ult [facility] [address] [place] [address], [id number] * VITAMIN B-12 (02/16/2018 7:49 AM CDT) VITAMIN B12 S/P/B 386 193 - 986 PG/ML 02/16/2018 1:11 PM CDT [facility] 02/16/2018 7:49 AM CDT Kathy Hooker MD LABORATORY Final Res ult [facility] [address] [place] [address], [place] [phone] [id number] * (ABNORMAL) LIPID PANEL (02/16/2018 7:49 AM CDT) CHOLESTEROL 206 MG/DL 02/16/2018 10:40 AM CDT [facility] Comment:HIGH: > OR = 240 TRIGLYCERIDES 221 MG/DL 02/16/2018 10:40 AM CDT [facility] Comment:200-499 HIGH HDL 48(L) >49 MG/DL 02/16/2018 10:40 AM CDT [facility] LDL-C 114 MG/DL 02/16/2018 10:40 AM CDT [facility] Comment:100-129 NEAR OR ABOV E OPTIMAL VLDL CALCULATION 44 MG/DL 02/17/20 18 10:40 AM CDT [facility] Comment:REFERENCE RANGE NOT ESTABLISHED CHOL/HDL RATIO 4.3 02/16/2018 10:40 AM CDT [facility] Comment:REFERENCE RANGE NOT ESTABLISHED LDL/HDL 2.4 02/16/2018 10:40 AM CDT [facility] Comment:REFERENCE RANGE NOT ESTABLISHED NON HDL CHOLESTEROL 158 MG/DL 02/16/2018 10:40 AM CDT [facility] Comment:REFERENCE RANGE NOT ESTABLISHED 02/16/2018 7:49 AM CDT us Kathy Hooker MD LABORATORY Final Res ult [facility] [address] [place] [address], [id number] * (ABNORMAL) URINALYSIS (02/16/2018 7:49 AM CDT) COLOR (U) YELLOW 02/16/2018 8:20 AM CDT [facility] TRANSPARENCY HAZY 02/16/2018 8:20 AM CDT [facility] SPECIFIC GRAVITY (U) 1.021 1.002 - 1.035 02/16/2018 8:20 AM CDT [facility] U PH 5.0 5 - 8 02/16/2018 8:20 AM CDT [facility] PROTEIN (U) NEGATIVE NEGATIVE 02/16/2018 8:20 AM CDT [facility] URINE GLUCOSE NEGATIVE NEGATIVE MG/DL 02/16/2018 8:20 AM CDT [facility] KETONES MG/DL (U) NEGATIVE NEGATIVE 02/16/2018 8:20 AM CDT [facility] BILIRUBIN (U) NEGATIVE NEGATIVE 02/16/2018 8:20 AM CDT [facility] BLOOD (U) NEGATIVE NEGATIVE 02/16/2018 8:20 AM CDT [facility] NITRITES NEGATIVE NEGATIVE 02/16/2018 8:20 AM CDT [facility] UROBILINOGEN NORMAL 0 - 1 EU/DL 02/16/2018 8:20 AM CDT [facility] LEUKOCYTES (U) SMALL(A) NEGATIVE 02/16/2018 8:20 AM CDT [facility] RBC/HPF <1 0 - 3 /HPF 02/16/2018 8:20 AM CDT [facility] WBC/HPF 3 0 - 6 /HPF 02/16/2018 8:20 AM CDT [facility] BACTERIA (U) PRESENT /HPF 02/16/2018 8:20 AM CDT [facility] SQUAMOUS EPITHELIALS 3 02/16/2018 8:20 AM CDT [facility] URINE SPECIMEN FROM URETHRA / Unknown 02/16/2018 7:49 AM CDT us Kathy Hooker MD URINE ORDERABLES Final Re sult [facility] [address] [place] [address], [id number] * (ABNORMAL) GENERAL HEALTH PANEL (02/16/2018 7:49 AM CDT) WBC 6.6 4.0 - 10.8 x10'3/uL 02/16/2018 8:03 AM CDT [facility] RBC 4.72 4.10 - 5.40 x10'6/uL 02/16/2018 8:03 AM CDT [facility] HGB 14.7 12.0 - 16.0 G/DL 02/16/2018 8:03 AM CDT [facility] HCT 42.9 36.0 - 47.0 % 02/16/2018 8:03 AM CDT [facility] MCV 90.9 78.0 - 100.0 FL 02/16/2018 8:03 AM CDT [facility] MCH 31.1(H) 27.0 - 31.0 PG 02/16/2018 8:03 AM CDT [facility] MCHC 34.3 33.0 - 36.0 G/DL 02/16/2018 8:03 AM CDT [facility] RDW 12.6 11.5 - 14.5 % 02/16/2018 8:03 AM CDT [facility] PLT 277 150 - 350 x10'3/uL 02/16/2018 8:03 AM CDT [facility] MPV 9.7 7.4 - 10.4 FL 02/16/2018 8:03 AM CDT [facility] ABS. NEUTROPHILS TOTAL 3.32 1.60 - 8.30 x10'3/uL 02/16/2018 8:03 AM CDT [facility] ABS. LYMPHOCYTES 2.38 0.80 - 4.70 x10'3/uL 02/16/2018 8:03 AM CDT [facility] ABS. MONOCYTES 0.41 0.00 - 1.50 x10'3/uL 02/16/2018 8:03 AM CDT [facility] ABS. EOSINOPHILS 0.49(H) 0.00 - 0.40 x10'3/uL 02/16/2018 8:03 AM CDT [facility] ABS. BASOPHILS 0.02 0.00 - 0.20 x10'3/uL 02/16/2018 8:03 AM CDT [facility] ABS. IMMATURE GRANULOCYTES 0.02 0.00 - 0.03 x10'3/uL 02/16/2018 8:03 AM CDT [facility] ABS. NUCLEATED RBC'S 0.00 0.0 x10'3/uL 02/16/2018 8:03 AM CDT [facility] SODIUM S/P/B 140 136 - 145 MMOL/L 02/16/2018 8:59 AM CDT [facility] POTASSIUM S/P/B 4.0 3.5 - 5.1 MMOL/L 02/16/2018 8:59 AM CDT [facility] CHLORIDE S/P/B 106 98 - 107 MMOL/L 02/16/2018 8:59 AM CDT [facility] CO2 29.5 21.0 - 32.0 MMOL/L 02/16/2018 8:59 AM CDT [facility] GLUCOSE 106 74 - 106 MG/DL 02/16/2018 8:59 AM CDT [facility] BUN 17 7 - 18 MG/DL 02/16/2018 8:59 AM CDT [facility] CREATININE S/P/B 1.19(H) 0.55 - 1.02 MG/DL 02/16/2018 8:59 AM CDT [facility] CALCIUM S/P/B 8.7 8.4 - 10.5 MG/DL 02/16/2018 8:59 AM CDT [facility] BILIRUBIN TOTAL S/P/B 0.5 0.2 - 1.0 MG/DL 02/16/2018 8:59 AM CDT [facility] ALKALINE PHOSPHATASE S/P/B 82 46 - 118 U/L 02/16/2018 8:59 AM CDT [facility] AST 20 15 - 37 U/L 02/16/2018 8:59 AM CDT [facility] ALT 31 13 - 56 U/L 02/16/2018 8:59 AM CDT [facility] TOTAL PROTEIN S/P/B 8.2 6.4 - 8.2 G/DL 02/16/2018 8:59 AM CDT [facility] ALBUMIN S/P/B 4.0 3.4 - 5.0 G/DL 02/16/2018 8:59 AM [facility] ANION GAP 4.5 MMOL/L 02/16/2018 8:59 AM [facility] Comment:REFERENCE RANGE NOT ESTABLISHED OSMOLALITY (CALC) 292 MOSM/KG 018 8:59 AM [facility] Comment:REFERENCE RANGE NOT ESTABLISHED EGFR NON-AFR. AMER. 50(L) >90 ML/MIN/1. 73 M2 02/16/2018 8:59 AM [facility] Comment: THE ESTIMATED GFR IS CALCULATED [...] >90 ML/MIN/1. 73 M2 02/16/2018 8:59 AM [facility] Comment: THE ESTIMATED GFR IS CALCULATED [...] - 3.740 uIU/ML 02/16/2018 8:59 AM CDT [facility] 02/16/2018 7:49 AM CDT us Kathy Hooker MD LABORATORY Final Res ult [facility] [address] [place] [address], [id number] documented in this encounter Visit Diagnoses Diagnosis Routine health maintenance- Primary Routine general medical examination at a health care facility Numbness Disturbance of skin sensation Hypothyroidism Unspecified hypothyroidism documented in this encounter
--- OUTSIDE RECORDS SUMMARY | 2024-06-20 04:32 | XMS_ITS | Encounter Summary ---
Author Organization [facility] Address [address] [place] [address]. [place] [address] [place] [address] Care Team Providers Care Family Support Specialist Name Role Phone Kathy Hooker MD Primary Care Provider [phone] [phone] Encounter Details Date Type Department Care Team (Late st Contact Info) Description 05/31/2018 Abstract [facility] [address] [place] [address] Kvng Key MD [address] [facility] [address] [address] [place] [address] Social History Tobacco Use Types Packs/Day Years Used Date Smoking Tobacco: Never Assessed Comments Unknown Sex and Gender Information Value Date Recorded Sex Assigned at Female 11/04/2022 9:01 AM CDT Legal Sex Female 11:19 PM MEDICAL CODING INSTRUCTOR Gender Identity Female 11/04/2022 9:01 AM CDT Sexual Orientation Straight 11/04/2022 9: 01 AM CDT documented as of this encounter Functional Status documented as of this encounter Mental Status * Question Answer Entry Date Author Status Because of a physical, mental, or emotional condition, do you have serious difficulty concentrating, remembering, or making decisions? No 07/15/2018 4:29 PM MEDICAL CODING INSTRUCTOR Deidre Escalera RN A ctive documented in this encounter Plan of Treatment Not on file documented as of this encounter Procedures Procedure Name Priority Date/Time Associated Diagnosis Comments RHEUMATOID FACTOR, QUANT Routine 05/31/2018 6:37 PM MEDICAL CODING INSTRUCTOR CYCLIC CITRULLINATED PEPTIDE (CCP)ANTIBODY(IGG) Routine 05/31/2018 6:37 PM MEDICAL CODING INSTRUCTOR HEMOGLOBIN, GLYCOSYLATED Routine 05/31/2018 6:37 PM MEDICAL CODING INSTRUCTOR SED RATE, ERYTHROCYTE (ESR) Routine 05/31/2018 6:37 PM MEDICAL CODING INSTRUCTOR LYME DISEASE ANTIBODY Routine 05/31/2018 6:37 PM MEDICAL CODING INSTRUCTOR C-REACTIVE PROTEIN Routine 05/31/2018 6: 37 PM MEDICAL CODING INSTRUCTOR PROTEIN, ELECTROPHORESIS Routine 05/31/2018 6:37 PM MEDICAL CODING INSTRUCTOR CK (CPK) Routine 05/31/2018 6:37 PM MEDICAL CODING INSTRUCTOR documented in this encounter Results * LYME DISEASE ANTIBODY (05/31/2018 6:37 PM MEDICAL CODING INSTRUCTOR) LYME IGG/IGM <0.90 <0.90 Index 06/02/2018 8:37 PM MEDICAL CODING INSTRUCTOR [employer] [facility] Comment: Reference ranges:Index ? [...] is apparent. COMMENT REPORT 06/02/2018 8:37 PM MEDICAL CODING INSTRUCTOR [employer] [facility] Comment: Not indicatedTest Performed by [facility],[employer] [place],[address] [place], [place] [address]NkwzxqbHeather Shipman M.D., Ph.D., Director of [phone], CLIA [id number] SERUM SPECIMEN / Unknown 05/31/2018 6:37 PM MEDICAL CODING INSTRUCTOR 05/31/2018 7:42 PM MEDICAL CODING INSTRUCTOR us Generic Conversion Md [facility] Final R esult Performing Organization Address [facility] Co de Phone Number [employer] [facility] SERVICESSh[facility] [address] [place], [place] , [place] [phone] * CYCLIC CITRULLINATED PEPTIDE (CCP)ANTIBODY(IGG) (05/31/2018 6:37 PM MEDICAL CODING INSTRUCTOR) CITRULLINE PEPTIDE ANTIBODY <16 <20 Units 06/02/2018 10:37 PM MEDICAL CODING INSTRUCTOR [employer] [facility] Comment: Negative: ? <20Weak Positive: ?20 - 39Moderate Positive: ?40 - 59Strong Positive: ?>59Test Performed by [employer],[employer],[address] [place], [place] [address]KqbdcstHeather Shipman M.D., Ph.D., Director of [phone], CLIA [id number] SERUM SPECIMEN / Unknown 05/31/2018 6:37 PM MEDICAL CODING INSTRUCTOR 05/31/2018 7:41 PM MEDICAL CODING INSTRUCTOR us Generic Conversion Md [facility] Final R esult Performing Organization Address [facility]/ZIP Co de Phone Number [employer] [facility] SERVICESShohsana [address] [place] [address], * PROTEIN, ELECTROPHORESIS (05/31/2018 6:37 PM MEDICAL CODING INSTRUCTOR) TOTAL PROTEIN (ELECTROPHORESIS SERUM) 7.3 6.0 - 8.3 G/DL 06/02/2018 3:20 PM MEDICAL CODING INSTRUCTOR [facility] ALBUMIN ELECTROPHORESIS S/P/B 4.4 3.4 - 4.9 G/DL 06/02/2018 3:17 PM MEDICAL CODING INSTRUCTOR [facility] [id number] CSF 0.3 0.2 - 0.4 G/DL 06/02/2018 3:17 PM MEDICAL CODING INSTRUCTOR [facility] [id number] S/P/B 0.8 0.4 - 1.0 G/DL 06/02/2018 3:17 PM MEDICAL CODING INSTRUCTOR [facility] BETA GLOBULIN S/P/B 0.8 0.5 - 1.2 G/DL 06/02/2018 3:17 PM MEDICAL CODING INSTRUCTOR [facility] GAMMA GLOBULIN S/P/B 1.0 0.6 - 1.6 G/DL 06/02/2018 3:17 PM MEDICAL CODING INSTRUCTOR [facility] ELECTROPHORESIS INTERPRETATION THIS SERUM PEP WAS INTERPRETED BY 06/03/2018 4:39 PM [facility] Comment: DR TAL BRITTON MDTHE TOTAL SERUM PROTEIN IS NORMAL. ELECTROPHORESIS IDENTIFIES NO QUANTITATIVE ABNORMALITIES WITHIN THE PROTEIN FRACTIONS. MONOCLONAL PROTEINS ARE NOT DETECTED. 05/31/2018 6:37 PM MEDICAL CODING INSTRUCTOR 05/31/2018 7:41 PM MEDICAL CODING INSTRUCTOR us Generic Conversion Md [facility] Final R esult [facility] [address] [place] [address], [id number] * RHEUMATOID FACTOR, QUANT (05/31/2018 6:37 PM MEDICAL CODING INSTRUCTOR) Pathologist [facility] RHEUMATOID FACTOR <10 <15 IU/ML 06/01/2018 2:43 PM MEDICAL CODING INSTRUCTOR [facility] SERUM OR PLASMA SPECIMEN / Unknown 05/31/2018 6:37 PM MEDICAL CODING INSTRUCTOR 05/31/2018 7:41 PM MEDICAL CODING INSTRUCTOR us Generic Conversion Md [facility] Final R esngozi [facility] [address] [place] [address], [place] [phone] [id number] * HEMOGLOBIN, GLYCOSYLATED (05/31/2018 6:37 PM MEDICAL CODING INSTRUCTOR) HGB A1C 5.4 <5.7 % 05/31/2018 8:29 PM MEDICAL CODING INSTRUCTOR [facility] Comment: 5.7 TO 6.4% INCREASED RISK OF DIABETES> OR = 6.5% CONSISTENT WITH DIABETESPER ADA GUIDELINES ESTIMATED AVG GLUCOSE 108 70 - 140 MG/DL 05/31/2018 8:29 PM MEDICAL CODING INSTRUCTOR [facility] 05/31/2018 6:37 PM MEDICAL CODING INSTRUCTOR 05/31/2018 7:41 PM MEDICAL CODING INSTRUCTOR us Generic Conversion Md [facility] Final R esult Performing Organization Address City/[facility]/ZIP Co de Phone Number [facility] [place] [address], [place] [phone] * SED RATE, ERYTHROCYTE (ESR) (05/31/2018 6:37 PM MEDICAL CODING INSTRUCTOR) ESR 13 0 - 30 MM/HR 05/31/2018 8:25 PM MEDICAL CODING INSTRUCTOR [facility] WHOLE BLOOD SPECIMEN / Unknown 05/31/2018 6:37 PM MEDICAL CODING INSTRUCTOR 05/31/2018 7:41 PM MEDICAL CODING INSTRUCTOR us Generic Conversion Md [facility] Final R esult Performing Organization Address [facility]/ZIP Co de Phone Number [facility] [place] [address], [place] [phone] * C-REACTIVE PROTEIN (05/31/2018 6:37 PM MEDICAL CODING INSTRUCTOR) C-REACTIVE PROTEIN 0.10 <0.30 mg/dL 05/31/2018 8:09 PM MEDICAL CODING INSTRUCTOR [facility] SERUM OR PLASMA SPECIMEN / Unknown 05/31/2018 6:37 PM MEDICAL CODING INSTRUCTOR 05/31/2018 7:41 PM MEDICAL CODING INSTRUCTOR us Generic Conversion Md [facility] Final R esult Performing Organization Address [facility]/ZIP Co de Phone Number [facility] [address] [place] [address], [place] [phone] * CK (CPK) (05/31/2018 6:37 PM MEDICAL CODING INSTRUCTOR) CPK 78 26 - 192 U/L 05/31/2018 8:09 PM MEDICAL CODING INSTRUCTOR [facility] SERUM OR PLASMA SPECIMEN / Unknown 05/31/2018 6:37 PM MEDICAL CODING INSTRUCTOR 05/31/2018 7:41 PM MEDICAL CODING INSTRUCTOR us Generic Conversion Md [facility] Final R esult Performing Organization Address [facility]/ZIP Co de Phone Number [facility] [address] [place] [address], [place] [phone] documented in this encounter Visit Diagnoses Diagnosis Pain of foot Pain in limb documented in this encounter Care Teams Family Support Specialist Relationship Specialty Start Date End Date Kathy Hooker MD PCP - General INTERNAL MEDICINE 05/04/18 11/18/22 documented as of this encounter
--- OUTSIDE RECORDS SUMMARY | 2024-06-20 04:32 | XMS_ITS | Encounter Summary ---
Author Organization [facility] Address [address] [place] [address]. [place] [address] [place] [address] Care Team Providers Care Waste Paper Hammermill Operator Name Role Phone Unavailable Primary Care Provider Unavailabl e Encounter Details Date Type Department Care Team (Late st Contact Info) Description 01/28/1996 Abstract [facility] CONVERSION [address] [place] [address] , Generic Conversion, Social History Tobacco Use Types Packs/Day Years Used Date Smoking Tobacco: Never Assessed Comments Unknown Sex and Gender Information Value Date Recorded Sex Assigned at Female 11/04/2022 9:01 AM CDT Legal Sex Female 11:19 PM SOCIAL WORK SPECIALIST Gender Identity Female 11/04/2022 9:01 AM CDT Sexual Orientation Straight 11/04/2022 9: 01 AM CDT documented as of this encounter Plan of Treatment Not on file documented as of this encounter Visit Diagnoses Not on filedocumented in this encounter
--- OUTSIDE RECORDS SUMMARY | 2024-06-20 04:32 | XMS_ITS | Encounter Summary ---
Author Organization [facility] Address [address] [place] [address]. [place] [address] [place] [address] Care Team Providers Care Florist Name Role Phone Kathy Hooker MD Primary Care Provider [phone] Encounter Details Date Type Department Care Team (Late st Contact Info) Description 06/06/2019 Orders Only [facility] [address] [facility] [place] [address] Kathy Hooker MD [address] [place] [address] Social History Tobacco Use Types [...] AM CDT Legal Sex Female 11:19 PM CHILD WATCH ATTENDANT Gender Identity Female 11/04/2022 9:01 AM CDT Sexual Orientation Straight 11/04/2022 9: 01 AM CDT documented as of this encounter Functional Status * RETIRED Are you deaf or do you have serious difficulty hearing Answer Date of Assessment Author Status No 07/15/2018 4:29 PM CHILD WATCH ATTENDANT Activ e * RETIRED Are you blind or do you have serious difficulty seeing, even when wearing glasses? Answer Date of Assessment Author Status No 07/15/2018 4:29 PM CHILD WATCH ATTENDANT Activ e * Do you have [...] * THYROXINE, FREE (FT4) (06/06/2019 7:50 AM CHILD WATCH ATTENDANT) FREE T4 0.93 0.76 - 1.46 NG/DL 06/06/2019 8:47 AM CHILD WATCH ATTENDANT [facility] 06/06/2019 7:50 AM CHILD WATCH ATTENDANT us Kathy Hooker MD LABORATORY Final Res ult [facility] [address] [place] [address], * (ABNORMAL) LIPID PANEL (06/06/2019 7:50 AM CHILD WATCH ATTENDANT) CHOLESTEROL 196 <200 MG/DL 06/06/2019 8:47 AM CHILD WATCH ATTENDANT [facility] Comment: THE NATIONAL LIPID ASSOCIATION AND THE NATIONAL CHOLESTEROL EDUCATION PROGRAM (NCEP) HAVE SET THE FOLLOWING GUIDELINES FOR TOTAL CHOLESTEROL IN ADULTS AGES 18 AND UP. DESIRABLE: <200 BORDERLINE HIGH: 200-239 HIGH: > OR = 240 TRIGLYCERIDES 165(H) <150 MG/DL 06/06/2019 8:47 AM [facility] Comment: THE NATIONAL LIPID ASSOCIATION AND THE NATIONAL CHOLESTEROL EDUCATION PROGAM (NCEP) HAVE SET THE FOLLOWING GUIDELINES FOR TRIGLYCERIDES IN ADULTS AGES 18 AND UP. NORMAL: <150 BORDERLINE HIGH: 150 TO 199 HIGH: 200 TO 499 VERY HIGH: >499 HDL 46(L) >49 MG/DL 06/06/2019 8:47 AM CHILD WATCH ATTENDANT [facility] Comment: THE NATIONAL LIPID ASSOCIATION AND THE NATIONAL CHOLESTEROL EDUCATION PROGAM (NCEP) HAVE SET THE FOLLOWING GUIDELINES FOR HDL CHOLESTEROL IN ADULTS AGES 18 AND UP. MALES: >39 FEMALES: >49 LDL (CALCULATED) 117(H) <100 MG/DL 06/06/20 8:47 AM [facility] Comment: THE NATIONAL LIPID ASSOCIATION AND THE NATIONAL CHOLESTEROL EDUCATION PROGAM (NCEP) HAVE SET THE FOLLOWING GUIDELINES FOR LDL CHOLESTEROL IN ADULTS AGES 18 AND UP. DESIRABLE: <100 ABOVE DESIRABLE: 100 TO 129 BORDERLINE HIGH: 130 TO 159 HIGH: 160 TO 189 VERY HIGH: >189 VLDL CALCULATION 33 MG/DL 06/06/20 8:47 AM [facility] Comment:REFERENCE RANGE NOT ESTABLISHED CHOL/HDL RATIO 4.3 06/06/2019 8:47 AM [facility] Comment:REFERENCE RANGE NOT ESTABLISHED LDL/HDL 2.5 06/06/2019 8:47 AM [facility] Comment:REFERENCE RANGE NOT ESTABLISHED NON HDL CHOLESTEROL 150 MG/DL 06/06/2019 8:47 AM [facility] Comment:REFERENCE RANGE NOT ESTABLISHED 06/06/2019 7:50 AM CHILD WATCH ATTENDANT us Kathy Hooker MD LABORATORY Final Res ult [facility] [address] [place] [address], * (ABNORMAL) THYROID STIM HORMONE, TSH (06/06/2019 7:50 AM CHILD WATCH ATTENDANT) TSH 14.019(H) 0.358 - 3.740 uIU/ML 06/06/2019 8:47 AM CHILD WATCH ATTENDANT [facility] 06/06/2019 7:50 AM CHILD WATCH ATTENDANT us Kathy Hooker MD LABORATORY Final Res ult [facility] [address] [place] [address], documented in this encounter Visit Diagnoses Diagnosis Hypothyroidism- Primary Unspecified hypothyroidism Healthcare maintenance Routine general medical examination at a health care facility documented in this encounter Care Teams Florist Relationship Specialty Start Date End Date Kathy Hooker MD PCP - General INTERNAL MEDICINE 05/04/18 11/18/22 documented as of this encounter
--- OUTSIDE RECORDS SUMMARY | 2024-06-20 04:32 | XMS_ITS | Encounter Summary ---
Author Organization [facility] Address [address] [place] [address]. [place] [address] [place] [address] Care Team Providers Care Sprinkler Fitter Name Role Phone Donta Hooker MD Primary Care Provider [phone] Reason for Visit * Reason Comments UTI Symptoms lab order for cultur e and sensitivity Encounter Details Date Type Department Care Team (Late st Contact Info) Description 07/09/2018 1:30 PM PROCESS ARTIST Office Visit [facility] at [address] [address] UTI Symptoms (lab order for [...] AM CDT Legal Sex Female 11:19 PM PROCESS ARTIST Gender Identity Female 11/04/2022 9:01 AM CDT Sexual Orientation Straight 11/04/2022 9: 01 AM CDT documented as of this encounter Functional Status documented as of this encounter Mental Status * Question Answer Entry Date Author Status Because of a physical, mental, or emotional condition, do you have serious difficulty concentrating, remembering, or making decisions? No 07/15/2018 4:29 PM PROCESS ARTIST Deidre Escalera RN A ctive documented in this encounter Progress Notes * Elyse Montejo MA - 07/09/2018 1:30 PM CST Collected urine for C&S for [facility] donta Hawk ESS ARTIST documented in this encounter Plan of Treatment Not on file documented as of this encounter Visit Diagnoses Diagnosis UTI (urinary tract infection)- Primary Urinary tract infection, site not specified documented in this encounter Care Teams Sprinkler Fitter Relationship Specialty Start Date End Date Donta Hooker MD PCP - General INTERNAL MEDICINE 05/04/18 11/18/22 documented as of this encounter
--- OUTSIDE RECORDS SUMMARY | 2024-06-20 04:32 | XMS_ITS | Encounter Summary ---
Author Organization [facility] Address Critical access hospital[address] [place] [address] [place] [address] Care Team Providers Care Slag Worker Name Role Phone Stephany Novoa MD Primary Care Provider [phone] Reason for Visit * Auth/Cert Specialty Diagnoses / Procedures Referred By Umair freeman Referred To Contact Diagnoses OSTEOARTHRITIS, PAIN Procedures ARTHROPLASTY HIP TOTAL, AUTOGRAFT TO ACETABULUM Referral ID Status Reason Start Date Expiration Date Visits Re quested Visits Authorized [id number] 1 1 Encounter Details Date Type Department Care Team (Late st Contact Info) Description 07/15/2018 10:30 AM DOOR TO DOOR SELLING DISTRIBUTOR - 07/15/2018 1:01 PM DOOR TO DOOR SELLING DISTRIBUTOR Surgery [facility] OR [address] [place] [address] Chong Brenner MD [facility] [place], [place] [address] ARTHROPLASTY HIP TOTAL, AUTOGRAFT TO ACETABULUM Surgery [...] CERAMIC/POLYDIRECT LATERALOFFICE TO NOTIFY REPREP CONTACTED BY [facility] HOSPITALIST documented in this encounter Social History Tobacco Use Types Packs/Day Years Used Date Smoking Tobacco: Never Smokeless Tobacco: Never Alcohol Use Standard Drinks/Week Comments Yes 0 (1 standard drink = 0.6 oz pur e alcohol) socially Comments Unknown Sex and Gender Information Value Date Recorded Sex Assigned at Female 11/04/2022 9:01 AM CDT Legal Sex Female 11:19 PM DOOR TO DOOR SELLING DISTRIBUTOR Gender Identity Female 11/04/2022 9:01 AM CDT Sexual Orientation Straight 11/04/2022 9: 01 AM CDT documented as of this encounter Last Filed Vital Signs Vital Sign Reading Time Taken Comments Blood Pressure 148/94 07/15/2018 9:34 AM DOOR TO DOOR SELLING DISTRIBUTOR Pulse 88 07/15/2018 9:34 AM DOOR TO DOOR SELLING DISTRIBUTOR Temperature 36.8 ??C (98.2 ??F) 07/15/2018 9:34 AM CS T Respiratory Rate 20 07/15/2018 9:34 AM DOOR TO DOOR SELLING DISTRIBUTOR Oxygen Saturation 98% 07/15/2018 9:34 AM DOOR TO DOOR SELLING DISTRIBUTOR Inhaled Oxygen Concentration - - Weight 78.9 kg (174 lb) 06/18/2018 3:06 PM DOOR TO DOOR SELLING DISTRIBUTOR Height 157.5 cm (5' 2 ) 06/18/2018 3:06 PM DOOR TO DOOR SELLING DISTRIBUTOR Body Mass Index 31.83 07/15/2018 3:59 PM DOOR TO DOOR SELLING DISTRIBUTOR documented in this encounter Functional Status * RETIRED Are you deaf or do you have serious difficulty hearing Answer Date of Assessment Author Status No 07/15/2018 4:29 PM DOOR TO DOOR SELLING DISTRIBUTOR Activ e * RETIRED Are you blind or do you have serious difficulty seeing, even when wearing glasses? Answer Date of Assessment Author Status No 07/15/2018 4:29 PM DOOR TO DOOR SELLING DISTRIBUTOR Activ e * Do you have serious difficulty walking or climbing stairs? Answer Date of Assessment Author Status No 07/15/2018 4:29 PM DOOR TO DOOR SELLING DISTRIBUTOR Deidre Escalera RN Active * Do you [...] Date Author Status No 07/15/2018 4:29 PM DOOR TO DOOR SELLING DISTRIBUTOR Deidre Escalera RN Active documented in this encounter Discharge Summaries * Chrissy Juárez PA-C - 07/16/2018 10:06 AM CST Physician Discharge Summary Patient ID: Ciera Aggarwal [id number] 58-year-old 1960 Admit date: 07/15/2018 Expected Discharge [...] Chong Brenner MD at 07/19/2018 8:15 AM DOOR TO DOOR SELLING DISTRIBUTOR TO DOOR SELLING DISTRIBUTOR TO DOOR SELLING DISTRIBUTOR documented in this encounter Discharge Instructions * Discharge Instructions* Chrissy Juárez PA-C - 07/16/2018 10:09 AM DOOR TO DOOR SELLING DISTRIBUTOR - If you have a Prineo dressing, [...] Tylenol (acetaminophen) to control your pain. Use Radford (hydrocodone) and tramadol pain medication only if the Tylenol doesn't work. Stay ahead of the pain, but do not take you pain medication based on time. Only use them as needed. - Your hip precautions are: - No extension beyond 10?? - No external rotation - No vigorous abduction - If you have question contact Dr. Brenner at [facility] ([phone]). Do not contact your primary care provider for concerns about this surgery or surgical incision. TO DOOR SELLING DISTRIBUTOR * Attachments The following attachments cannot be sent through Care Everywhere. * Anterior Hip Replacement (Mexican) * Deep Vein Thrombosis (Blood Clots in the Legs) (Mexican) * Pulmonary Embolism (Blood Clot in the Lungs) (Mexican) * How to Prevent Surgical Site Infections (Mexican) documented in this encounter Medications at Time [...] She has outpt therapy set up at [facility] 3 times a week and has [...] Patient expects to be discharged to: Home TO DOOR SELLING DISTRIBUTOR * Antoine Sharif MD - 07/16/2018 10:36 [...] Consults to: Hospitalists, PT/OT Pain Control: Roxicodone, Radford, Tramadol, Celebrex, Tylenol, Skelaxin. Activity: Weightbearing as [...] Knee Reconstruction Fellow Department of Orthopaedic Surgery [facility] [employer] Cosigned by Chong Brenner MD at 07/19/2018 8:15 AM DOOR TO DOOR SELLING DISTRIBUTOR TO DOOR SELLING DISTRIBUTOR TO DOOR SELLING DISTRIBUTOR * Yuly Damian, PT - 07/16/2018 9:00 AM CST PT Re-Evaluation Discharge Recommendation: home with assistance; outpatient P/T DME equipment recommendation: 2 wheeled walker Activity Recommendation for spectral scientist: Up with supervision and 2 wheeled walker [...] 2 Wheeled walker Prior Function Level of [place] Independent with ADLs;Independent with functional transfers;Independent with ambulation;Independent with homemaking with ambulation Device used at baseline None (Sheep's crook occasionally) Fall History No Lives With Alone Receives Help From Family ADL Assistance Independent Homemaking Assistance Independent 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 Grown chidren that can assist PRN. Pain [...] at this time. Recommend return home at [facility] with family assist and follow-up outpatient P/T to address impairments. TO DOOR SELLING DISTRIBUTOR * Radha Middleton, OT - 07/16/2018 8:19 AM CST OT Initial Evaluation Discharge Recommendation: home with assistance Activity Recommendation for spectral scientist: Up with SBA and 2ww, gait belt. 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 Grown chidren that can assist PRN. Pain [...] Objective Pt seen for therapy seated EOB. TO DOOR SELLING DISTRIBUTOR documented in this encounter Consult Notes * Katie Gonzales MD - 07/16/2018 12:22 PM CST [place] Hospitalist Consultation Note Attending Provider: Chong Brenner [...] Sensitive TETRACYCLINE Sensitive KATIE GONZALES MD 07/16/2018 TO DOOR SELLING DISTRIBUTOR * Katie Gonzales MD - 07/15/2018 2:45 PM CST [place] Hospitalist Consultation Note TO DOOR SELLING DISTRIBUTOR documented in this encounter OR Notes * Op Note - Chong Brenner MD - 07/15/2018 12:48 PM CST Ciera Lundy Jasen, 1960, CSN: @[email or web address]@ D ARJUN BRENNER MD 07/15/2018 Surgeon: Chong BRENNER MD Anesthesia: Anesthesiologist: Sandrine Contreras MD SHELL CORE AND MOLDING SUPERVISOR: Hayley Shankar CRNA Implants: Implant Name Type Inv. Item Serial No. Mathematical Sciences Professor Lot No. LRB No. Used SHELL HEATH CONTINUUM TM CH 48MM GG - [id number] SHELL HEATH CONTINUUM TM CH 48MM GG [employer] [id number] Right 1 continium trilogy poly [employer]ATH [employer] [id number] Right 1 SCREW HEATH BONE 30MM - [id number] SCREW HEATH BONE 30MM [employer] [id number] Right 1 SCREW HEATH BONE 30MM - [id number] SCREW HEATH BONE 30MM [employer] [id number] Right 1 femoral stem [employer] INC [id number] Right 1 SHELL HEATH CONTINUUM TM CH 48MM GG - [id number] SHELL HEATH CONTINUUM TM CH 48MM GG [employer] [id number] Right 1 HEAD FEMORAL BIOLOX OPTION CERAMIC HEATH - [id number] HEAD FEMORAL BIOLOX OPTION CERAMIC HEATH [employer] [id number] Right 1 Preoperative diagnosis: Primary osteo-arthritis right hip Operation proposed: Right non- cemented total hip arthroplasty Postoperative diagnosis: As preop Operation performed: As preop stylist assistant: Antoine Sharif M.D. Indications for procedure: [...] no specimens and there were no complications. TO DOOR SELLING DISTRIBUTOR documented in this encounter Plan of Treatment Not on file documented as of this encounter Procedures Procedure Name Priority Date/Time Associated Diagnosis Comments SURG XR HIP RT 1V Routine 07/15/2018 12:31 PM DOOR TO DOOR SELLING DISTRIBUTOR ARTHROPLASTY HIP TOTAL 07/15/2018 10:58 AM DOOR TO DOOR SELLING DISTRIBUTOR OSTEOARTHRITIS, PAIN Case Notes HEATH ML TAPER CERAMIC/POLYDIRECT LATERALOFFICE TO NOTIFY REPREP CONTACTED BY [facility] HOSPITALIST documented in this encounter Results * SURG XR HIP RT 1V (07/15/2018 12:31 PM DOOR TO DOOR SELLING DISTRIBUTOR) Anatomical Region Laterality Modality Hip Radiographic Mary Jo ging 07/15/2018 6:23 PM DOOR TO DOOR SELLING DISTRIBUTOR Narrative 07/15/2018 6:24 PM DOOR TO DOOR SELLING DISTRIBUTOR Examination: SURG XR HIP RT 1V Exam [...] 0915, Until Discontinued Given 07/16/2018 9:31 AM DOOR TO DOOR SELLING DISTRIBUTOR 81 mg BUpivacaine-EPINEPHrine (PF) 0.25% -1:[id number] injection As needed, Starting on Thu07/15/18 at 1218, Until Thu07/15/18 at 1302, Intra-Op Given 07/15/2018 12:18 PM DOOR TO DOOR SELLING DISTRIBUTOR 20 mLs Right Hip diphenhydrAMINE (BENADRYL) 12.5 [...] Until Discontinued, Post-Op Given 07/16/2018 8:04 AM DOOR TO DOOR SELLING DISTRIBUTOR 100 mg ketorolac (TORADOL) injection 15 mg 15 mg, Intravenous, Every 6 hours PRN, Moderate pain (Scale 4 - 7), Starting on Thu07/15/18 at 1325, Until Thu07/16/18 at 1324, For patients 65 years or greater, less than 50 kg, or CrCl less than 30 mL/min., Post-Op Given 07/15/2018 1:31 PM DOOR TO DOOR SELLING DISTRIBUTOR 15 mg lactated ringers infusion at 10 mL/hr, Intravenous, Continuous, Starting on Thu07/15/18 at 1000, Until Thu07/16/18 at 1446, Pre-Op New Bag 07/15/2018 12:56 PM DOOR TO DOOR SELLING DISTRIBUTOR New Bag 07/15/2018 12:00 PM DOOR TO DOOR SELLING DISTRIBUTOR New Bag 07/15/2018 9:55 AM DOOR TO DOOR SELLING DISTRIBUTOR 10 mL/hr lactated ringers infusion at 100 mL/hr, Intravenous, Continuous, Starting on Thu07/15/18 at 1345, Until Thu07/16/18 at 1446, May discontinue IV Fluid when adequate oral intake, Post-Op New Bag 07/15/2018 1:27 PM DOOR TO DOOR SELLING DISTRIBUTOR 100 mL/hr levothyroxine (SYNTHROID) tablet 100 mcg 100 mcg, Oral, Nightly at bedtime, First dose on Thu07/15/18 at 2100, Until Discontinued, Avoid iron, calcium, and antacids within 4 hours of administration.Indications:Hypothy roidism Given 07/15/2018 8:27 PM DOOR TO DOOR SELLING DISTRIBUTOR 100 mcg meloxicam (MOBIC) tablet 15 mg 15 mg, Oral, Daily, First dose on Thu07/15/18 at 1700, Until Discontinued Given 07/16/2018 8:04 AM DOOR TO DOOR SELLING DISTRIBUTOR 15 mg Given 07/15/2018 5:40 PM DOOR TO DOOR SELLING DISTRIBUTOR 15 mg traMADol (ULTRAM) tablet 50 mg 50 mg, Oral, Every 6 hours, 4 doses, First dose on Mana 07/15/18 at 1915, Last dose on Thu07/16/18 at 1315, Max daily dose of tramadol equals 400 mg (200 mg if elderly or renally impaired), Post-Op Given 07/16/2018 8:04 AM DOOR TO DOOR SELLING DISTRIBUTOR 50 mg Given 07/16/2018 1:32 AM DOOR TO DOOR SELLING DISTRIBUTOR 50 mg Given 07/15/2018 7:06 PM DOOR TO DOOR SELLING DISTRIBUTOR 50 mg documented in this encounter Active and Recently Administered Medications Times are shown in DOOR TO DOOR SELLING DISTRIBUTOR. Scheduled Medication Order 07/14/2018 07/15/2018 07/16/2018 acetaminophen [...] (Scale 1 - 3), Fever, Starting on Amna 07/15/18 at 1551, Until Thu07/16/18 at 1446, Maximum dose of acetaminophen is 4000 mg from all sources in 24 hours., Post-Op ALPRAZolam (XANAX) tablet 0.25 mg 0.25 mg, Oral, 3 times daily PRN, Sleep, Anxiety, Starting on Mana 07/15/18 at 1551, Until Thu07/16/18 at 1446 BUpivacaine-EPINEPHrine (PF) 0.25% -1:[id number] injection (CANCELED) As needed, Starting on Mana [...] Post-Op documented in this encounter Care Teams Slag Worker Relationship Specialty Start Date End Date Stephany Novoa MD PCP - General INTERNAL MEDICINE 05/04/18 11/18/22 documented as of this encounter
--- OUTSIDE RECORDS SUMMARY | 2024-06-20 04:32 | XMS_ITS | Encounter Summary ---
Author Organization [facility] Address [address] [place] [address]. [place] [address] [place] [address] Care Team Providers Care Varitypist Name Role Phone Kathy Hooker MD Primary Care Provider [phone] Encounter Details Date Type Department Care Team (Late st Contact Info) Description 07/05/2018 Orders Only [facility] [address] [place] [address] Kathy Hooker MD [address] [place] [address] Social History Tobacco Use Types Packs/Day Years Used Date Smoking Tobacco: Never Smokeless Tobacco: Never Alcohol Use Standard Drinks/Week Comments Yes 0 (1 standard drink = 0.6 oz pur e alcohol) socially Comments Unknown Sex and Gender Information Value Date Recorded Sex Assigned at Female 11/04/2022 9:01 AM CDT Legal Sex Female 11:19 PM CUSTOMER SERVICE REPRESENTATIVE TEACHER Gender Identity Female 11/04/2022 9:01 AM CDT Sexual Orientation Straight 11/04/2022 9: 01 AM CDT documented as of this encounter Plan of Treatment Not on file documented as of this encounter Results * CULTURE URINE (OUTPATIENTS) (07/09/2018 12:00 PM CUSTOMER SERVICE REPRESENTATIVE TEACHER) SPEC DESCRIPTION URINE, UNSPECIFIED 07/10/2018 5:59 AM CUSTOMER SERVICE REPRESENTATIVE TEACHER [facility] SPECIAL REQUESTS NO SPECIAL REQUEST 07/10/2018 5:59 AM CUSTOMER SERVICE REPRESENTATIVE TEACHER [facility] CULTURE RESULT >100,000 CFU/mL ESCHERICHIA COLI 07/12/2018 7:31 AM CUSTOMER SERVICE REPRESENTATIVE TEACHER [facility] URINE SPECIMEN / Unknown 07/09/2018 12:00 PM CUSTOMER SERVICE REPRESENTATIVE TEACHER 07/10/2018 6:14 AM CUSTOMER SERVICE REPRESENTATIVE TEACHER Narrative Organism Antibiotic Method Susceptibility Escherichia coli [...] Edited Result - Final Performing Organization Address [facility]/ZIP Co de Phone Number [facility] [address] [place] [address], [phone] * THYROXINE, FREE (FT4) (07/05/2018 9:52 AM CUSTOMER SERVICE REPRESENTATIVE TEACHER) FREE T4 1.02 0.76 - 1.46 NG/DL 07/05/2018 11:31 AM CUSTOMER SERVICE REPRESENTATIVE TEACHER [facility] 07/05/2018 9:52 AM CUSTOMER SERVICE REPRESENTATIVE TEACHER Kathy Hooker MD LABORATORY Final Res ult [facility] [address] [place] [address], [id number] * (ABNORMAL) THYROID STIM HORMONE, TSH (07/05/2018 9:52 AM CUSTOMER SERVICE REPRESENTATIVE TEACHER) TSH 6.330(H) 0.358 - 3.740 uIU/ML 07/05/2018 11:31 AM CUSTOMER SERVICE REPRESENTATIVE TEACHER [facility] 07/05/2018 9:52 AM CUSTOMER SERVICE REPRESENTATIVE TEACHER Kathy Hooker MD LABORATORY Final Res ult Performing Organization Address City/[facility]/ZIP Co de Phone Number [facility] [address] [place] [address], [id number] * MRSA PCR nares Screening (07/05/2018 9:52 AM CUSTOMER SERVICE REPRESENTATIVE TEACHER) Pathologist [facility] SPECIMEN SOURCE RESPIRATORY, NOSE 07/05/2018 9:45 AM CUSTOMER SERVICE REPRESENTATIVE TEACHER [facility] MRSA BY PCR NASAL METHICILLIN RESISTANT STAPH AUREUS NOT DETECTED 07/05/2018 2:39 PM CUSTOMER SERVICE REPRESENTATIVE TEACHER [facility] NASAL STRUCTURE / Unknown 07/05/2018 9:52 AM CUSTOMER SERVICE REPRESENTATIVE TEACHER Kathy Hooker MD MICROBIOLOGY - GENERAL OR DERABLES Final Result Performing Organization Address City/[facility]/ZIP Co de Phone Number [facility] [address] [place] [address], [phone] * (ABNORMAL) COMPREHENSIVE METABOLIC PANEL (07/05/2018 9:52 AM CUSTOMER SERVICE REPRESENTATIVE TEACHER) SODIUM S/P/B 140 136 - 145 MMOL/L 07/05/2018 11:31 AM CUSTOMER SERVICE REPRESENTATIVE TEACHER [facility] POTASSIUM S/P/B 3.7 3.5 - 5.1 MMOL/L 07/05/2018 11:31 AM CUSTOMER SERVICE REPRESENTATIVE TEACHER [facility] CHLORIDE S/P/B 108(H) 98 - 107 MMOL/L 07/05/2018 11:31 AM [facility] CO2 26.8 21.0 - 32.0 MMOL/L 07/05/2018 11:31 AM [facility] GLUCOSE 99 74 - 106 MG/DL 07/05/2018 11:31 AM [facility] BUN 19(H) 7 - 18 MG/DL 07/05/2018 11:31 AM [facility] CREATININE S/P/B 1.03(H) 0.55 - 1.02 MG/DL 07/05/2018 11:31 AM [facility] CALCIUM S/P/B 8.8 8.4 - 10.5 MG/DL 07/05/2018 11:31 AM [facility] BILIRUBIN TOTAL S/P/B 0.5 0.2 - 1.0 MG/DL 07/05/2018 11:31 AM [facility] ALKALINE PHOSPHATASE S/P/B 69 46 - 118 U/L 07/05/2018 11:31 AM [facility] AST 18 15 - 37 U/L 07/05/2018 11:31 AM [facility] ALT 26 13 - 56 U/L 07/05/2018 11:31 AM [facility] TOTAL PROTEIN S/P/B 7.5 6.4 - 8.2 G/DL 07/05/2018 11:31 AM [facility] ALBUMIN S/P/B 4.1 3.4 - 5.0 G/DL 07/05/2018 11:31 AM [facility] ANION GAP 5.2 MMOL/L 07/05/2018 11:31 AM [facility] Comment:REFERENCE RANGE NOT ESTABLISHED OSMOLALITY (CALC) 292 MOSM/KG 07/05/2018 11:31 AM [facility] Comment:REFERENCE RANGE NOT ESTABLISHED EGFR NON-AFR. AMER. 60(L) >90 ML/MIN/1 .73 M2 07/05/2018 11:31 AM [facility] EGFR AFR. AMER. 69(L) >90 ML/MIN/1 .73 M2 07/05/2018 11:31 AM [facility] GFR NOTES THE ESTIMATED GFR IS CALCULATED USING THE 2009 CKD-EPI EQUATION. THE FOLLOWING CATEGORIES FOR GRADING RENAL FUNCTION ARE RECOMMENDED BY THE INTERNATIONAL SOCIETY OF NEPHROLOGY (KDIGO 2012 CLINICAL PRACTICE GUIDELINE). 07/05/2018 11:31 AM [facility] Comment: G1,NORMAL OR HIGH: >89 ml/min/1.73 m2 G2,MILDLY DECREASED: 60-89 ml/min/1.73 m2 G3A,MILDLY TO MODERATELY DECREASED: 45-59 ml/min/1.73 m2 G3B,MODERATELY TO SEVERELY DECREASED: 30-44 ml/min/1.73 m2 G4,SEVERELY DECREASED: 15-29 ml/min/1.73 m2 G5,KIDNEY FAILURE: <15 ml/min/1.73 m2 07/05/2018 9:52 AM CUSTOMER SERVICE REPRESENTATIVE TEACHER us Kathy Hooker MD LABORATORY Final Res ult [facility] [address] [place] [address], [id number] * CBC W/DIFF AUTOMATED (07/05/2018 9:52 AM CUSTOMER SERVICE REPRESENTATIVE TEACHER) WBC 5.6 4.0 - 10.8 x10'3/uL 07/05/2018 10:06 AM [facility] RBC 4.63 4.10 - 5.40 x10'6/uL 07/05/2018 10:06 AM [facility] HGB 14.3 12.0 - 16.0 G/DL 07/05/2018 10:06 AM [facility] HCT 41.9 36.0 - 47.0 % 07/05/2018 10:06 AM [facility] MCV 90.5 78.0 - 100.0 FL 07/05/2018 10:06 AM [facility] MCH 30.9 27.0 - 31.0 PG 07/05/2018 10:06 AM [facility] MCHC 34.1 33.0 - 36.0 G/DL 07/05/2018 10:06 AM [facility] RDW 12.8 11.5 - 14.5 % 07/05/2018 10:06 AM [facility] PLT 258 150 - 350 x10'3/uL 07/05/2018 10:06 AM [facility] MPV 9.7 7.4 - 10.4 FL 07/05/2018 10:06 AM [facility] ABS. NEUTROPHILS TOTAL 2.93 1.60 - 8.30 x10'3/uL 07/05/2018 10:06 AM [facility] ABS. LYMPHOCYTES 2.18 0.80 - 4.70 x10'3/uL 07/05/2018 10:06 AM [facility] ABS. MONOCYTES 0.34 0.00 - 1.50 x10'3/uL 07/05/2018 10:06 AM [facility] ABS. EOSINOPHILS 0.13 0.00 - 0.40 x10'3/uL 07/05/2018 10:06 AM [facility] ABS. BASOPHILS 0.03 0.00 - 0.20 x10'3/uL 07/05/2018 10:06 AM [facility] ABS. IMMATURE GRANULOCYTES 0.02 0.00 - 0.03 x10'3/uL 07/05/2018 10:06 AM [facility] ABS. NUCLEATED RBC'S 0.00 0.0 x10'3/uL 07/05/2018 10:06 AM [facility] 07/05/2018 9:52 AM CUSTOMER SERVICE REPRESENTATIVE TEACHER us Kathy Hooker MD LABORATORY Final Res ult [facility] [address] [place] [address], [place] [phone] * (ABNORMAL) URINALYSIS (07/05/2018 9:52 AM CUSTOMER SERVICE REPRESENTATIVE TEACHER) COLOR (U) YELLOW 07/05/2018 10:36 AM [facility] TRANSPARENCY SLIGHTLY CLOUDY 07/05/2018 10:36 AM [facility] SPECIFIC GRAVITY (U) 1.024 1.002 - 1.035 07/05/2018 10:36 AM [facility] U PH 5.0 5 - 8 07/05/2018 10:36 AM [facility] PROTEIN (U) NEGATIVE NEGATIVE 07/05/2018 10:36 AM [facility] URINE GLUCOSE NEGATIVE NEGATIVE MG/DL 07/05/2018 10:36 AM [facility] KETONES MG/DL (U) NEGATIVE NEGATIVE 07/05/2018 10:36 AM [facility] BILIRUBIN (U) NEGATIVE NEGATIVE 07/05/2018 10:36 AM [facility] BLOOD (U) NEGATIVE NEGATIVE 07/05/2018 10:36 AM [facility] NITRITES NEGATIVE NEGATIVE 07/05/2018 10:36 AM [facility] UROBILINOGEN NORMAL 0 - 1 EU/DL 07/05/2018 10:36 AM [facility] LEUKOCYTES (U) LARGE(A) NEGATIVE 07/05/2018 10:36 AM [facility] RBC/HPF 2 0 - 3 /HPF 07/05/2018 10:36 AM [facility] WBC/HPF 19(H) 0 - 6 /HPF 07/05/2018 10:36 AM [facility] BACTERIA (U) PRESENT /HPF 07/05/2018 10:36 AM [facility] SQUAMOUS EPITHELIALS 19 07/05/2018 10:36 AM [facility] NON SQUAMOUS EPITHELIAL 2 /HPF 07/05/2018 10:36 AM [facility] URINE SPECIMEN FROM URETHRA / Unknown 07/05/2018 9:52 AM CUSTOMER SERVICE REPRESENTATIVE TEACHER us Kathy Hooker MD URINE ORDERABLES Final Re sult [facility] [address] [place] [address], [id number] documented in this encounter Visit Diagnoses Diagnosis Pain in joint, pelvic region and thigh- Primary Abnormal finding in urine Other nonspecific finding on examination of urine documented in this encounter Care Teams Varitypist Relationship Specialty Start Date End Date Kathy Hooker MD PCP - General INTERNAL MEDICINE 05/04/18 11/18/22 documented as of this encounter
--- OUTSIDE RECORDS SUMMARY | 2024-06-20 04:32 | XMS_ITS | Encounter Summary ---
Author Organization [facility] Address [facility]ly [facility] [place] [address] [place] [address] Care Team Providers Care Channel Cementer Outsole Machine Name Role Phone Kathy Hooker MD Primary Care Provider [phone] Reason for Visit * Reason Onset Date Comments Record Request 05/27/2018 Notes needed for referral Encounter Details Date Type Department Care Team (Late st Contact Info) Description 05/27/2018 Telephone [facility] [place] [address], [place] [address] Hair Morris, DPM [address] [place] [address] Record Request (Notes needed for referral) Social History Tobacco Use Types Packs/Day Years Used Date Smoking Tobacco: Never Assessed Comments Unknown Sex and Gender Information Value Date Recorded Sex Assigned at Female 11/04/2022 9:01 AM CDT Legal Sex Female 11:19 PM FINANCIAL AID ADMINISTRATOR Gender Identity Female 11/04/2022 9:01 AM CDT [...] Aggarwal,whom he referred. Please fax info to [phone], Attn: Randa NCIAL AID ADMINISTRATOR documented in this encounter Plan of Treatment Not on file documented as of this encounter Visit Diagnoses Not on filedocumented in this encounter Care Teams Channel Cementer Outsole Machine Relationship Specialty Start Date End Date Kathy Hooker MD PCP - General INTERNAL MEDICINE 05/04/18 11/18/22 documented as of this encounter
--- OUTSIDE RECORDS SUMMARY | 2024-06-20 04:32 | XMS_ITS | Encounter Summary ---
Author Organization [facility] Address On license of [facility] [place] [address] [place] [address] Care Team Providers Care Railroad Construction Director Name Role Phone Kathy Hooker MD Primary Care Provider [phone] Encounter Details Date Type Department Care Team (Late st Contact Info) Description 08/23/2018 Abstract [facility] [address] [place] [address] Chong Aviles MD [address] [place], [place] [id number] Social History Tobacco Use Types Packs/Day Years Used Date Smoking Tobacco: Never Smokeless Tobacco: Never Alcohol Use Standard Drinks/Week Comments Yes 0 (1 standard drink = 0.6 oz pur e alcohol) socially Comments Unknown Sex and Gender Information Value Date Recorded Sex Assigned at Female 11/04/2022 9:01 AM CDT Legal Sex Female 11:19 PM AIRCRAFT ACCESSORIES MECHANIC Gender Identity Female 11/04/2022 9:01 AM CDT Sexual Orientation Straight 11/04/2022 9: 01 AM CDT documented as of this encounter Functional Status * RETIRED Are you deaf or do you have serious difficulty hearing Answer Date of Assessment Author Status No 07/15/2018 4:29 PM AIRCRAFT ACCESSORIES MECHANIC Activ e * RETIRED Are you blind or do you have serious difficulty seeing, even when wearing glasses? Answer Date of Assessment Author Status No 07/15/2018 4:29 PM AIRCRAFT ACCESSORIES MECHANIC Activ e * Do you have serious [...] thigh documented in this encounter Care Teams Railroad Construction Director Relationship Specialty Start Date End Date Kathy Hooker MD PCP - General INTERNAL MEDICINE 05/04/18 11/18/22 documented as of this encounter
--- OUTSIDE RECORDS SUMMARY | 2024-06-20 04:32 | XMS_ITS | Encounter Summary ---
Author Organization [facility] Address [facility] [place] [address] [place] [address] Care Team Providers Care Parts Room Clerk Name Role Phone Unavailable Primary Care Provider Unavailabl e Encounter Details Date Type Department Care Team (Latest Contact Info) Description 04/20/2018 Abstract [facility] Hair Morris DPM [address] [place], [place] [id number] Social History Tobacco Use Types Packs/Day Years Used Date Smoking Tobacco: Never Assessed Comments Unknown Sex and Gender Information Value Date Recorded Sex Assigned at Female 11/04/2022 9:01 AM CDT Legal Sex Female 11:19 PM SQE Gender Identity Female 11/04/2022 9:01 AM CDT [...] the foot and arch area. Also, some gwkr-[id number]-[id number] type sensation especially at night when she [...] 1. Synthroid 50 MCG Oral Tablet; Therapy: (Recorded:[id number]) to Recorded 2. Xanax 0.25 MG Oral Tablet; Therapy: (Recorded:[id number]) to Recorded Allergies 1. No Known Drug Allergies Vitals Recorded: 20Apr2018 09:01AM Heart Rate 77 Systolic 112 Diastolic 70 Height 5 ft 5 in Weight 120 lb BMI Calculated 19.97 BSA Calculated 1.59 Physical Exam Vascular: There are palpable pulses dorsalis pedis and posterior tibial bilaterally. Capillary refill is brisk. Neurological: Patient is able to palpate the Kimball-Jeremy monofilament 10/10 although again subjectively she reports [...] Hair Morris DPM; Apr 21 2018 8:33AM SQE (Author) documented in this encounter Plan of Treatment Not on file documented as of this encounter Visit Diagnoses Not on filedocumented in this encounter
--- OUTSIDE RECORDS SUMMARY | 2024-06-20 04:32 | XMS_ITS | Encounter Summary ---
Author Organization [facility] Address [facility] [place] [address] [place] [address] Care Team Providers Care Consumer Loan Manager Name Role Phone Kathy Hooker MD Primary Care Provider [phone] [phone] Encounter Details Date Type Department Care Team (Latest Contact Info) Description 07/09/2018 5:58 AM AUDIOVISUAL LEAD TECHNICIAN - 07/09/2018 11:59 PM [facility] Hospital Encounter [facility] [address] [place] [address] Kathy Hooker MD [address] [place] [phone] Discharge Disposition: Home or Self Care (Routine Discharge) Social History Tobacco Use Types Packs/Day Years Used Date Smoking Tobacco: Never Smokeless Tobacco: Never Alcohol Use Standard Drinks/Week Comments Yes 0 (1 standard drink = 0.6 oz pur e alcohol) socially Comments Unknown Sex and Gender Information Value Date Recorded Sex Assigned at Female 11/04/2022 9:01 AM CDT Legal Sex Female 11:19 PM AUDIOVISUAL LEAD TECHNICIAN Gender Identity Female 11/04/2022 9:01 AM [...] CULTURE URINE (OUTPATIENTS) Routine 07/09/2018 12:00 PM AUDIOVISUAL LEAD TECHNICIAN Abnormal finding in urine documented in this encounter Results * CULTURE URINE (OUTPATIENTS) (07/09/2018 12:00 PM AUDIOVISUAL LEAD TECHNICIAN) SPEC DESCRIPTION URINE, UNSPECIFIED 07/10/2018 5:59 AM [facility] SPECIAL REQUESTS NO SPECIAL REQUEST 07/10/2018 5:59 AM [facility] CULTURE RESULT >100,000 CFU/mL ESCHERICHIA COLI 07/12/2018 7:31 AM [facility] URINE SPECIMEN / Unknown 07/09/2018 12:00 PM AUDIOVISUAL LEAD TECHNICIAN 07/10/2018 6:14 AM AUDIOVISUAL LEAD TECHNICIAN Narrative Organism Antibiotic Method Susceptibility Escherichia [...] GENERAL OR DERABLES Edited Result - Final [facility] [address] [place] [address], [id number] documented in this encounter Visit Diagnoses Diagnosis Abnormal finding in urine Other nonspecific finding on examination of urine documented in this encounter Care Teams Consumer Loan Manager Relationship Specialty Start Date End Date Kathy Hooker MD PCP - General INTERNAL MEDICINE 05/04/18 11/18/22 documented as of this encounter
--- OUTSIDE RECORDS SUMMARY | 2024-06-20 04:32 | XMS_ITS | Encounter Summary ---
Author Organization [facility] Address [facility] [place] [address] [place] [address] Care Team Providers Care Cargo Worker Name Role Phone Unavailable Primary Care Provider Unavailabl e Encounter Details Date Type Department Care Team (Latest Contact Info) Description 02/16/2018 7:30 AM CDT - 02/16/2018 11:59 PM CDT Hospital Encounter [facility] [address] [place] [address] Kathy Novoa MD [address] [place] [address] [phone] Discharge Disposition: Home or Self Care (Routine Discharge) Social History Tobacco Use Types Packs/Day Years Used Date Smoking Tobacco: Never Assessed Comments Unknown Sex and Gender Information Value Date Recorded Sex Assigned at Female 11/04/2022 9:01 AM CDT Legal Sex Female 11:19 PM CRAP SHOOTER Gender Identity Female 11/04/2022 9:01 AM CDT [...]
--- OUTSIDE RECORDS SUMMARY | 2024-06-20 04:32 | XMS_ITS | Encounter Summary ---
Author Organization [facility] Address [address] [place] [address]. [place] [address] [place] [address] Care Team Providers Care Diamond Grinder Name Role Phone Toma Pete Primary Care Provider [phone] Reason for Visit * Imaging (Routine) - Closed Specialty Diagnoses / Procedures Referred By Umair freeman Referred To Contact RADIOLOGY Diagnoses Visit for screening mammogram Procedures MG SCREENING W PATY DANIELLA DIGI Angelina Ovalles, UPHOLSTERY MECHANIC-BC [address] [place] [address] Phone: tel: fax: Referral ID Status Reason Start Date Expiration Date Visits Re quested Visits Authorized [id number] Closed 10/15/2022 10/16/2023 1 1 Encounter Details Date Type Department Care Team (Late st Contact Info) Description 11/19/2022 4:00 PM CDT - 11/19/2022 11:59 PM CDT Hospital Encounter [facility] [address] [place] [address] Angelina Ovalles, UPHOLSTERY MECHANIC-BC [address] [place] [address] Discharge Disposition: Home or Self Care [...] AM CDT Legal Sex Female 11:19 PM INSTRUMENT LENS GRINDER APPRENTICE Gender Identity Female 11/04/2022 9:01 AM [...] Assessment Author Status No 07/15/2018 4:29 PM INSTRUMENT LENS GRINDER APPRENTICE Activ e * RETIRED Are you blind or do you have serious difficulty seeing, even when wearing glasses? Answer Date of Assessment Author Status No 07/15/2018 4:29 PM INSTRUMENT LENS GRINDER APPRENTICE Activ e * Do you have serious [...] Wilhelm MD, 11/21/2022 3:32 PM Angelina Ovalles UPHOLSTERY MECHANIC-BC MAMMO Final Result documented in this encounter Visit Diagnoses Not on filedocumented in this encounter Care Teams Diamond Grinder Relationship Specialty Start Date End Date Toma Pete PA [address] [place] [id number] PCP - General PHYSICIAN WEIGHT LOSS PHYSICIAN 11/19/22 documented as of this encounter
--- OUTSIDE RECORDS SUMMARY | 2024-06-20 04:32 | XMS_ITS | Encounter Summary ---
Author Organization [facility] Address [address] [place] [address] [place] [address] Care Team Providers Care Sales Support Consultant Name Role Phone Kathy Hooker MD Primary Care Provider [phone] Encounter Details Date Type Department Care Team (Latest Contact Info) Description 06/06/2019 7:22 AM DEPUTY CHIEF SHERIFF - 06/06/2019 11:59 PM [facility] Hospital Encounter [facility] [address] [address] Kathy Hooker MD [address] [place], [place] [address] Discharge Disposition: Home or Self Care (Routine [...] AM CDT Legal Sex Female 11:19 PM DEPUTY CHIEF SHERIFF Gender Identity Female 11/04/2022 9:01 AM CDT Sexual Orientation Straight 11/04/2022 9: 01 AM CDT documented as of this encounter Functional Status * RETIRED Are you deaf or do you have serious difficulty hearing Answer Date of Assessment Author Status No 07/15/2018 4:29 PM DEPUTY CHIEF SHERIFF Activ e * RETIRED Are you blind or do you have serious difficulty seeing, even when wearing glasses? Answer Date of Assessment Author Status No 07/15/2018 4:29 PM DEPUTY CHIEF SHERIFF Activ e * Do you have serious [...] Comments LIPID PANEL Routine 06/06/2019 7:50 AM DEPUTY CHIEF SHERIFF Healthcare maintenance THYROXINE, FREE (FT4) Routine 06/06/2019 7:50 AM DEPUTY CHIEF SHERIFF Hypothyroidism THYROID STIM HORMONE TSH Routine 06/06/2019 7:50 AM DEPUTY CHIEF SHERIFF Hypothyroidism documented in this encounter Results * THYROXINE, FREE (FT4) (06/06/2019 7:50 AM DEPUTY CHIEF SHERIFF) FREE T4 0.93 0.76 - 1.46 NG/DL 06/06/2019 8:47 AM DEPUTY CHIEF SHERIFF [facility] 06/06/2019 7:50 AM DEPUTY CHIEF SHERIFF us Kathy Hooker MD LABORATORY Final Res ult [facility] [address] [place] [address], * (ABNORMAL) LIPID PANEL (06/06/2019 7:50 AM DEPUTY CHIEF SHERIFF) CHOLESTEROL 196 <200 MG/DL 06/06/2019 8:47 AM DEPUTY CHIEF SHERIFF [facility] Comment: THE NATIONAL LIPID ASSOCIATION AND THE NATIONAL CHOLESTEROL EDUCATION PROGRAM (NCEP) HAVE SET THE FOLLOWING GUIDELINES FOR TOTAL CHOLESTEROL IN ADULTS AGES 18 AND UP. DESIRABLE: <200 BORDERLINE HIGH: 200-239 HIGH: > OR = 240 TRIGLYCERIDES 165(H) <150 MG/DL 06/06/2019 8:47 AM DEPUTY CHIEF SHERIFF [facility] Comment: THE NATIONAL LIPID ASSOCIATION AND THE NATIONAL CHOLESTEROL EDUCATION PROGAM (NCEP) HAVE SET THE FOLLOWING GUIDELINES FOR TRIGLYCERIDES IN ADULTS AGES 18 AND UP. NORMAL: <150 BORDERLINE HIGH: 150 TO 199 HIGH: 200 TO 499 VERY HIGH: >499 HDL 46(L) >49 MG/DL 06/06/2019 8:47 AM DEPUTY CHIEF SHERIFF [facility] Comment: THE NATIONAL LIPID ASSOCIATION AND THE NATIONAL CHOLESTEROL EDUCATION PROGAM (NCEP) HAVE SET THE FOLLOWING GUIDELINES FOR HDL CHOLESTEROL IN ADULTS AGES 18 AND UP. MALES: >39 FEMALES: >49 LDL (CALCULATED) 117(H) <100 MG/DL 06/06/20 19 8:47 AM DEPUTY CHIEF SHERIFF [facility] Comment: THE NATIONAL LIPID ASSOCIATION AND THE NATIONAL CHOLESTEROL EDUCATION PROGAM (NCEP) HAVE SET THE FOLLOWING GUIDELINES FOR LDL CHOLESTEROL IN ADULTS AGES 18 AND UP. DESIRABLE: <100 ABOVE DESIRABLE: 100 TO 129 BORDERLINE HIGH: 130 TO 159 HIGH: 160 TO 189 VERY HIGH: >189 VLDL CALCULATION 33 MG/DL 06/06/20 19 8:47 AM DEPUTY CHIEF SHERIFF [facility] Comment:REFERENCE RANGE NOT ESTABLISHED CHOL/HDL RATIO 4.3 06/06/2019 8:47 AM DEPUTY CHIEF SHERIFF [facility] Comment:REFERENCE RANGE NOT ESTABLISHED LDL/HDL 2.5 06/06/2019 8:47 AM DEPUTY CHIEF SHERIFF [facility] Comment:REFERENCE RANGE NOT ESTABLISHED NON HDL CHOLESTEROL 150 MG/DL 06/06/2019 8:47 AM DEPUTY CHIEF SHERIFF [facility] Comment:REFERENCE RANGE NOT ESTABLISHED 06/06/2019 7:50 AM DEPUTY CHIEF SHERIFF us Kathy Hooker MD LABORATORY Final Res ult Performing Organization Address [facility]/ZIP Co de Phone Number [facility] [address] [place] [address], * (ABNORMAL) THYROID STIM HORMONE, TSH (06/06/2019 7:50 AM DEPUTY CHIEF SHERIFF) TSH 14.019(H) 0.358 - 3.740 uIU/ML 06/06/2019 8:47 AM DEPUTY CHIEF SHERIFF [facility] 06/06/2019 7:50 AM DEPUTY CHIEF SHERIFF Kathy Hooker MD LABORATORY Final Res ult Performing Organization Address City/[facility] Co de Phone Number [facility] [address] [place] [address], documented in this encounter Visit Diagnoses Diagnosis Hypothyroidism Unspecified hypothyroidism Healthcare maintenance Routine general medical examination at a health care facility documented in this encounter Care Teams Sales Support Consultant Relationship Specialty Start Date End Date Kathy Hooker MD PCP - General INTERNAL MEDICINE 05/04/18 11/18/22 documented as of this encounter
--- OUTSIDE RECORDS SUMMARY | 2024-06-20 04:32 | XMS_ITS | Encounter Summary ---
Author Organization [facility] Address [address] [place] [address]. [place] [address] [place] [address] Care Team Providers Care [employer] Name Role Phone Unavailable Primary Care Provider Unavailabl e Encounter Details Date Type Department Care Team (Latest Contact Info) Description 04/26/2018 Abstract [facility] Md, Generic Conversion, Social History Tobacco Use Types Packs/Day Years Used Date Smoking Tobacco: Never Assessed Comments Unknown Sex and Gender Information Value Date Recorded Sex Assigned at Female 11/04/2022 9:01 AM CDT Legal Sex Female 11:19 PM ACCOUNTING INTERN Gender Identity Female 11/04/2022 9:01 AM CDT Sexual Orientation Straight 11/04/2022 9 :01 AM CDT documented as of this encounter Last Filed Vital Signs Vital Sign Reading Time Taken Comments Blood Pressure 120/73 04/26/2018 9:19 AM ACCOUNTING INTERN Pulse 84 04/26/2018 9:19 AM ACCOUNTING INTERN Temperature - - Respiratory Rate - - Oxygen Saturation - - Inhaled Oxygen Concentration - - Weight 54.4 kg (120 lb) 04/26/2018 9:19 AM ACCOUNTING INTERN Height 165.1 cm (5' 5 ) 04/26/2018 9:19 AM ACCOUNTING INTERN Body Mass Index 19.97 04/26/2018 9:19 AM ACCOUNTING INTERN documented in this encounter Progress Notes * [...] Hair Morris DPM; Apr 27 2018 7:02AM ACCOUNTING INTERN (Author) UNTING INTERN * Generic Conversion , - 04/26/2018 9:00 AM CST Message PER DR LEBRON SCHEDULED PT WITH DR SCHMIDT AT HIS [facility] LOCATION TO RULE OUT RHEUMATOID ARTHRITIS. HIS TELEPHONE NUMBER IS [phone]. SCHEDULED HER APPT FOR 05/31/18 AT 9:45 AM. HIS LOCATION IS [address] [place] [address], CALLED PT TO LET HER KNOW [facility]- Plan 1. Bupivacaine HCl - 0.5 % [...] MA: 04/26/2018 10:23:00 AM; Last Updated By: Caimlla Hernandez; 04/26/2018 10:23:16 AM Formulary Override Reason: No Formulary Equivalent Exists 3. Lidocaine HCl - 1 % Injection Solution Rx By: Hair Morris; For: Metatarsalgia, unspecified laterality; Dose of 0.25 ML; Injection; SRIDHAR= N; Administered by: Camilla Hernandez MA: 04/26/2018 10:25:00 AM; Last Updated By: Camilla Hernandez; 04/26/2018 10:25:49 AM Signatures Electronically signed by : Camilla Hernandez MA; May 07 2018 11:23AM ACCOUNTING INTERN (Author) UNTING INTERN documented in this encounter Miscellaneous Notes * [...] by:Hair Morris DPM Apr 27 2018 7:03AM ACCOUNTING INTERN Author UNTING INTERN documented in this encounter Plan of Treatment Not on file documented as of this encounter Visit Diagnoses Not on filedocumented in this encounter
--- OUTSIDE RECORDS SUMMARY | 2024-06-20 04:32 | XMS_ITS | Encounter Summary ---
Author Organization [facility] Address [facility] [facility] [place] [address] [place] [address] Care Team Providers Care Director Of Direct Marketing Name Role Phone Kathy Hooker MD Primary Care Provider [phone] Encounter Details Date Type Department Care Team (Late st Contact Info) Description 04/09/2018 Abstract [facility] [address] [place] [address] Kathy Hooker MD [address] [place], [place] [address] Social History Tobacco Use Types Packs/Day Years Used Date Smoking Tobacco: Never Assessed Comments Unknown Sex and Gender Information Value Date Recorded Sex Assigned at Female 11/04/2022 9:01 AM CDT Legal Sex Female 11:19 PM BUS AIDE Gender Identity Female 11/04/2022 9:01 AM [...] - 3.740 uIU/ML 04/09/2018 3:33 PM CDT [facility] SERUM OR PLASMA SPECIMEN / Unknown 04/09/2018 3:00 PM CDT 04/09/2018 3:10 PM CDT us Generic Conversion Md [facility] Final R esult Performing Organization Address City/[facility]/ZIP Co de Phone Number [facility] [address] [place] [address], * THYROXINE, FREE (FT4) (04/09/2018 3:00 PM CDT) FREE T4 0.91 0.76 - 1.46 NG/DL 04/09/2018 3:33 PM CDT [facility] SERUM OR PLASMA SPECIMEN / Unknown 04/09/2018 3:00 PM CDT 04/09/2018 3:10 PM CDT us Generic Conversion Md [facility] Final R esngozi Performing Organization Address City/[facility]/ZIP Co de Phone Number [facility] [address] [place] [address], [place] [phone] * (ABNORMAL) CREATININE (04/09/2018 3:00 PM CDT) CREATININE S/P/B 1.12(H) 0.55 - 1.02 MG/DL 04/09/2018 3:33 PM CDT [facility] EGFR NON-AFR. AMER. 54(L) >89 ML/MIN/1 .73 M2 04/09/2018 3:33 PM CDT [facility] EGFR AFR. AMER. 63(L) >89 ML/MIN/1 .73 M2 04/09/2018 3:33 PM CDT [facility] GFR NOTES THE ESTIMATED GFR IS CALCULATED USING THE 2009 CKD-EPI EQUATION. THE FOLLOWING CATEGORIES FOR GRADING RENAL FUNCTION ARE RECOMMENDED BY THE INTERNATIONAL SOCIETY OF NEPHROLOGY (KDIGO 2012 CLINICAL PRACTICE GUIDELINE). 04/09/2018 3:33 PM CDT [facility] Comment: G1,NORMAL OR HIGH: >89 ml/min/1.73 m2G2,MILDLY DECREASED: 60-89 ml/min/1.73 m2G3A,MILDLY TO MODERATELY DECREASED: 45-59 ml/min/1.73 m2G3B,MODERATELY TO SEVERELY DECREASED: 30-44 ml/min/1.73 m2G4,SEVERELY DECREASED: 15-29 ml/min/1.73 m2G5,KIDNEY FAILURE: <15 ml/min/1.73 m2 SERUM OR PLASMA SPECIMEN / Unknown 04/09/2018 3:00 PM CDT 04/09/2018 3:10 PM CDT us Generic Conversion Md [facility] Final R esult Performing Organization Address City/[facility]/ZIP Co de Phone Number [facility] [address] [place] [address], * UREA NITROGEN, BLOOD (BUN) QUANT (04/09/2018 3:00 PM CDT) BUN 23 6 - 24 MG/DL 04/09/2018 3:33 PM CDT [facility] SERUM OR PLASMA SPECIMEN / Unknown 04/09/2018 3:00 PM CDT 04/09/2018 3:10 PM CDT us Generic Conversion Md [facility] Final R esult Performing Organization Address City/[facility]/ZIP Co de Phone Number [facility] [address] [place] [address], [place] [phone] documented in this encounter Visit Diagnoses Diagnosis Pain of foot Pain in limb documented in this encounter Care Teams Director Of Direct Marketing Relationship Specialty Start Date End Date aKthy Hooker MD PCP - General INTERNAL MEDICINE 05/04/18 11/18/22 documented as of this encounter
--- OUTSIDE RECORDS SUMMARY | 2024-06-20 04:32 | XMS_ITS | Encounter Summary ---
Author Organization [facility] Address [facility] [place] [place] [address] [place] [address] Care Team Providers Care Discovery Manager Name Role Phone Stephany Novoa MD Primary Care Provider +1 -[phone] Reason for Referral * (Routine) - Canceled Specialty Diagnoses / Procedures Referred By Contac t Referred To Contact Procedures PT Eval and Treat Chong Brenner MD [address] [place] [address] Phone: tel: fax: Referral ID Status Reason Start Date Expiration Date V isits Requested Visits Authorized [id number] Canceled 07/15/2018 08/15/2019 1 1 LERATOR OPERATOR * (Routine) - Closed Specialty Diagnoses / Procedures Referred By Contac t Referred To Contact Procedures OT Eval and Treat Chong Brenner MD [address] [place] [address] Phone: tel: fax: Referral ID Status Reason Start Date Expiration Date Visits Re quested Visits Authorized [id number] Closed 07/15/2018 08/15/2019 1 1 LERATOR OPERATOR Reason for Visit * Auth/Cert Specialty Diagnoses / Procedures Referred By Contac t Referred To Contact Diagnoses OSTEOARTHRITIS, PAIN Procedures ARTHROPLASTY HIP TOTAL, AUTOGRAFT TO ACETABULUM Referral ID Status Reason Start Date Expiration Date Visits Re quested Visits Authorized [id number] 1 1 Encounter Details Date Type Department Care Team (Latest Contact Info) Description 07/15/2018 8:09 AM ACCELERATOR OPERATOR - 07/16/2018 12:27 PM ACCELERATOR OPERATOR Hospital Encounter [facility] [address] [place] [address] Chong Brenner MD [address] [place] [address] Discharge Disposition: Home or Self Care (Routine Discharge) Social History Tobacco Use Types Packs/Day Years Used Date Smoking Tobacco: Never Smokeless Tobacco: Never Alcohol Use Standard Drinks/Week Comments Yes 0 (1 standard drink = 0.6 oz pur e alcohol) socially Comments Unknown Sex and Gender Information Value Date Recorded Sex Assigned at Female 11/04/2022 9:01 AM CDT Legal Sex Female 11:19 PM ACCELERATOR OPERATOR Gender Identity Female 11/04/2022 9:01 AM CDT Sexual Orientation Straight 11/04/2022 9: 01 AM CDT documented as of this encounter Last Filed Vital Signs Vital Sign Reading Time Taken Comments Blood Pressure 145/82 07/16/2018 12:01 PM ACCELERATOR OPERATOR Pulse 84 07/16/2018 12:01 PM ACCELERATOR OPERATOR Temperature 36.7 ??C (98.1 ??F) 07/16/2018 12:01 PM C Respiratory Rate 18 07/16/2018 5:03 AM ACCELERATOR OPERATOR Oxygen Saturation 98% 07/16/2018 12:01 PM ACCELERATOR OPERATOR Inhaled Oxygen Concentration - - Weight 78.9 kg (174 lb) 07/15/2018 3:59 PM ACCELERATOR OPERATOR Height 157.5 cm (5' 2 ) 07/15/2018 3:59 PM ACCELERATOR OPERATOR Body Mass Index 31.83 07/15/2018 3:59 PM ACCELERATOR OPERATOR documented in this encounter Functional Status * Question Answer Date of Assessment Author Status Do you have serious difficulty walking or climbing stairs? No 07/15/2018 4:29 PM ACCELERATOR OPERATOR Deidre Escalera RN Activ e * Question Answer Date of Assessment Author Status Do you have difficulty dressing or bathing? No 07/15/2018 4:29 PM ACCELERATOR OPERATOR Deidre Escalera RN A ctive Because of a physical, mental, or emotional condition, do you have difficulty doing errands alone such as visiting a doctor's office or shopping? No 07/15/2018 4:29 PM Shahrzad Merritt RN Active * RETIRED Are you deaf or do you have serious difficulty hearing Answer Date of Assessment Author Status No 07/15/2018 4:29 PM ACCELERATOR OPERATOR Activ e * RETIRED Are you blind or do you have serious difficulty seeing, even when wearing glasses? Answer Date of Assessment Author Status No 07/15/2018 4:29 PM ACCELERATOR OPERATOR Activ e * Do you have [...] Physician Discharge Summary Patient ID: Ciera Aggarwal [id number] 58-year-old 1960 Admit date: 07/15/2018 Expected Discharge [...] Chong Brenner MD at 07/19/2018 8:15 AM ACCELERATOR OPERATOR LERATOR OPERATOR LERATOR OPERATOR documented in this encounter Discharge Instructions * Discharge Instructions* Chrissy Juárez PA-C - 07/16/2018 10:09 AM ACCELERATOR OPERATOR - If you have a Prineo dressing, [...] Tylenol (acetaminophen) to control your pain. Use [place] (hydrocodone) and tramadol pain medication only if the Tylenol doesn't work. Stay ahead of the pain, but do not take you pain medication based on time. Only use them as needed. - Your hip precautions are: - No extension beyond 10?? - No external rotation - No vigorous abduction - If you have question contact Dr. Brenner at [facility] ([phone]). Do not contact your primary care provider for concerns about this surgery or surgical incision. LERATOR OPERATOR * Attachments The following attachments cannot be sent through Care Everywhere. * Anterior Hip Replacement (Sri Lankan) * Deep Vein Thrombosis (Blood Clots in the Legs) ([place]ri [place]ankan) * Pulmonary Embolism (Blood Clot in the Lungs) ([place]ri [place]ankan) * How to Prevent Surgical Site Infections ([place]ankan) documented in this encounter Medications at Time [...] She has outpt therapy set up at [facility] 3 times a week and has a [...] Patient expects to be discharged to: Home LERATOR OPERATOR * Antoine Sharif MD - 07/16/2018 10:36 [...] Consults to: Hospitalists, PT/OT Pain Control: Roxicodone, [place], Tramadol, Celebrex, Tylenol, Skelaxin. Activity: Weightbearing as [...] Knee Reconstruction Fellow Department of Orthopaedic Surgery [facility] Cosigned by Chong Brenner MD at 07/19/2018 8:15 AM ACCELERATOR OPERATOR LERATOR OPERATOR LERATOR OPERATOR * Yuly Damian, PT - 07/16/2018 9:00 AM CST PT Re-Evaluation Discharge Recommendation: home with assistance; outpatient P/T DME equipment recommendation: 2 wheeled walker Activity Recommendation for clerical administrative assistant: Up with supervision and 2 wheeled walker [...] 2 Wheeled walker Prior Function Level of [place] Independent with ADLs;Independent with functional transfers;Independent with ambulation;Independent with homemaking with ambulation Device used at baseline None (Sheep's crook occasionally) Fall History No Lives With Alone Receives Help From Family ADL Assistance Independent Homemaking Assistance Independent 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 Grown chidren that can assist PRN. Pain [...] at this time. Recommend return home at [facility] with family assist and follow-up outpatient P/T to address impairments. LERATOR OPERATOR * Radha Middleton, OT - 07/16/2018 8:19 AM CST OT Initial Evaluation Discharge Recommendation: home with assistance Activity Recommendation for clerical administrative assistant: Up with SBA and 2ww, gait belt. 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 Grown chidren that can assist PRN. Pain [...] Objective Pt seen for therapy seated EOB. LERATOR OPERATOR documented in this encounter Consult Notes * Katie Gonzales MD - 07/16/2018 12:22 PM CST [place] Hospitalist Consultation Note Attending Provider: Chong Brenner [...] Sensitive TETRACYCLINE Sensitive KATIE GONZALES MD 07/16/2018 LERATOR OPERATOR * Katie Gonzales MD - 07/15/2018 2:45 PM CST [place] Hospitalist Consultation Note LERATOR OPERATOR documented in this encounter OR Notes * Op Note - Chong Brenner MD - 07/15/2018 12:48 PM CST Ciera Aggarwal, 1960, CSN: @[email or web address]@ D ARJUN BRENNER MD 07/15/2018 Surgeon: Chong BRENNER MD Anesthesia: Anesthesiologist: Sandrine Contreras MD RETAIL INVENTORY CONTROL CLERK: Hayley Shankar CRNA Implants: Implant Name Type Inv. Item Serial No. Data Manager Lot No. LRB No. Used SHELL HEATH CONTINUUM TM CH 48MM GG - [id number] SHELL HEATH CONTINUUM TM CH 48MM GG BI[employer] INC [id number] Right 1 continium trilogy poly HEATH INC [id number] Right 1 SCREW HEATH BONE 30MM - [id number] SCREW HEATH BONE 30MM BIOMET INC [id number] Right 1 SCREW HEATH BONE 30MM - [id number] SCREW HEATH BONE 30MM BIOMET INC [id number] Right 1 femoral stem HEATH INC [id number] Right 1 SHELL HEATH CONTINUUM TM CH 48MM GG - [id number] SHELL HEATH CONTINUUM TM CH 48MM GG BI[employer] INC [id number] Right 1 HEAD FEMORAL BIOLOX OPTION CERAMIC HEATH - [id number] HEAD FEMORAL BIOLOX OPTION CERAMIC HEATH BIOMET INC [id number] Right 1 Preoperative diagnosis: Primary osteo-arthritis right hip Operation proposed: Right non- cemented total hip arthroplasty Postoperative diagnosis: As preop Operation performed: As preop assistant spa manager: Antoine Sharif M.D. Indications for procedure: This [...] no specimens and there were no complications. LERATOR OPERATOR documented in this encounter Plan of Treatment Not on file documented as of this encounter Procedures Procedure Name Priority Date/Time Associated Diagnosis Comments SURG XR HIP RT 1V Routine 07/15/2018 12:31 PM ACCELERATOR OPERATOR ARTHROPLASTY HIP TOTAL 07/15/2018 10:58 AM ACCELERATOR OPERATOR OSTEOARTHRITIS, PAIN Case Notes HEATH ML TAPER CERAMIC/POLYDIRECT LATERALOFFICE TO NOTIFY REPREP [facility]ED [facility] HOSPITALIST documented in this encounter Results * SURG XR HIP RT 1V (07/15/2018 12:31 PM ACCELERATOR OPERATOR) Anatomical Region Laterality Modality Hip Radiographic Mary Jo ging 07/15/2018 6:23 PM ACCELERATOR OPERATOR Narrative 07/15/2018 6:24 PM ACCELERATOR OPERATOR Examination: SURG XR HIP RT 1V Exam [...] 24 hours., Pre-Op Given 07/15/2018 9:36 AM ACCELERATOR OPERATOR 1,000 mg acetaminophen (TYLENOL) tablet 500 mg 500 mg, Oral, Every 6 hours, 4 doses, First dose on Thu07/15/18 at 1615, Last dose on Thu07/16/18 at 1200, Maximum dose of acetaminophen is 4000 mg from all sources in 24 hours., Post-Op Given 07/16/2018 5:34 AM ACCELERATOR OPERATOR 500 mg Given 07/15/2018 11:55 PM ACCELERATOR OPERATOR 500 mg Given 07/15/2018 5:40 PM ACCELERATOR OPERATOR 500 mg aspirin chewable tablet 81 mg 81 mg, Oral, 2 times daily, First dose on Thu07/16/18 at 0915, Until Discontinued Given 07/16/2018 9:31 AM ACCELERATOR OPERATOR 81 mg ceFAZolin (ANCEF) syringe 2 g [...] end time., Post-Op Given 07/16/2018 4:36 AM ACCELERATOR OPERATOR 2 g 240 mL/hr Given 07/15/2018 8:21 PM ACCELERATOR OPERATOR 2 g 240 mL/hr dexamethasone (DECADRON) injection 10 mg 10 mg, Intravenous, Once, 1 dose, On Mana 07/15/18 at 1045, Administer slowly over 1-4 minutes., Pre-Op Given 07/15/2018 9:36 AM ACCELERATOR OPERATOR 10 mg dexamethasone PF (DECADRON) injection 10 mg 10 mg, Intravenous, Once, 1 dose, On Thu07/16/18 at 0600, Administer slowly over 1-4 minutes., Post-Op Given 07/16/2018 5:52 AM ACCELERATOR OPERATOR 10 mg diphenhydrAMINE (BENADRYL) 12.5 MG/5ML elixir [...] Until Discontinued, Post-Op Given 07/16/2018 8:04 AM ACCELERATOR OPERATOR 100 mg ketorolac (TORADOL) injection 15 mg 15 mg, Intravenous, Every 6 hours PRN, Moderate pain (Scale 4 - 7), Starting on Mana 07/15/18 at 1325, Until Thu07/16/18 at 1324, For patients 65 years or greater, less than 50 kg, or CrCl less than 30 mL/min., Post-Op Given 07/15/2018 1:31 PM ACCELERATOR OPERATOR 15 mg lactated ringers infusion at 10 mL/hr, Intravenous, Continuous, Starting on Mana 07/15/18 at 1000, Until Thu07/16/18 at 1446, Pre-Op New Bag 07/15/2018 12:56 PM ACCELERATOR OPERATOR New Bag 07/15/2018 12:00 PM ACCELERATOR OPERATOR New Bag 07/15/2018 9:55 AM ACCELERATOR OPERATOR 10 mL/hr lactated ringers infusion at 100 mL/hr, Intravenous, Continuous, Starting on Mana 07/15/18 at 1345, Until Thu07/16/18 at 1446, May discontinue IV Fluid when adequate oral intake, Post-Op New Bag 07/15/2018 1:27 PM ACCELERATOR OPERATOR 100 mL/hr levothyroxine (SYNTHROID) tablet 100 mcg 100 mcg, Oral, Nightly at bedtime, First dose on Mana 07/15/18 at 2100, Until Discontinued, Avoid iron, calcium, and antacids within 4 hours of administration.Indications:Hypothy roidism Given 07/15/2018 8:27 PM ACCELERATOR OPERATOR 100 mcg meloxicam (MOBIC) tablet 15 mg 15 mg, Oral, Daily, First dose on Mana 07/15/18 at 1700, Until Discontinued Given 07/16/2018 8:04 AM ACCELERATOR OPERATOR 15 mg Given 07/15/2018 5:40 PM ACCELERATOR OPERATOR 15 mg meloxicam (MOBIC) tablet 7.5 mg 7.5 mg, Oral, Once, 1 dose, On Mana 07/15/18 at 1045, Pre-Op Given 07/15/2018 9:36 AM ACCELERATOR OPERATOR 7.5 mg ondansetron (ZOFRAN) injection 4 mg 4 mg, Intravenous, Once, 1 dose, On Mana 07/15/18 at 1045, IV push over 2-5 minutes., Pre-Op Given 07/15/2018 9:37 AM ACCELERATOR OPERATOR 4 mg traMADol (ULTRAM) tablet 100 mg 100 mg, Oral, Once, 1 dose, On Mana 07/15/18 at 1045, Pre-Op Given 07/15/2018 9:35 AM ACCELERATOR OPERATOR 100 mg traMADol (ULTRAM) tablet 50 mg 50 mg, Oral, Every 6 hours, 4 doses, First dose on Mana 07/15/18 at 1915, Last dose on Thu07/16/18 at 1315, Max daily dose of tramadol equals 400 mg (200 mg if elderly or renally impaired), Post-Op Given 07/16/2018 8:04 AM ACCELERATOR OPERATOR 50 mg Given 07/16/2018 1:32 AM ACCELERATOR OPERATOR 50 mg Given 07/15/2018 7:06 PM ACCELERATOR OPERATOR 50 mg documented in this encounter Active and Recently Administered Medications Times are shown in ACCELERATOR OPERATOR. Scheduled Medication Order 07/14/2018 07/15/2018 07/16/2018 acetaminophen [...] time., Post-Op 1736 (See Alternative - Provider: Dedire Escalera RN)202 (Given - Provider: Hansa Boateng [...] Until Thu07/16/18 at 1446 BUpivacaine-EPINEPHrine (PF) 0.25% -[id number] injection (CANCELED) As needed, Starting on Mana [...] Post-Op documented in this encounter Care Teams Discovery Manager Relationship Specialty Start Date End Date Stephany Novoa MD PCP - General INTERNAL MEDICINE 05/04/18 11/18/22 documented as of this encounter
--- OUTSIDE RECORDS SUMMARY | 2024-06-20 04:32 | XMS_ITS | Encounter Summary ---
Author Organization [facility] Address [address] [place] [address]. [place] [address] [place] [address] Care Team Providers Care Laser Printing Operator Name Role Phone Kathy Hooker MD Primary Care Provider [phone] [phone] Encounter Details Date Type Department Care Team (Late st Contact Info) Description 11/28/2019 Orders Only [facility] [address] [facility] [place] [address] Kathy Hooker MD [address] [place] [address] Social History Tobacco Use Types [...] AM CDT Legal Sex Female 11:19 PM SHOWCASE TRIMMER Gender Identity Female 11/04/2022 9:01 AM CDT [...] Assessment Author Status No 07/15/2018 4:29 PM SHOWCASE TRIMMER Activ e * RETIRED Are you blind or do you have serious difficulty seeing, even when wearing glasses? Answer Date of Assessment Author Status No 07/15/2018 4:29 PM SHOWCASE TRIMMER Activ e * Do you have serious [...] - 1.46 NG/DL 11/28/2019 3:50 PM CDT [facility] 11/28/2019 3:17 PM CDT us Kathy Hooker MD LABORATORY Final Res ult [facility] [address] [place] [address], * (ABNORMAL) THYROID STIM HORMONE, TSH (11/28/2019 3:17 PM CDT) TSH 8.973(H) 0.358 - 3.740 uIU/ML 11/28/2019 3:50 PM CDT [facility] 11/28/2019 3:17 PM CDT us Kathy Hooker MD LABORATORY Final Res ult [facility] [address] [place] [address], documented in this encounter Visit Diagnoses Diagnosis Hypothyroidism- Primary Unspecified hypothyroidism documented in this encounter Care Teams Laser Printing Operator Relationship Specialty Start Date End Date Kathy Hooker MD PCP - General INTERNAL MEDICINE 05/04/18 11/18/22 documented as of this encounter
--- OUTSIDE RECORDS SUMMARY | 2024-06-20 04:32 | XMS_ITS | Encounter Summary ---
Author Organization [facility] Address [address] [place] [address]. [place] [address] [place] [address] Care Team Providers Care Blade Groover Name Role Phone Kathy Hooker MD Primary Care Provider [phone] Encounter Details Date Type Department Care Team [...] AM CDT Legal Sex Female 11:19 PM STUDY ASSISTANT Gender Identity Female 11/04/2022 9:01 AM CDT Sexual Orientation Straight 11/04/2022 9: 01 AM CDT documented as of this encounter Functional Status * RETIRED Are you deaf or do you have serious difficulty hearing Answer Date of Assessment Author Status No 07/15/2018 4:29 PM STUDY ASSISTANT Activ e * RETIRED Are you blind or do you have serious difficulty seeing, even when wearing glasses? Answer Date of Assessment Author Status No 07/15/2018 4:29 PM STUDY ASSISTANT Activ e * Do you have serious [...] Author Status No 07/15/2018 4:29 PM Deidre Merrtit RN Active documented in this encounter Plan of Treatment Not on file documented as of this encounter Visit Diagnoses Not on filedocumented in this encounter Care Teams Blade Groover Relationship Specialty Start Date End Date Kathy Hooker MD PCP - General INTERNAL MEDICINE 05/04/18 11/18/22 documented as of this encounter
--- OUTSIDE RECORDS SUMMARY | 2024-06-20 04:32 | XMS_ITS | Encounter Summary ---
Author Organization [facility] Address [facility] [place] [address] [place] [address] Care Team Providers Care Middleware Developer Name Role Phone Kathy Hooker MD Primary Care Provider [phone] [phone] Encounter Details Date Type Department Care Team (Latest Contact Info) Description 11/28/2019 3:00 PM CDT - 11/28/2019 11:59 PM CDT Hospital Encounter [facility] [facility] [place] [address] Kathy Hooker MD [address] [place] [address] Discharge Disposition: Home or Self Care (Routine [...] AM CDT Legal Sex Female 11:19 PM FITTER / WELDER Gender Identity Female 11/04/2022 9:01 AM CDT [...] Assessment Author Status No 07/15/2018 4:29 PM FITTER / WELDER Activ e * RETIRED Are you blind or do you have serious difficulty seeing, even when wearing glasses? Answer Date of Assessment Author Status No 07/15/2018 4:29 PM FITTER / WELDER Activ e * Do you have serious [...] - 1.46 NG/DL 11/28/2019 3:50 PM CDT [facility] 11/28/2019 3:17 PM CDT Kathy Hooker MD LABORATORY Final Res ult Performing Organization Address City/[facility]/ZIP Co de Phone Number [facility] [address] [place] [address], * (ABNORMAL) THYROID STIM HORMONE, TSH (11/28/2019 3:17 PM CDT) TSH 8.973(H) 0.358 - 3.740 uIU/ML 11/28/2019 3:50 PM CDT [facility] 11/28/2019 3:17 PM CDT Kathy Hooker MD LABORATORY Final Res ult Performing Organization Address [facility]/ZIP Co de Phone Number [facility] [address] [place] [address], documented in this encounter Visit Diagnoses Diagnosis Hypothyroidism Unspecified hypothyroidism documented in this encounter Care Teams Middleware Developer Relationship Specialty Start Date End Date Kathy Hooker MD PCP - General INTERNAL MEDICINE 05/04/18 11/18/22 documented as of this encounter
--- OUTSIDE RECORDS SUMMARY | 2024-06-20 04:32 | XMS_ITS | Encounter Summary ---
Author Organization [facility] Address [facility] [place] [address] [place] [address] Care Team Providers Care Machine Operator Name Role Phone Kathy Hooker MD Primary Care Provider [phone] [phone] Reason for Visit * Imaging (Routine) - Closed Specialty Diagnoses / Procedures Referred By Umair freeman Referred To Contact RADIOLOGY Diagnoses Breast cancer screening Procedures MG SCREENING W PATY DANIELLA Kathy Oreilly MD Phone: tel: fax: Referral ID Status Reason Start Date Expiration Date Visits Re quested Visits Authorized [id number] Closed 06/02/2019 07/03/2020 1 1 Encounter Details Date Type Department Care Team (Latest Contact Info) Description 06/06/2019 7:00 AM BLANKET WINDER OPERATOR - 06/06/2019 7:21 AM [facility] Hospital Encounter [facility] [address] [place] [address] Kathy Hooker MD [address] [place] [address] Discharge Disposition: Home or Self [...] AM CDT Legal Sex Female 11:19 PM BLANKET WINDER OPERATOR Gender Identity Female 11/04/2022 9:01 AM CDT Sexual Orientation Straight 11/04/2022 9: 01 AM CDT documented as of this encounter Functional Status * RETIRED Are you deaf or do you have serious difficulty hearing Answer Date of Assessment Author Status No 07/15/2018 4:29 PM BLANKET WINDER OPERATOR Activ e * RETIRED Are you blind or do you have serious difficulty seeing, even when wearing glasses? Answer Date of Assessment Author Status No 07/15/2018 4:29 PM BLANKET WINDER OPERATOR Activ e * Do you have [...] PATY DANIELLA DIGI Routine 06/06/2019 7:44 AM BLANKET WINDER OPERATOR Breast cancer screening documented in this encounter Results * MG SCREENING W PATY DANIELLA DIGI (06/06/2019 7:44 AM BLANKET WINDER OPERATOR) Anatomical Region Laterality Modality Breast Bilateral Mammography 06/08/2019 8:59 AM BLANKET WINDER OPERATOR Impressions 06/08/2019 9:01 AM BLANKET WINDER OPERATOR IMPRESSION: No suspicious change since the previous exams. Recommendation: 1: Routine screening mammogram ??Bilateral ?? in 1 Year Assessment: ACR BI-RADS Category 2 - Benign. Interpreted By: Daniel Wilhelm, 06/08/2019 8:59 AM Narrative 06/08/2019 9:01 AM BLANKET WINDER OPERATOR Examination: Digital screening mammogram with CAD. Clinical [...] on filedocumented in this encounter Care Teams Machine Operator Relationship Specialty Start Date End Date Kathy Hooker MD PCP - General INTERNAL MEDICINE 05/04/18 11/18/22 documented as of this encounter
--- OUTSIDE RECORDS SUMMARY | 2024-06-20 04:32 | XMS_ITS | Encounter Summary ---
Author Organization [facility] Address [address] [place] [address]. [place] [address] [place] [address] Care Team Providers Care Motor Expert Name Role Phone Kathy Hooker MD Primary Care Provider [phone] [phone] Encounter Details Date Type Department Care Team [...] AM CDT Legal Sex Female 11:19 PM DRILL RUNNER Gender Identity Female 11/04/2022 9:01 AM CDT [...] Assessment Author Status No 07/15/2018 4:29 PM DRILL RUNNER Activ e * RETIRED Are you blind or do you have serious difficulty seeing, even when wearing glasses? Answer Date of Assessment Author Status No 07/15/2018 4:29 PM DRILL RUNNER Activ e * Do you have serious [...] on filedocumented in this encounter Care Teams Motor Expert Relationship Specialty Start Date End Date Kathy Hooker MD PCP - General INTERNAL MEDICINE 05/04/18 11/18/22 documented as of this encounter
--- OUTSIDE RECORDS SUMMARY | 2024-06-20 04:32 | XMS_ITS | Encounter Summary ---
Author Organization [facility] Address [address] [place] [address]. [place] [address] [place] [address] Care Team Providers Care Set Illustrator Name Role Phone Unavailable Primary Care Provider Unavailabl e Encounter Details Date Type Department Care Team (Latest Contact Info) Description 03/11/2018 Abstract [facility] Felicitas Raygoza APNP Social History Tobacco Use Types Packs/Day Years Used Date Smoking Tobacco: Never Assessed Comments Unknown Sex and Gender Information Value Date Recorded Sex Assigned at Female 11/04/2022 9:01 AM CDT Legal Sex Female 11:19 PM APPEALS SPECIALIST Gender Identity Female 11/04/2022 9:01 AM [...] documented in this encounter Progress Notes * VIKTORIYA Lawrence - 03/11/2018 5:00 PM CDT Reason [...] Felicitas Raygoza APN; Mar 11 2018 5:43PM APPEALS SPECIALIST (Author) documented in this encounter Plan of Treatment Not on file documented as of this encounter Visit Diagnoses Not on filedocumented in this encounter
--- OUTSIDE RECORDS SUMMARY | 2024-06-20 04:32 | XMS_ITS | Encounter Summary ---
Author Organization [facility] Address [address] [place] [address]. [place] [address] [place] [address] Care Team Providers Care Supervisor Newspaper Deliveries Name Role Phone Unavailable Primary Care Provider Unavailabl e Encounter Details Date Type Department Care Team (Late st Contact Info) Description 02/03/2011 Abstract [facility] [employer] [facility] [address] [place] [address] , Joan Rizo MD Social History Tobacco Use Types Packs/Day Years Used Date Smoking Tobacco: Never Assessed Comments Unknown Sex and Gender Information Value Date Recorded Sex Assigned at Female 11/04/2022 9:01 AM CDT Legal Sex Female 11:19 PM ANNEALING FURNACE TENDER Gender Identity Female 11/04/2022 9:01 AM CDT Sexual Orientation Straight 11/04/2022 9: 01 AM CDT documented as of this encounter Plan of Treatment Not on file documented as of this encounter Visit Diagnoses Not on filedocumented in this encounter
--- OUTSIDE RECORDS SUMMARY | 2024-06-20 04:32 | XMS_ITS | Encounter Summary ---
Author Organization [facility] Address [facility] [place] [address] [place] [address] Care Team Providers Care Medicaid Billing Clerk Name Role Phone Kathy Hooker MD Primary Care Provider [phone] Encounter Details Date Type Department Care Team (Latest Contact Info) Description 07/05/2018 9:38 AM CIVIL ENGINEERING DRAFTER - 07/05/2018 11:59 PM [facility] Hospital Encounter [facility] Pre-Admission Testing [address] [place] [address] Chong Brenner MD [address], [place] [id number] Discharge Disposition: Home or Self Care (Routine Discharge) Social History Tobacco Use Types Packs/Day Years Used Date Smoking Tobacco: Never Smokeless Tobacco: Never Alcohol Use Standard Drinks/Week Comments Yes 0 (1 standard drink = 0.6 oz pur e alcohol) socially Comments Unknown Sex and Gender Information Value Date Recorded Sex Assigned at Female 11/04/2022 9:01 AM CDT Legal Sex Female 11:19 PM CIVIL ENGINEERING DRAFTER Gender Identity Female 11/04/2022 9:01 AM CDT [...] Comments ECG 12-LEAD Routine 07/05/2018 11:26 AM CIVIL ENGINEERING DRAFTER Preop testing MRSA SCREENING Routine 07/05/2018 9:52 AM CIVIL ENGINEERING DRAFTER Pain in joint, pelvic region and thigh URINALYSIS Routine 07/05/2018 9:52 AM CIVIL ENGINEERING DRAFTER Pain in joint, pelvic region and thigh COMPREHENSIVE METABOLIC PANEL Routine 07/05/2018 9:52 AM CIVIL ENGINEERING DRAFTER Pain in joint, pelvic region and thigh CBC W/DIFF AUTOMATED Routine 07/05/2018 9:52 AM CIVIL ENGINEERING DRAFTER Pain in joint, pelvic region and thigh THYROXINE, FREE (FT4) Routine 07/05/2018 9:52 AM CIVIL ENGINEERING DRAFTER Pain in joint, pelvic region and thigh THYROID STIM HORMONE TSH Routine 07/05/2018 9:52 AM CIVIL ENGINEERING DRAFTER Pain in joint, pelvic region and thigh documented in this encounter Results * ECG 12 lead (07/05/2018 11:26 AM CIVIL ENGINEERING DRAFTER) 07/05/2018 11:2 6 AM CIVIL ENGINEERING DRAFTER Narrative [facility] - 07/05/2018 1:20 PM CIVIL ENGINEERING DRAFTER ? [facility] ?[address], [place] ??[address] ? Test Date: ?2018-07-05 Pat Name: ? CALIXTO LEIDY ?Department: ? Room: ? Gender: ? Female ? Teachers Aide: ?? MS : ?1960 ? Requested By: D JORDIN Order Number: [id number] ? Reading MD: ?? Kam Bergman ? Measurements Intervals ?Hunker ? Rate: ? 62 ? P: ?43 LA: ? 154 ?QRS: ?10 QRSD: ? 81 ? T: ?15 QT: ? 384 ? QTc: ?391 ? Interpretive Statements SINUS RHYTHM WITH SINUS ARRHYTHMIA LOW QRS VOLTAGE IN PRECORDIAL LEADS L ENGINEERING DRAFTER Procedure Note Kam Bergman MD - 07/05/[address] [address] Test Date: 2018-07-05 Pat Name: CALIXTO AGGARWAL Department: Room: Gender: Female Teachers Aide: MS : 1960 Requested By: Chong BRENNER Order Number: [id number] Reading MD: Kam Bergman Measurements Intervals Hunker Rate: 62 P: 43 LA: 154 QRS: 10 QRSD: 81 T: 15 QT: 384 QTc: 391 Interpretive Statements SINUS RHYTHM WITH SINUS ARRHYTHMIA LOW QRS VOLTAGE IN PRECORDIAL LEADS L ENGINEERING DRAFTER us Chong Brenner MD ECG ORDERABLES Final Result [facility] * THYROXINE, FREE (FT4) (07/05/2018 9:52 AM CIVIL ENGINEERING DRAFTER) FREE T4 1.02 0.76 - 1.46 NG/DL 07/05/2018 11:31 AM CIVIL ENGINEERING DRAFTER [facility] 07/05/2018 9:52 AM CIVIL ENGINEERING DRAFTER us Kathy Hooker MD LABORATORY Final Res ult Performing Organization Address [facility] Co de Phone Number [facility] [address] [place] [address], [id number] * (ABNORMAL) THYROID STIM HORMONE, TSH (07/05/2018 9:52 AM CIVIL ENGINEERING DRAFTER) TSH 6.330(H) 0.358 - 3.740 uIU/ML 07/05/2018 11:31 AM CIVIL ENGINEERING DRAFTER [facility] 07/05/2018 9:52 AM CIVIL ENGINEERING DRAFTER Kathy Hooker MD LABORATORY Final Res ult Performing Organization Address [facility] Co de Phone Number [facility] [address] [place] [address], [phone] * MRSA PCR nares Screening (07/05/2018 9:52 AM CIVIL ENGINEERING DRAFTER) SPECIMEN SOURCE RESPIRATORY, NOSE 07/05/2018 9:45 AM CIVIL ENGINEERING DRAFTER [facility] MRSA BY PCR NASAL METHICILLIN RESISTANT STAPH AUREUS NOT DETECTED 07/05/2018 2:39 PM CIVIL ENGINEERING DRAFTER [facility] NASAL STRUCTURE / Unknown 07/05/2018 9:52 AM CIVIL ENGINEERING DRAFTER Kathy Hooker MD MICROBIOLOGY - GENERAL OR DERABLES Final Result Performing Organization Address [facility] Co de Phone Number [facility] [address] [place] [address], [place] [phone] * (ABNORMAL) COMPREHENSIVE METABOLIC PANEL (07/05/2018 9:52 AM CIVIL ENGINEERING DRAFTER) SODIUM S/P/B 140 136 - 145 MMOL/L 07/05/2018 11:31 AM CIVIL ENGINEERING DRAFTER [facility] POTASSIUM S/P/B 3.7 3.5 - 5.1 MMOL/L 07/05/2018 11:31 AM [facility] CHLORIDE S/P/B 108(H) 98 - 107 MMOL/L 07/05/2018 11:31 AM [facility] CO2 26.8 21.0 - 32.0 MMOL/L 07/05/2018 11:31 AM [facility] GLUCOSE 99 74 - 106 MG/DL 07/05/2018 11:31 AM [facility] BUN 19(H) 7 - 18 MG/DL 07/05/2018 11:31 AM [facility] CREATININE S/P/B 1.03(H) 0.55 - 1.02 MG/DL 07/05/2018 11:31 AM [facility] CALCIUM S/P/B 8.8 8.4 - 10.5 MG/DL 07/05/2018 11:31 AM [facility] BILIRUBIN TOTAL S/P/B 0.5 0.2 - 1.0 MG/DL 07/05/2018 11:31 AM [facility] ALKALINE PHOSPHATASE S/P/B 69 46 - 118 U/L 07/05/2018 11:31 AM [facility] AST 18 15 - 37 U/L 07/05/2018 11:31 AM [facility] ALT 26 13 - 56 U/L 07/05/2018 11:31 AM [facility] TOTAL PROTEIN S/P/B 7.5 6.4 - 8.2 G/DL 07/05/2018 11:31 AM [facility] ALBUMIN S/P/B 4.1 3.4 - 5.0 G/DL 07/05/2018 11:31 AM [facility] ANION GAP 5.2 MMOL/L 07/05/2018 11:31 AM [facility] Comment:REFERENCE RANGE NOT ESTABLISHED OSMOLALITY (CALC) 292 MOSM/KG 07/05/2018 11:31 AM [facility] Comment:REFERENCE RANGE NOT ESTABLISHED EGFR NON-AFR. AMER. 60(L) >90 ML/MIN/1 .73 M2 07/05/2018 11:31 AM [facility] EGFR AFR. AMER. 69(L) >90 ML/MIN/1 .73 M2 07/05/2018 11:31 AM [facility] GFR NOTES THE ESTIMATED GFR IS CALCULATED USING THE 2009 CKD-EPI EQUATION. THE FOLLOWING CATEGORIES FOR GRADING RENAL FUNCTION ARE RECOMMENDED BY THE INTERNATIONAL SOCIETY OF NEPHROLOGY (KDIGO 2012 CLINICAL PRACTICE GUIDELINE). 07/05/2018 11:31 AM [facility] Comment: G1,NORMAL OR HIGH: >89 ml/min/1.73 m2 G2,MILDLY DECREASED: 60-89 ml/min/1.73 m2 G3A,MILDLY TO MODERATELY DECREASED: 45-59 ml/min/1.73 m2 G3B,MODERATELY TO SEVERELY DECREASED: 30-44 ml/min/1.73 m2 G4,SEVERELY DECREASED: 15-29 ml/min/1.73 m2 G5,KIDNEY FAILURE: <15 ml/min/1.73 m2 07/05/2018 9:52 AM CIVIL ENGINEERING DRAFTER us Kathy Hooker MD LABORATORY Final Res ult [facility] [address] [place] [phone], [id number] * CBC W/DIFF AUTOMATED (07/05/2018 9:52 AM CIVIL ENGINEERING DRAFTER) WBC 5.6 4.0 - 10.8 x10'3/uL 07/05/2018 10:06 AM [facility] RBC 4.63 4.10 - 5.40 x10'6/uL 07/05/2018 10:06 AM [facility] HGB 14.3 12.0 - 16.0 G/DL 07/05/2018 10:06 AM [facility] HCT 41.9 36.0 - 47.0 % 07/05/2018 10:06 AM [facility] MCV 90.5 78.0 - 100.0 FL 07/05/2018 10:06 AM [facility] MCH 30.9 27.0 - 31.0 PG 07/05/2018 10:06 AM [facility] MCHC 34.1 33.0 - 36.0 G/DL 07/05/2018 10:06 AM [facility] RDW 12.8 11.5 - 14.5 % 07/05/2018 10:06 AM [facility] PLT 258 150 - 350 x10'3/uL 07/05/2018 10:06 AM [facility] MPV 9.7 7.4 - 10.4 FL 07/05/2018 10:06 AM [facility] ABS. NEUTROPHILS TOTAL 2.93 1.60 - 8.30 x10'3/uL 07/05/2018 10:06 AM [facility] ABS. LYMPHOCYTES 2.18 0.80 - 4.70 x10'3/uL 07/05/2018 10:06 AM [facility] ABS. MONOCYTES 0.34 0.00 - 1.50 x10'3/uL 07/05/2018 10:06 AM [facility] ABS. EOSINOPHILS 0.13 0.00 - 0.40 x10'3/uL 07/05/2018 10:06 AM [facility] ABS. BASOPHILS 0.03 0.00 - 0.20 x10'3/uL 07/05/2018 10:06 AM [facility] ABS. IMMATURE GRANULOCYTES 0.02 0.00 - 0.03 x10'3/uL 07/05/2018 10:06 AM [facility] ABS. NUCLEATED RBC'S 0.00 0.0 x10'3/uL 07/05/2018 10:06 AM [facility] 07/05/2018 9:52 AM CIVIL ENGINEERING DRAFTER us Kathy Hooker MD LABORATORY Final Res ult [facility] [address] [place] [address], [id number] * (ABNORMAL) URINALYSIS (07/05/2018 9:52 AM CIVIL ENGINEERING DRAFTER) COLOR (U) YELLOW 07/05/2018 10:36 AM [facility] TRANSPARENCY SLIGHTLY CLOUDY 07/05/2018 10:36 AM [facility] SPECIFIC GRAVITY (U) 1.024 1.002 - 1.035 07/05/2018 10:36 AM [facility] U PH 5.0 5 - 8 07/05/2018 10:36 AM [facility] PROTEIN (U) NEGATIVE NEGATIVE 07/05/2018 10:36 AM [facility] URINE GLUCOSE NEGATIVE NEGATIVE MG/DL 07/05/2018 10:36 AM [facility] KETONES MG/DL (U) NEGATIVE NEGATIVE 07/05/2018 10:36 AM [facility] BILIRUBIN (U) NEGATIVE NEGATIVE 07/05/2018 10:36 AM [facility] BLOOD (U) NEGATIVE NEGATIVE 07/05/2018 10:36 AM [facility] NITRITES NEGATIVE NEGATIVE 07/05/2018 10:36 AM [facility] UROBILINOGEN NORMAL 0 - 1 EU/DL 07/05/2018 10:36 AM [facility] LEUKOCYTES (U) LARGE(A) NEGATIVE 07/05/2018 10:36 AM [facility] RBC/HPF 2 0 - 3 /HPF 07/05/2018 10:36 AM [facility] WBC/HPF 19(H) 0 - 6 /HPF 07/05/2018 10:36 AM [facility] BACTERIA (U) PRESENT /HPF 07/05/2018 10:36 AM [facility] SQUAMOUS EPITHELIALS 19 07/05/2018 10:36 AM [facility] NON SQUAMOUS EPITHELIAL 2 /HPF 07/05/2018 10:36 AM CIVIL ENGINEERING DRAFTER [facility] URINE SPECIMEN FROM URETHRA / Unknown 07/05/2018 9:52 AM CIVIL ENGINEERING DRAFTER us Kathy Hooker MD URINE ORDERABLES Final Re sult [facility] [address] [place] [address], [id number] documented in this encounter Visit Diagnoses Diagnosis Preop testing- Primary Preoperative examination, unspecified Pain in joint, pelvic region and thigh documented in this encounter Care Teams Medicaid Billing Clerk Relationship Specialty Start Date End Date Kathy Hooker MD PCP - General INTERNAL MEDICINE 05/04/18 11/18/22 documented as of this encounter
--- OUTSIDE RECORDS SUMMARY | 2024-06-20 04:32 | XMS_ITS | Encounter Summary ---
Author Organization [facility] Address [address] [place] [address]. [place] [address] [place] [address] Care Team Providers Care Warehouse Freight Handler Name Role Phone Toma Pete Primary Care Provider [phone] Encounter Details Date Type Department Care Team [...] AM CDT Legal Sex Female 11:19 PM JD EDWARDS CONSULTANT Gender Identity Female 11/04/2022 9:01 AM CDT [...] Assessment Author Status No 07/15/2018 4:29 PM JD EDWARDS CONSULTANT Activ e * RETIRED Are you blind or do you have serious difficulty seeing, even when wearing glasses? Answer Date of Assessment Author Status No 07/15/2018 4:29 PM JD EDWARDS CONSULTANT Activ e * Do you have serious [...] Assessment Author Status No 07/15/2018 4:29 PM Dedire Merritt RN Active documented as of this [...] on filedocumented in this encounter Care Teams Warehouse Freight Handler Relationship Specialty Start Date End Date Toma Pete PA [address] [place] [address] PCP - General PHYSICIAN SVP DIGITAL SALES 11/19/22 documented as of this encounter
--- OUTSIDE RECORDS SUMMARY | 2024-06-20 04:32 | XMS_ITS | Encounter Summary ---
Author Organization [facility] Address [address] [place] [address]. [place] [address] [place] [address] Care Team Providers Care Maid Cleaning Cooking Name Role Phone Unavailable Primary Care Provider Unavailabl e Encounter Details Date Type Department Care Team (Late st Contact Info) Description 02/19/1996 Abstract [facility] CONVERSION [address] [place] [address] , Generic Conversion, Social History Tobacco Use Types Packs/Day Years Used Date Smoking Tobacco: Never Assessed Comments Unknown Sex and Gender Information Value Date Recorded Sex Assigned at Female 11/04/2022 9:01 AM CDT Legal Sex Female 11:19 PM DECKHAND SPONGE BOAT Gender Identity Female 11/04/2022 9:01 AM CDT Sexual Orientation Straight 11/04/2022 9: 01 AM CDT documented as of this encounter Plan of Treatment Not on file documented as of this encounter Visit Diagnoses Not on filedocumented in this encounter
== END 2024-06-13 02:05 | disposition home or self-care (01) ==
PROVIDERS: Emergency Provider Family Medicine; PCP Physician Assistant
DX: J18.9 Pneumonia, unspecified organism (principal); E03.9 Hypothyroidism, unspecified; N18.9 Chronic kidney disease, unspecified; K21.9 Gastro-esophageal reflux disease without esophagitis; F32.A Depression, unspecified; F41.9 Anxiety disorder, unspecified; Z20.822 Contact with and (suspected) exposure to COVID-19
CPT/HCPCS: 71046; 87637; 87651; 99283; A9270

== ENCOUNTER 2024-08-08 08:06 | Outpatient (CLI) | payer BC, SELFPAY ==
--- NOTE | ~2024-08-08 | XR_ITS ---
Clinical Indication: Pneumonia follow-up PA and lateral views of the chest: Comparison: 06/13/2024 Findings: The lungs are clear, without evidence of focal consolidation or pleural effusion. Cardiome diastinal silhouette is within normal limits. Bones and soft tissues are unremarkable. Impression: Normal chest. Reviewed, dictated and finalized at [facility]. ADER OPERATOR AUTOMATIC Impression: Normal chest.
[2024-08-08 09:14] LABS: Free T3 2.05 pg/mL (2.18-3.98); Free T4 Free Thyroxine 0.63 ng/dL (0.76-1.46); Thyroid Stimulating Hormone 16.58 uIU/mL (0.36-3.74)
--- OUTSIDE RECORDS SUMMARY | 2024-08-08 11:13 | XMS_ITS | Clinical Summary ---
Author Organization [facility] Address [address] [place] [address] Care Team Providers Care Network Project Manager Name Role Phone Juan R Toma HUGHES Primary Care Provider Allergies Active Allergy Reactions Criticality Noted Date [...] AM CDT Legal Sex Female 11:19 PM PHARMACEUTICAL OFFICER Gender Identity Female 11/04/2022 9:01 AM CDT Sexual Orientation Straight 11/04/2022 9: 01 AM CDT Last Filed Vital Signs Vital Sign Reading Time Taken Comments Blood Pressure 140/90 06/07/2019 11:31 AM PHARMACEUTICAL OFFICER Pulse 96 06/07/2019 11:31 AM PHARMACEUTICAL OFFICER Temperature 37 C (98.6 F) 06/07/2019 11:31 AM PHARMACEUTICAL OFFICER Respiratory Rate 16 06/07/2019 11:31 AM PHARMACEUTICAL OFFICER Oxygen Saturation 98% 06/07/2019 11:31 AM PHARMACEUTICAL OFFICER Inhaled Oxygen Concentration - - Weight 78.9 kg (174 lb) 07/15/2018 3:59 PM PHARMACEUTICAL OFFICER Height 157.5 cm (5' 2 ) 06/07/2019 11:31 AM PHARMACEUTICAL OFFICER Body Mass Index 31.83 07/15/2018 3:59 PM PHARMACEUTICAL OFFICER Plan of Treatment Health Maintenance Due Date Last Done Comments Colorectal Cancer Screening Colonoscopy (10 Years) 1960 Annual Physical 02/08/1963 Hepatitis C 02/08/1978 Cervical Cancer Screening Pa p with HPV Testing (Age 30 to 64) Every 5 Years 02/08/1990 Zoster Vaccines (1 of 2) 02/08/2010 DTaP, Tdap and Td Vaccines ( 2 - Td or Tdap) 09/15/2023 09/14/2013 COVID-19 Vaccine (2023-2 5 season) 2024 Influenza Adult (#1) 2024 Mammogram Screening 11/19/2024 11/19/2022, 06/06/2019 Cervical Cancer Screening Pa p Smear (Age 30 to 64) Every 3 Years 10/15/2025 10/15/2022 Cervical Cancer Screening wi th HPV 10/15/2025 RSV Immunization or 60+ Years (1 - 1-dose 75+ series) 02/08/2035 Meningococcal B Vaccine Aged Out No l onger eligible based on patient's age to complete this topic Meningococcal Vaccine Aged Out No osman dov [...] this topic Medical Devices Implanted Type Area Service Line Layer Device Identifier Shelf Expiration Date Model / Serial / Lot Shell Heath Continuum Tm Ch 48mm Gg - [id number] Implanted:Qty: 1 on 07/15/2018 by Chong Aviles MD at [facility] Right: Hip [employer] 04/21/2028 [id number] / / [id number] Continium Trilogy Poly Implanted:Qty: 1 on 07/15/2018 by Chong Aviles MD at [facility] Right: Hip [employer] 07/22/2022 [id number] / / [id number] Screw Heath Bone 30mm - [id number] Implanted:Qty: 1 on 07/15/2018 by Chong Aviles MD at [facility] Right: Hip [employer] 09/20/2027 [id number] / / [id number] Screw Heath Bone 30mm - [id number] Implanted:Qty: 1 on 07/15/2018 by Chong Aviles MD at [facility] Right: Hip [employer] 04/21/2028 [id number] / / [id number] Femoral Stem Implanted:Qty: 1 on 07/15/2018 by Chong Aviles MD at [facility] Right: Hip [employer] 10/20/2027 [id number] / / [id number] Head Femoral Biolox Option Ceramic Heath - [id number] Implanted:Qty: 1 on 07/15/2018 by Chong Aviles MD at [facility] Right: Hip [employer] 03/21/2028 [id number] / / [id number] Explanted Type Area Service Line Layer Device Identifier Shelf Expiration Date Model / Serial / Lot Disposable Bit Explanted:Qty: 1 on 07/15/[address] [facility] Right: Hip [employer] [id number] / / [...] use of a computer-aided detection (CAD) system. Additional 3-D tomosynthesis images were acquired. Tissue density: The breast tissue contains scattered fibroglandular densities. Findings: The breast tissue contains scattered fibroglandular densities. Benign-appearing calcification noted. No suspicious mass, microcalcification or area of architectural distortion can be identified. From a mammographic standpoint, routine followup in one year would seem adequate. IMPRESSION: No suspicious change since the previous exams. Recommendation: 1: Routine Screening Bilateral in 1 Year Assessment: ACR BI-RADS 2 - BENIGN FINDING(S) Ordered By: ANGELINA OVALLES Interpreted By: Daniel Wilhelm MD, 11/21/2022 3:32 PM Angelina Ovalles BUTTON MAKER-BC MAMMO Final Result from Last 3 Months or Most Recently Relevant to Health Maintenance Insurance [facility] Advance Directives * Full Code (Latest Code Status on File) Date Activated Date Inactivated Comments 07/15/2018 3:51 PM 07/16/2018 2:46 PM Care Teams Network Project Manager Relationship Specialty Start Date End Date Toma Pete PA [address] [place] [address] PCP - General PHYSICIAN DISPATCHER ELECTRIC POWER 11/19/22
== END 2024-08-08 08:07 | disposition home or self-care (01) ==
LOC: CHSLAB 08:11
PROVIDERS: PCP Physician Assistant; Visit Provider Physician Assistant
DX: E03.9 Hypothyroidism, unspecified (principal)
CPT/HCPCS: 36415; 71046; 84439; 84443; 84481

== ENCOUNTER 2024-12-18 16:36 | Emergency (ER) | payer OTHER, SELFPAY ==
[2024-12-18] VITALS (13 sets, daily range): BP systolic 144–161; BP diastolic 82–89; PULSE 78–82; RESP 20; TEMP 36.3; O2SAT 97–100
--- NOTE | ~2024-12-18 | CT_ITS ---
EXAMINATION: CT brain wo con DATE: 12/18/2024 17:17 INDICATION: dizziness x1 hour, NKI . TECHNIQUE: Computed tomography (CT) of the head was performed without intravenous contrast. The mA wa s adjusted according to patient size. Iterative reconstruction technique was employed. The dose-lengt h product was 605.33 mGy-cm. COMPARISON: None. FINDINGS: No acute intracranial hemorrhage or extra-axial fluid collection. No hydrocephalus, mass, or herniation. No acute ischemic infarct. Unremarkable dural venous sinus attenuation. No acute osseous abnormality. Minimal aerated secretions in the right posterior ethmoid sinus, status post left mastoidectomy, the remaining aerated spaces are clear. IMPRESSION: No acute intracranial process. Reviewed, dictated and finalized at location K.
--- NOTE | 2024-12-18 16:49 | ED_ITS ---
HPI - Dizziness General Chief Complaint: Dizziness Stated Complaint: vertigo Source: patient Mode of arrival: ambulatory Limitations: no limitations History of Present Illness HPI Narrative: Patient is a 64-year-old female with dizziness and vertigo with an unsteady gait over the past day. She has a history of vertigo but this is different in nature. MD elicited complaint: dizziness, difficulty walking and vertigo Pertinent past history: BPPV and other ( Anxiety) Onset (ago): day(s) ( 1) Timing: gradual onset ( greater than 4 hours of symptoms) Severity: moderate Description: sense of movement, off-balance and difficulty walking Context: other ( patient is having lots of stress with family being sick and stress associated with the hospital where the family member was being treated in the past 24 hours) History of similar symptoms: Yes Exacerbating factors: movement/ambulation and change in body position Relieving factors: remaining still and lying down Associated symptoms: nausea Associated neuro symptoms: other ( none) Related Data Home Medications ?Medication ?Instructions ?Recorded ?Confirmed ?Last Taken ?Type levothyroxine 112 mcg tablet 112 mcg PO DAILY 04/21/22 06/13/24 04/28/22 History alprazolam 0.25 mg tablet (Xanax) 0.25 mg PO PRN anxiety 06/13/24 06/13/24 Unknown History Allergies Allergy/AdvReac Type Severity Reaction Status Date / Time ciprofloxacin Allergy Intermediate RASH Verified 06/13/24 00:54 SWELLING nitrofurantoin Allergy Intermediate RASH/SWELLI Verified 06/13/24 00:54 NG Penicillins Allergy Intermediate RASH/SWELLI Verified 06/13/24 00:54 NG sulfamethoxazole Allergy Intermediate RASH Verified 06/13/24 00:54 trimethoprim Allergy Intermediate RASH Verified 06/13/24 00:54 Sulfa (Sulfonamide Allergy Unknown Hives Verified 06/13/24 00:54 Antibiotics) injection with animal Allergy Unknown Uncoded 06/13/24 00:54 derivatives Review of Systems 2 Review of Systems: All systems reviewed & are unremarkable except as noted in HPI and below Constitutional: Constitutional: Reports no additional constitutional complaints Eyes: Eyes: Reports no additional eye complaints ENT: Reports system reviewed and no additional complaints, except as documented Cardiovascular: Cardiovascular: Reports no additional cardiovascular complaints Respiratory: Respiratory: Reports no additional respiratory complaints Gastrointestinal: Gastrointestinal: Reports no additional gastrointestinal complaints Genitourinary: Genitourinary: Reports no additional female genitourinary complaints Musculoskeletal: Musculoskeletal: Reports no additional musculoskeletal complaints Integumentary/Breasts: Skin/Breast: Reports system reviewed and no additional complaints, except as docu Neurologic: Reports system reviewed and no additional complaints, except as documented Psychiatric: Psychiatric: Reports no additional psychiatric complaints Endocrine: Endocrine: Reports no additional endocrine complaints Hematologic/Lymphatic: Hematologic/Lymphatic: Reports no additional hematologic/lymphatic complaints Allergic/Immunologic: Allergic/Immunologic: Reports no additional allergic/immunologic complaints PMFSH Past Medical History Medical History GERD (gastroesophageal reflux disease) Panic attacks Depression Heart palpitations Chronic kidney disease Anxiety Hypothyroidism Surgical History Surgical History H/O: hysterectomy History of right hip replacement History of cholecystectomy Family History Family History Mother Family history of thyroid disease Grandparent Diabetes mellitus, Onset Age: 75 Family history of congestive heart failure, Onset Age: 72 Father Family history of elevated blood lipids Other Family history of malignant neoplasm Social History Social History Smoking status: Never smoker Second hand tobacco smoke exposure: No Alcohol intake: current Substance use type: does not use Gender identity (if verbalized by the patient): Female Spiritual care concerns: No Exam 2 Const: General: healthy appearing Nutritional Appearance: well nourished Orientation/consciousness: patient oriented x3 Limitations: no limitations HENMT: Head: normal to inspection Ears: TM's normal bilaterally F miguel angel/Nose/Sinus: Normal external nose present Eyes: Conjunctivae: conjunctivae normal Pupils: Equal, round and reactive pupils present EOM: EOMs intact bilaterally Neck: Neck: normal visual inspection Chest: Chest palpation & inspection: normal inspection of the chest Resp: Effort & Inspection: normal respiratory effort and not labored A uscultation: clear to auscultation bilaterally and no crackles Cardio: Rate: regular rate Rhythm: regular rhythm Heart sounds: no murmurs GI: Inspection: non-distended GI Palp: Yes Soft to palpation and No Tenderness to palpation present (GI) Auscultation: normal bowel sounds : General: Yes bladder normal to palpation Back/Spine/Pelvis: Back: no CVA tenderness Skin: General skin exam: normal color Rashes: no rashes Wounds: no wounds Neuro: General: patient oriented x3 Cranial nerves: No Nystagmus not present and Yes Nystagmus present Speech: normal speech Gait exam (Neuro): Normal gait present Extrem: General: normal to inspection Psych: Mental Status: mental status grossly normal Affect: Anxious affect present Attitude: cooperative Course Vital Signs Vital signs: Vital Signs Temperature 36.3 C L 12/18/24 16:36 Pulse Rate 82 12/18/24 16:36 Respiratory Rate 20 12/18/24 16:36 Blood Pressure 161/89 H 12/18/24 16:36 Pulse Oximetry 100 12/18/24 16:36 Oxygen Delivery Room Air 12/18/24 16:36 Temperature 36.3 C L 12/18/24 16:36 Pulse Rate 78 12/18/24 17:01 Respiratory Rate 20 12/18/24 17:01 Blood Pressure 144/85 H 12/18/24 18:16 Pulse Oximetry 100 12/18/24 18:16 Oxygen Delivery Room Air 12/18/24 17:01 Procedures Other Procedure Procedure 1: Other Procedure: particle repositioning done to the right of the patient /Sharla maneuvers with good results and at least 50% reduction in symptoms and she is able to walk again without difficulty MDM - Dizziness MDM Narrative Medical decision making narrative: patient is a 64-year-old female with vertigo and dizziness today. We will do a CT head with labs and urine. We will give her Ativan for anxiety. She took a meclizine before she came to the hospital. Lab Data Attestation: I reviewed the patient's lab results. 12/18/24 17:17 12/18/24 17:17 Labs: Lab Results 12/18/24 12/18/24 Range/Units 16:59 17:17 WBC 6.2 (4.8-10.8) K/mm3 RBC 4.38 (4.20-5.40) M/mm3 Hgb 13.5 (12.0-15.0) g/dL Hct 39.3 (35.0-49.0) % MCV 89.7 (78.0-102.0) fL MCH 30.8 (27.0-31.0) pg MCHC 34.4 (32-36) g/dL RDW 12.7 (11.6-14.4) % Plt Count 240 (150-420) K/mm3 MPV 9.9 (9.2-11.8) fl Immature Gran % (Auto) 0.3 H (0.0-0.0) % Neut % (Auto) 50.8 (50.0-70.0) % Lymph % (Auto) 38.8 (18.0-42.0) % [place] % (Auto) 6.7 (2.0-11.0) % Eos % (Auto) 2.9 (1.0-6.0) % Baso % (Auto) 0.5 (0.0-1.0) % Lymph # (Auto) 2.39 (1.10-4.50) K/mm3 [place] # (Auto) 0.41 (0.10-0.90) K/mm3 Eos # (Auto) 0.18 (0.02-0.50) K/mm3 Baso # (Auto) 0.03 (0.00-0.10) K/mm3 Abs Immat Gran (auto) 0.02 H (0.00-0.00) K/mm3 Absolute Neuts (auto) 3.13 (1.70-7.20) K/mm3 Absolute Nucleated RBC 0.00 (0.00-0.00) K/mm3 Nucleated RBC % 0.0 (0-0.0) % Sodium 138 (137-145) mmol/L Potassium 3.8 (3.4-5.0) mmol/L Chloride 107 (98-107) mmol/L Carbon Dioxide 25 (22-30) mmol/L Anion Gap 6 (4-12) mmol/L BUN 17 (7-17) mg/dL Creatinine 1.02 H (0.7-1.0) mg/dL Estim Creat Clear Calc 49 ml/min Estimated GFR 55 L (59 - ) Glucose 116 H (65-110) mg/dL Calculated Osmolality 288 (285-295) mOsm/kg Calcium 8.8 (8.4-10.2) mg/dL Total Bilirubin 0.5 (0.2-1.3) mg/dL AST 33 (14-36) U/L ALT 29 (6-35) U/L Alkaline Phosphatase 65 (38-126) U/L Troponin I < 0.012 (0.000-0.034) ng/mL Total Protein 6.7 (6.3-8.2) g/dL Albumin 4.1 (3.5-5.1) g/dL Urine Color Light yellow (Yellow) Urine Appearance Clear (Clear) Urine pH 6.5 (5.0-8.0) Ur Specific [place] <= 1.005 L (1.010-1.020) Urine Protein Negative (Negative) Urine Glucose (UA) Negative (Negative) Urine Ketones Negative (Negative) Ur Blood (Man) Negative (Negative) Urine Nitrate Negative (Negative) Urine Bilirubin Negative (Negative) Urine Urobilinogen 0.2 (0.2-1.0) mg/dL Leukocyte Esterase Rfl Trace H (Negative) MAYKEL/UL Urine WBC None seen (0-3) /hpf Imaging Data Attestation: I personally reviewed and interpreted this imaging study as follows: Radiologist's impression: CT head is negative for acute process ECG Data EKG #1: Attestation: I personally reviewed and interpreted this ECG as follows: ECG completion date: 12/18/24 ECG completion time: 17:18 EKG Interpretation: normal rate, sinus rhythm, no ectopy, no ST changes, normal QRS, normal QT and left axis Discharge Plan Discharge Clinical Impression: Benign paroxysmal positional vertigo Qualifiers: Laterality: right Qualified Code(s): H81.11 - Benign paroxysmal vertigo, right ear UTI (urinary tract infection) Qualifiers: Urinary tract infection type: acute cystitis Hematuria presence: without hematuria Qualified Code(s): N30.00 - Acute cystitis without hematuria Patient Disposition: Home Condition: Stable Instructions: Antibiotic Form, Benign Paroxysmal Positional Vertigo (ED) Additional Instructions: if the vertigo returns you can do online maneuvers called particle repositioning maneuvers or Sharla maneuvers on your own. Use Xanax and meclizine as needed for continued symptoms. Make sure to come to the emergency room with any neurological changes beyond current vertigo. Patient Language: Croatian Prescriptions: New cephalexin 500 mg capsule 500 mg PO BID 5 Days Qty: 10 0RF No Action alprazolam [Xanax] 0.25 mg tablet 0.25 mg PO PRN cefdinir 300 mg capsule 300 mg PO Q12H Qty: 20 0RF doxycycline hyclate 100 mg tablet 100 mg PO BID Qty: 20 0RF levothyroxine 112 mcg tablet 112 mcg PO DAILY omeprazole 40 mg capsule,delayed release(DR/EC) 40 mg PO DAILY Qty: 30 5RF Follow-up/Referrals: Juan R,EBONIE Chua [Primary Care Provider] - Time of Disposition: 18:38
--- NOTE | 2024-12-18 16:58 | ECG_ITS ---
Test Date: 2024-12-18 17:06:45 Measurements Intervals [place] Rate: 77 P: 50 WV: 156 QRS: -7 QRSD: 79 T: 35 QT: 375 QTc: 424 Interpretive Statements SINUS RHYTHM POSSIBLE LEFT ATRIAL ENLARGEMENT DELAYED PRECORDIAL R/S TRANSITION LOW QRS VOLTAGE IN PRECORDIAL LEADS BORDERLINE ECG No previous ECG available for comparison Electronically Signed On 12-18-2024 19:53:36 CDT by Ryan Sun D.O.
[2024-12-18] MEDS: LORazepam (*CRX) 0.5 MG TABLET PO (17:18)
[2024-12-18 17:23] LABS: Basophils Absolute Auto 0.03 K/mm3 (0.00-0.10); Basophils Percent Auto 0.5 % (0.0-1.0); Eosinophils Absolute Auto 0.18 K/mm3 (0.02-0.50); Eosinophils Percent Auto 2.9 % (1.0-6.0); Hematocrit 39.3 % (35.0-49.0); Hemoglobin 13.5 g/dL (12.0-15.0); Immature Granulocyte Absolute 0.02 K/mm3 (0.00-0.00); Immature Granulocyte Percent A 0.3 % (0.0-0.0); Lymphocytes Absolute Auto 2.39 K/mm3 (1.10-4.50); Lymphocytes Percent Auto 38.8 % (18.0-42.0); Mean Corpuscular HGB Conc 34.4 g/dL (32-36); Mean Corpuscular Hemoglobin 30.8 pg (27.0-31.0); Mean Corpuscular Volume 89.7 fL (78.0-102.0); Mean Platelet Volume 9.9 fl (9.2-11.8); Monocytes Absolute Auto 0.41 K/mm3 (0.10-0.90); Monocytes Percent Auto 6.7 % (2.0-11.0); Neutrophils Absolute Auto 3.13 K/mm3 (1.70-7.20); Neutrophils Percent Auto 50.8 % (50.0-70.0); Platelet Count Result 240 K/mm3 (150-420); Red Blood Count 4.38 M/mm3 (4.20-5.40); Red Cell Distribution Width 12.7 % (11.6-14.4); White Blood Count 6.2 K/mm3 (4.8-10.8)
[2024-12-18 17:35] LABS: Alanine Aminotransferase 29 U/L (6-35); Albumin Level 4.1 g/dL (3.5-5.1); Alkaline Phosphatase 65 U/L (38-126); Anion Gap 6 mmol/L (4-12); Aspartate Amino Transferase 33 U/L (14-36); Bilirubin,Total 0.5 mg/dL (0.2-1.3); Blood Urea Nitrogen 17 mg/dL (7-17); Calcium 8.8 mg/dL (8.4-10.2); Carbon Dioxide 25 mmol/L (22-30); Chloride 107 mmol/L (98-107); Estimated CRCL calculation 49 ml/min; Estimated Glomerular Filt Rate 55; Glucose 116 mg/dL (65-110); Osmolality Calculated 288 mOsm/kg (285-295); Sodium 138 mmol/L (137-145); Total Protein 6.7 g/dL (6.3-8.2)
[2024-12-18 17:47] LABS: Troponin I < 0.012 ng/mL (0.000-0.034)
[2024-12-18 17:49] LABS: Potassium 3.8 mmol/L (3.4-5.0)
[2024-12-18 18:14] LABS: Add Urine Microscopic? YES; Appearance Urine Clear (Clear); Bilirubin Urine Negative (Negative); Blood Urine Negative (Negative); Color Urine Light Yellow (Yellow); Glucose Urine UA Negative (Negative); Ketones Urine Negative (Negative); Leukocyte Esterase Ur Trace LEU/UL (Negative); Nitrate Urine Negative (Negative); Protein Urine Negative (Negative); Specific Grav Ur <= 1.005 (1.010-1.020); Urobilinogen Urine 0.2 mg/dL (0.2-1.0); pH Urine 6.5 (5.0-8.0)
[2024-12-18 18:21] LABS: WBC Urine None seen /hpf (0-3)
== END 2024-12-18 18:40 | disposition home or self-care (01) ==
PROVIDERS: Emergency Provider Emergency Medicine; PCP Physician Assistant
DX: H81.11 Benign paroxysmal vertigo, right ear (principal); N30.00 Acute cystitis without hematuria; E03.9 Hypothyroidism, unspecified; N18.9 Chronic kidney disease, unspecified
CPT/HCPCS: 36415; 70450; 80053; 81001; 84484; 85025; 93005; 99284; A9270

== ENCOUNTER 2024-12-20 05:55 | Observation (INO) | payer OTHER, SELFPAY ==
[2024-12-20] VITALS (7 sets, daily range): BP systolic 111–140; BP diastolic 61–87; PULSE 61–87; RESP 16–20; TEMP 35.8–37.3; O2SAT 97–100; BMI 30.7; BMI 30.2
--- NOTE | ~2024-12-20 | CT_ITS ---
EXAMINATION: CTA BRAIN/CAROTID DATE: 12/20/2024 13:24 INDICATION: Positional dizziness TECHNIQUE: Computed tomographic angiography (CTA) of the head and neck was performed with 100 mL Omni paque-350 intravenous contrast. Multiplanar reconstructions and maximum intensity projection 3D-recon structions of the carotid arteries and of the intracranial arteries were created by the technologist on a separate workstation. Precontrast CT of the head was also obtained. Automated exposure control and iterative reconstruction technique were employed.The dose-length product was 1800.44 mGy-cm. COMPARISON: Head CT dated 12/18/2024 FINDINGS: Carotid arteries: Aortic arch dilated vessels arising from the arch are normal in caliber with no evident atherosclerot ic plaque or dissection. There is no evident atherosclerotic plaque with 0% stenosis of the right and left carotid bulbs relative to normal distal artery lumen diameter (NASCET criteria). Visualized upp er lungs are clear. Moderate cervical spondylosis. Head: No acute intracranial hemorrhage, acute infarction or abnormal extra axial fluid collection. Ventricl es are normal and symmetric. No mass/mass effect. Status post left mastoidectomy. The orbits are norm al. Mild mucosal thickening the bilateral ethmoid and maxillary sinuses. No abnormal enhancing lesion s on the postcontrast imaging. Intracranial arteries Vertebral arteries are codominant. There is no hemodynamically significant stenosis in the vertebral, basilar and internal carotid arteries. Both A1 and P1 segments are patent. There also patent bilater al posterior communicating arteries. There are no aneurysms identified. Cerebral arterial arborizatio n appears symmetric. IMPRESSION: 1. No evident atherosclerotic plaque with 0% stenosis of the right and left carotid bulbs relative to normal distal artery lumen diameter (NASCET criteria). 2. No acute intracranial process. 3. Unremarkable cerebral CT angiogram with no hemodynamically significant stenosis, thrombosis or dis section. Reviewed, dictated and finalized at location B. IMPRESSION: 1. No evident atherosclerotic plaque with 0% stenosis of the right and left car otid bulbs relative to normal distal artery lumen diameter (NASCET criteria). 2. No acute intracranial process. 3. Unremarkable cerebral CT angiogram with no hemodynamically significant steno sis, thrombosis or dissection.
--- NOTE | ~2024-12-20 | XR_ITS ---
Portable chest x-ray Comparison: 08/08/2024 Clinical History: Vertigo Findings: Lungs are clear, without focal consolidation or pleural effusion. Cardiomediastinal silho uette is stable. Bones and soft tissues are unremarkable. Impression: Normal chest. Reviewed, dictated and finalized at [facility]. Impression: Normal chest.
--- NOTE | ~2024-12-20 | CT_ITS ---
EXAMINATION: CT IAC/mastoids BI wo con DATE: 12/20/2024 13:24 INDICATION: Positional dizziness. TECHNIQUE: Computed tomography (CT) of the temporal bones was performed without intravenous contrast. The dose-length product was 1800.44 mGy-cm. COMPARISON: 11/18/2022 FINDINGS: Mild mucoperiosteal thickening the bilateral maxillary and ethmoid sinuses. Orbits are normal. RIGHT TEMPORAL BONE: The external auditory canal, tympanic membrane, ossicles and scutum are normal. The right mastoid is hyperpneumatized. The middle ear cavity including Prussak's space are clear. The oval window, vestibu le, cochlea, semicircular canals, internal auditory canal, vestibular aqueduct and course of the faci al nerve are normal. The carotid canal and jugular bulb are unremarkable. LEFT TEMPORAL BONE: The left mastoid is also hypopneumatized with postoperative change of prior left mastoidectomy which extends into the attic. Interval decrease in a small amount of material along the posterior superior margin of the inner external auditory canal abutting the posterior external margin of the otherwise n ormal tympanic membrane. Also decreased is a now minimal amount of soft tissue along the deep margin of the posterior tympanic membrane. The ossicles are normal. Stable appearance of chronic erosion of the scrotum. The middle ear cavity including Prussak's space are clear. The oval window, vestibule, c ochlea, semicircular canals, internal auditory canal, vestibular aqueduct and course of the facial ne rve are normal. The carotid canal and jugular bulb are unremarkable. IMPRESSION: 1. Status post left mastoidectomy with decrease in now minimal amount of material along the posterior aspect of the left tympanic membrane and deep aspect of the external auditory canal which given the interval improvement would favor sequela of chronic otitis media over cholesteatoma. 2. Right mastoid is hyperpneumatized. Otherwise unremarkable right temporal bone CT. Reviewed, dictated and finalized at location B. IMPRESSION: 1. Status post left mastoidectomy with decrease in now minimal amount of materi al along the posterior aspect of the left tympanic membrane and deep aspect of the external auditory canal which given the interval improvement would favor se quela of chronic otitis media over cholesteatoma. 2. Right mastoid is hyperpneumatized. Otherwise unremarkable right temporal bon e CT.
--- OUTSIDE RECORDS SUMMARY | 2024-12-20 05:57 | XMS_ITS | Clinical Summary ---
Author Organization [facility] Address [facility] [place] [address] Care Team Providers Care Qualifications Examiner Name Role Phone Toma Plaza Primary Care Provider [phone] Allergies Active Allergy Reactions Criticality Noted Date [...] Date Primary osteoarthritis of right hip 07/15/2018 Encounters Date Type Department Care Team Description 12/15/2024 10:15 AM CDT - 12/15/2024 11:59 PM CDT Hospital Encounter [facility] [address] [place] [address] Toma Plaza PA Discharge Disposition: Home or Self Care (Routine Discharge) 12/15/2024 Orders Only [facility] [address] [place] [address] Toma Plaza PA 12/14/2024 11:15 AM CDT - 12/14/2024 11:59 PM CDT Hospital Encounter [facility] [address] [place] [address] Toma Plaza PA Discharge Disposition: Home or Self Care (Routine Discharge) 12/14/2024 Travel from Last 3 Months Family History Medical History Relation Comments Heart [...] AM CDT Legal Sex Female 11:19 PM DETECTIVE CHIEF Gender Identity Female 11/04/2022 9:01 AM CDT Sexual Orientation Straight 11/04/2022 9: 01 AM CDT Last Filed Vital Signs Vital Sign Reading Time Taken Comments Blood Pressure 140/90 06/07/2019 11:31 AM DETECTIVE CHIEF Pulse 96 06/07/2019 11:31 AM DETECTIVE CHIEF Temperature 37 C (98.6 F) 06/07/2019 11:31 AM DETECTIVE CHIEF Respiratory Rate 16 06/07/2019 11:31 AM DETECTIVE CHIEF Oxygen Saturation 98% 06/07/2019 11:31 AM DETECTIVE CHIEF Inhaled Oxygen Concentration - - Weight 78.9 kg (174 lb) 07/15/2018 3:59 PM DETECTIVE CHIEF Height 157.5 cm (5' 2) 06/07/2019 11:31 AM DETECTIVE CHIEF Body Mass Index 31.83 07/15/2018 3:59 PM DETECTIVE CHIEF Plan of Treatment Upcoming Encounters Date Type Department Care Team (Late st Contact Info) Description 12/26/2024 1:[address] [facility] [address] [place] [address] Toma Plaza PA [address] [place] [id number] Health Maintenance Due Date Last Done Comments Colorectal Cancer Screening Colonoscopy (10 Years) 1960 Annual Physical 02/08/1963 Hepatitis C 02/08/1978 Cervical Cancer Screening Pa p with HPV Testing (Age 30 to 64) Every 5 Years 02/08/1990 Pneumococcal Vaccine: 50+ Years (1 of 1 - PCV) 02/08/2010 Zoster Vaccines (1 of 2) 02/08/2010 DTaP, Tdap and Td Vaccines ( 2 - Td or Tdap) 09/15/2023 09/14/2013 COVID-19 Vaccine (1 - 2023-2 5 season) 2024 Mammogram Screening 11/19/2024 11/19/2022, 06/06/2019 Cervical [...] this topic Medical Devices Implanted Type Area Fixed Income Trading Vice President Device Identifier Shelf Expiration Date Model / Serial / Lot Shell Heath Continuum Tm Ch 48mm Gg - [id number] Implanted:Qty: 1 on 07/15/2018 by Chong Aviles MD at [facility] Right: Hip [employer] 04/21/2028 [id number] / / [id number] Continium Trilogy Poly Implanted:Qty: 1 on 07/15/2018 by Chong Aviles MD at [facility] Right: Hip [employer] 07/22/2022 [id number] / / [id number] Screw Heath Bone 30mm - [id number] Implanted:Qty: 1 on 07/15/2018 by Chong Aviles MD at [facility] Right: Hip [employer] 09/20/2027 [id number] / / [id number] Screw Heath Bone 30mm - [id number] Implanted:Qty: 1 on 07/15/2018 by Chong Aviles MD at [facility] Right: Hip [employer] 04/21/2028 [id number] / / [id number] Femoral Stem Implanted:Qty: 1 on 07/15/2018 by Chong Aviles MD at [facility] Right: Hip [employer] 10/20/2027 [id number] / / [id number] Head Femoral Biolox Option Ceramic Heath - [id number] Implanted:Qty: 1 on 07/15/2018 by Chong Aviles MD at [facility] Right: Hip [employer] 03/21/2028 [id number] / / [id number] Explanted Type Area Fixed Income Trading Vice President Device Identifier Shelf Expiration Date Model / Serial / Lot Disposable Bit Explanted:Qty: 1 on 07/15/2018 at [facility] Right: Hip [employer] [id number] / / Procedures Procedure Name Priority Date/Time Associated Diagnosis Comments URINE BACTERIA CULTURE Routine 11:18 AM CDT Hypothyroid Encounter for long-term (current) drug use Screening for lipoid disorders Screening for diabetes mellitus Vitamin D deficiency Symptoms involving urinary system URINALYSIS, AUTO, COMPLETE Routine 12/15/2024 11:18 AM CDT Hypothyroid Encounter for long-term (current) drug use Screening for lipoid disorders Screening for diabetes mellitus Vitamin D deficiency Symptoms involving urinary system VITAMIN D, 25 OH Routine 12/15/2024 10:3 0 AM CDT Hypothyroid Encounter for long-term (current) drug use Screening for lipoid disorders Screening for diabetes mellitus Vitamin D deficiency Symptoms involving urinary system HEMOGLOBIN, GLYCOSYLATED Routine 12/15/2024 10:30 AM CDT Hypothyroid Encounter for long-term (current) drug use Screening for lipoid disorders Screening for diabetes mellitus Vitamin D deficiency Symptoms involving urinary system LIPID PANEL Routine 12/15/2024 10:30 AM CDT Hypothyroid Encounter for long-term (current) drug use Screening for lipoid disorders Screening for diabetes mellitus Vitamin D deficiency Symptoms involving urinary system VITAMIN B12 / FOLATE Routine 12/15/2024 10:30 AM CDT Hypothyroid Encounter for long-term (current) drug use Screening for lipoid disorders Screening for diabetes mellitus Vitamin D deficiency Symptoms involving urinary system CBC W/DIFF AUTOMATED Routine 12/15/2024 10:30 AM CDT Hypothyroid Encounter for long-term (current) drug use Screening for lipoid disorders Screening for diabetes mellitus Vitamin D deficiency Symptoms involving urinary system COMPREHENSIVE METABOLIC PANEL Routine 12/15/2024 10:30 AM CDT Hypothyroid Encounter for long-term (current) drug use Screening for lipoid disorders Screening for diabetes mellitus Vitamin D deficiency Symptoms involving urinary system FREE T3 Routine 12/15/2024 10:30 AM CDT Hypothyroid Encounter for long-term (current) drug use Screening for lipoid disorders Screening for diabetes mellitus Vitamin D deficiency Symptoms involving urinary system THYROXINE, FREE (FT4) Routine 12/15/2024 10:30 AM CDT Hypothyroid Encounter for long-term (current) drug use Screening for lipoid disorders Screening for diabetes mellitus Vitamin D deficiency Symptoms involving urinary system THYROID STIM HORMONE TSH Routine 12/15/2024 10:30 AM CDT Hypothyroid Encounter for long-term (current) drug use Screening for lipoid disorders Screening for diabetes mellitus Vitamin D deficiency Symptoms involving urinary system XR CHEST PA+LAT Routine 12/14/2024 11:36 AM CDT Pleurodynia MG SCREENING W PATY DANIELLA DIGI Routine 11/19/2022 4:21 PM CDT Visit for screening mammogram from Last 3 Months or Most Recently Relevant to Health Maintenance Results * (ABNORMAL) URINE BACTERIA CULTURE (12/15/2024 11:18 AM CDT) SPEC DESCRIPTION URINE CLEAN CATCH 12/15/2024 11:18 AM CDT [facility] SPECIAL REQUESTS NO SPECIAL REQUEST 12/15/2024 11:18 AM CDT [facility] CULTURE RESULT 10,000-49,0 00 COL/ML ESCHERICHIA COLI (A) 12/17/2024 7:11 AM CDT [facility] URINE SPECIMEN OBTAINED BY CLEAN CATCH PROCEDURE / Unknown 12/15/2024 11:18 AM CDT 12/15/2024 11:19 AM CDT Narrative Organism Antibiotic Method Susceptibility Escherichia coli AMPICILLIN BHUPENDRA (VITEK) 4: Sensitive Escherichia coli AMPICILLIN/SULBACTAM BHUPENDRA (VITEK) <=2: Sensitive Escherichia coli CEFTRIAXONE BHUPENDRA (VITEK) <=1: Sensitive Escherichia coli CEFTAZIDIME BHUPENDRA (VITEK) <=1: Sensitive Escherichia coli CEFAZOLIN BHUPENDRA (VITEK) <=4: Sensitive Escherichia coli ESBL BHUPENDRA (VITEK) NEG: Sensitive Escherichia coli NITROFURANTOIN BHUPENDRA (VITEK) <=16: Sensitive Escherichia coli GENTAMICIN BHUPENDRA (VITEK) <=1: Sensitive Escherichia coli LEVOFLOXACIN BHUPENDRA (VITEK) <=0.12: Sensitive Escherichia coli PIPRACIL/TAZO BHUPENDRA (VITEK) <=4: Sensitive Escherichia coli TRIMETH-SULFAMETH. BHUPENDRA (VITEK) <=20: Sensitive us Toma HUGHES [facility]CROBIOLOG[facility] - GENERAL ORDERA BLES Final Result [facility] [address] [place] [address], [place] [phone] [facility] [address] [place] [address], [place] [phone] * (ABNORMAL) URINALYSIS, AUTO, COMPLETE (12/15/2024 11:18 AM CDT) COLOR (U) YELLOW 12/15/2024 11:48 AM CDT [facility] TRANSPARENCY HAZY 12/15/2024 11:48 AM [facility] SPECIFIC GRAVITY (U) >1.030(H) 1.000 - 1.030 12/15/2024 11:48 AM [facility] U PH 6.0 5.0 - 9.0 12/15/2024 11:48 AM [facility] LEUKOCYTES (U) 1+(A) NEGATIVE 12/15/2024 11:48 AM [facility] NITRITES NEGATIVE NEGATIVE 12/15/2024 11:48 AM [facility] PROTEIN RANDOM (U) NEGATIVE NEGATIVE 12/15/2024 11:48 AM [facility] GLUCOSE (U) NEGATIVE NEGATIVE 12/15/2024 11:48 AM [facility] KETONES MG/DL (U) NEGATIVE NEGATIVE 12/15/2024 11:48 AM [facility] BILIRUBIN (U) NEGATIVE NEGATIVE 12/15/2024 11:48 AM [facility] BLOOD (U) NEGATIVE NEGATIVE 12/15/2024 11:48 AM [facility] WBC/HPF 5-10 0 - 5 /HPF 12/15/2024 11:48 AM [facility] RBC/HPF NONE SEEN 0 - 5 /HPF 12/15/2024 11:48 AM [facility] EPI/HPF FEW /HPF 12/15/2024 11:48 AM [facility] CRYSTALS (U) FEW /HPF 12/15/2024 11:48 AM [facility] Comment:AMORPHOUS MATERIAL BACTERIA (U) FEW /HPF 12/15/2024 11:48 AM [facility] URINE SPECIMEN OBTAINED BY CLEAN CATCH PROCEDURE / Unknown 12/15/2024 11:18 AM CDT us Toma HUGHES URINE ORDERABLES Final Result [facility] [address] [place] [address], [place] [phone] * VITAMIN B12 / FOLATE (12/15/2024 10:30 AM CDT) VITAMIN B12 S/P/B 392 193 - 986 PG/ML 12/15/2024 11:39 AM CDT [facility] FOLATE 19.5 8.6 - 58.9 NG/ML 12/15/2024 11:39 AM CDT [facility] 12/15/2024 10:3 0 AM CDT us Toma HUGHES [facility]AT[facility] Final Result Performing Organization Address [facility] Co de Phone Number [facility] [address] [place] [address], [place] [phone] * HEMOGLOBIN, GLYCOSYLATED (12/15/2024 10:30 AM CDT) HGB A1C 5.5 <5.7 % 12/15/2024 11:07 AM CDT [facility] Comment: INCREASED RISK OF DIABETES <5.7% NON-DIABETES 5.7-6.4% INCREASED RISK FOR FUTURE DIABETES > OR = 6.5 CONSISTENT WITH DIABETES STANDARDS OF MEDICAL CARE IN DIABETES-2010 DIABETES CARE, 33(SUPP 1): S1-S61,2010 ESTIMATED AVG GLUCOSE 111 mg/dL 12/15/2024 11:07 AM CDT [facility] 12/15/2024 10:3 0 AM CDT us Toma HUGHES LABORAT[facility] Final Result [facility] [address] [place] [address], [place] [phone] * FREE T3 (12/15/2024 10:30 AM CDT) FREE T3 2.3 2.18 - 3.98 PG/ML 12/15/2024 2:38 PM CDT [facility] 12/15/2024 10:3 0 AM CDT us Toma HUGHES LABORATORY Final Result [facility] [address] [place] [address], [place] [phone] * (ABNORMAL) COMPREHENSIVE METABOLIC PANEL (12/15/2024 10:30 AM CDT) Pathologist [facility] GLUCOSE 97 70 - 99 MG/DL 12/15/2024 11:19 AM CDT [facility] BUN 19(H) 7 - 18 MG/DL 12/15/2024 11:19 AM CDT [facility] CREATININE S/P/B 1.08(H) 0.55 - 1.02 MG/DL 12/15/2024 11:19 AM CDT [facility] SODIUM S/P/B 139 136 - 145 MMOL/L 12/15/2024 11:19 AM CDT [facility] POTASSIUM S/P/B 4.4 3.5 - 5.1 MMOL/L 12/15/2024 11:19 AM CDT [facility] CHLORIDE S/P/B 104 100 - 108 MMOL/L 12/15/2024 11:19 AM CDT [facility] CO2 29.1 21 - 32 MMOL/L 12/15/2024 11:19 AM CDT [facility] CALCIUM S/P/B 9.1 8.5 - 10.1 MG/DL 12/15/2024 11:19 AM [facility] BILIRUBIN TOTAL S/P/B 0.6 0.2 - 1.2 MG/DL 12/15/2024 11:19 AM [facility] TOTAL PROTEIN S/P/B 7.2 6.4 - 8.2 G/DL 12/15/2024 11:19 AM [facility] ALBUMIN S/P/B 4.0 3.4 - 5.0 G/DL 12/15/2024 11:19 AM [facility] AST 21 15 - 37 U/L 12/15/2024 11:19 AM [facility] ALT 36 14 - 55 U/L 12/15/2024 11:19 AM [facility] ALKALINE PHOSPHATASE S/P/B 72 50 - 136 U/L 12/15/2024 11:19 AM [facility] ANION GAP 5.9 5 - 15 MMOL/L 12/15/2024 11:19 AM [facility] BUN CREATININE RATIO 17.6 6 - 12/15/2024 11:19 AM [facility] A/G RATIO 1.2 1.0 - 2.0 RATIO 12/15/2024 11:19 AM [facility] GFR ESTIMATE 57(L) >90 ML/MIN/1.7 3 M2 12/15/2024 11:19 AM [facility] Comment: NOTE: eGFR is not calculated for patients <18 years of age. This is an estimated GFR calculation using the new CKD EPI creatinine equation without race and so does not require a correction factor for race. This estimated GFR should not be used for calculating drug doses. 12/15/2024 10:3 0 AM CDT us Toma HUGHES [facility]ORAT[facility] Final Result [facility] [address] [place] [address], * (ABNORMAL) LIPID PANEL (12/15/2024 10:30 AM CDT) CHOLESTEROL 201(H) <200.0 MG/DL 12/15/2024 11:19 AM CDT [facility] TRIGLYCERIDES 123 <150 MG/DL 12/15/2024 11:19 AM CDT [facility] HDL 49 >40.0 MG/DL 12/15/2024 11:19 AM T [facility] LDL (CALCULATED) 127(H) <100 MG/DL 12/15/2024 11:19 AM T [facility] Comment:CALCULATED USING THE FRIEDEWALD EQUATION NON HDL CHOLESTEROL 152(H) <130 MG/DL 12/15/2024 11:19 AM T [facility] CHOL/HDL RATIO 4.1 0.0 - 4.5 12/15/2024 11:19 AM T [facility] VLDL CALCULATION 25 5 - 55 MG/DL 12/15/2024 11:19 AM [facility] LIPID INTERPRETATION 12/15/2024 11:19 AM T [facility] Comment: [facility] REPORT RECOMMENDATIONS: ADULT CHILD LOW RISK: CHOLESTEROL <200 <170 TRIGLYCERIDE <150 --- HDL >=60 --- LDL <100 <110 BORDERLINE: CHOLESTEROL 200-239 170-199 TRIGLYCERIDE 150-199 --- HDL 40-59 --- LDL 100-159 110-129 HIGH RISK: CHOLESTEROL >=240 >=200 TRIGLYCERIDE >=200 --- HDL <40 --- LDL >=160 >=130 12/15/2024 10:3 0 AM CDT Toma HUGHES [facility]AT[facility] Final Result [facility] [address] [place] [address], * (ABNORMAL) CBC W/DIFF AUTOMATED (12/15/2024 10:30 AM CDT) WBC 5.38 4.4 - 11.0 x10'3/uL 12/15/2024 10:52 AM CDT [facility] RBC 4.50 4.50 - 5.10 x10'6/uL 12/15/2024 10:52 AM CDT [facility] HGB 13.9 12.3 - 15.3 G/DL 12/15/2024 10:52 AM CDT [facility] HCT 40.7 35.9 - 44.6 % 12/15/2024 10:52 AM CDT [facility] MCV 90.4 80.0 - 96.0 FL 12/15/2024 10:52 AM CDT [facility] MCH 30.9 25.3 - 30.9 PG 12/15/2024 10:52 AM CDT [facility] MCHC 34.2(H) 31.0 - 34.1 G/DL 12/15/2024 10:52 AM CDT [facility] RDW 13.1 12.4 - 15.1 % 12/15/2024 10:52 AM CDT [facility] PLT 247 151 - 353 x10'3/uL 12/15/2024 10:52 AM CDT [facility] MPV 9.8 9.6 - 12.0 FL 12/15/2024 10:52 AM CDT [facility] RBC MORPHOLOGY NORMAL 12/15/2024 10:52 AM CDT [facility] PLT MORPH. NORMAL 12/15/2024 10:52 AM CDT [facility] WBC MORPHOLOGY NORMAL 12/15/2024 10:52 AM CDT [facility] LYMPHOCYTES % 41.6 15.8 - 45.0 % 12/15/2024 10:52 AM CDT [facility] NEUTROPHILS % 46.0 42.1 - 71.9 % 12/15/2024 10:52 AM CDT [facility] MONOCYTES % 7.1 5.7 - 12.5 % 12/15/2024 10:52 AM CDT [facility] EOSINOPHILS 4.5 0.0 - 5.6 % 12/15/2024 10:52 AM CDT [facility] BASOPHILS 0.6 0.0 - 1.3 % 12/15/2024 10:52 AM CDT [facility] ABS. NEUTROPHILS 2.48 1.40 - 6.00 x10'3/uL 12/15/2024 10:52 AM CDT [facility] IMMATURE GRANS % 0.2 0.0 - 0.5 % 12/15/2024 10:52 AM CDT [facility] ABS. LYMPHOCYTES 2.24 0.80 - 4.70 x10'3/uL 12/15/2024 10:52 AM CDT [facility] 12/15/2024 10:3 0 AM CDT us Toma HUGHES LABORAT[facility] Final Result [facility] [address] [place] [address], * THYROXINE, FREE (FT4) (12/15/2024 10:30 AM CDT) [facility] FREE T4 0.84 0.76 - 1.46 NG/DL 12/15/2024 11:19 AM CDT [facility] 12/15/2024 10:3 0 AM CDT Toma Plaza PA LABORATORY Final Result Performing Organization Address [facility]/ZIP Co de Phone Number [facility] [address] [place] [address], [place] [phone] * (ABNORMAL) THYROID STIM HORMONE TSH (12/15/2024 10:30 AM CDT) TSH 6.153(H) 0.358 - 3.74 uIU/ML 12/15/2024 11:19 AM CDT [facility] Comment: HIGH DOSES OF BIOTIN MAY INTERFERE WITH THIS TEST RESULT. CORRELATION TO CLINICAL HISTORY AND PRESENTATION RECOMMENDED. 12/15/2024 10:3 0 AM CDT Toma Carsoni PA LABORATORY Final Result Performing Organization Address [facility] Co de Phone Number [facility] [address] [place] [address], [place] [phone] * VITAMIN D, 25 [place] (12/15/2024 10:30 AM CDT) VITAMIN D 25 HYDROXY S/P/B 30 30 - 100 NG/ML 12/15/2024 11:45 AM CDT [facility] Comment: INTERPRETATION DEFICIENT <20 INSUFFICIENT 20-29 SUFFICIENT 30-100 12/15/2024 10:3 0 AM CDT Toma Carsoni PA LABORATORY Final Result Performing Organization Address City/[facility]/ZIP Co de Phone Number [facility] [address] [place] [address], [place] [phone] * XR CHEST PA+LAT (12/14/2024 11:36 AM CDT) Anatomical Region Laterality Modality Chest Radiographic Mary Jo ging 12/14/2024 11:4 2 AM CDT Impressions 12/14/2024 11:43 AM CDT IMPRESSION: No acute findings Ordered By: TOMA PLAZA Interpreted By: Scotty Mcneil MD, 12/14/2024 11:42 AM Narrative 12/14/2024 11:43 AM CDT [address] [place] [address] 2 VIEWS OF THE CHEST Clinical history: Pleuritic chest pain Comparison: None 2 views of the chest demonstrate the cardiac silhouette to be normal in size and appearance. The pulmonary vessels appear normal. The Lungs are clear. No consolidations or effusions are seen. Procedure Note Scotty Mcneil MD - 12/14/[address] [place] [address] 2 VIEWS OF THE CHEST Clinical history: Pleuritic chest pain Comparison: None 2 views of the chest demonstrate the cardiac silhouette to be normal insize and appearance. The pulmonary vessels appear normal. The Lungs areclear. No consolidations or effusions are seen. IMPRESSION: No acute findings Ordered By: TOMA PLAZA Interpreted By: Scotty Mcneil MD, 12/14/2024 11:42 AM us [facility] Final Result * MG SCREENING W PATY DANIELLA DIGI [...] Wilhelm MD, 11/21/2022 3:32 PM Angelina Ovalles TRAINING FACILITATOR-BC MAMMO Final Result from Last 3 Months or Most Recently Relevant to Health Maintenance Insurance Advance Directives * Full Code (Latest Code Status on File) Date Activated Date Inactivated Comments 07/15/2018 3:51 PM 07/16/2018 2:46 PM Care Teams Qualifications Examiner Relationship Specialty Start Date End Date Toma Plaza PA PCP - General PHYSICIAN FUEL CELL REPAIRER 11/19/22
--- OUTSIDE RECORDS SUMMARY | 2024-12-20 05:57 | XMS_ITS | Encounter Summary ---
Author Organization [facility] Address [facility] [place] [address] Care Team Providers Care Capacitor Pack Press Operator Name Role Phone Toma Pete Primary Care Provider [phone] Encounter Details Date Type Department Care Team (Late st Contact Info) Description 12/15/2024 Orders Only [facility] [address] [place], [place] [id number] Toma Pete PA [address] [place] [address] Social History Tobacco Use Types Packs/Day Years [...] AM CDT Legal Sex Female 11:19 PM SUPERVISOR JOINERS Gender Identity Female 11/04/2022 9:01 AM CDT Sexual Orientation Straight 11/04/2022 9: 01 AM CDT documented as of this encounter Functional Status * RETIRED Are you deaf or do you have serious difficulty hearing Answer Date of Assessment Author Status No 07/15/2018 4:29 PM SUPERVISOR JOINERS Activ e * RETIRED Are you blind or do you have serious difficulty seeing, even when wearing glasses? Answer Date of Assessment Author Status No 07/15/2018 4:29 PM SUPERVISOR JOINERS Activ e * Do you have serious [...] documented in this encounter Plan of Treatment Upcoming Encounters Date Type Department Care Team (Late st Contact Info) Description 12/26/2024 1:00 PM CDT Appointment [facility] [address] [place] [address] Toma Pete PA [facility] [place] [id number] documented as of this encounter Results * (ABNORMAL) URINE BACTERIA CULTURE (12/15/2024 11:18 AM CDT) SPEC DESCRIPTION URINE CLEAN CATCH 12/15/2024 11:[address] [facility] SPECIAL REQUESTS NO SPECIAL REQUEST 12/15/2024 11:[address] [facility] CULTURE RESULT 10,000-49,0 00 COL/ML ESCHERICHIA COLI (A) 12/17/2024 7:11 AM CDT [facility] URINE SPECIMEN OBTAINED BY CLEAN CATCH [...] MICROBIOLOGY - GENERAL ORDERA BLES Final Result Performing Organization Address City/State/[facility] Co de Phone Number [facility] [address] [place] [address], [place] [phone] [facility] [address] [place] [address], [place] [phone] * (ABNORMAL) URINALYSIS, AUTO, COMPLETE (12/15/2024 11:18 AM CDT) COLOR (U) YELLOW 12/15/2024 11:[address] [facility] TRANSPARENCY HAZY 12/15/2024 11:[address] [facility] SPECIFIC GRAVITY (U) >1.030(H) 1.000 - 1.030 12/15/2024 11:[address] [facility] U PH 6.0 5.0 - 9.0 12/15/2024 11:[address] [facility] LEUKOCYTES (U) 1+(A) NEGATIVE 12/15/2024 11:[address] [facility] NITRITES NEGATIVE NEGATIVE 12/15/2024 11:[address] [facility] PROTEIN RANDOM (U) NEGATIVE NEGATIVE 12/15/2024 11:[address] [facility] GLUCOSE (U) NEGATIVE NEGATIVE 12/15/2024 11:[address] [facility] KETONES MG/DL (U) NEGATIVE NEGATIVE 12/15/2024 11:[address] [facility] BILIRUBIN (U) NEGATIVE NEGATIVE 12/15/2024 11:[address] [facility] BLOOD (U) NEGATIVE NEGATIVE 12/15/2024 11:[address] [facility] WBC/HPF 5-10 0 - 5 /HPF 12/15/2024 11:[address] [facility] RBC/HPF NONE SEEN 0 - 5 /HPF 12/15/2024 11:[address] [facility] EPI/HPF FEW /HPF 12/15/2024 11:[address] [facility] CRYSTALS (U) FEW /HPF 12/15/2024 11:[address] [facility] Comment:AMORPHOUS MATERIAL BACTERIA (U) FEW /HPF 12/15/2024 11:[address] [facility] URINE SPECIMEN OBTAINED BY CLEAN CATCH PROCEDURE / Unknown 12/15/2024 11:18 AM CDT us Toma HUGHES URINE ORDERABLES Final Result [facility] [address] [place] [address], * VITAMIN D, 25 OH (12/15/2024 10:30 AM CDT) VITAMIN D 25 HYDROXY S/P/B 30 30 - 100 NG/ML 12/15/2024 11:[address] [facility] Comment: INTERPRETATION DEFICIENT <20 INSUFFICIENT 20-29 SUFFICIENT 30-100 12/15/2024 10:3 0 AM CDT [facility] Final Result Performing Organization Address [facility]/ZIP Co de Phone Number [facility] [address] [place] [address], * HEMOGLOBIN, GLYCOSYLATED (12/15/2024 10:30 AM CDT) HGB A1C 5.5 <5.7 % 12/15/2024 11:[address] [facility] Comment: INCREASED RISK OF DIABETES <5.7% NON-DIABETES 5.7-6.4% INCREASED RISK FOR FUTURE DIABETES > OR = 6.5 CONSISTENT WITH DIABETES STANDARDS OF MEDICAL CARE IN DIABETES-2010 DIABETES CARE, 33(SUPP 1): S1-S61,2010 ESTIMATED AVG GLUCOSE 111 mg/dL 12/15/2024 11:[address] [facility] 12/15/2024 10:3 0 AM CDT [facility] Final Result Performing Organization Address City/[facility]/ZIP Co de Phone Number [facility] [address] [place] [address], [place] [phone] * (ABNORMAL) LIPID PANEL (12/15/2024 10:30 AM CDT) CHOLESTEROL 201(H) <200.0 MG/DL 12/15/2024 11:[address] [facility] TRIGLYCERIDES 123 <150 MG/DL 12/15/2024 11:[address] [facility] HDL 49 >40.0 MG/DL 12/15/2024 11:[address] [facility] LDL (CALCULATED) 127(H) <100 MG/DL 12/15/2024 11:[address] [facility] Comment:CALCULATED USING THE FRIEDEWALD EQUATION NON HDL CHOLESTEROL 152(H) <130 MG/DL 12/15/2024 11:[address] [facility] CHOL/HDL RATIO 4.1 0.0 - 4.5 12/15/2024 11:[address] [facility] VLDL CALCULATION 25 5 - 55 MG/DL 12/15/2024 11:[address] [facility] LIPID INTERPRETATION 12/15/2024 11:[address] [facility] Comment: NIH CONCENSUS REPORT RECOMMENDATIONS: ADULT CHILD LOW RISK: CHOLESTEROL <200 <170 TRIGLYCERIDE <150 --- HDL >=60 --- LDL <100 <110 BORDERLINE: CHOLESTEROL 200-239 170-199 TRIGLYCERIDE 150-199 --- HDL 40-59 --- LDL 100-159 110-129 HIGH RISK: CHOLESTEROL >=240 >=200 TRIGLYCERIDE >=200 --- HDL <40 --- LDL >=160 >=130 12/15/2024 10:3 0 AM CDT [facility] Final Result Performing Organization Address City/State/[facility] Co de Phone Number [facility] [address] [place] [address], * VITAMIN B12 / FOLATE (12/15/2024 10:30 AM CDT) VITAMIN B12 S/P/B 392 193 - 986 PG/ML 12/15/2024 11:[address] [facility] FOLATE 19.5 8.6 - 58.9 NG/ML 12/15/2024 11:[address] [facility] 12/15/2024 10:3 0 AM CDT us [facility] Final Result [facility] [address] [place] [address], [place] [phone] * (ABNORMAL) CBC W/DIFF AUTOMATED (12/15/2024 10:30 AM CDT) WBC 5.38 4.4 - 11.0 x10'3/uL 12/15/2024 10:[address] [facility] RBC 4.50 4.50 - 5.10 x10'6/uL 12/15/2024 10:[address] [facility] HGB 13.9 12.3 - 15.3 G/DL 12/15/2024 10:[address] [facility] HCT 40.7 35.9 - 44.6 % 12/15/2024 10:[address] [facility] MCV 90.4 80.0 - 96.0 FL 12/15/2024 10:[address] [facility] MCH 30.9 25.3 - 30.9 PG 12/15/2024 10:[address] [facility] MCHC 34.2(H) 31.0 - 34.1 G/DL 12/15/2024 10:[address] [facility] RDW 13.1 12.4 - 15.1 % 12/15/2024 10:[address] [facility] PLT 247 151 - 353 x10'3/uL 12/15/2024 10:[address] [facility] MPV 9.8 9.6 - 12.0 FL 12/15/2024 10:[address] [facility] RBC MORPHOLOGY NORMAL 12/15/2024 10:[address] [facility] PLT MORPH. NORMAL 12/15/2024 10:[address] [facility] WBC MORPHOLOGY NORMAL 12/15/2024 10:[address] [facility] LYMPHOCYTES % 41.6 15.8 - 45.0 % 12/15/2024 10:[address] [facility] NEUTROPHILS % 46.0 42.1 - 71.9 % 12/15/2024 10:[address] [facility] MONOCYTES % 7.1 5.7 - 12.5 % 12/15/2024 10:[address] [facility] EOSINOPHILS 4.5 0.0 - 5.6 % 12/15/2024 10:[address] [facility] BASOPHILS 0.6 0.0 - 1.3 % 12/15/2024 10:[address] [facility] ABS. NEUTROPHILS 2.48 1.40 - 6.00 x10'3/uL 12/15/2024 10:[address] [facility] IMMATURE GRANS % 0.2 0.0 - 0.5 % 12/15/2024 10:[address] [facility] ABS. LYMPHOCYTES 2.24 0.80 - 4.70 x10'3/uL 12/15/2024 10:[address] [facility] 12/15/2024 10:3 0 AM CDT us Toma [facility]GHES [facility] Final Result [facility] [address] [place] [address], * (ABNORMAL) COMPREHENSIVE METABOLIC PANEL (12/15/2024 10:30 AM CDT) [facility] GLUCOSE 97 70 - 99 MG/DL 12/15/2024 11:[address] [facility] BUN 19(H) 7 - 18 MG/DL 12/15/2024 11:19 AM [facility] CREATININE S/P/B 1.08(H) 0.55 - 1.02 MG/DL 12/15/2024 11:[address] [facility] SODIUM S/P/B 139 136 - 145 MMOL/L 12/15/2024 11:[address] [facility] POTASSIUM S/P/B 4.4 3.5 - 5.1 MMOL/L 12/15/2024 11:19 AM [facility] CHLORIDE S/P/B 104 100 - 108 MMOL/L 12/15/2024 11:19 AM [facility] CO2 29.1 21 - 32 MMOL/L 12/15/2024 11:19 AM [facility] CALCIUM S/P/B 9.1 8.5 - 10.1 MG/DL 12/15/2024 11:19 AM [facility] BILIRUBIN TOTAL S/P/B 0.6 0.2 - 1.2 MG/DL 12/15/2024 11:19 AM [facility] TOTAL PROTEIN S/P/B 7.2 6.4 - 8.2 G/DL 12/15/2024 11:19 AM [facility] ALBUMIN S/P/B 4.0 3.4 - 5.0 G/DL 12/15/2024 11:19 AM [facility] AST 21 15 - 37 U/L 12/15/2024 11:[address] [facility] ALT 36 14 - 55 U/L 12/15/2024 11:[address] [facility] ALKALINE PHOSPHATASE S/P/B 72 50 - 136 U/L 12/15/2024 11:[address] [facility] ANION GAP 5.9 5 - 15 MMOL/L 12/15/2024 11:[address] [facility] BUN CREATININE RATIO 17.6 6 - 26 12/15/2024 11:[address] [facility] A/G RATIO 1.2 1.0 - 2.0 RATIO 12/15/2024 11:[address] [facility] GFR ESTIMATE 57(L) >90 ML/MIN/1.7 3 M2 12/15/2024 11:[address] [facility] Comment: NOTE: eGFR is not calculated for patients <18 years of age. This is an estimated GFR calculation using the new CKD EPI creatinine equation without race and so does not require a correction factor for race. This estimated GFR should not be used for calculating drug doses. 12/15/2024 10:3 0 AM CDT [facility] Final Result [facility] [address] [place] [address], * FREE T3 (12/15/2024 10:30 AM CDT) FREE T3 2.3 2.18 - 3.98 PG/ML 12/15/2024 2:38 PM CDT [facility] 12/15/2024 10:3 0 AM CDT [facility] Final Result [facility] [address] [place] [address], [place] [phone] * THYROXINE, FREE (FT4) (12/15/2024 10:30 AM CDT) FREE T4 0.84 0.76 - 1.46 NG/DL 12/15/2024 11:[address] [facility] 12/15/2024 10:3 0 AM CDT [facility] Final Result Performing Organization Address City/[facility]/ZIP Co de Phone Number [facility] [address] [place] [address], [place] [phone] * (ABNORMAL) THYROID STIM HORMONE TSH (12/15/2024 10:30 AM CDT) TSH 6.153(H) 0.358 - 3.74 uIU/ML 12/15/2024 11:[address] [facility] Comment: HIGH DOSES OF BIOTIN MAY INTERFERE WITH THIS TEST RESULT. CORRELATION TO CLINICAL HISTORY AND PRESENTATION RECOMMENDED. 12/15/2024 10:3 0 AM CDT [facility] Final Result [facility] [address] [place] [address], [place] [phone] documented in this encounter Visit Diagnoses Diagnosis Hypothyroid- Primary Unspecified hypothyroidism Encounter for long-term (current) drug use Encounter for long-term (current) use of other medications Screening for lipoid disorders Screening for diabetes mellitus Vitamin D deficiency Unspecified vitamin D deficiency Symptoms involving urinary system Other symptoms involving urinary system documented in this encounter Care Teams Capacitor Pack Press Operator Relationship Specialty Start Date End Date Toma Pete PA PCP - General PHYSICIAN SVP MONETIZATION 11/19/22 documented as of this encounter
--- NOTE | 2024-12-20 05:59 | PC.NURSE ---
DR KATZ AT THE BEDSIDE
--- NOTE | 2024-12-20 06:04 | ED_ITS ---
HPI - General Adult General Chief complaint: Nausea/Vomiting/Diarrhea Stated complaint: VERTIGO, VOMITING Time Seen by Provider: 12/20/24 06:04 Source: patient and EMS Mode of arrival: EMS History of Present Illness HPI narrative: patient was drooling in bed at 3:00 a.m. felt everything is spinning and moving around associated with severe nausea and vomiting. Symptom worse with any movement, better in certain position. Patient denies any fever, chills, chest pain, shortness of breath, abdominal pain. Patient came to our emergency room yesterday with the same symptoms was discharged with diagnosis of benign positional vertigo History of depression, anxiety, heart palpitation, hypothyroidism and new diagnosis of urinary tract infection within the last 24 hours currently on Levaquin started yesterday Related Data Home Medications ?Medication ?Instructions ?Recorded ?Confirmed ?Last Taken ?Type alprazolam 0.25 mg tablet (Xanax) 0.25 mg PO TID PRN anxiety 06/13/24 12/20/24 12/20/24 History levofloxacin 500 mg tablet 500 mg PO DAILY 12/20/24 12/20/24 12/19/24 History levothyroxine 100 mcg capsule 100 mcg PO QAM 12/20/24 12/20/24 12/19/24 History meloxicam 15 mg disintegrating 15 mg PO DAILY PRN pain 12/20/24 12/20/24 Unknown History tablet omeprazole 20 mg capsule,delayed 20 mg PO BID 12/20/24 12/20/24 Unknown History release Allergies Allergy/AdvReac Type Severity Reaction Status Date / Time ciprofloxacin Allergy Intermediate RASH Verified 12/20/24 06:01 SWELLING nitrofurantoin Allergy Intermediate RASH/SWELLI Verified 12/20/24 06:01 NG Penicillins Allergy Intermediate RASH/SWELLI Verified 12/20/24 06:01 NG sulfamethoxazole Allergy Intermediate RASH Verified 12/20/24 06:01 trimethoprim Allergy Intermediate RASH Verified 12/20/24 06:01 Sulfa (Sulfonamide Allergy Unknown Hives Verified 12/20/24 06:01 Antibiotics) injection with animal Allergy Unknown Uncoded 12/20/24 06:01 derivatives Review of Systems 2 Review of Systems: All systems reviewed & are unremarkable except as noted in HPI and below PMFSH Past Medical History Medical History Anxiety with depression Escherichia coli urinary tract infection Cholesteatoma of attic of left ear GERD (gastroesophageal reflux disease) Panic attacks Depression Heart palpitations Chronic kidney disease Hypothyroidism Surgical History Surgical History H/O: hysterectomy History of right hip replacement History of cholecystectomy Family History Family History Mother Family history of thyroid disease Grandparent Diabetes mellitus, Onset Age: 75 Family history of congestive heart failure, Onset Age: 72 Father Family history of elevated blood lipids Other Family history of malignant neoplasm Social History Social History Smoking status: Never smoker Second hand tobacco smoke exposure: No Alcohol intake: current Drinks per week: 1 Substance use: never Substance use type: does not use Do You Feel Safe in your Home?: Yes Lack of Transportation: No Lack of Food: Never True Current Housing: I Have Housing Concerned About Future Housing: YES Difficulty Paying Gas/Electric Bills: No Difficulty Paying for Meds: No Currently Unemployed: YES Education: High School Diploma/GED Difficulty w/ Childcare or Family Care: No Gender identity (if verbalized by the patient): Female Spiritual care concerns: No Exam 2 Narrative: General appearance: Well-developed, well-nourished, holding vomiting bag in hands, Skin: Normal color Head: Normocephalic, nontraumatic Eyes: Clear conjunctiva ENT: Oropharynx normal, ears normal, nose normal Neck: Supple, nontender Chest and respiratory: Airway patent, no respiratory distress, no accessory muscle use Heart: Regular rate/rhythm Abdomen: Soft, nontender, no organomegaly, quiet bowel sounds Vascular: Normal peripheral pulses, normal capillary refill. 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 Layne at shift change, awaiting labs, imaging, disposition. Patient been resting quietly in the emergency room without any issues or problems. Date: 12/20/24 Time: 06:58 Vital Signs Vital signs: Vital Signs Temperature 35.8 C L 12/20/24 05:56 Pulse Rate 87 12/20/24 05:56 Respiratory Rate 20 12/20/24 05:56 Blood Pressure 120/87 12/20/24 05:56 Pulse Oximetry 100 12/20/24 05:56 Oxygen Delivery Room Air 12/20/24 05:56 Temperature 36.6 C 12/21/24 08:00 Pulse Rate 60 12/21/24 08:00 Respiratory Rate 20 12/21/24 08:00 Blood Pressure 128/78 12/21/24 08:00 Pulse Oximetry 97 12/21/24 08:00 Oxygen Delivery Room Air 12/21/24 08:00 Medical Decision Making MDM Narrative Medical decision making narrative: PATIENT CAME TO THE ED WITH DIZZINESS, EVERYTHING SPINS, ASSOCIATED WITH NAUSEA AND VOMITING. VITAL SIGNS ARE STABLE PHYSICAL EXAMINATION CONSISTENT WITH DEFERRED TO GETS WORSE WITH ANY MOVEMENT OTHERWISE INSIGNIFICANT DIFFERENTIAL DIAGNOSIS BENIGN POSITIONAL VERTIGO, ANXIETY LIKE SYMPTOMS BLOOD WORKUP TODAY INCLUDES CBC, CMP, TROPONIN, TSH SHOWED TSH OF 16, 200 OTHERWISE INSIGNIFICANT, CHEST X-RAY SHOWED NO ACUTE ABNORMALITY CT HEAD WITHOUT CONTRAST SHOWED NO ACUTE ABNORMALITY CTA HEAD AND NECK SHOWED NO ACUTE ABNORMALITIES PATIENT DID NOT GET BETTER WITH ED MANAGEMENT, ADMIT TO HOSPITALIST FOR FURTHER EVALUATION Vital Signs Vital Signs: Vital Signs Temperature 35.8 C L 12/20/24 05:56 Pulse Rate 87 12/20/24 05:56 Respiratory Rate 20 12/20/24 05:56 Blood Pressure 120/87 12/20/24 05:56 Pulse Oximetry 100 12/20/24 05:56 Oxygen Delivery Room Air 12/20/24 05:56 Temperature 36.6 C 12/21/24 08:00 Pulse Rate 60 12/21/24 08:00 Respiratory Rate 20 12/21/24 08:00 Blood Pressure 128/78 12/21/24 08:00 Pulse Oximetry 97 12/21/24 08:00 Oxygen Delivery Room Air 12/21/24 08:00 Lab Data 12/21/24 05:21 12/21/24 05:21 Labs: Lab Results 12/20/24 Range/Units 06:59 WBC 7.8 (4.8-10.8) K/mm3 RBC 4.48 (4.20-5.40) M/mm3 Hgb 13.8 (12.0-15.0) g/dL Hct 40.6 (35.0-49.0) % MCV 90.6 (78.0-102.0) fL MCH 30.8 (27.0-31.0) pg MCHC 34.0 (32-36) g/dL RDW 12.7 (11.6-14.4) % Plt Count 243 (150-420) K/mm3 MPV 9.5 (9.2-11.8) fl Immature Gran % (Auto) 0.4 H (0.0-0.0) % Neut % (Auto) 73.5 H (50.0-70.0) % Lymph % (Auto) 19.4 (18.0-42.0) % [place] % (Auto) 5.0 (2.0-11.0) % Eos % (Auto) 1.3 (1.0-6.0) % Baso % (Auto) 0.4 (0.0-1.0) % Lymph # (Auto) 1.50 (1.10-4.50) K/mm3 [place] # (Auto) 0.39 (0.10-0.90) K/mm3 Eos # (Auto) 0.10 (0.02-0.50) K/mm3 Baso # (Auto) 0.03 (0.00-0.10) K/mm3 Abs Immat Gran (auto) 0.03 H (0.00-0.00) K/mm3 Absolute Neuts (auto) 5.70 (1.70-7.20) K/mm3 Absolute Nucleated RBC 0.00 (0.00-0.00) K/mm3 Nucleated RBC % 0.0 (0-0.0) % Sodium 140 (137-145) mmol/L Potassium 4.4 (3.4-5.0) mmol/L Chloride 107 (98-107) mmol/L Carbon Dioxide 26 (22-30) mmol/L Anion Gap 7 (4-12) mmol/L BUN 20 H (7-17) mg/dL Creatinine 1.15 H (0.7-1.0) mg/dL Estim Creat Clear Calc 43 ml/min Estimated GFR 48 L (59 - ) Glucose 112 H (65-110) mg/dL Hemoglobin A1c 5.3 (<5.7) % Calculated Osmolality 293 (285-295) mOsm/kg Calcium 9.0 (8.4-10.2) mg/dL Magnesium 2.2 (1.6-2.3) mg/dL Total Bilirubin 0.4 (0.2-1.3) mg/dL AST 31 (14-36) U/L ALT 30 (6-35) U/L Alkaline Phosphatase 65 (38-126) U/L Troponin I < 0.012 (0.000-0.034) ng/mL Total Protein 6.8 (6.3-8.2) g/dL Albumin 4.1 (3.5-5.1) g/dL Triglycerides 129 (<150) mg/dL Cholesterol 198 (0-200) mg/dL LDL Cholesterol, Calc 128 (<130) mg/dL HDL Direct 44 mg/dL TSH (Reflex) 16.200 H (0.465-4.68) uIU/mL Free T4 0.87 (0.78-2.19) ng/dL Total T3 76 (76-181) ng/dL Imaging Data Radiologist's impression: CHEST X-RAY SHOWED NO ACUTE ABNORMALITIES ECG Data EKG #1: Attestation: I personally reviewed and interpreted this ECG as follows: Interpretation: NORMAL SINUS RHYTHM AT 69 BEATS PER MINUTE, LOW QRS VOLTAGE IN PRECORDIAL LEADS, POOR R-WAVE PROGRESSION, BORDERLINE EKG Critical Care Time Critical Care Time Critical Care Time: No Discharge Plan Discharge Clinical Impression: Vertigo, Depression Patient Disposition: Still a Patient Condition: Stable Time of Disposition: 08:13
[2024-12-20] MEDS: ONDANSETRON INJ 4 MG/2 ML VIAL 8 MG IV PUSH (06:11)
[2024-12-20] MEDS: MECLIZINE HCL 25 MG TABLET PO (06:13)
--- NOTE | 2024-12-20 06:20 | PC.NURSE ---
PATIENT REQUESTED THAT VALIUM NOT BE GIVEN TO HER. DR KATZ NOTIFIED. 5MG VALIUM WAS WASTED IN SOLUTION IN MED ROOM WITH LUCIA RODRIGUES WITNESS
--- OUTSIDE RECORDS SUMMARY | 2024-12-20 06:24 | XMS_ITS | Clinical Summary ---
Author Organization [facility] Address [facility] [place] [address] Care Team Providers Care Demolition Hammer Operator Name Role Phone Toma Plaza Primary Care Provider [phone] Allergies Active Allergy Reactions Criticality Noted Date [...] - 12/15/2024 11:59 PM CDT Hospital Encounter [facility] [address] [place] [address] Toma Plaza PA Discharge Disposition: Home or Self Care (Routine Discharge) 12/15/2024 Orders Only [facility] [address] [place] [address] Toma Plaza PA 12/14/2024 11:15 AM CDT - 12/14/2024 11:59 PM CDT Hospital Encounter [facility] [address] [place] [address] Toma Plaza PA Discharge Disposition: Home or [...] AM CDT Legal Sex Female 11:19 PM PRODUCT LINE MANAGER Gender Identity Female 11/04/2022 9:01 AM CDT Sexual Orientation Straight 11/04/2022 9: 01 AM CDT Last Filed Vital Signs Vital Sign Reading Time Taken Comments Blood Pressure 140/90 06/07/2019 11:31 AM PRODUCT LINE MANAGER Pulse 96 06/07/2019 11:31 AM PRODUCT LINE MANAGER Temperature 37 C (98.6 F) 06/07/2019 11:31 AM PRODUCT LINE MANAGER Respiratory Rate 16 06/07/2019 11:31 AM PRODUCT LINE MANAGER Oxygen Saturation 98% 06/07/2019 11:31 AM PRODUCT LINE MANAGER Inhaled Oxygen Concentration - - Weight 78.9 kg (174 lb) 07/15/2018 3:59 PM PRODUCT LINE MANAGER Height 157.5 cm (5' 2) 06/07/2019 11:31 AM PRODUCT LINE MANAGER Body Mass Index 31.83 07/15/2018 3:59 PM PRODUCT LINE MANAGER Plan of Treatment Upcoming Encounters Date Type Department Care Team (Late st Contact Info) Description 12/26/2024 1:[address] [facility] [address] [place] [address] Toma Plaza PA [address] [place] [id number] Health Maintenance Due Date Last Done [...] this topic Medical Devices Implanted Type Area Metal Cnc Operator Device Identifier Shelf Expiration Date Model / Serial / Lot Shell Heath Continuum Tm Ch 48mm Gg - [id number] Implanted:Qty: 1 on 07/15/2018 by Chong Aviles MD at [facility] Right: Hip [employer] 04/21/2028 [id number] / / [id number] Continium Trilogy Poly Implanted:Qty: 1 on 07/15/2018 by Chong Aviles MD at [facility] Right: Hip [employer] 07/22/2022 [id number] / / [id number] Screw Heath Bone 30mm - [id number] Implanted:Qty: 1 on 07/15/2018 by Chong Aviles MD at [facility] Right: Hip [employer] 09/20/2027 [id number] / / [id number] Screw Heath Bone 30mm - [id number] Implanted:Qty: 1 on 07/15/2018 by Chong Aviles MD at [facility] Right: Hip [employer] 04/21/2028 [id number] / / [id number] Femoral Stem Implanted:Qty: 1 on 07/15/2018 by Chong Aviles MD at [facility] Right: Hip [employer] 10/20/2027 [id number] / / [id number] Head Femoral Biolox Option Ceramic Heath - [id number] Implanted:Qty: 1 on 07/15/2018 by Chong Aviles MD at [facility] Right: Hip [employer] 03/21/2028 [id number] / / [id number] Explanted Type Area Metal Cnc Operator Device Identifier Shelf Expiration Date Model / Serial / Lot Disposable Bit Explanted:Qty: 1 on 07/15/2018 at [facility] Right: Hip [employer] [id number] / [...] URINE CLEAN CATCH 12/15/2024 11:18 AM CDT [facility] SPECIAL REQUESTS NO SPECIAL REQUEST 12/15/2024 11:18 AM CDT [facility] CULTURE RESULT 10,000-49,0 00 COL/ML ESCHERICHIA COLI (A) 12/17/2024 7:11 AM CDT [facility] URINE SPECIMEN OBTAINED BY CLEAN CATCH PROCEDURE / Unknown 12/15/2024 11:18 AM CDT 12/15/2024 11:19 AM CDT Narrative Organism Antibiotic Method Susceptibility Escherichia coli AMPICILLIN BUHPENDRA (VITEK) 4: Sensitive Escherichia coli AMPICILLIN/SULBACTAM BHUPENDRA [...] coli TRIMETH-SULFAMETH. BHUPENDRA (VITEK) <=20: Sensitive us oTma HUGHES MICROBIOLOGY - GENERAL ORDERA BLES Final Result [facility] [address] [place] [address], [place] [phone] [facility] [address] [place] [address], [place] [phone] * (ABNORMAL) URINALYSIS, AUTO, COMPLETE (12/15/2024 11:18 AM CDT) COLOR (U) YELLOW 12/15/2024 11:48 AM CDT [facility] TRANSPARENCY HAZY 12/15/2024 11:48 AM [facility] SPECIFIC GRAVITY (U) >1.030(H) 1.000 - 1.030 12/15/2024 11:48 AM [facility] U PH 6.0 5.0 - 9.0 12/15/2024 11:48 AM [facility] LEUKOCYTES (U) 1+(A) NEGATIVE 12/15/2024 11:48 AM [facility] NITRITES NEGATIVE NEGATIVE 12/15/2024 11:48 AM [facility] PROTEIN RANDOM (U) NEGATIVE NEGATIVE 12/15/2024 11:48 AM [facility] GLUCOSE (U) NEGATIVE NEGATIVE 12/15/2024 11:48 AM [facility] KETONES MG/DL (U) NEGATIVE NEGATIVE 12/15/2024 11:48 AM [facility] BILIRUBIN (U) NEGATIVE NEGATIVE 12/15/2024 11:48 AM [facility] BLOOD (U) NEGATIVE NEGATIVE 12/15/2024 11:48 AM [facility] WBC/HPF 5-10 0 - 5 /HPF 12/15/2024 11:48 AM [facility] RBC/HPF NONE SEEN 0 - 5 /HPF 12/15/2024 11:48 AM [facility] EPI/HPF FEW /HPF 12/15/2024 11:48 AM [facility] CRYSTALS (U) FEW /HPF 12/15/2024 11:48 AM [facility] Comment:AMORPHOUS MATERIAL BACTERIA (U) FEW /HPF 12/15/2024 11:48 AM [facility] URINE SPECIMEN OBTAINED BY CLEAN CATCH PROCEDURE / Unknown 12/15/2024 11:18 AM CDT us Toma HUGHES URINE ORDERABLES Final Result [facility] [address] [place] [address], [place] [phone] * VITAMIN B12 / FOLATE (12/15/2024 10:30 AM CDT) VITAMIN B12 S/P/B 392 193 - 986 PG/ML 12/15/2024 11:39 AM CDT [facility] FOLATE 19.5 8.6 - 58.9 NG/ML 12/15/2024 11:39 AM CDT [facility] 12/15/2024 10:3 0 AM CDT us Toma HU[facility]ES [facility] Final Result Performing Organization Address [facility] Co de Phone Number [facility] [address] [place] [address], [place] [phone] * HEMOGLOBIN, GLYCOSYLATED (12/15/2024 10:30 AM CDT) HGB A1C 5.5 <5.7 % 12/15/2024 11:07 AM CDT [facility] Comment: INCREASED RISK OF DIABETES <5.7% NON-DIABETES 5.7-6.4% INCREASED RISK FOR FUTURE DIABETES > OR = 6.5 CONSISTENT WITH DIABETES STANDARDS OF MEDICAL CARE IN DIABETES-2010 DIABETES CARE, 33(SUPP 1): S1-S61,2010 ESTIMATED AVG GLUCOSE 111 mg/dL 12/15/2024 11:07 AM CDT [facility] 12/15/2024 10:3 0 AM CDT us Toma [facility]ES [facility]AT[facility] Final Result [facility] [address] [place] [address], [place] [phone] * FREE T3 (12/15/2024 10:30 AM CDT) FREE T3 2.3 2.18 - 3.98 PG/ML 12/15/2024 2:38 PM CDT [facility] 12/15/2024 10:3 0 AM CDT us Toma HU[facility]ES [facility] Final Result [facility] [address] [place] [address], [place] [phone] * (ABNORMAL) COMPREHENSIVE METABOLIC PANEL (12/15/2024 10:30 AM CDT) Pathologist [facility] GLUCOSE 97 70 - 99 MG/DL 12/15/2024 11:19 AM CDT [facility] BUN 19(H) 7 - 18 MG/DL 12/15/2024 11:19 AM CDT [facility] CREATININE S/P/B 1.08(H) 0.55 - 1.02 MG/DL 12/15/2024 11:19 AM CDT [facility] SODIUM S/P/B 139 136 - 145 MMOL/L 12/15/2024 11:19 AM CDT [facility] POTASSIUM S/P/B 4.4 3.5 - 5.1 MMOL/L 12/15/2024 11:19 AM CDT [facility] CHLORIDE S/P/B 104 100 - 108 MMOL/L 12/15/2024 11:19 AM CDT [facility] CO2 29.1 21 - 32 MMOL/L 12/15/2024 11:19 AM CDT [facility] CALCIUM S/P/B 9.1 8.5 - 10.1 MG/DL 12/15/2024 11:19 AM [facility] BILIRUBIN TOTAL S/P/B 0.6 0.2 - 1.2 MG/DL 12/15/2024 11:19 AM [facility] TOTAL PROTEIN S/P/B 7.2 6.4 - 8.2 G/DL 12/15/2024 11:19 AM [facility] ALBUMIN S/P/B 4.0 3.4 - 5.0 G/DL 12/15/2024 11:19 AM [facility] AST 21 15 - 37 U/L 12/15/2024 11:19 AM [facility] ALT 36 14 - 55 U/L 12/15/2024 11:19 AM [facility] ALKALINE PHOSPHATASE S/P/B 72 50 - 136 U/L 12/15/2024 11:19 AM [facility] ANION GAP 5.9 5 - 15 MMOL/L 12/15/2024 11:19 AM [facility] BUN CREATININE RATIO 17.6 6 - 12/15/2024 11:19 AM [facility] A/G RATIO 1.2 1.0 - 2.0 RATIO 12/15/2024 11:19 AM [facility] GFR ESTIMATE 57(L) >90 ML/MIN/1.7 3 M2 12/15/2024 11:19 AM [facility] Comment: NOTE: eGFR is not calculated for patients <18 years of age. This is an estimated GFR calculation using the new CKD EPI creatinine equation without race and so does not require a correction factor for race. This estimated GFR should not be used for calculating drug doses. 12/15/2024 10:3 0 AM CDT us Toma [facility] Final Result [facility] [address] [place] [address], * (ABNORMAL) LIPID PANEL (12/15/2024 10:30 AM CDT) CHOLESTEROL 201(H) <200.0 MG/DL 12/15/2024 11:19 AM CDT [facility] TRIGLYCERIDES 123 <150 MG/DL 12/15/2024 11:19 AM CDT [facility] HDL 49 >40.0 MG/DL 12/15/2024 11:19 AM T [facility] LDL (CALCULATED) 127(H) <100 MG/DL 12/15/2024 11:19 AM T [facility] Comment:CALCULATED USING THE FRIEDEWALD EQUATION NON HDL CHOLESTEROL 152(H) <130 MG/DL 12/15/2024 11:19 AM T [facility] CHOL/HDL RATIO 4.1 0.0 - 4.5 12/15/2024 11:19 AM T [facility] VLDL CALCULATION 25 5 - 55 MG/DL 12/15/2024 11:19 AM [facility] LIPID INTERPRETATION 12/15/2024 11:19 AM T [facility] Comment: [facility] REPORT RECOMMENDATIONS: ADULT CHILD LOW RISK: CHOLESTEROL <200 <170 TRIGLYCERIDE <150 --- HDL >=60 --- LDL <100 <110 BORDERLINE: CHOLESTEROL 200-239 170-199 TRIGLYCERIDE 150-199 --- HDL 40-59 --- LDL 100-159 110-129 HIGH RISK: CHOLESTEROL >=240 >=200 TRIGLYCERIDE >=200 --- HDL <40 --- LDL >=160 >=130 12/15/2024 10:3 0 AM CDT Toma [facility] Final Result [facility] [address] [place] [address], * (ABNORMAL) CBC W/DIFF AUTOMATED (12/15/2024 10:30 AM CDT) WBC 5.38 4.4 - 11.0 x10'3/uL 12/15/2024 10:52 AM CDT [facility] RBC 4.50 4.50 - 5.10 x10'6/uL 12/15/2024 10:52 AM CDT [facility] HGB 13.9 12.3 - 15.3 G/DL 12/15/2024 10:52 AM CDT [facility] HCT 40.7 35.9 - 44.6 % 12/15/2024 10:52 AM CDT [facility] MCV 90.4 80.0 - 96.0 FL 12/15/2024 10:52 AM CDT [facility] MCH 30.9 25.3 - 30.9 PG 12/15/2024 10:52 AM CDT [facility] MCHC 34.2(H) 31.0 - 34.1 G/DL 12/15/2024 10:52 AM CDT [facility] RDW 13.1 12.4 - 15.1 % 12/15/2024 10:52 AM CDT [facility] PLT 247 151 - 353 x10'3/uL 12/15/2024 10:52 AM CDT [facility] MPV 9.8 9.6 - 12.0 FL 12/15/2024 10:52 AM CDT [facility] RBC MORPHOLOGY NORMAL 12/15/2024 10:52 AM CDT [facility] PLT MORPH. NORMAL 12/15/2024 10:52 AM CDT [facility] WBC MORPHOLOGY NORMAL 12/15/2024 10:52 AM CDT [facility] LYMPHOCYTES % 41.6 15.8 - 45.0 % 12/15/2024 10:52 AM CDT [facility] NEUTROPHILS % 46.0 42.1 - 71.9 % 12/15/2024 10:52 AM CDT [facility] MONOCYTES % 7.1 5.7 - 12.5 % 12/15/2024 10:52 AM CDT [facility] EOSINOPHILS 4.5 0.0 - 5.6 % 12/15/2024 10:52 AM CDT [facility] BASOPHILS 0.6 0.0 - 1.3 % 12/15/2024 10:52 AM CDT [facility] ABS. NEUTROPHILS 2.48 1.40 - 6.00 x10'3/uL 12/15/2024 10:52 AM CDT [facility] IMMATURE GRANS % 0.2 0.0 - 0.5 % 12/15/2024 10:52 AM CDT [facility] ABS. LYMPHOCYTES 2.24 0.80 - 4.70 x10'3/uL 12/15/2024 10:52 AM CDT [facility] 12/15/2024 10:3 0 AM CDT us Toma [facility] Final Result [facility] [address] [place] [address], * THYROXINE, FREE (FT4) (12/15/2024 10:30 AM CDT) [facility] FREE T4 0.84 0.76 - 1.46 NG/DL 12/15/2024 11:19 AM CDT [facility] 12/15/2024 10:3 0 AM CDT Toma Plaza PA LABORATORY Final Result Performing Organization Address [facility]/ZIP Co de Phone Number [facility] [address] [place] [address], [place] [phone] * (ABNORMAL) THYROID STIM HORMONE TSH (12/15/2024 10:30 AM CDT) TSH 6.153(H) 0.358 - 3.74 uIU/ML 12/15/2024 11:19 AM CDT [facility] Comment: HIGH DOSES OF BIOTIN MAY INTERFERE WITH THIS TEST RESULT. CORRELATION TO CLINICAL HISTORY AND PRESENTATION RECOMMENDED. 12/15/2024 10:3 0 AM CDT Toma Carsoni PA LABORATORY Final Result Performing Organization Address [facility] Co de Phone Number [facility] [address] [place] [address], [place] [phone] * VITAMIN D, 25 OH (12/15/2024 10:30 AM CDT) VITAMIN D 25 HYDROXY S/P/B 30 30 - 100 NG/ML 12/15/2024 11:45 AM CDT [facility] Comment: INTERPRETATION DEFICIENT <20 INSUFFICIENT 20-29 SUFFICIENT 30-100 12/15/2024 10:3 0 AM CDT Toma Carsoni PA LABORATORY Final Result Performing Organization Address City/[facility]/ZIP Co de Phone Number [facility] [address] [place] [address], [place] [phone] * XR CHEST PA+LAT (12/14/2024 11:36 AM CDT) Anatomical Region Laterality Modality Chest Radiographic Mary Jo ging 12/14/2024 11:4 2 AM CDT Impressions 12/14/2024 11:43 AM CDT IMPRESSION: No acute findings Ordered By: TOMA PLAZA Interpreted By: Scotty Mcneil MD, 12/14/2024 11:42 AM Narrative 12/14/2024 11:43 AM CDT [address] [place] [address] 2 VIEWS OF THE CHEST Clinical history: Pleuritic chest pain Comparison: None 2 views of the chest demonstrate the cardiac silhouette to be normal in size and appearance. The pulmonary vessels appear normal. The Lungs are clear. No consolidations or effusions are seen. Procedure Note Scotty Mcneil MD - 12/14/[address] 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
--- OUTSIDE RECORDS SUMMARY | 2024-12-20 06:24 | XMS_ITS | Encounter Summary ---
Author Organization [facility] Address [facility] [place] [address] Care Team Providers Care Production Generalist Name Role Phone Toma Pete Primary Care Provider [phone] Encounter Details Date Type Department Care Team (Late st Contact Info) Description 12/15/2024 Orders Only [facility] [address] [place], [place] [id number] Toma Pete PA [address] [place] [address] Social History Tobacco Use Types [...] AM CDT Legal Sex Female 11:19 PM SPINNER TENDER Gender Identity Female 11/04/2022 9:01 AM CDT Sexual Orientation Straight 11/04/2022 9: 01 AM CDT documented as of this encounter Functional Status * RETIRED Are you deaf or do you have serious difficulty hearing Answer Date of Assessment Author Status No 07/15/2018 4:29 PM SPINNER TENDER Activ e * RETIRED Are you blind or do you have serious difficulty seeing, even when wearing glasses? Answer Date of Assessment Author Status No 07/15/2018 4:29 PM SPINNER TENDER Activ e * Do you have serious [...] Info) Description 12/26/2024 1:00 PM CDT Appointment [facility] [address] [place] [address] Toma Pete PA [facility] [place] [id number] documented as of this encounter Results * (ABNORMAL) URINE BACTERIA CULTURE (12/15/2024 11:18 AM CDT) SPEC DESCRIPTION URINE CLEAN CATCH 12/15/2024 11:18 AM CDT [facility] SPECIAL REQUESTS NO SPECIAL REQUEST 12/15/2024 11:18 AM CDT [facility] CULTURE RESULT 10,000-49,0 00 COL/ML ESCHERICHIA COLI (A) 12/17/2024 7:11 AM CDT [facility] URINE SPECIMEN OBTAINED BY CLEAN CATCH [...] ORDERA BLES Final Result Performing Organization Address City/State/[facility] Co de Phone Number [facility] [address] [place] [address], [place] [phone] [facility] [address] [place] [address], [place] [phone] * (ABNORMAL) URINALYSIS, AUTO, COMPLETE (12/15/2024 11:18 AM CDT) COLOR (U) YELLOW 12/15/2024 11:48 AM CDT [facility] TRANSPARENCY HAZY 12/15/2024 11:48 AM CDT [facility] SPECIFIC GRAVITY (U) >1.030(H) 1.000 - 1.030 12/15/2024 11:48 AM CDT [facility] U PH 6.0 5.0 - 9.0 12/15/2024 11:48 AM CDT [facility] LEUKOCYTES (U) 1+(A) NEGATIVE 12/15/2024 11:48 AM CDT [facility] NITRITES NEGATIVE NEGATIVE 12/15/2024 11:48 AM CDT [facility] PROTEIN RANDOM (U) NEGATIVE NEGATIVE 12/15/2024 11:48 AM CDT [facility] GLUCOSE (U) NEGATIVE NEGATIVE 12/15/2024 11:48 AM CDT [facility] KETONES MG/DL (U) NEGATIVE NEGATIVE 12/15/2024 11:48 AM CDT [facility] BILIRUBIN (U) NEGATIVE NEGATIVE 12/15/2024 11:48 AM CDT [facility] BLOOD (U) NEGATIVE NEGATIVE 12/15/2024 11:48 AM CDT [facility] WBC/HPF 5-10 0 - 5 /HPF 12/15/2024 11:48 AM CDT [facility] RBC/HPF NONE SEEN 0 - 5 /HPF 12/15/2024 11:48 AM CDT [facility] EPI/HPF FEW /HPF 12/15/2024 11:48 AM CDT [facility] CRYSTALS (U) FEW /HPF 12/15/2024 11:48 AM CDT [facility] Comment:AMORPHOUS MATERIAL BACTERIA (U) FEW /HPF 12/15/2024 11:48 AM CDT [facility] URINE SPECIMEN OBTAINED BY CLEAN CATCH PROCEDURE / Unknown 12/15/2024 11:18 AM CDT us Toma [facility] URINE ORDERABLES Final Result [facility] [address] [place] [address], * VITAMIN D, 25 OH (12/15/2024 10:30 AM CDT) VITAMIN D 25 HYDROXY S/P/B 30 30 - 100 NG/ML 12/15/2024 11:45 AM CDT [facility] Comment: INTERPRETATION DEFICIENT <20 INSUFFICIENT 20-29 SUFFICIENT 30-100 12/15/2024 10:3 0 AM CDT [facility] Final Result Performing Organization Address [facility]/ZIP Co de Phone Number [facility] [address] [place] [address], * HEMOGLOBIN, GLYCOSYLATED (12/15/2024 10:30 AM CDT) HGB A1C 5.5 <5.7 % 12/15/2024 11:07 AM CDT [facility] Comment: INCREASED RISK OF DIABETES <5.7% NON-DIABETES 5.7-6.4% INCREASED RISK FOR FUTURE DIABETES > OR = 6.5 CONSISTENT WITH DIABETES STANDARDS OF MEDICAL CARE IN DIABETES-2010 DIABETES CARE, 33(SUPP 1): S1-S61,2010 ESTIMATED AVG GLUCOSE 111 mg/dL 12/15/2024 11:07 AM CDT [facility] 12/15/2024 10:3 0 AM CDT [facility] Final Result Performing Organization Address City/[facility]/ZIP Co de Phone Number [facility] [address] [place] [address], [place] [phone] * (ABNORMAL) LIPID PANEL (12/15/2024 10:30 AM CDT) CHOLESTEROL 201(H) <200.0 MG/DL 12/15/2024 11:19 AM CDT [facility] TRIGLYCERIDES 123 <150 MG/DL 12/15/2024 11:19 AM CDT [facility] HDL 49 >40.0 MG/DL 12/15/2024 11:19 AM CDT [facility] LDL (CALCULATED) 127(H) <100 MG/DL 12/15/2024 11:19 AM CDT [facility] Comment:CALCULATED USING THE FRIEDEWALD EQUATION NON HDL CHOLESTEROL 152(H) <130 MG/DL 12/15/2024 11:19 AM CDT [facility] CHOL/HDL RATIO 4.1 0.0 - 4.5 12/15/2024 11:19 AM T [facility] VLDL CALCULATION 25 5 - 55 MG/DL 12/15/2024 11:19 AM T [facility] LIPID INTERPRETATION 12/15/2024 11:19 AM T [facility] Comment: NIH CONCENSUS REPORT [...] [facility] Final Result Performing Organization Address City/State/[facility] Co de Phone Number [facility] [address] [place] [address], * VITAMIN B12 / FOLATE (12/15/2024 10:30 AM CDT) VITAMIN B12 S/P/B 392 193 - 986 PG/ML 12/15/2024 11:39 AM CDT [facility] FOLATE 19.5 8.6 - 58.9 NG/ML 12/15/2024 11:39 AM CDT [facility] 12/15/2024 10:3 0 AM CDT us [facility] Final Result [facility] [address] [place] [address], [place] [phone] * (ABNORMAL) CBC W/DIFF AUTOMATED (12/15/2024 10:30 AM CDT) WBC 5.38 4.4 - 11.0 x10'3/uL 12/15/2024 10:52 AM CDT [facility] RBC 4.50 4.50 - 5.10 x10'6/uL 12/15/2024 10:52 AM CDT [facility] HGB 13.9 12.3 - 15.3 G/DL 12/15/2024 10:52 AM CDT [facility] HCT 40.7 35.9 - 44.6 % 12/15/2024 10:52 AM CDT [facility] MCV 90.4 80.0 - 96.0 FL 12/15/2024 10:52 AM CDT [facility] MCH 30.9 25.3 - 30.9 PG 12/15/2024 10:52 AM CDT [facility] MCHC 34.2(H) 31.0 - 34.1 G/DL 12/15/2024 10:52 AM CDT [facility] RDW 13.1 12.4 - 15.1 % 12/15/2024 10:52 AM CDT [facility] PLT 247 151 - 353 x10'3/uL 12/15/2024 10:52 AM CDT [facility] MPV 9.8 9.6 - 12.0 FL 12/15/2024 10:52 AM CDT [facility] RBC MORPHOLOGY NORMAL 12/15/2024 10:52 AM CDT [facility] PLT MORPH. NORMAL 12/15/2024 10:52 AM CDT [facility] WBC MORPHOLOGY NORMAL 12/15/2024 10:52 AM CDT [facility] LYMPHOCYTES % 41.6 15.8 - 45.0 % 12/15/2024 10:52 AM CDT [facility] NEUTROPHILS % 46.0 42.1 - 71.9 % 12/15/2024 10:52 AM CDT [facility] MONOCYTES % 7.1 5.7 - 12.5 % 12/15/2024 10:52 AM CDT [facility] EOSINOPHILS 4.5 0.0 - 5.6 % 12/15/2024 10:52 AM CDT [facility] BASOPHILS 0.6 0.0 - 1.3 % 12/15/2024 10:52 AM CDT [facility] ABS. NEUTROPHILS 2.48 1.40 - 6.00 x10'3/uL 12/15/2024 10:52 AM CDT [facility] IMMATURE GRANS % 0.2 0.0 - 0.5 % 12/15/2024 10:52 AM CDT [facility] ABS. LYMPHOCYTES 2.24 0.80 - 4.70 x10'3/uL 12/15/2024 10:52 AM CDT [facility] 12/15/2024 10:3 0 AM CDT us Toma [facility] Final Result [facility] [address] [place] [address], * (ABNORMAL) COMPREHENSIVE METABOLIC PANEL (12/15/2024 10:30 AM CDT) [facility] GLUCOSE 97 70 - 99 MG/DL 12/15/2024 11:19 AM T [facility] BUN 19(H) 7 - 18 MG/DL 12/15/2024 11:19 AM [facility] CREATININE S/P/B 1.08(H) 0.55 - 1.02 MG/DL 12/15/2024 11:19 AM T [facility] SODIUM S/P/B 139 136 - 145 MMOL/L 12/15/2024 11:19 AM T [facility] POTASSIUM S/P/B 4.4 3.5 - 5.1 MMOL/L 12/15/2024 11:19 AM [facility] CHLORIDE S/P/B 104 100 - 108 MMOL/L 12/15/2024 11:19 AM [facility] CO2 29.1 21 - 32 MMOL/L 12/15/2024 11:19 AM [facility] CALCIUM S/P/B 9.1 8.5 - 10.1 MG/DL 12/15/2024 11:19 AM [facility] BILIRUBIN TOTAL S/P/B 0.6 0.2 - 1.2 MG/DL 12/15/2024 11:19 AM [facility] TOTAL PROTEIN S/P/B 7.2 6.4 - 8.2 G/DL 12/15/2024 11:19 AM [facility] ALBUMIN S/P/B 4.0 3.4 - 5.0 G/DL 12/15/2024 11:19 AM [facility] AST 21 15 - 37 U/L 12/15/2024 11:19 AM T [facility] ALT 36 14 - 55 U/L 12/15/2024 11:19 AM CDT [facility] ALKALINE PHOSPHATASE S/P/B 72 50 - 136 U/L 12/15/2024 11:19 AM CDT [facility] ANION GAP 5.9 5 - 15 MMOL/L 12/15/2024 11:19 AM CDT [facility] BUN CREATININE RATIO 17.6 6 - 26 12/15/2024 11:19 AM T [facility] A/G RATIO 1.2 1.0 - 2.0 RATIO 12/15/2024 11:19 AM CDT [facility] GFR ESTIMATE 57(L) >90 ML/MIN/1.7 3 M2 12/15/2024 11:19 AM CDT [facility] Comment: NOTE: eGFR is [...] Final Result [facility] [address] [place] [address], * FREE T3 (12/15/2024 10:30 AM CDT) FREE T3 2.3 2.18 - 3.98 PG/ML 12/15/2024 2:38 PM CDT [facility] 12/15/2024 10:3 0 AM CDT [facility] Final Result [facility] [address] [place] [address], [place] [phone] * THYROXINE, FREE (FT4) (12/15/2024 10:30 AM CDT) FREE T4 0.84 0.76 - 1.46 NG/DL 12/15/2024 11:19 AM CDT [facility] 12/15/2024 10:3 0 AM CDT [facility] Final Result Performing Organization Address City/[facility]/ZIP Co de Phone Number [facility] [address] [place] [address], [place] [phone] * (ABNORMAL) THYROID STIM HORMONE TSH (12/15/2024 10:30 AM CDT) TSH 6.153(H) 0.358 - 3.74 uIU/ML 12/15/2024 11:19 AM CDT [facility] Comment: HIGH DOSES OF BIOTIN MAY INTERFERE WITH THIS TEST RESULT. CORRELATION TO CLINICAL HISTORY AND PRESENTATION RECOMMENDED. 12/15/2024 10:3 0 AM CDT [facility] Final Result [facility] [address] [place] [address], [place] [phone] documented in this encounter Visit Diagnoses Diagnosis Hypothyroid- Primary Unspecified hypothyroidism Encounter for long-term (current) drug use Encounter for long-term (current) use of other medications Screening for lipoid disorders Screening for diabetes mellitus Vitamin D deficiency Unspecified vitamin D deficiency Symptoms involving urinary system Other symptoms involving urinary system documented in this encounter Care Teams Production Generalist Relationship Specialty Start Date End Date Toma Pete PA PCP - General 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
--- NOTE | 2024-12-20 06:49 | PC.NURSE ---
PATIENTS MOTHER CAME OUT TO THE DESK. REPORTS THAT PATIENT WANTS TO STAY IN HOSPITAL VS DISCHARGE
--- NOTE | 2024-12-20 06:51 | ECG_ITS ---
Test Date: 2024-12-20 07:06:46 Measurements Intervals [place] Rate: 69 P: 26 DC: 152 QRS: 17 QRSD: 86 T: 12 QT: 404 QTc: 436 Interpretive Statements SINUS RHYTHM LOW QRS VOLTAGE IN PRECORDIAL LEADS [QRS DEFLECTION < 1.0 mV IN CHEST LEADS] POOR R-WAVE PROGRESSION BORDERLINE ECG Compared to ECG 12/18/2024 17:06:45 NO DIFFERENCE Electronically Signed On 12-21-2024 12:58:33 CDT by Izaiah Ag M.D.
[2024-12-20] MEDS: LORazepam INJ (*CRX) 2 MG/ML VIAL 1 MG IV PUSH (06:58)
[2024-12-20] MEDS: SODIUM CHLORIDE 0.9% IV 1,000 ML 999 ML IV CONT (07:06)
[2024-12-20 07:07] LABS: Hematocrit 40.6 % (35.0-49.0); Hemoglobin 13.8 g/dL (12.0-15.0); Immature Granulocyte Percent A 0.4 % (0.0-0.0); Lymphocytes Absolute Auto 1.50 K/mm3 (1.10-4.50); Mean Corpuscular HGB Conc 34.0 g/dL (32-36); Mean Corpuscular Hemoglobin 30.8 pg (27.0-31.0); Mean Corpuscular Volume 90.6 fL (78.0-102.0); Nucleated Red Blood Cells Absolute Auto 0.00 K/mm3 (0.00-0.00); Nucleated Red Blood Cells Perc 0.0 % (0-0.0); Platelet Count Result 243 K/mm3 (150-420); Red Blood Count 4.48 M/mm3 (4.20-5.40); White Blood Count 7.8 K/mm3 (4.8-10.8)
[2024-12-20 07:16] LABS: Alanine Aminotransferase 30 U/L (6-35); Albumin Level 4.1 g/dL (3.5-5.1); Alkaline Phosphatase 65 U/L (38-126); Anion Gap 7 mmol/L (4-12); Aspartate Amino Transferase 31 U/L (14-36); Bilirubin,Total 0.4 mg/dL (0.2-1.3); Blood Urea Nitrogen 20 mg/dL (7-17); Calcium 9.0 mg/dL (8.4-10.2); Carbon Dioxide 26 mmol/L (22-30); Chloride 107 mmol/L (98-107); Estimated CRCL calculation 43 ml/min; Estimated Glomerular Filt Rate 48; Glucose 112 mg/dL (65-110); Osmolality Calculated 293 mOsm/kg (285-295); Potassium 4.4 mmol/L (3.4-5.0); Sodium 140 mmol/L (137-145); Total Protein 6.8 g/dL (6.3-8.2)
--- OUTSIDE RECORDS SUMMARY | 2024-12-20 08:31 | XMS_ITS | Clinical Summary ---
Author Organization [facility] Address [facility] [place] [address] Care Team Providers Care Manager Pacu Name Role Phone Toma Plaza Primary Care Provider [phone] Allergies Active Allergy Reactions Criticality Noted Date [...] - 12/15/2024 11:59 PM CDT Hospital Encounter [facility] [address] [place] [address] Toma Plaza PA Discharge Disposition: Home or Self Care (Routine Discharge) 12/15/2024 Orders Only [facility] [address] [place] [address] Toma Plaza PA 12/14/2024 11:15 AM CDT - 12/14/2024 11:59 PM CDT Hospital Encounter 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 Gender Identity Female 11/04/2022 9:01 AM CDT Sexual Orientation Straight 11/04/2022 9: 01 AM CDT Last Filed Vital Signs Vital Sign Reading Time Taken Comments Blood Pressure 140/90 06/07/2019 11:31 AM BALING PRESS OPERATOR Pulse 96 06/07/2019 11:31 AM BALING PRESS OPERATOR Temperature 37 C (98.6 F) 06/07/2019 11:31 AM BALING PRESS OPERATOR Respiratory Rate 16 06/07/2019 11:31 AM BALING PRESS OPERATOR Oxygen Saturation 98% 06/07/2019 11:31 AM BALING PRESS OPERATOR Inhaled Oxygen Concentration - - Weight 78.9 kg (174 lb) 07/15/2018 3:59 PM BALING PRESS OPERATOR Height 157.5 cm (5' 2) 06/07/2019 11:31 AM BALING PRESS OPERATOR Body Mass Index 31.83 07/15/2018 3:59 PM BALING PRESS OPERATOR Plan of Treatment Upcoming Encounters Date Type Department Care Team (Late st Contact Info) Description 12/26/2024 1:[address] [facility] [address] [place] [address] Toma Plaza PA [address] [place] [address] Health Maintenance Due Date Last Done [...] this topic Medical Devices Implanted Type Area Biological Sciences Professor Device Identifier Shelf Expiration Date Model / Serial / Lot Shell Heath Continuum Tm Ch 48mm Gg - [id number] Implanted:Qty: 1 on 07/15/2018 by Chong Aviles MD at [facility] Right: Hip [employer] 04/21/2028 [id number] / / [id number] Continium Trilogy Poly Implanted:Qty: 1 on 07/15/2018 by Chong Aviles MD at [facility] Right: Hip [employer] 07/22/2022 [id number] / / [id number] Screw Heath Bone 30mm - [id number] Implanted:Qty: 1 on 07/15/2018 by Chong Aviles MD at [facility] Right: Hip [employer] 09/20/2027 [id number] / / [id number] Screw Heath Bone 30mm - [id number] Implanted:Qty: 1 on 07/15/2018 by Chong Aviles MD at [facility] Right: Hip [employer] 04/21/2028 [id number] / / [id number] Femoral Stem Implanted:Qty: 1 on 07/15/2018 by Chong Aviles MD at [facility] Right: Hip [employer] 10/20/2027 [id number] / / [id number] Head Femoral Biolox Option Ceramic Heath - [id number] Implanted:Qty: 1 on 07/15/2018 by Chong Aviles MD at [facility] Right: Hip [employer] 03/21/2028 [id number] / / [id number] Explanted Type Area Biological Sciences Professor Device Identifier Shelf Expiration Date Model / [...] URINE CLEAN CATCH 12/15/2024 11:18 AM CDT [facility] SPECIAL REQUESTS NO SPECIAL REQUEST 12/15/2024 11:18 AM CDT [facility] CULTURE RESULT 10,000-49,0 00 COL/ML ESCHERICHIA COLI (A) 12/17/2024 7:11 AM CDT [facility] URINE SPECIMEN OBTAINED BY CLEAN [...] MICROBIOLOGY - GENERAL ORDERA BLES Final Result [facility] [address] [place] [address], [place] [phone] [facility] [address] [place] [address], [place] [phone] * (ABNORMAL) URINALYSIS, AUTO, COMPLETE (12/15/2024 11:18 AM CDT) COLOR (U) YELLOW 12/15/2024 11:48 AM CDT [facility] TRANSPARENCY HAZY 12/15/2024 11:48 AM [facility] SPECIFIC GRAVITY (U) >1.030(H) 1.000 - 1.030 12/15/2024 11:48 AM [facility] U PH 6.0 5.0 - 9.0 12/15/2024 11:48 AM [facility] LEUKOCYTES (U) 1+(A) NEGATIVE 12/15/2024 11:48 AM [facility] NITRITES NEGATIVE NEGATIVE 12/15/2024 11:48 AM [facility] PROTEIN RANDOM (U) NEGATIVE NEGATIVE 12/15/2024 11:48 AM [facility] GLUCOSE (U) NEGATIVE NEGATIVE 12/15/2024 11:48 AM [facility] KETONES MG/DL (U) NEGATIVE NEGATIVE 12/15/2024 11:48 AM [facility] BILIRUBIN (U) NEGATIVE NEGATIVE 12/15/2024 11:48 AM [facility] BLOOD (U) NEGATIVE NEGATIVE 12/15/2024 11:48 AM [facility] WBC/HPF 5-10 0 - 5 /HPF 12/15/2024 11:48 AM [facility] RBC/HPF NONE SEEN 0 - 5 /HPF 12/15/2024 11:48 AM [facility] EPI/HPF FEW /HPF 12/15/2024 11:48 AM [facility] CRYSTALS (U) FEW /HPF 12/15/2024 11:48 AM [facility] Comment:AMORPHOUS MATERIAL BACTERIA (U) FEW /HPF 12/15/2024 11:48 AM [facility] URINE SPECIMEN OBTAINED BY CLEAN CATCH PROCEDURE / Unknown 12/15/2024 11:18 AM CDT us Toma HUGHES URINE ORDERABLES Final Result [facility] [address] [place] [address], [place] [phone] * VITAMIN B12 / FOLATE (12/15/2024 10:30 AM CDT) VITAMIN B12 S/P/B 392 193 - 986 PG/ML 12/15/2024 11:39 AM CDT [facility] FOLATE 19.5 8.6 - 58.9 NG/ML 12/15/2024 11:39 AM CDT [facility] 12/15/2024 10:3 0 AM CDT us Toma HUGHES LABORATORY Final Result Performing Organization Address [facility] Co de Phone Number [facility] [address] [place] [address], [place] [phone] * HEMOGLOBIN, GLYCOSYLATED (12/15/2024 10:30 AM CDT) HGB A1C 5.5 <5.7 % 12/15/2024 11:07 AM CDT [facility] Comment: INCREASED RISK OF DIABETES <5.7% NON-DIABETES 5.7-6.4% INCREASED RISK FOR FUTURE DIABETES > OR = 6.5 CONSISTENT WITH DIABETES STANDARDS OF MEDICAL CARE IN DIABETES-2010 DIABETES CARE, 33(SUPP 1): S1-S61,2010 ESTIMATED AVG GLUCOSE 111 mg/dL 12/15/2024 11:07 AM CDT [facility] 12/15/2024 10:3 0 AM CDT us Toma HUGHES LABORATORY Final Result [facility] [address] [place] [address], [place] [phone] * FREE T3 (12/15/2024 10:30 AM CDT) FREE T3 2.3 2.18 - 3.98 PG/ML 12/15/2024 2:38 PM CDT [facility] 12/15/2024 10:3 0 AM CDT us Toma HUGHES LABORATORY Final Result [facility] [address] [place] [address], [place] [phone] * (ABNORMAL) COMPREHENSIVE METABOLIC PANEL (12/15/2024 10:30 AM CDT) Pathologist [facility] GLUCOSE 97 70 - 99 MG/DL 12/15/2024 11:19 AM CDT [facility] BUN 19(H) 7 - 18 MG/DL 12/15/2024 11:19 AM CDT [facility] CREATININE S/P/B 1.08(H) 0.55 - 1.02 MG/DL 12/15/2024 11:19 AM CDT [facility] SODIUM S/P/B 139 136 - 145 MMOL/L 12/15/2024 11:19 AM CDT [facility] POTASSIUM S/P/B 4.4 3.5 - 5.1 MMOL/L 12/15/2024 11:19 AM CDT [facility] CHLORIDE S/P/B 104 100 - 108 MMOL/L 12/15/2024 11:19 AM CDT [facility] CO2 29.1 21 - 32 MMOL/L 12/15/2024 11:19 AM CDT [facility] CALCIUM S/P/B 9.1 8.5 - 10.1 MG/DL 12/15/2024 11:19 AM [facility] BILIRUBIN TOTAL S/P/B 0.6 0.2 - 1.2 MG/DL 12/15/2024 11:19 AM [facility] TOTAL PROTEIN S/P/B 7.2 6.4 - 8.2 G/DL 12/15/2024 11:19 AM [facility] ALBUMIN S/P/B 4.0 3.4 - 5.0 G/DL 12/15/2024 11:19 AM [facility] AST 21 15 - 37 U/L 12/15/2024 11:19 AM [facility] ALT 36 14 - 55 U/L 12/15/2024 11:19 AM [facility] ALKALINE PHOSPHATASE S/P/B 72 50 - 136 U/L 12/15/2024 11:19 AM [facility] ANION GAP 5.9 5 - 15 MMOL/L 12/15/2024 11:19 AM [facility] BUN CREATININE RATIO 17.6 6 - 12/15/2024 11:19 AM [facility] A/G RATIO 1.2 1.0 - 2.0 RATIO 12/15/2024 11:19 AM [facility] GFR ESTIMATE 57(L) >90 ML/MIN/1.7 3 M2 12/15/2024 11:19 AM [facility] Comment: NOTE: eGFR is not calculated for patients <18 years of age. This is an estimated GFR calculation using the new CKD EPI creatinine equation without race and so does not require a correction factor for race. This estimated GFR should not be used for calculating drug doses. 12/15/2024 10:3 0 AM CDT us Toma HUGHES LABORATORY Final Result [facility] [address] [place] [address], * (ABNORMAL) LIPID PANEL (12/15/2024 10:30 AM CDT) CHOLESTEROL 201(H) <200.0 MG/DL 12/15/2024 11:19 AM CDT [facility] TRIGLYCERIDES 123 <150 MG/DL 12/15/2024 11:19 AM CDT [facility] HDL 49 >40.0 MG/DL 12/15/2024 11:19 AM T [facility] LDL (CALCULATED) 127(H) <100 MG/DL 12/15/2024 11:19 AM T [facility] Comment:CALCULATED USING THE FRIEDEWALD EQUATION NON HDL CHOLESTEROL 152(H) <130 MG/DL 12/15/2024 11:19 AM T [facility] CHOL/HDL RATIO 4.1 0.0 - 4.5 12/15/2024 11:19 AM T [facility] VLDL CALCULATION 25 5 - 55 MG/DL 12/15/2024 11:19 AM [facility] LIPID INTERPRETATION 12/15/2024 11:19 AM T [facility] Comment: [facility] REPORT RECOMMENDATIONS: ADULT CHILD LOW RISK: CHOLESTEROL <200 <170 TRIGLYCERIDE <150 --- HDL >=60 --- LDL <100 <110 BORDERLINE: CHOLESTEROL 200-239 170-199 TRIGLYCERIDE 150-199 --- HDL 40-59 --- LDL 100-159 110-129 HIGH RISK: CHOLESTEROL >=240 >=200 TRIGLYCERIDE >=200 --- HDL <40 --- LDL >=160 >=130 12/15/2024 10:3 0 AM CDT Toma HUGHES LABORATORY Final Result [facility] [address] [place] [address], * (ABNORMAL) CBC W/DIFF AUTOMATED (12/15/2024 10:30 AM CDT) WBC 5.38 4.4 - 11.0 x10'3/uL 12/15/2024 10:52 AM CDT [facility] RBC 4.50 4.50 - 5.10 x10'6/uL 12/15/2024 10:52 AM CDT [facility] HGB 13.9 12.3 - 15.3 G/DL 12/15/2024 10:52 AM CDT [facility] HCT 40.7 35.9 - 44.6 % 12/15/2024 10:52 AM CDT [facility] MCV 90.4 80.0 - 96.0 FL 12/15/2024 10:52 AM CDT [facility] MCH 30.9 25.3 - 30.9 PG 12/15/2024 10:52 AM CDT [facility] MCHC 34.2(H) 31.0 - 34.1 G/DL 12/15/2024 10:52 AM CDT [facility] RDW 13.1 12.4 - 15.1 % 12/15/2024 10:52 AM CDT [facility] PLT 247 151 - 353 x10'3/uL 12/15/2024 10:52 AM CDT [facility] MPV 9.8 9.6 - 12.0 FL 12/15/2024 10:52 AM CDT [facility] RBC MORPHOLOGY NORMAL 12/15/2024 10:52 AM CDT [facility] PLT MORPH. NORMAL 12/15/2024 10:52 AM CDT [facility] WBC MORPHOLOGY NORMAL 12/15/2024 10:52 AM CDT [facility] LYMPHOCYTES % 41.6 15.8 - 45.0 % 12/15/2024 10:52 AM CDT [facility] NEUTROPHILS % 46.0 42.1 - 71.9 % 12/15/2024 10:52 AM CDT [facility] MONOCYTES % 7.1 5.7 - 12.5 % 12/15/2024 10:52 AM CDT [facility] EOSINOPHILS 4.5 0.0 - 5.6 % 12/15/2024 10:52 AM CDT [facility] BASOPHILS 0.6 0.0 - 1.3 % 12/15/2024 10:52 AM CDT [facility] ABS. NEUTROPHILS 2.48 1.40 - 6.00 x10'3/uL 12/15/2024 10:52 AM CDT [facility] IMMATURE GRANS % 0.2 0.0 - 0.5 % 12/15/2024 10:52 AM CDT [facility] ABS. LYMPHOCYTES 2.24 0.80 - 4.70 x10'3/uL 12/15/2024 10:52 AM CDT [facility] 12/15/2024 10:3 0 AM CDT us Toma HUGHES LABORATORY Final Result [facility] [address] [place] [address], * THYROXINE, FREE (FT4) (12/15/2024 10:30 AM CDT) [facility] FREE T4 0.84 0.76 - 1.46 NG/DL 12/15/2024 11:19 AM CDT [facility] 12/15/2024 10:3 0 AM CDT Toma Plaza PA LABORATORY Final Result Performing Organization Address [facility]/ZIP Co de Phone Number [facility] [address] [place] [address], [place] [phone] * (ABNORMAL) THYROID STIM HORMONE TSH (12/15/2024 10:30 AM CDT) TSH 6.153(H) 0.358 - 3.74 uIU/ML 12/15/2024 11:19 AM CDT [facility] Comment: HIGH DOSES OF BIOTIN MAY INTERFERE WITH THIS TEST RESULT. CORRELATION TO CLINICAL HISTORY AND PRESENTATION RECOMMENDED. 12/15/2024 10:3 0 AM CDT Toma Carsoni PA LABORATORY Final Result Performing Organization Address [facility] Co de Phone Number [facility] [address] [place] [address], [place] [phone] * VITAMIN D, 25 OH (12/15/2024 10:30 AM CDT) VITAMIN D 25 HYDROXY S/P/B 30 30 - 100 NG/ML 12/15/2024 11:45 AM CDT [facility] Comment: INTERPRETATION DEFICIENT <20 INSUFFICIENT 20-29 SUFFICIENT 30-100 12/15/2024 10:3 0 AM CDT Toma Carsoni PA LABORATORY Final Result Performing Organization Address City/[facility]/ZIP Co de Phone Number [facility] [address] [place] [address], [place] [phone] * XR CHEST PA+LAT (12/14/2024 11:36 AM CDT) Anatomical Region Laterality Modality Chest Radiographic Mary Jo ging 12/14/2024 11:4 2 AM CDT Impressions 12/14/2024 11:43 AM CDT IMPRESSION: No acute findings Ordered By: TOMA PLAZA Interpreted By: Scotty Mcneil MD, 12/14/2024 11:42 AM Narrative 12/14/2024 11:43 AM CDT [address] [place] [address] 2 VIEWS OF THE CHEST Clinical history: Pleuritic chest pain Comparison: None 2 views of the chest demonstrate the cardiac silhouette to be normal in size and appearance. The pulmonary vessels appear normal. The Lungs are clear. No consolidations or effusions are seen. Procedure Note Scotty Mcneil MD - 12/14/[address] [place] [address] 2 VIEWS OF THE CHEST Clinical history: [...] Wilhelm MD, 11/21/2022 3:32 PM Angelina Ovalles SLOT KEY PERSON-BC MAMMO Final Result from Last 3 Months or Most Recently Relevant to Health Maintenance Advance Directives * Full Code (Latest Code Status on File) Date Activated Date Inactivated Comments 07/15/2018 3:51 PM 07/16/2018 2:46 PM Care Teams Manager Pacu Relationship Specialty Start Date End Date Toma Plaza PA PCP - General PHYSICIAN ANALYTICS DEVELOPER 11/19/22
--- OUTSIDE RECORDS SUMMARY | 2024-12-20 08:31 | XMS_ITS | Encounter Summary ---
Author Organization [facility] Address Formerly [facility] [place] [address] Care Team Providers Care Vibrator Equipment Tester Name Role Phone Toma Pete Primary Care Provider Encounter Details Date Type Department Care Team (Late st Contact Info) Description 12/15/2024 Orders Only [facility] [address] [place], [place] [id number] Toma Pete PA [address] [place] [address] Social History Tobacco Use Types [...] CDT Legal Sex Female 11:19 PM BUSINESS CONTROL MANAGER Gender Identity Female 11/04/2022 9:01 AM CDT Sexual Orientation Straight 11/04/2022 9: 01 AM CDT documented as of this encounter Functional Status * RETIRED Are you deaf or do you have serious difficulty hearing Answer Date of Assessment Author Status No 07/15/2018 4:29 PM BUSINESS CONTROL MANAGER Activ e * RETIRED Are you blind or do you have serious difficulty seeing, even when wearing glasses? Answer Date of Assessment Author Status No 07/15/2018 4:29 PM BUSINESS CONTROL MANAGER Activ e * Do you have serious [...] Info) Description 12/26/2024 1:00 PM CDT Appointment [facility] [address] [place] [address] Toma Pete PA [facility] [place] [id number] documented as of this encounter Results * (ABNORMAL) URINE BACTERIA CULTURE (12/15/2024 11:18 AM CDT) SPEC DESCRIPTION URINE CLEAN CATCH 12/15/2024 11:18 AM CDT [facility] SPECIAL REQUESTS NO SPECIAL REQUEST 12/15/2024 11:18 AM CDT [facility] CULTURE RESULT 10,000-49,0 00 COL/ML ESCHERICHIA COLI (A) 12/17/2024 7:11 AM CDT [facility] URINE SPECIMEN OBTAINED BY CLEAN [...] ORDERA BLES Final Result Performing Organization Address City/State/[facility] Co de Phone Number [facility] [address] [place] [address], [place] [phone] [facility] [address] [place] [address], [place] [phone] * (ABNORMAL) URINALYSIS, AUTO, COMPLETE (12/15/2024 11:18 AM CDT) COLOR (U) YELLOW 12/15/2024 11:48 AM CDT [facility] TRANSPARENCY HAZY 12/15/2024 11:48 AM CDT [facility] SPECIFIC GRAVITY (U) >1.030(H) 1.000 - 1.030 12/15/2024 11:48 AM CDT [facility] U PH 6.0 5.0 - 9.0 12/15/2024 11:48 AM CDT [facility] LEUKOCYTES (U) 1+(A) NEGATIVE 12/15/2024 11:48 AM CDT [facility] NITRITES NEGATIVE NEGATIVE 12/15/2024 11:48 AM CDT [facility] PROTEIN RANDOM (U) NEGATIVE NEGATIVE 12/15/2024 11:48 AM CDT [facility] GLUCOSE (U) NEGATIVE NEGATIVE 12/15/2024 11:48 AM CDT [facility] KETONES MG/DL (U) NEGATIVE NEGATIVE 12/15/2024 11:48 AM CDT [facility] BILIRUBIN (U) NEGATIVE NEGATIVE 12/15/2024 11:48 AM CDT [facility] BLOOD (U) NEGATIVE NEGATIVE 12/15/2024 11:48 AM CDT [facility] WBC/HPF 5-10 0 - 5 /HPF 12/15/2024 11:48 AM CDT [facility] RBC/HPF NONE SEEN 0 - 5 /HPF 12/15/2024 11:48 AM CDT [facility] EPI/HPF FEW /HPF 12/15/2024 11:48 AM CDT [facility] CRYSTALS (U) FEW /HPF 12/15/2024 11:48 AM CDT [facility] Comment:AMORPHOUS MATERIAL BACTERIA (U) FEW /HPF 12/15/2024 11:48 AM CDT [facility] URINE SPECIMEN OBTAINED BY CLEAN CATCH PROCEDURE / Unknown 12/15/2024 11:18 AM CDT us Toma HUGHES URINE ORDERABLES Final Result [facility] [address] [place] [address], * VITAMIN D, 25 OH (12/15/2024 10:30 AM CDT) VITAMIN D 25 HYDROXY S/P/B 30 30 - 100 NG/ML 12/15/2024 11:45 AM CDT [facility] Comment: INTERPRETATION DEFICIENT <20 INSUFFICIENT 20-29 SUFFICIENT 30-100 12/15/2024 10:3 0 AM CDT [facility] Final Result Performing Organization Address [facility]/ZIP Co de Phone Number [facility] [address] [place] [address], * HEMOGLOBIN, GLYCOSYLATED (12/15/2024 10:30 AM CDT) HGB A1C 5.5 <5.7 % 12/15/2024 11:07 AM CDT [facility] Comment: INCREASED RISK OF DIABETES <5.7% NON-DIABETES 5.7-6.4% INCREASED RISK FOR FUTURE DIABETES > OR = 6.5 CONSISTENT WITH DIABETES STANDARDS OF MEDICAL CARE IN DIABETES-2010 DIABETES CARE, 33(SUPP 1): S1-S61,2010 ESTIMATED AVG GLUCOSE 111 mg/dL 12/15/2024 11:07 AM CDT [facility] 12/15/2024 10:3 0 AM CDT [facility] Final Result Performing Organization Address City/[facility]/ZIP Co de Phone Number [facility] [address] [place] [address], [place] [phone] * (ABNORMAL) LIPID PANEL (12/15/2024 10:30 AM CDT) CHOLESTEROL 201(H) <200.0 MG/DL 12/15/2024 11:19 AM CDT [facility] TRIGLYCERIDES 123 <150 MG/DL 12/15/2024 11:19 AM CDT [facility] HDL 49 >40.0 MG/DL 12/15/2024 11:19 AM CDT [facility] LDL (CALCULATED) 127(H) <100 MG/DL 12/15/2024 11:19 AM CDT [facility] Comment:CALCULATED USING THE FRIEDEWALD EQUATION NON HDL CHOLESTEROL 152(H) <130 MG/DL 12/15/2024 11:19 AM CDT [facility] CHOL/HDL RATIO 4.1 0.0 - 4.5 12/15/2024 11:19 AM T [facility] VLDL CALCULATION 25 5 - 55 MG/DL 12/15/2024 11:19 AM T [facility] LIPID INTERPRETATION 12/15/2024 11:19 AM T [facility] Comment: [facility] REPORT RECOMMENDATIONS: ADULT CHILD LOW RISK: CHOLESTEROL <200 <170 TRIGLYCERIDE <150 --- HDL >=60 --- LDL <100 <110 BORDERLINE: CHOLESTEROL 200-239 170-199 TRIGLYCERIDE 150-199 --- HDL 40-59 --- LDL 100-159 110-129 HIGH RISK: CHOLESTEROL >=240 >=200 TRIGLYCERIDE >=200 --- HDL <40 --- LDL >=160 >=130 12/15/2024 10:3 0 AM CDT [facility] Final Result Performing Organization Address City/State/[facility] Co de Phone Number [facility] [address] [place] [address], * VITAMIN B12 / FOLATE (12/15/2024 10:30 AM CDT) VITAMIN B12 S/P/B 392 193 - 986 PG/ML 12/15/2024 11:39 AM CDT [facility] FOLATE 19.5 8.6 - 58.9 NG/ML 12/15/2024 11:39 AM CDT [facility] 12/15/2024 10:3 0 AM CDT us [facility] Final Result [facility] [address] [place] [address], [place] [phone] * (ABNORMAL) CBC W/DIFF AUTOMATED (12/15/2024 10:30 AM CDT) WBC 5.38 4.4 - 11.0 x10'3/uL 12/15/2024 10:52 AM CDT [facility] RBC 4.50 4.50 - 5.10 x10'6/uL 12/15/2024 10:52 AM CDT [facility] HGB 13.9 12.3 - 15.3 G/DL 12/15/2024 10:52 AM CDT [facility] HCT 40.7 35.9 - 44.6 % 12/15/2024 10:52 AM CDT [facility] MCV 90.4 80.0 - 96.0 FL 12/15/2024 10:52 AM CDT [facility] MCH 30.9 25.3 - 30.9 PG 12/15/2024 10:52 AM CDT [facility] MCHC 34.2(H) 31.0 - 34.1 G/DL 12/15/2024 10:52 AM CDT [facility] RDW 13.1 12.4 - 15.1 % 12/15/2024 10:52 AM CDT [facility] PLT 247 151 - 353 x10'3/uL 12/15/2024 10:52 AM CDT [facility] MPV 9.8 9.6 - 12.0 FL 12/15/2024 10:52 AM CDT [facility] RBC MORPHOLOGY NORMAL 12/15/2024 10:52 AM CDT [facility] PLT MORPH. NORMAL 12/15/2024 10:52 AM CDT [facility] WBC MORPHOLOGY NORMAL 12/15/2024 10:52 AM CDT [facility] LYMPHOCYTES % 41.6 15.8 - 45.0 % 12/15/2024 10:52 AM CDT [facility] NEUTROPHILS % 46.0 42.1 - 71.9 % 12/15/2024 10:52 AM CDT [facility] MONOCYTES % 7.1 5.7 - 12.5 % 12/15/2024 10:52 AM CDT [facility] EOSINOPHILS 4.5 0.0 - 5.6 % 12/15/2024 10:52 AM CDT [facility] BASOPHILS 0.6 0.0 - 1.3 % 12/15/2024 10:52 AM CDT [facility] ABS. NEUTROPHILS 2.48 1.40 - 6.00 x10'3/uL 12/15/2024 10:52 AM CDT [facility] IMMATURE GRANS % 0.2 0.0 - 0.5 % 12/15/2024 10:52 AM CDT [facility] ABS. LYMPHOCYTES 2.24 0.80 - 4.70 x10'3/uL 12/15/2024 10:52 AM CDT [facility] 12/15/2024 10:3 0 AM CDT us [facility]oma [facility] Final Result [facility] [address] [place] [address], * (ABNORMAL) COMPREHENSIVE METABOLIC PANEL (12/15/2024 10:30 AM CDT) [facility] GLUCOSE 97 70 - 99 MG/DL 12/15/2024 11:19 AM T [facility] BUN 19(H) 7 - 18 MG/DL 12/15/2024 11:19 AM [facility] CREATININE S/P/B 1.08(H) 0.55 - 1.02 MG/DL 12/15/2024 11:19 AM T [facility] SODIUM S/P/B 139 136 - 145 MMOL/L 12/15/2024 11:19 AM T [facility] POTASSIUM S/P/B 4.4 3.5 - 5.1 MMOL/L 12/15/2024 11:19 AM [facility] CHLORIDE S/P/B 104 100 - 108 MMOL/L 12/15/2024 11:19 AM [facility] CO2 29.1 21 - 32 MMOL/L 12/15/2024 11:19 AM [facility] CALCIUM S/P/B 9.1 8.5 - [...] - 37 U/L 12/15/2024 11:19 AM T [facility] ALT 36 14 - 55 U/L 12/15/2024 11:19 AM CDT [facility] ALKALINE PHOSPHATASE S/P/B 72 50 - 136 U/L 12/15/2024 11:19 AM CDT [facility] ANION GAP 5.9 5 - 15 MMOL/L 12/15/2024 11:19 AM CDT [facility] BUN CREATININE RATIO 17.6 6 - 26 12/15/2024 11:19 AM T [facility] A/G RATIO 1.2 1.0 - 2.0 RATIO 12/15/2024 11:19 AM CDT [facility] GFR ESTIMATE 57(L) >90 ML/MIN/1.7 3 M2 12/15/2024 11:19 AM CDT [facility] Comment: NOTE: eGFR is not calculated for patients <18 years of age. This is an estimated GFR calculation using the new CKD EPI creatinine equation without race and so does not require a correction factor for race. This estimated GFR should not be used for calculating drug doses. 12/15/2024 10:3 0 AM CDT [facility] Final Result [facility] [address] [place] [address], * FREE T3 (12/15/2024 10:30 AM CDT) FREE T3 2.3 2.18 - 3.98 PG/ML 12/15/2024 2:38 PM CDT [facility] 12/15/2024 10:3 0 AM CDT [facility] Final Result [facility] [address] [place] [address], [place] [phone] * THYROXINE, FREE (FT4) (12/15/2024 10:30 AM CDT) FREE T4 0.84 0.76 - 1.46 NG/DL 12/15/2024 11:19 AM CDT [facility] 12/15/2024 10:3 0 AM CDT [facility] Final Result Performing Organization Address City/[facility]/ZIP Co de Phone Number [facility] [address] [place] [address], [place] [phone] * (ABNORMAL) THYROID STIM HORMONE TSH (12/15/2024 10:30 AM CDT) TSH 6.153(H) 0.358 - 3.74 uIU/ML 12/15/2024 11:19 AM CDT [facility] Comment: HIGH DOSES OF BIOTIN MAY INTERFERE WITH THIS TEST RESULT. CORRELATION TO CLINICAL HISTORY AND PRESENTATION RECOMMENDED. 12/15/2024 10:3 0 AM CDT [facility] Final Result [facility] [address] [place] [address], [place] [phone] documented in this encounter Visit Diagnoses Diagnosis Hypothyroid- Primary Unspecified hypothyroidism Encounter for long-term (current) drug use Encounter for long-term (current) use of other medications Screening for lipoid disorders Screening for diabetes mellitus Vitamin D deficiency Unspecified vitamin D deficiency Symptoms involving urinary system Other symptoms involving urinary system documented in this encounter Care Teams Vibrator Equipment Tester Relationship Specialty Start Date End Date Toma Pete PA PCP - General PHYSICIAN PROSTHETIC AIDES TEACHER 11/19/22 documented as of this encounter
--- NOTE | 2024-12-20 09:50 | PC.NURSE ---
Call to [facility] to verify pt's home medication doses because pt unsure of doses. See med confirmation.
--- NOTE | 2024-12-20 09:50 | PC.NURSE ---
Patient arrived to unit at 0835, on stretcher from the ED. Patient able to transfer with standby assist from stretcher to bed. Patient admitted to Room 209 for observation. Patient educated on use of call light, bed controls, visiting hours, activation of rapid response, fall precautions and general hospital policies. Patient voiced understanding. Admission packet reviewed.
--- NOTE | 2024-12-20 10:44 | PM.IMHP ---
H&P: HPI History of Present Illness Date/Time: 12/20/24 10:44 Chief Complaint: Dizziness, near syncope, nausea/vomiting, r/o Stroke Narrative: This is a 64 year old female patient who is admitted with nausea/vomiting and dizziness. She presented to ER with recurrent, severe dizziness and off-balance sensation, which she describes as more severe than any previous episodes. The current episode began at 3 AM today, waking her from sleep. She describes the dizziness as a feeling of things going back and forth like waves, rather than spinning. She experienced significant difficulty walking, describing her steps as clunky and feeling like she would fall in both directions. This was accompanied by nausea and vomiting this morning, which she attributes to the dizziness. She also notes recent scalp soreness (yesterday, not today) and right sided neck stiffness, which she suspects may be related to sleeping on a very firm twin bed with two pillows. This is a recurrence of symptoms first experienced on Thursday (two days prior), a sensation she had never experienced before. On Thursday, she went to the ER for similar sudden-onset dizziness, inability to walk, and mild nausea. The dizziness on Thursday progressed and built until she reached the ER. She took Meclizine, which she had on hand from previous vertigo episodes, and kept it down. In the ER, she received Ativan and an Sharla maneuver was performed. She reported feeling pretty good after this, noting she felt she was resolving even before the maneuver, and was discharged home, remaining well for the rest of Thursday and all day Thursday. She has a history of vertigo, with the first episode occurring after cholesteatoma surgery on her left ear approximately eight years ago. Two years ago, she had tubes placed in both ears by an ENT due to pressure and buzzing; the tube from the initial surgery had never fallen out, and a new one was placed in her good ear due to pressure issues, though she is unsure if they are still present. A CT scan at that time showed no new growth. She reports decreased hearing in her left ear gradually over several months and has recently experienced buzzing and pressure in her ears. The patient started Levaquin 500mg daily on Thursday for a urinary tract infection (UTI) diagnosed via a routine exam and culture, which showed E. coli. Her primary care PA is Toma Pete with [facility] in [place]. She was asymptomatic for the UTI except for occasional odor. She has a chronic cough, which she attributes to a fan in her bedroom, but others notice it. She had pneumonia in May 2023, and another chest infection in July 2023, all contributing to her ongoing cough. She had lifelong significant secondhand smoke exposure. She has a history of hypothyroidism, managed with Levothyroxine (Synthroid), and GERD, managed with Omeprazole as needed. 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 Her stepdad was in a car accident on Thursday, and her mother is scheduled for knee surgery next Thursday, indicating significant recent stressors. 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 She recently moved from [place] to her farm in [place] to care for her parents. Review of Systems Review of Systems: Constitutional: Reports feeling weak and generally unwell. No fever, chills, night sweats, or weight change mentioned. Eyes: No eye pain, swelling, redness, foreign body sensation, discharge, or vision changes reported. Ears, Nose, Mouth, Throat: Decreased hearing in the left ear over several months. History of ear problems, including cholesteatoma surgery and ear tubes. Recent buzzing and pressure in ears. Stuffy nose this morning, but no discharge. No ear pain, sinus pain, hoarseness, sore throat, or swallowing difficulty. Cardiovascular: No chest pain, SOB, PND, dyspnea on exertion, orthopnea, claudication, edema, or palpitations mentioned. Respiratory: Chronic cough (post-cold, post-pneumonia, post-chest infection). No sputum production or wheezing. History of secondhand smoke exposure. No dyspnea. Gastrointestinal: Nausea and vomiting this morning. Loose bowel movement on the first day of dizziness. No ongoing diarrhea or constipation. No abdominal pain, dysphagia, hematochezia, melena, or jaundice. History of heartburn, managed with PRN Omeprazole. Genitourinary: Asymptomatic UTI with E. coli, occasional odor. No dysuria, urinary frequency, hematuria, urinary incontinence, flank pain, or changes in urinary flow. Musculoskeletal: History of back pain (hemangiomas on spine). Recent right sided neck stiffness. No arthralgias, myalgias, or joint swelling. Integumentary: Scalp soreness noted yesterday, but not today. No skin lesions, pruritis, hair changes, or nipple discharge. Neurological: Primary complaint of dizziness, off-balance, and feeling like falling. Weakness noted. No numbness, paresthesias, syncope, or headache. History of vertigo. Psychiatric: No anxiety, depression, insomnia, delusions, suicidal ideation, or hallucinations mentioned. Endocrine: Hypothyroidism, managed with Levothyroxine. No polyuria, polydipsia, or temperature intolerance mentioned. Hematologic/Lymphatic: No bruising, bleeding, transfusion history, or lymphadenopathy mentioned. No swollen glands or lymph nodes. Allergic/Immunologic: Allergies to Penicillin, Macrobid, and Cephalexin/Ceftamir/C-chlor (experienced mouth/tongue swelling with previous antibiotic switch). No auto-immune disorders mentioned. All systems reviewed & are unremarkable except as noted in HPI and below PMFSH Past Medical History Medical History Anxiety with depression Escherichia coli urinary tract infection Cholesteatoma of attic of left ear GERD (gastroesophageal reflux disease) Panic attacks Depression Heart palpitations Chronic kidney disease Hypothyroidism Surgical History Surgical History H/O: hysterectomy History of right hip replacement History of cholecystectomy Family History Family History Mother Family history of thyroid disease Grandparent Diabetes mellitus, Onset Age: 75 Family history of congestive heart failure, Onset Age: 72 Father Family history of elevated blood lipids Other Family history of malignant neoplasm Social History Social History Smoking status: Never smoker Second hand tobacco smoke exposure: No Alcohol intake: current Drinks per week: 1 Substance use: never Substance use type: does not use Do You Feel Safe in your Home?: Yes Lack of Transportation: No Lack of Food: Never True Current Housing: I Have Housing Concerned About Future Housing: YES Difficulty Paying Gas/Electric Bills: No Difficulty Paying for Meds: No Currently Unemployed: YES Education: High School Diploma/GED Difficulty w/ Childcare or Family Care: No Gender identity (if verbalized by the patient): Female Spiritual care concerns: No Meds Home Medications and Allergies Home Medications ?Medication ?Instructions ?Recorded ?Confirmed ?Type alprazolam 0.25 mg tablet (Xanax) 0.25 mg PO TID PRN anxiety 06/13/24 12/20/24 History levofloxacin 500 mg tablet 500 mg PO DAILY 12/20/24 12/20/24 History levothyroxine 100 mcg capsule 100 mcg PO QAM 12/20/24 12/20/24 History meloxicam 15 mg disintegrating 15 mg PO DAILY PRN pain 12/20/24 12/20/24 History tablet omeprazole 20 mg capsule,delayed 20 mg PO BID 12/20/24 12/20/24 History release Allergies Allergy/AdvReac Type Severity Reaction Status Date / Time ciprofloxacin Allergy Intermediate RASH Verified 12/20/24 06:01 SWELLING nitrofurantoin Allergy Intermediate RASH/SWELLI Verified 12/20/24 06:01 NG Penicillins Allergy Intermediate RASH/SWELLI Verified 12/20/24 06:01 NG sulfamethoxazole Allergy Intermediate RASH Verified 12/20/24 06:01 trimethoprim Allergy Intermediate RASH Verified 12/20/24 06:01 Sulfa (Sulfonamide Allergy Unknown Hives Verified 12/20/24 06:01 Antibiotics) injection with animal Allergy Unknown Uncoded 12/20/24 06:01 derivatives Vital Signs Vital Signs - 24 hr 12/20/24 05:56 12/20/24 07:05 12/20/24 08:12 Temperature 35.8 C L 36.8 C Pulse Rate 87 73 70 Respiratory Rate 20 20 20 Blood Pressure 120/87 134/82 136/86 Pulse Oximetry 100 97 97 Oxygen Delivery Room Air Room Air Room Air 12/20/24 08:40 Temperature 36.7 C Pulse Rate 66 Respiratory Rate 16 Blood Pressure 132/77 Pulse Oximetry 100 Oxygen Delivery Room Air Exam Narrative: General appearance: Awake, alert, oriented, somewhat ill appearing Vital signs: Not explicitly mentioned in the provided text. HEENT: Eyes: Minor right-sided lateral nystagmus, no left nystagmus, no vertical nystagmus. Ears: Bilaterally no tubes visible. Right ear has clear fluid. Left ear shows white appearing behind the tympanic membrane (TM) with minor bulging and central clearing, likely return of cholesteatoma with central clearing where the tube used to be. No drainage, canal irritation, tragus, or pinna tenderness. Scalp: Sensitive to touch in one area posterior/lateral on the left, no lumps or bumps felt. Neck: Full ROM, no crepitus, subjective stiffness earlier seems resolved Face: No facial droop, normal symmetric smile, eyebrow raise, nasolabial folds normal to movement. Respiratory: Lung sounds clear bilaterally, no wheezing or respiratory distress. Cardiac: Regular rate and rhythm, no loud murmurs noted Abdominal: Soft, non-tender to palpation. Skin: Warm, dry, normal color, no rash or wounds. Other: Neurological: Romberg negative. No ataxic gait. Normal [id number] testing. Normal [id number] testing. Cranial nerves 2-12 intact (CN 1 not tested). Stable when walking, but feels off-balance when bending forward. Extremities: No peripheral edema. H&P: Results Labs Labs: Short CBC 12/20/24 Range/Units 06:59 WBC 7.8 (4.8-10.8) K/mm3 Hgb 13.8 (12.0-15.0) g/dL Hct 40.6 (35.0-49.0) % Plt Count 243 (150-420) K/mm3 BMP 12/20/24 06:59 Sodium 140 Potassium 4.4 Chloride 107 Carbon Dioxide 26 BUN 20 H Creatinine 1.15 H Glucose 112 H Calcium 9.0 Liver Function 12/20/24 Range/Units 06:59 Total Bilirubin 0.4 (0.2-1.3) mg/dL AST 31 (14-36) U/L ALT 30 (6-35) U/L Alkaline Phosphatase 65 (38-126) U/L Albumin 4.1 (3.5-5.1) g/dL Pulse Oximetry SpO2 results: 97-100% on room air Attestation: I personally reviewed and interpreted this pulse oximetry as follows: Interpretation: No need for supplemental oxygenation at this time ECG Attestation: I personally reviewed and interpreted this ECG as follows: ECG completion date: 12/20/24 ECG completion time: 07:06 Prior ECG tracings: available for review Interpretation: Sinus rhythm rate of 69, KS 152, QRSd 86, QTC 436, QRS axis 17, no STEMI, no significant change from 12/18/24 EKG Imaging CTA Head and Neck: Radiologist's impression: EXAMINATION: CTA BRAIN/CAROTID DATE: 12/20/2024 13:24 INDICATION: Positional dizziness TECHNIQUE: Computed tomographic angiography (CTA) of the head and neck was performed with 100 mL Omnipaque-350 intravenous contrast. Multiplanar reconstructions and maximum intensity projection 3D-reconstructions of the carotid arteries and of the intracranial arteries were created by the technologist on a separate workstation. Precontrast CT of the head was also obtained. Automated exposure control and iterative reconstruction technique were employed.The dose-length product was 1800.44 mGy-cm. COMPARISON: Head CT dated 12/18/2024 FINDINGS: Carotid arteries: Aortic arch dilated vessels arising from the arch are normal in caliber with no evident atherosclerotic plaque or dissection. There is no evident atherosclerotic plaque with 0% stenosis of the right and left carotid bulbs relative to normal distal artery lumen diameter (NASCET criteria). Visualized upper lungs are clear. Moderate cervical spondylosis. Head: No acute intracranial hemorrhage, acute infarction or abnormal extra axial fluid collection. Ventricles are normal and symmetric. No mass/mass effect. Status post left mastoidectomy. The orbits are normal. Mild mucosal thickening the bilateral ethmoid and maxillary sinuses. No abnormal enhancing lesions on the postcontrast imaging. Intracranial arteries Vertebral arteries are codominant. There is no hemodynamically significant stenosis in the vertebral, basilar and internal carotid arteries. Both A1 and P1 segments are patent. There also patent bilateral posterior communicating arteries. There are no aneurysms identified. Cerebral arterial arborization appears symmetric. IMPRESSION: 1. No evident atherosclerotic plaque with 0% stenosis of the right and left carotid bulbs relative to normal distal artery lumen diameter (NASCET criteria). 2. No acute intracranial process. 3. Unremarkable cerebral CT angiogram with no hemodynamically significant stenosis, thrombosis or dissection. Reviewed, dictated and finalized at location B. CT IAC: My impression: Findings in left ear represent cholesteatoma Radiologist's impression: EXAMINATION: CT IAC/mastoids BI wo con DATE: 12/20/2024 13:24 INDICATION: Positional dizziness. TECHNIQUE: Computed tomography (CT) of the temporal bones was performed without intravenous contrast. The dose-length product was 1800.44 mGy-cm. COMPARISON: 11/18/2022 FINDINGS: Mild mucoperiosteal thickening the bilateral maxillary and ethmoid sinuses. Orbits are normal. RIGHT TEMPORAL BONE: The external auditory canal, tympanic membrane, ossicles and scutum are normal. The right mastoid is hyperpneumatized. The middle ear cavity including Prussak's space are clear. The oval window, vestibule, cochlea, semicircular canals, internal auditory canal, vestibular aqueduct and course of the facial nerve are normal. The carotid canal and jugular bulb are unremarkable. LEFT TEMPORAL BONE: The left mastoid is also hypopneumatized with postoperative change of prior left mastoidectomy which extends into the attic. Interval decrease in a small amount of material along the posterior superior margin of the inner external auditory canal abutting the posterior external margin of the otherwise normal tympanic membrane. Also decreased is a now minimal amount of soft tissue along the deep margin of the posterior tympanic membrane. The ossicles are normal. Stable appearance of chronic erosion of the scrotum. The middle ear cavity including Prussak's space are clear. The oval window, vestibule, cochlea, semicircular canals, internal auditory canal, vestibular aqueduct and course of the facial nerve are normal. The carotid canal and jugular bulb are unremarkable. IMPRESSION: 1. Status post left mastoidectomy with decrease in now minimal amount of material along the posterior aspect of the left tympanic membrane and deep aspect of the external auditory canal which given the interval improvement would favor sequela of chronic otitis media over cholesteatoma. 2. Right mastoid is hyperpneumatized. Otherwise unremarkable right temporal bone CT. Reviewed, dictated and finalized at location B. Chest x-ray: Radiologist's impression: Portable chest x-ray Comparison: 08/08/2024 Clinical History: Vertigo Findings: Lungs are clear, without focal consolidation or pleural effusion. Cardiomediastinal silhouette is stable. Bones and soft tissues are unremarkable. Impression: Normal chest. Reviewed, dictated and finalized at location M. CT scan - head: Radiologist's impression: EXAMINATION: CT brain wo con DATE: 12/18/2024 17:17 INDICATION: dizziness x1 hour, NKI . TECHNIQUE: Computed tomography (CT) of the head was performed without intravenous contrast. The mA was adjusted according to patient size. Iterative reconstruction technique was employed. The dose-length product was 605.33 mGy-cm. COMPARISON: None. FINDINGS: No acute intracranial hemorrhage or extra-axial fluid collection. No hydrocephalus, mass, or herniation. No acute ischemic infarct. Unremarkable dural venous sinus attenuation. No acute osseous abnormality. Minimal aerated secretions in the right posterior ethmoid sinus, status post left mastoidectomy, the remaining aerated spaces are clear. IMPRESSION: No acute intracranial process. Reviewed, dictated and finalized at location K. Assessment and Plan Assessment and plan (1) Postural dizziness with near syncope: Code(s): R42 - Dizziness and giddiness; R55 - Syncope and collapse Status: Acute Assessment and Plan: -Dizziness described as a wave-like feeling with leaning toward right, left, forward or backward depending on direction of movement -Equal effects bilateral -No ataxia, negative Romberg -Differential includes BPPV, cerebellar stroke, vertebral artery insufficiency/dissection, labyrinthitis, recurrent cholesteatoma, Otitis media, UTI, dehydration -Stroke workup initiated, aspirin given, rosuvastatin ordered -CTA Head/Neck obtained, normal findings -Telemetry applied -Echocardiogram ordered, able to get later today -MRI brain w/wo contrast and MRA head/neck without contrast ordered, will be done on 12/22/24 -Troponin negative, A1c borderline at 5.3, lipid panel with elevated LDL of 128 and total cholesterol 198, CKD stable, CXR normal, EKG no significant change from 12/18 -Stroke even less likely given CT findings today. -UTI diagnosed as outpatient, started taking Levaquin 500 mg daily for 7 days on 12/19, initiated by PCP--E. coli growth on outpatient culture with several allergies listed (2) Cholesteatoma of attic of left ear: Code(s): H71.02 - Cholesteatoma of attic, left ear Status: Chronic Assessment and Plan: -CT IAC and clinical exam of left ear consistent with partial regrowth of cholesteatoma -Patient will need to follow up with ENT after discharge (3) Escherichia coli urinary tract infection: Code(s): N39.0 - Urinary tract infection, site not specified; B96.20 - Unspecified Escherichia coli [E. coli] as the cause of diseases classified elsewhere Status: Acute Assessment and Plan: -PCP started Levaquin 500 mg daily yesterday, will continue -Request records from [facility] in [place] regarding positive urine culture (4) Chronic kidney disease: Code(s): N18.9 - Chronic kidney disease, unspecified Status: Chronic Assessment and Plan: -Patient got 1 liter IV fluids in ER -CTA obtained today so 1 liter of IV fluids ordered over 10 hours to flush kidneys -Repeat labs in the morning (5) Hypothyroidism: Code(s): E03.9 - Hypothyroidism, unspecified Status: Chronic Assessment and Plan: -Continue levothyroxine -TSH elevated but improved from prior, T4 normal range today which is improved from prior, T3 ordered (6) Anxiety with depression: Code(s): F41.8 - Other specified anxiety disorders Status: Chronic Assessment and Plan: -Patient somewhat dysthymic, considered being DNR status but not SI/HI Quality VTE Prophylaxis VTE prophylaxis: pharmacologic ordered (Lovenox) Hospitalist [facility] Advance Care Plan I have confirmed that the patient's Advanced Care Plan is present, code status is documented, or surrogate decision maker is listed in patient medical record.: Yes Medication Reconciliation I have utilized all available resources to obtain, update and review the patients current medications (includes all prescriptions, OTC, herbals, cannabis, and nutritional supplements).: Yes
[2024-12-20 11:52] LABS: Thyroid Stimulating Hormone Reflex 16.200 uIU/mL (0.465-4.68)
[2024-12-20] MEDS: PANTOPRAZOLE SOD SESQUIHYDRATE 20 MG TAB PO ×2 (11:52→20:42)
[2024-12-20 12:22] LABS: Free T4 Free Thyroxine Reflex 0.87 ng/dL (0.78-2.19)
[2024-12-20 12:56] LABS: Cholesterol 198 mg/dL (0-200); HDL Direct 44 mg/dL; Magnesium 2.2 mg/dL (1.6-2.3); Triglycerides 129 mg/dL (<150)
[2024-12-20 13:08] LABS: Troponin I < 0.012 ng/mL (0.000-0.034)
[2024-12-20 13:16] LABS: Hemoglobin A1C 5.3 % (<5.7)
[2024-12-20] MEDS: levoFLOXacin 500 MG/D5W 100 ML 500 MG/100 ML BAG 100 MG IVPB (13:25)
[2024-12-20] MEDS: LACTATED RINGERS 1,000 ML 100 ML IV CONT (13:25)
[2024-12-20] MEDS: ASPIRIN 81 MG CHEWABLE TABLET 324 MG PO (13:26)
[2024-12-20] MEDS: LEVOTHYROXINE SODIUM 100 MCG TABLET PO (14:25)
--- NOTE | 2024-12-20 17:30 | ECHO_ITS ---
Patient Info Name: Chong Aggarwal Age: 64 years : 1960 Gender: Female Ht: 63 in Wt: 170 lbs BSA: 1.88 m2 Technical Quality: Good Exam Date: 12/20/2024 5:17 PM Patient Status: I Admit Date: 12/20/2024 Exam Type: CA echo doppler w bubble study Complete two-dimensional, color flow and Doppler transthoracic echocardiogram is performed with agitated saline. Staff Referring Physician: Phillip Arzate Milk Tester: Rahel Torre Attending Provider: Josiah Higginbotham Contrast/Agitated Saline Contrast/Ag. Saline: Agitated Saline Amount: 16.00 ml Summary 1. Left ventricular chamber dimension is normal. 2. Left ventricular systolic function is normal, estimated at 65-70. 3. The left ventricular diastolic function is grade I diastolic dysfunction. 4. E/e' 17 is elevated. 5. There is mild aortic valve sclerosis. Left Ventricle E/e' 17 is elevated. Left ventricular chamber dimension is normal. Left ventricular systolic function is normal, estimated at 65-70. The left ventricular diastolic function is grade I diastolic dysfunction. Right Ventricle Right ventricular chamber dimension is normal. Right ventricular systolic function is normal and with normal TAPSE 3.0 cm. Left Atria Left atrial chamber dimension is normal. Right Atria Right atrial chamber dimension is normal. Atrial Septum Intact interatrial septum visualized by 2D and agitated saline imaging. Agitated saline injection with and without valsalva maneuver opacified right side cardiac chambers without shunt to left side cardiac chambers. Aortic Valve The aortic valve is trileaflet. There is mild aortic valve sclerosis. There is no aortic valve stenosis. There is no aortic valve regurgitation. Pulmonic Valve There is no pulmonic regurgitation. Mitral Valve There is no mitral valve stenosis. There is no mitral valve regurgitation. Tricuspid Valve There is no tricuspid valve regurgitation. Pericardium/Pleural There is no pericardial effusion. Inferior Vena Cava Normal inferior vena cava with >50% collapse upon inspiration consistent with normal right atrial pressure, 5 mmHg. Aorta The aortic root size at the sinus of Valsalva is normal. Left Ventricular Outflow Tract Name Value Normal LVOT 2D LVOT Diameter 1.9 cm LVOT Doppler LVOT Peak Velocity 85 cm/s LVOT Peak Gradient 3 mmHg LVOT Mean Gradient 2 mmHg LVOT VTI 19 cm LVOT VTI/AV VTI Ratio 0.7 LVOT Stroke Volume 55 ml LVOT CO 3.9 l/min LVOT CI 2.1 l/min/m2 Pulmonic Valve Name Value Normal PV Doppler PV Peak Velocity 79 cm/s PV Peak Gradient 2 mmHg Mitral Valve Name Value Normal MV Diastolic Function MV E Peak Velocity 112 cm/s MV A Peak Velocity 145 cm/s MV E/A 0.8 MV Decel Time (PW) 218 ms MV Annular TDI MV E/e' (Septal) 17.7 MV E/e' (Lateral) 17.6 MV E/e' (Average) 17.6 Tricuspid Valve Name Value Normal Estimated PAP/RSVP RA Pressure 5 mmHg <=5 TV Annular TDI TV Lateral Kelsy s' Velocity 14.4 cm/s >=9.5 Aortic Valve Name Value Normal AV Doppler AV Peak Velocity 150 cm/s AV Peak Gradient 9 mmHg AV Mean Gradient 4 mmHg AV VTI 29 cm AV Area (Cont Eq VTI) 1.9 cm2 >=3.0 AV Area (Cont Eq Angelito) 1.7 cm2 AV DI (Angelito) 0.57 AV Regurgitation 2D LVOT Area 3.0 cm2 Ventricles Name Value Normal LV Dimensions 2D/MM IVS Diastolic Thickness (2D) 0.8 cm 0.6-1.0 LVID Diastole (2D) 4.2 cm 3.8-5.2 LVIW Diastolic Thickness (2D) 0.7 cm 0.6-0.9 LVID Systole (2D) 2.7 cm 2.2-3.5 LVOT Diameter 1.9 cm LV Mass (2D Cubed) 100.23 g 67.00-162.00 LV Mass Index (2D Cubed) 53 g/m2 43-95 Relative Wall Thickness (2D) 0.35 <=0.42 LV Fractional Shortening/Ejection Fraction 2D/MM LV Fractional Shortening (2D) 36 % 27-45 LV EF (2D Teichholz) 66 % LV Diastolic Volume (4C MOD) 76 ml LV EF (4C MOD) 66 % LV Diastolic Volume (2C MOD) 65 ml LV EF (2C MOD) 74 % LV Diastolic Volume (BP MOD) 70 ml 46-106 LV Diastolic Volume Index (BP MOD) 37 ml/m2 29-61 LV Systolic Volume (BP MOD) 21 ml 14-42 LV Systolic Volume Index (BP MOD) 11 ml/m2 8-24 LV EF (BP MOD) 70 % 54-74 LV Diastolic Length (4C) 7.6 cm LV Systolic Length (4C) 5.8 cm LV Stroke Volume (4C MOD) 50 ml Atria Name Value Normal LA Dimensions LA Volume (4C A-L) 28 ml LA Volume (BP A-L) 32 ml RA Dimensions RA Systolic Major [place] Length (4C) 4.6 cm 2.2-2.8 RA Area (4C) 8.7 cm2 <=18.0 Report Signatures
[2024-12-21] VITALS: BP 125/81; PULSE 71; RESP 20; TEMP 36.8; O2SAT 98
[2024-12-21 04:00] VITALS: PULSE 70; RESP 17; O2SAT 99
[2024-12-21 05:26] LABS: Hematocrit 39.0 % (35.0-49.0); Hemoglobin 13.0 g/dL (12.0-15.0); Immature Granulocyte Percent A 0.5 % (0.0-0.0); Lymphocytes Absolute Auto 2.25 K/mm3 (1.10-4.50); Mean Corpuscular HGB Conc 33.3 g/dL (32-36); Mean Corpuscular Hemoglobin 30.7 pg (27.0-31.0); Mean Corpuscular Volume 92.0 fL (78.0-102.0); Nucleated Red Blood Cells Absolute Auto 0.00 K/mm3 (0.00-0.00); Nucleated Red Blood Cells Perc 0.0 % (0-0.0); Platelet Count Result 242 K/mm3 (150-420); Red Blood Count 4.24 M/mm3 (4.20-5.40); White Blood Count 5.9 K/mm3 (4.8-10.8)
[2024-12-21 05:39] LABS: Alanine Aminotransferase 23 U/L (6-35); Albumin Level 3.4 g/dL (3.5-5.1); Alkaline Phosphatase 57 U/L (38-126); Anion Gap 3 mmol/L (4-12); Aspartate Amino Transferase 25 U/L (14-36); Bilirubin,Total 0.5 mg/dL (0.2-1.3); Blood Urea Nitrogen 14 mg/dL (7-17); Calcium 8.5 mg/dL (8.4-10.2); Carbon Dioxide 27 mmol/L (22-30); Chloride 110 mmol/L (98-107); Estimated CRCL calculation 43 ml/min; Estimated Glomerular Filt Rate 48; Glucose 93 mg/dL (65-110); Magnesium 2.1 mg/dL (1.6-2.3); Osmolality Calculated 290 mOsm/kg (285-295); Potassium 4.2 mmol/L (3.4-5.0); Sodium 140 mmol/L (137-145); Total Protein 5.9 g/dL (6.3-8.2)
[2024-12-21] MEDS: LEVOTHYROXINE SODIUM 100 MCG TABLET PO (06:11)
[2024-12-21 07:53] LABS: Total Triiodothyronine (T3) 76 ng/dL (76-181)
[2024-12-21 08:00] VITALS: BP 128/78; PULSE 60; PULSE 70; RESP 20; TEMP 36.6; O2SAT 97
[2024-12-21] MEDS: PANTOPRAZOLE SOD SESQUIHYDRATE 20 MG TAB PO (09:15)
[2024-12-21] MEDS: ASPIRIN 81 MG CHEWABLE TABLET PO (09:16)
[2024-12-21] MEDS: ONDANSETRON INJ 4 MG/2 ML VIAL IV PUSH (09:21)
[2024-12-21] MEDS: MECLIZINE HCL 25 MG TABLET PO (09:22)
[2024-12-21] MEDS: ALPRAZolam (*CRX) 0.25 MG TABLET PO (09:22)
--- NOTE | 2024-12-21 10:08 | P.DS_ITS ---
DS: Admitting Diagnosis Discharge Date 12/21/2024 Admitting Diagnosis Vertigo/N/V DS: Discharge Diagnosis Discharge Diagnosis (1) Cholesteatoma of attic of left ear: Code(s): H71.02 - Cholesteatoma of attic, left ear Status: Chronic (2) Escherichia coli urinary tract infection: Code(s): N39.0 - Urinary tract infection, site not specified; B96.20 - Unspecified Escherichia coli [E. coli] as the cause of diseases classified elsewhere Status: Acute (3) Chronic kidney disease: Code(s): N18.9 - Chronic kidney disease, unspecified Status: Chronic (4) Hypothyroidism: Code(s): E03.9 - Hypothyroidism, unspecified Status: Chronic (5) Anxiety with depression: Code(s): F41.8 - Other specified anxiety disorders Status: Chronic DS: Summary Hospital Course Reason for hospitalization: vertigo/N/V Hospital Course: Admission: Patient was a 64 year old female patient who is admitted with nausea/vomiting and dizziness. She presented to ER with recurrent, severe dizziness and off- balance sensation, which she describes as more severe than any previous episodes. The current episode began at 3 AM today, waking her from sleep. She describes the dizziness as a feeling of things going back and forth like waves, rather than spinning. She experienced significant difficulty walking, describing her steps as clunky and feeling like she would fall in both directions. This was accompanied by nausea and vomiting this morning, which she attributes to the dizziness. She also notes recent scalp soreness (yesterday, not today) and right sided neck stiffness, which she suspects may be related to sleeping on a very firm twin bed with two pillows. This is a recurrence of symptoms first experienced on Thursday (two days prior), a sensation she had never experienced before. On Thursday, she went to the ER for similar sudden-onset dizziness, inability to walk, and mild nausea. The dizziness on Thursday progressed and built until she reached the ER. She took Meclizine, which she had on hand from previous vertigo episodes, and kept it down. In the ER, she received Ativan and an Sharla maneuver was performed. She reported feeling pretty good after this, noting she felt she was resolving even before the maneuver, and was discharged home, remaining well for the rest of Thursday and all day Thursday. Hospital Course Patient was admitted to the medical unit for symptomatic treatment for her chronic Vertigo. She has a history of vertigo, with the first episode occurring after cholesteatoma surgery on her left ear approximately eight years ago. Two years ago, she had tubes placed in both ears by an ENT due to pressure and buzzing; the tube from the initial surgery had never fallen out, and a new one was placed in her good ear due to pressure issues, though she is unsure if they are still present. A CT scan at that time showed no new growth. She reports decreased hearing in her left ear gradually over several months and has recently experienced buzzing and pressure in her ears. a CT head and CTA was completed just to rule out possible stroke which were both negative. Patient had CT internal auditory canal which showed likely chronic radius media over her cholesteatoma and right mastoid hyperpneumatized. patient reported some im provement to vertigo overnight medication no further nausea or vomiting. patient instructed she will need follow-up referral to ENT outpatient for further evaluation and treatment encouraged symptom control may continue to use her meclizine also prescribed patient with some sublingual Zofran and scopolamine patches. patient was discharged home and will follow-up with her primary care physician for referral to ENT did provide her outpatient orders for MRA/MRI brain and neck for possible further evaluation Status at Discharge Functional status at discharge: independent ambulation Overall status at discharge: patient is progressing back to baseline Time Spent with Patient Time attestation: Total time spent providing and/or coordinating discharge services: Time spent: Greater than 30 minutes Exam Narrative: * General appearance: Awake, alert, oriented, somewhat ill appearing * Vital signs: Not explicitly mentioned in the provided text. * HEENT: * Eyes: Minor right-sided lateral nystagmus, no left nystagmus, no vertical nystagmus. * Ears: Bilaterally no tubes visible. Right ear has clear fluid. Left ear shows white appearing behind the tympanic membrane (TM) with minor bulging and central clearing, likely return of cholesteatoma with central clearing where the tube used to be. No drainage, canal irritation, tragus, or pinna tenderness. * Scalp: Sensitive to touch in one area posterior/lateral on the left, no lumps or bumps felt. * Neck: Full ROM, no crepitus, subjective stiffness earlier seems resolved * Face: No facial droop, normal symmetric smile, eyebrow raise, nasolabial folds normal to movement. * Respiratory: Lung sounds clear bilaterally, no wheezing or respiratory distress. * Cardiac: Regular rate and rhythm, no loud murmurs noted * Abdominal: Soft, non-tender to palpation. * Skin: Warm, dry, normal color, no rash or wounds. * Other: * Neurological: Romberg negative. No ataxic gait. Normal [id number]-[id number] testing. Normal [id number] testing. Cranial nerves 2-12 intact (CN 1 not tested). Stable when walking, but feels off-balance when bending forward. * Extremities: No peripheral edema. DS: Data Data Completed and Pending Labs on day of discharge: Labs from last 24 hours 12/21/24 12/20/24 05:21 06:59 WBC 5.9 RBC 4.24 Hgb 13.0 Hct 39.0 MCV 92.0 MCH 30.7 MCHC 33.3 RDW 13.1 Plt Count 242 MPV 9.5 Immature Gran % (Auto) 0.5 H Neut % (Auto) 51.8 Lymph % (Auto) 38.1 [place] % (Auto) 6.4 Eos % (Auto) 2.9 Baso % (Auto) 0.3 Lymph # (Auto) 2.25 [place] # (Auto) 0.38 Eos # (Auto) 0.17 Baso # (Auto) 0.02 Abs Immat Gran (auto) 0.03 H Absolute Neuts (auto) 3.06 Absolute Nucleated RBC 0.00 Nucleated RBC % 0.0 Sodium 140 Potassium 4.2 Chloride 110 H Carbon Dioxide 27 Anion Gap 3 L BUN 14 D Creatinine 1.15 H Estim Creat Clear Calc 43 Estimated GFR 48 L Glucose 93 Hemoglobin A1c 5.3 Calculated Osmolality 290 Calcium 8.5 Magnesium 2.1 2.2 Total Bilirubin 0.5 AST 25 ALT 23 Alkaline Phosphatase 57 Troponin I < 0.012 Total Protein 5.9 L Albumin 3.4 L Triglycerides 129 Cholesterol 198 LDL Cholesterol, Calc 128 HDL Direct 44 TSH (Reflex) 16.200 H Free T4 0.87 Total T3 76 Imaging Radiologist's impression: Imaging CTA Head and Neck: Radiologist's impression: EXAMINATION: CTA BRAIN/CAROTID DATE: 12/20/2024 13:24 INDICATION: Positional dizziness TECHNIQUE: Computed tomographic angiography (CTA) of the head and neck was performed with 100 mL Omnipaque-350 intravenous contrast. Multiplanar reconstructions and maximum intensity projection 3D-reconstructions of the carotid arteries and of the intracranial arteries were created by the technologist on a separate workstation. Precontrast CT of the head was also obtained. Automated exposure control and iterative reconstruction technique were employed.The dose-length product was 1800.44 mGy-cm. COMPARISON: Head CT dated 12/18/2024 FINDINGS: Carotid arteries: Aortic arch dilated vessels arising from the arch are normal in caliber with no evident atherosclerotic plaque or dissection. There is no evident atherosclerotic plaque with 0% stenosis of the right and left carotid bulbs relative to normal distal artery lumen diameter (NASCET criteria). Visualized upper lungs are clear. Moderate cervical spondylosis. Head: No acute intracranial hemorrhage, acute infarction or abnormal extra axial fluid collection. Ventricles are normal and symmetric. No mass/mass effect. Status post left mastoidectomy. The orbits are normal. Mild mucosal thickening the bilateral ethmoid and maxillary sinuses. No abnormal enhancing lesions on the postcontrast imaging. Intracranial arteries Vertebral arteries are codominant. There is no hemodynamically significant stenosis in the vertebral, basilar and internal carotid arteries. Both A1 and P1 segments are patent. There also patent bilateral posterior communicating arteries. There are no aneurysms identified. Cerebral arterial arborization appears symmetric. IMPRESSION: 1. No evident atherosclerotic plaque with 0% stenosis of the right and left carotid bulbs relative to normal distal artery lumen diameter (NASCET criteria). 2. No acute intracranial process. 3. Unremarkable cerebral CT angiogram with no hemodynamically significant stenosis, thrombosis or dissection. Reviewed, dictated and finalized at location B. CT IAC: My impression: Findings in left ear represent cholesteatoma Radiologist's impression: EXAMINATION: CT IAC/mastoids BI wo con DATE: 12/20/2024 13:24 INDICATION: Positional dizziness. TECHNIQUE: Computed tomography (CT) of the temporal bones was performed without intravenous contrast. The dose-length product was 1800.44 mGy-cm. COMPARISON: 11/18/2022 FINDINGS: Mild mucoperiosteal thickening the bilateral maxillary and ethmoid sinuses. Orbits are normal. RIGHT TEMPORAL BONE: The external auditory canal, tympanic membrane, ossicles and scutum are normal. The right mastoid is hyperpneumatized. The middle ear cavity including Prussak's space are clear. The oval window, vestibule, cochlea, semicircular canals, internal auditory canal, vestibular aqueduct and course of the facial nerve are normal. The carotid canal and jugular bulb are unremarkable. LEFT TEMPORAL BONE: The left mastoid is also hypopneumatized with postoperative change of prior left mastoidectomy which extends into the attic. Interval decrease in a small amount of material along the posterior superior margin of the inner external auditory canal abutting the posterior external margin of the otherwise normal tympanic membrane. Also decreased is a now minimal amount of soft tissue along the deep margin of the posterior tympanic membrane. The ossicles are normal. Stable appearance of chronic erosion of the scrotum. The middle ear cavity including Prussak's space are clear. The oval window, vestibule, cochlea, semicircular canals, internal auditory canal, vestibular aqueduct and course of the facial nerve are normal. The carotid canal and jugular bulb are unremarkable. IMPRESSION: 1. Status post left mastoidectomy with decrease in now minimal amount of material along the posterior aspect of the left tympanic membrane and deep aspect of the external auditory canal which given the interval improvement would favor sequela of chronic otitis media over cholesteatoma. 2. Right mastoid is hyperpneumatized. Otherwise unremarkable right temporal bone CT. Reviewed, dictated and finalized at location B. Chest x-ray: Radiologist's impression: Portable chest x-ray Comparison: 08/08/2024 Clinical History: Vertigo Findings: Lungs are clear, without focal consolidation or pleural effusion. Cardiomediastinal silhouette is stable. Bones and soft tissues are unremarkable. Impression: Normal chest. Reviewed, dictated and finalized at location M. CT scan - head: Radiologist's impression: EXAMINATION: CT brain wo con DATE: 12/18/2024 17:17 INDICATION: dizziness x1 hour, NKI . TECHNIQUE: Computed tomography (CT) of the head was performed without intravenous contrast. The mA was adjusted according to patient size. Iterative reconstruction technique was employed. The dose-length product was 605.33 mGy- cm. COMPARISON: None. FINDINGS: No acute intracranial hemorrhage or extra-axial fluid collection. No hydrocephalus, mass, or herniation. No acute ischemic infarct. Unremarkable dural venous sinus attenuation. No acute osseous abnormality. Minimal aerated secretions in the right posterior ethmoid sinus, status post left mastoidectomy, the remaining aerated spaces are clear. IMPRESSION: No acute intracranial process. Discharge Plan Discharge Attending physician on discharge: Jack Valerio Consulting providers: Phillip Arzate; Melba Kraus; Ryan Sun; Paulino Mcallister; Cristo Fraser Discharging Clinician: Melba Kraus Anticipated Discharge Date/Time: 12/21/24 09:39 Patient Disposition: Home Activity: as tolerated Diet: regular Discharge Instructions: 1). Vertigo/Chronic Otitis/Cholesteatoma * Continue with symptom management will need follow up outpatient with ENT * Continue to take Meclizine PRN with onset of vertigo * I prescribed scopalamine patch as well if unable to take Meclizine due to nausea vomiting * I also prescribed Zofran as needed for nausea * I recommend when symptoms arise to take medication, lie down with minimal lighting * I also recommend Sudfed decongestion OTC which will help with ear fullness * I have provided am order for MRI of brain/stem and MRA head/neck for outpatient How can you care for yourself at home? ? Keep track of any new symptoms or changes in your symptoms. ? Rest until you feel better. ? Be safe with medicines. Take your medicines exactly as prescribed. Call your doctor if you think you are having a problem with your medicine. ? Do not drive after taking a prescription pain medicine. ? Ensure to follow-up with primary care physician as indicated and provide updated medication list provided to you at discharge. When should you call for help? Call 911 anytime you think you may need emergency care. For example, call if: ? You passed out (lost consciousness). Call your doctor now or seek immediate medical care if: ? You have new symptoms like fever, difficulty breathing, Chest pain, vomiting, or rash. ? You have new or different pain. ? You are confused and are having trouble thinking clearly. ? Your symptoms are getting worse. Watch closely for changes in your health, and be sure to contact your doctor if: ? You do not get better as expected. Patient Instructions: Antibiotic Form, Scopolamine (Absorbed through the skin), Meclizine (By mouth), Vertigo (DC), Fall Prevention for Older Adults (DC), Fluid In The Ear (Serous Otitis Media) (GEN) Patient Language: Senegalese Stand Alone Forms: General Discharge Information Follow-up/Referrals: Dilshad Collier MD [Physician] - Call for Appointment Juan R,EBONIE Chua [Primary Care Provider] - 2 weeks (Referral to ENT needed) Discharge Medications: New meclizine 25 mg Tablet 25 mg PO QID PRN (Reason: vertigo) Qty: 30 0RF ondansetron 4 mg tablet,disintegrating 4 mg PO Q8H PRN (Reason: nausea and vomiting) Qty: 30 0RF scopolamine base 1 mg over 3 days patch 3 day 1 patch transdermal Q3D PRN (Reason: vertigo) Qty: 24 0RF Continued levothyroxine 100 mcg capsule 100 mcg PO QAM omeprazole 20 mg capsule,delayed release(DR/EC) 20 mg PO BID levofloxacin 500 mg tablet 500 mg PO DAILY meloxicam 15 mg tablet,disintegrating 15 mg PO DAILY PRN (Reason: pain) alprazolam [Xanax] 0.25 mg tablet 0.25 mg PO TID PRN (Reason: anxiety) Other Ambulatory Orders: MRA neck wo con (Routine) Timeframe: 1 Month Location: Determined by Patient Ordered By: Melba Kraus MR brain IAC wo con (Routine) Timeframe: 1 Month Location: Determined by Patient Ordered By: Melba Kraus MR brain/brain stem wo con (Routine) Timeframe: 1 Month Location: Determined by Patient Ordered By: Melba Kraus Date of admission: 12/20/24 08:13 Primary Care Provider: Juan RToma Admitting Provider: Josiah Higginbotham Attending physician on admission: Josiah Higginbotham Condition: Stable Quality VTE Prophylaxis VTE prophylaxis: pharmacologic ordered (Lovenox) -Patient's previous records reviewed on admission -ER notes reviewed in detail on admission -discussed all findings and current treatment plan with patient/Family/POA -Consultations reviewed for recommendations -Patient's disposition for safe discharge discussed with home health care case manager Dictation performed by [employer] direct speech recognition software, therefore horseradish grinder variants and typographical errors may occur. Hospitalist MIPS Heart Failure (Exclusion) Patient has history of Heart Transplant or Left Ventricular Assistive Device?: No IF YES, STOP HERE Heart Failure (Qualifier) Patient has current or prior documentation of LVEF less than or equal to 40%, or mod/servere depressed LVSF?: No IF NO, STOP HERE
--- NOTE | 2024-12-21 10:39 | PC.NURSE ---
Called to make follow up appointment for this hospital stay. [facility] request we sent discharge paperwork to office prior to them making appointment. Discharge paperwork and H&P faxed per request.
--- NOTE | 2024-12-21 14:01 | PC.NURSE ---
1150 iv out and dressing applied. voices no c/o n/v or dizziness at this time. dc orders went over she voices an understanding and encouraged questions. dc per wc to family [facility].
--- NOTE | 2024-12-22 09:29 | PC.NURSE ---
Faxed ambulatory orders to [facility] per patients request.
--- NOTE | 2024-12-27 08:55 | PC.NURSE ---
Called for discharge followup, she informs [facility] told her they did not receive Ambulatory orders via fax. Informed patient confirmation was received however would be glad to re-fax these orders. Pt indicated No she sees her ENT this , she still has ambulatory orders from discharge and would ask ENT if these orders are necessary. She has no further questions or concerns with discharge education or instruction.
== END 2024-12-21 11:50 | disposition home or self-care (01) ==
LOC: CHSED 08:13 → CHS2ND 08:23
PROVIDERS: Emergency Medicine; Nurse Practitioner; Admitting Provider Internal Medicine; Emergency Provider Emergency Medicine; PCP Physician Assistant; Visit Provider Internal Medicine
DX: R42 Dizziness and giddiness (principal); H66.90 Otitis media, unspecified, unspecified ear; H71.02 Cholesteatoma of attic, left ear; N39.0 Urinary tract infection, site not specified; B96.20 Unspecified Escherichia coli [E. coli] as the cause of diseases classified elsewhere; N18.9 Chronic kidney disease, unspecified; E03.9 Hypothyroidism, unspecified; F41.8 Other specified anxiety disorders; R55 Syncope and collapse; K21.9 Gastro-esophageal reflux disease without esophagitis; Z79.899 Other long term (current) drug therapy; Z88.0 Allergy status to penicillin; Z88.1 Allergy status to other antibiotic agents
CPT/HCPCS: 36415; 70480; 70496; 70498; 71045; 80053; 80061; 83036; 83735; 84439; 84443; 84480; 84484; 85025; 93005; 93306; 96361; 96365; 96374; 96375; 97161; 99285; A9270; G0378; J1956; J2060; J2405; J7030; J7120; Q9967

== ENCOUNTER 2025-01-24 10:13 | Outpatient (CLI) | payer MEDICARE, SELFPAY ==
--- OUTSIDE RECORDS SUMMARY | 2025-01-24 10:37 | XMS_ITS | Clinical Summary ---
Author Organization [facility] Address [facility] [place] [address] Care Team Providers Care Kiln Furniture Caster Name Role Phone Toma Plaza Primary Care Provider [phone] Allergies Active Allergy Reactions Criticality Noted Date [...] - 12/15/2024 11:59 PM CDT Hospital Encounter [facility] [address] [place] [address] Toma Plaza PA Discharge Disposition: Home or Self Care (Routine Discharge) 12/15/2024 Orders Only [facility] [address] [place] [address] Toma Plaza PA 12/14/2024 11:15 AM CDT - 12/14/2024 11:59 PM CDT Hospital Encounter [facility] [address] [place] [address] Toma Plaza PA Discharge Disposition: Home or [...] AM CDT Legal Sex Female 11:19 PM OPTIMIZATION MANAGER Gender Identity Female 11/04/2022 9:01 AM CDT Sexual Orientation Straight 11/04/2022 9: 01 AM CDT Last Filed Vital Signs Vital Sign Reading Time Taken Comments Blood Pressure 140/90 06/07/2019 11:31 AM OPTIMIZATION MANAGER Pulse 96 06/07/2019 11:31 AM OPTIMIZATION MANAGER Temperature 37 C (98.6 F) 06/07/2019 11:31 AM OPTIMIZATION MANAGER Respiratory Rate 16 06/07/2019 11:31 AM OPTIMIZATION MANAGER Oxygen Saturation 98% 06/07/2019 11:31 AM OPTIMIZATION MANAGER Inhaled Oxygen Concentration - - Weight 78.9 kg (174 lb) 07/15/2018 3:59 PM OPTIMIZATION MANAGER Height 157.5 cm (5' 2) 06/07/2019 11:31 AM OPTIMIZATION MANAGER Body Mass Index 31.83 07/15/2018 3:59 PM OPTIMIZATION MANAGER Plan of Treatment Health Maintenance Due Date [...] Td or Tdap) 09/15/2023 09/14/2013 COVID-19 Vaccine ( - 2023-2 5 season) 2024 Mammogram Screening [...] this topic Medical Devices Implanted Type Area Marble Cutter Device Identifier Shelf Expiration Date Model / Serial / Lot Shell Heath Continuum Tm Ch 48mm Gg - [id number] Implanted:Qty: 1 on 07/15/2018 by Chong Aviles MD at [facility] Right: Hip [employer] 04/21/2028 [id number] / / [id number] Continium Trilogy Poly Implanted:Qty: 1 on 07/15/2018 by Chong Aviles MD at [facility] Right: Hip [employer] 07/22/2022 [id number] / / [id number] Screw Heath Bone 30mm - [id number] Implanted:Qty: 1 on 07/15/2018 by Chong Aviles MD at [facility] Right: Hip [employer] 09/20/2027 [id number] / / [id number] Screw Heath Bone 30mm - [id number] Implanted:Qty: 1 on 07/15/2018 by Chong Aviles MD at [facility] Right: Hip [employer] 04/21/2028 [id number] / / [id number] Femoral Stem Implanted:Qty: 1 on 07/15/2018 by Chong Aviles MD at [facility] Right: Hip [employer] 10/20/2027 [id number] / / [id number] Head Femoral Biol[employer] Option Ceramic Heath - [id number] Implanted:Qty: 1 on 07/15/2018 by Chong Aviles MD at [facility] Right: Hip [employer] 03/21/2028 [id number] / / [id number] Explanted Type Area Marble Cutter Device Identifier Shelf Expiration Date Model / Serial / Lot Disposable Bit Explanted:Qty: 1 on 07/15/2018 at [facility] Right: Hip [employer] [id number] / / [...] URINE CLEAN CATCH 12/15/2024 11:18 AM CDT [facility] SPECIAL REQUESTS NO SPECIAL REQUEST 12/15/2024 11:18 AM CDT [facility] CULTURE RESULT 10,000-49,0 00 COL/ML ESCHERICHIA COLI (A) 12/17/2024 7:11 AM CDT [facility] URINE SPECIMEN OBTAINED BY CLEAN [...] Escherichia coli TRIMETH-SULFAMETH. BHUPENDRA (VITEK) <=20: Sensitive [facility] - GENERAL ORDERA BLES Final Result Performing Organization Address City/State/[facility] Co de Phone Number [facility] [address] [place] [address], [place] [phone] [facility] [address] [place] [address], [place] [phone] * (ABNORMAL) URINALYSIS, AUTO, COMPLETE (12/15/2024 11:18 AM CDT) COLOR (U) YELLOW 12/15/2024 11:48 AM CDT [facility] TRANSPARENCY HAZY 12/15/2024 11:48 AM CDT [facility] SPECIFIC GRAVITY (U) >1.030(H) 1.000 - 1.030 12/15/2024 11:48 AM CDT [facility] U PH 6.0 5.0 - 9.0 12/15/2024 11:48 AM CDT [facility] LEUKOCYTES (U) 1+(A) NEGATIVE 12/15/2024 11:48 AM CDT [facility] NITRITES NEGATIVE NEGATIVE 12/15/2024 11:48 AM CDT [facility] PROTEIN RANDOM (U) NEGATIVE NEGATIVE 12/15/2024 11:48 AM CDT [facility] GLUCOSE (U) NEGATIVE NEGATIVE 12/15/2024 11:48 AM CDT [facility] KETONES MG/DL (U) NEGATIVE NEGATIVE 12/15/2024 11:48 AM CDT [facility] BILIRUBIN (U) NEGATIVE NEGATIVE 12/15/2024 11:48 AM CDT [facility] BLOOD (U) NEGATIVE NEGATIVE 12/15/2024 11:48 AM CDT [facility] WBC/HPF 5-10 0 - 5 /HPF 12/15/2024 11:48 AM CDT [facility] RBC/HPF NONE SEEN 0 - 5 /HPF 12/15/2024 11:48 AM CDT [facility] EPI/HPF FEW /HPF 12/15/2024 11:48 AM CDT [facility] CRYSTALS (U) FEW /HPF 12/15/2024 11:48 AM CDT [facility] Comment:AMORPHOUS MATERIAL BACTERIA (U) FEW /HPF 12/15/2024 11:48 AM CDT [facility] URINE SPECIMEN OBTAINED BY CLEAN CATCH PROCEDURE / Unknown 12/15/2024 11:18 AM CDT us Toma HUGHES URINE ORDERABLES Final Result [facility] [address] [place] [address], * VITAMIN B12 / FOLATE (12/15/2024 10:30 AM CDT) VITAMIN B12 S/P/B 392 193 - 986 PG/ML 12/15/2024 11:39 AM CDT [facility] FOLATE 19.5 8.6 - 58.9 NG/ML 12/15/2024 11:39 AM CDT [facility] 12/15/2024 10:3 0 AM CDT [facility] Final Result [facility] [address] [place] [address], * HEMOGLOBIN, GLYCOSYLATED (12/15/2024 10:30 AM CDT) HGB A1C 5.5 <5.7 % 12/15/2024 11:07 AM CDT [facility] Comment: INCREASED RISK OF DIABETES <5.7% NON-DIABETES 5.7-6.4% INCREASED RISK FOR FUTURE DIABETES > OR = 6.5 CONSISTENT WITH DIABETES STANDARDS OF MEDICAL CARE IN DIABETES-2010 DIABETES CARE, 33(SUPP 1): S1-S61,2010 ESTIMATED AVG GLUCOSE 111 mg/dL 12/15/2024 11:07 AM CDT [facility] 12/15/2024 10:3 0 AM CDT [facility] Final Result [facility] [address] [place] [address], * FREE T3 (12/15/2024 10:30 AM CDT) FREE T3 2.3 2.18 - 3.98 PG/ML 12/15/2024 2:38 PM CDT [facility] 12/15/2024 10:3 0 AM CDT us [facility] Final Result [facility] [address] [place] [address], [place] [phone] * (ABNORMAL) COMPREHENSIVE METABOLIC PANEL (12/15/2024 10:30 AM CDT) Pathologist [facility] GLUCOSE 97 70 - 99 MG/DL 12/15/2024 11:19 AM CDT [facility] BUN 19(H) 7 - 18 MG/DL 12/15/2024 11:19 AM CDT [facility] CREATININE S/P/B 1.08(H) 0.55 - 1.02 MG/DL 12/15/2024 11:19 AM CDT [facility] SODIUM S/P/B 139 136 - 145 MMOL/L 12/15/2024 11:19 AM CDT [facility] POTASSIUM S/P/B 4.4 3.5 - 5.1 MMOL/L 12/15/2024 11:19 AM CDT [facility] CHLORIDE S/P/B 104 100 - 108 MMOL/L 12/15/2024 11:19 AM CDT [facility] CO2 29.1 21 - 32 MMOL/L 12/15/2024 11:19 AM CDT [facility] CALCIUM S/P/B 9.1 8.5 - 10.1 MG/DL 12/15/2024 11:19 AM CDT [facility] BILIRUBIN TOTAL S/P/B 0.6 0.2 - 1.2 MG/DL 12/15/2024 11:19 AM CDT [facility] TOTAL PROTEIN S/P/B 7.2 6.4 - 8.2 G/DL 12/15/2024 11:19 AM CDT [facility] ALBUMIN S/P/B 4.0 3.4 - 5.0 G/DL 12/15/2024 11:19 AM CDT [facility] AST 21 15 - 37 U/L 12/15/2024 11:19 AM T [facility] ALT 36 14 - 55 U/L 12/15/2024 11:19 AM T [facility] ALKALINE PHOSPHATASE S/P/B 72 50 - 136 U/L 12/15/2024 11:19 AM T [facility] ANION GAP 5.9 5 - 15 MMOL/L 12/15/2024 11:19 AM T [facility] BUN CREATININE RATIO 17.6 6 - 26 12/15/2024 11:19 AM T [facility] A/G RATIO 1.2 1.0 - 2.0 RATIO 12/15/2024 11:19 AM T [facility] GFR ESTIMATE 57(L) >90 ML/MIN/1.7 3 M2 12/15/2024 11:19 AM T [facility] Comment: NOTE: eGFR is not calculated for patients <18 years of age. This is an estimated GFR calculation using the new CKD EPI creatinine equation without race and so does not require a correction factor for race. This estimated GFR should not be used for calculating drug doses. 12/15/2024 10:3 0 AM CDT us [facility] Final Result [facility] [address] [place] [address], [place] [phone] * (ABNORMAL) LIPID PANEL (12/15/2024 10:30 AM CDT) CHOLESTEROL 201(H) <200.0 MG/DL 12/15/2024 11:19 AM CDT [facility] TRIGLYCERIDES 123 <150 MG/DL 12/15/2024 11:19 AM T [facility] HDL 49 >40.0 MG/DL 12/15/2024 11:19 AM T [facility] LDL (CALCULATED) 127(H) <100 MG/DL 12/15/2024 11:19 AM T [facility] Comment:CALCULATED USING THE FRIEDEWALD EQUATION NON HDL CHOLESTEROL 152(H) <130 MG/DL 12/15/2024 11:19 AM T [facility] CHOL/HDL RATIO 4.1 0.0 - 4.5 12/15/2024 11:19 AM T [facility] VLDL CALCULATION 25 5 - 55 MG/DL 12/15/2024 11:19 AM [facility] LIPID INTERPRETATION 12/15/2024 11:19 AM T [facility] Comment: [facility] REPORT RECOMMENDATIONS: ADULT CHILD LOW RISK: CHOLESTEROL <200 <170 TRIGLYCERIDE <150 --- HDL >=60 --- LDL <100 <110 BORDERLINE: CHOLESTEROL 200-239 170-199 TRIGLYCERIDE 150-199 --- HDL 40-59 --- LDL 100-159 110-129 HIGH RISK: CHOLESTEROL >=240 >=200 TRIGLYCERIDE >=200 --- HDL <40 --- LDL >=160 >=130 12/15/2024 10:3 0 AM CDT us [facility] Final Result [facility] [address] [place] [address], * (ABNORMAL) CBC W/DIFF AUTOMATED (12/15/2024 10:30 AM CDT) WBC 5.38 4.4 - 11.0 x10'3/uL 12/15/2024 10:52 AM CDT [facility] RBC 4.50 4.50 - 5.10 x10'6/uL 12/15/2024 10:52 AM CDT [facility] HGB 13.9 12.3 - 15.3 G/DL 12/15/2024 10:52 AM T [facility] HCT 40.7 35.9 - 44.6 % 12/15/2024 10:52 AM CDT [facility] MCV 90.4 80.0 - 96.0 FL 12/15/2024 10:52 AM T [facility] MCH 30.9 25.3 - 30.9 PG 12/15/2024 10:52 AM T [facility] MCHC 34.2(H) 31.0 - 34.1 G/DL 12/15/2024 10:52 AM T [facility] RDW 13.1 12.4 - 15.1 % 12/15/2024 10:52 AM T [facility] PLT 247 151 - 353 x10'3/uL 12/15/2024 10:52 AM T [facility] MPV 9.8 9.6 - 12.0 FL 12/15/2024 10:52 AM T [facility] RBC MORPHOLOGY NORMAL 12/15/2024 10:52 AM T [facility] PLT MORPH. NORMAL 12/15/2024 10:52 AM T [facility] WBC MORPHOLOGY NORMAL 12/15/2024 10:52 AM T [facility] LYMPHOCYTES % 41.6 15.8 - 45.0 % 12/15/2024 10:52 AM CDT [facility] NEUTROPHILS % 46.0 42.1 - 71.9 % 12/15/2024 10:52 AM CDT [facility] MONOCYTES % 7.1 5.7 - 12.5 % 12/15/2024 10:52 AM CDT [facility] EOSINOPHILS 4.5 0.0 - 5.6 % 12/15/2024 10:52 AM CDT [facility] BASOPHILS 0.6 0.0 - 1.3 % 12/15/2024 10:52 AM CDT [facility] ABS. NEUTROPHILS 2.48 1.40 - 6.00 x10'3/uL 12/15/2024 10:52 AM CDT [facility] IMMATURE GRANS % 0.2 0.0 - 0.5 % 12/15/2024 10:52 AM CDT [facility] ABS. LYMPHOCYTES 2.24 0.80 - 4.70 x10'3/uL 12/15/2024 10:52 AM CDT [facility] 12/15/2024 10:3 0 AM CDT [facility] Final Result [facility] [address] [place] [address], * THYROXINE, FREE (FT4) (12/15/2024 10:30 AM CDT) FREE T4 0.84 0.76 - 1.46 NG/DL 12/15/2024 11:19 AM CDT [facility] 12/15/2024 10:3 0 AM CDT [facility] Final Result [facility] [address] [place] [address], [place] [phone] * (ABNORMAL) THYROID STIM HORMONE TSH (12/15/2024 10:30 AM CDT) TSH 6.153(H) 0.358 - 3.74 uIU/ML 12/15/2024 11:19 AM CDT [facility] Comment: HIGH DOSES OF BIOTIN MAY INTERFERE WITH THIS TEST RESULT. CORRELATION TO CLINICAL HISTORY AND PRESENTATION RECOMMENDED. 12/15/2024 10:3 0 AM CDT [facility] Final Result Performing Organization Address City/[facility]/ZIP Co de Phone Number [facility] [address] [place] [address], [place] [phone] * VITAMIN D, 25 OH (12/15/2024 10:30 AM CDT) VITAMIN D 25 HYDROXY S/P/B 30 30 - 100 NG/ML 12/15/2024 11:45 AM CDT [facility] Comment: INTERPRETATION DEFICIENT <20 INSUFFICIENT 20-29 SUFFICIENT 30-100 12/15/2024 10:3 0 AM CDT [facility] Final Result [facility] [address] [place] [address], [place] [phone] * XR CHEST PA+LAT (12/14/2024 11:36 AM CDT) Anatomical Region Laterality Modality Chest Radiographic Mary Jo ging 12/14/2024 11:4 2 AM CDT Impressions 12/14/2024 11:43 AM CDT IMPRESSION: No acute findings Ordered By: TOMA PLAZA Interpreted By: Scotty Mcneil MD, 12/14/2024 11:42 AM Narrative 12/14/2024 11:43 AM CDT [address] [place] [address] 2 VIEWS OF THE CHEST Clinical history: Pleuritic chest pain Comparison: None 2 views of the chest demonstrate the cardiac silhouette to be normal in size and appearance. The pulmonary vessels appear normal. The Lungs are clear. No consolidations or effusions are seen. Procedure Note Scotty Mcneil MD - 12/14/2024 [facility] [id number] [place] [address]. [place] [address] 2 VIEWS OF THE CHEST Clinical history: Pleuritic chest pain Comparison: None 2 views of the chest demonstrate the cardiac silhouette to be normal insize and appearance. The pulmonary vessels appear normal. The Lungs areclear. No consolidations or effusions are seen. IMPRESSION: No acute findings Ordered By: TOMA PLAZA Interpreted By: Scotty Mcneil MD, 12/14/2024 11:42 AM [facility] Final Result * [...] Wilhelm MD, 11/21/2022 3:32 PM Angelina Ovalles BUILDING DISMANTLER-BC MAMMO Final Result from Last 3 Months or Most Recently Relevant to Health Maintenance Insurance [employer] Advance Directives * Full Code (Latest Code Status on File) Date Activated Date Inactivated Comments 07/15/2018 3:51 PM 07/16/2018 2:46 PM Care Teams Kiln Furniture Caster Relationship Specialty Start Date End Date Toma Plaza PA PCP - General PHYSICIAN CLINICAL REGISTERED NURSE 11/19/22
== END 2025-01-24 10:14 | disposition home or self-care (01) ==
LOC: ANHAUDIO 10:13
PROVIDERS: PCP Physician Assistant; Visit Provider Otolaryngology
DX: H90.3 Sensorineural hearing loss, bilateral (principal); H83.8X9 Other specified diseases of inner ear, unspecified ear; Z96.22 Myringotomy tube(s) status; H93.13 Tinnitus, bilateral; R42 Dizziness and giddiness; H74.8X3 Other specified disorders of middle ear and mastoid, bilateral; H74.03 Tympanosclerosis, bilateral; Z86.69 Personal history of other diseases of the nervous system and sense organs; Z82.2 Family history of deafness and hearing loss
CPT/HCPCS: 92557; 92567

== ENCOUNTER 2025-05-31 00:34 | Day surgery (SDC) | payer MEDICARE, MEDICAID, SELFPAY ==
[2025-05-08 15:00] VITALS: BMI 30.4
--- OUTSIDE RECORDS SUMMARY | 2025-05-31 00:38 | XMS_ITS | Data Portability ---
Author Organization [facility], [place] Address [address] [place] [address] Assessment Encounter Date Assessment Date Assessment LastModified by Organization Details LastModified Time 10/15/2022 10/15/2022 Annual gynecological exam performed. Patient will come back in a year unless there are new symptoms. Not available 10/15/2022 09:48:25 Plan of Treatment Reminders Order Date Submit Date Provider Last Modified By Organization Details Last Modified Time Details Appointments None recorded. Lab None recorded. Referral None recorded. Procedures None recorded. Surgeries None recorded. Imaging MAMMO, screening, bilateral 2022 023 [facility] (Radiology), [facility] [address], [place], [address], 3 16:39:51 Medication Orders nystatin-t riamcinolo ne 100,000 unit/gram- 0.1 % topical ointment 2022 023 MELVIN [facility], [address] [place], [address], 3 10:14:22 Patient TargetsNo targets recorded. Patient InstructionsNo instructions recorded. Reason for Referral None Reported. Results Created Date Observation Date Name Description Value Unit Range Abnormal Flag Note LastModifiedBy Organization Detail LastModifiedTime 03/08/20 20 03/12/2020 pap, LB Pap test thin prep Negati ve for Intrae pithel ial Lesion or Malign magno normal ACCES MONI #: [id number] [facility] e: Cervi marleen/E ndoce rvica l LMP: 2009 Date Taken : 03/08 Speci men Type: ThinP rep Vial Date Repor mara: 2019 Clini marleen Data: Cytot ech: Holly garland , CT( CP) Date Repor mara: 2019 Speci men Adequ acy: Satis facto ry for evalu ation Gener al Categ oriza tion: NEGAT RENARD FOR INTRA EPITH ELIAL LESIO N OR MALIG MORA Inter preta tion/ Resul t: Atrop hy Comme nts/R ecomm endat ions: Infla mmati on The follo wing tests have been order ed as reque sted and a separ ate repor t will be issue d: Chlam shahaba, Gonor rhoea e, and Trich omona s This speci men has been paulo zed by the ThinP rep Imagi ng Syste m, an inter activ e compu ter syste m which izzy ts the lab [facility] [place] of ThinP rep Pap Test slide s. Follo wing imagi ng, the slide was revie wed by a Cytot echno logis t and/o r Patho logis t. D N A A S S A Y S R E P O R T TEST NAME RESUL TS ----- ---- ----- -- HPV High Risk Scree n (TMA) ThinP rep Vial The human papil lomav irus (HPV) High Risk Scree n is an FDA-a pprov ed in-vi tro ampli fied nucle ic acid test for the quali tativ e detec tion of E6/E7 viral mRNA. Resul ts shoul d be corre lated with patie nt prese ntati on, histo ry, cervi marleen cytol ogy and other clini marleen and labor atory findi ngs. See https ://NetPlenish/s ites/ deflena lt/fi les/2 018-0 3/AW- 12811 _002_ 01.pd f for nestor lynn infor matradha n. Test perfo rmed by [facility], d/b/a Arnold darnell, [address], [place] [address] , Regis Decker ra, DO, Labor S[facility] Dire tor. HPV High Risk *HPV NOT DETEC MARA (TYPE S 16, 18, 31, 33, 35, 39, 45, 51, 52, 56, 58, 59, 66, 68) *HPV: The human papil lomav irus (HPV) High Risk Phoebe faust is an FDA-a pprov ed in-vi tro ampli fied nucle ic acid test for the quali tativ e detec tion of E6/E7 viral mRNA. Resul ts shoul d be corre lated with patie nt prese ntati on, histo ry, cervi marleen cytol ogy and other clini marleen and labor atory findi ngs. See https ://NetPlenish/s ites/ defau lt/fi les/2 018-0 3/AW- 14685 _002_ 01.pd f for [facility] shane andrewsr jeovany faust. Test perfo rmed by [facility], d/b/a [facility], [address], [place] [address] , Regis Decker ra, DO, Labor [facility] tor. End of Repor t Techn ical servi hubert provi ded by [employer], d/b/a [facility], [address] [place] [address] Cameron Jordan MD, Labor SpiceCSM Dire tor. Case revie wed and diagn osis rende red at [facility], d/b/a [facility] [employer] [facility], [address] [place] [address] Cameron Jordan MD, [facility] SpiceCSM [employer] [facility] rehab. CONFI DENTI AL Not Available [facility] ([facility]) [address], [place], [address], 03/12/2020 17:00:33 03/08/20 20 03/10/2020 CT + NG DNA, PCR, unspe cifie d speci men trichomonas vaginalis, aptima (panther) NOT DETECT ED normal DNA testi ng perfo rmed by Trans cript ion Media mara Ampli ficat ion (TMA) These resul ts shoul d be inter prete d in light of all clini marleen and labor atory findi ngs. This assay is highl y accur ate, but rare false posit renard and negat renard resul ts may occur . Posit renard resul ts in low preva lence popul ation s may requi re re-ev aluat ion. A negat renard resul t does not precl ude a possi ble infec tion due to a speci men inade quacy or sampl ing error . Test perfo rmed by [facility], d/b/a Ronak zeke, [address], [place] [address] , Regis Decker ra, DO, Labor atory Direc tor. Not Available [facility] ([facility]) [address], [place], [address], 03/12/2020 17:00:34 03/08/20 20 03/10/2020 CT + NG DNA, PCR, unspe cifie d speci men neisseria gonorrhoeae, aptima NOT DETECT ED normal DNA testi ng perfo rmed by Trans cript ion Media mara Ampli ficat ion (TMA) These resul ts shoul d be inter prete d in light of all clini marleen and labor atory findi ngs. This assay is highl y accur ate, but rare false posit renard and negat renard resul ts may occur . Posit renard resul ts in low preva lence popul ation s may requi re re-ev aluat ion. A negat renard resul t does not precl ude a possi ble infec tion due to a speci men inade quacy or sampl ing error . Test perfo rmed by [facility] [employer], [employer], d/b/a Arnold rouglenroy, [address], [place] [address] , Regis Decker ra, DO, Labor atorHypemarks Direc tor. Not Available [facility] ([facility]) [address] [place] [address] [address], [place], [address], 03/12/2020 17:00:34 03/08/20 20 03/10/2020 CT + NG DNA, PCR, unspe cifie d speci men chlamydia trachomatis, aptima NOT DETECT ED normal DNA testi ng perfo rmed by Trans cript ion Media mara Ampli ficat ion (TMA) These resul ts shoul d be inter prete d in light of all clini marleen and labor atory findi ngs. This assay is highl y accur ate, but rare false posit renard and negat renard resul ts may occur . Posit renard resul ts in low preva lence popul ation s may requi re re-ev aluat ion. A negat renard resul t does not precl ude a possi ble infec tion due to a speci men inade quacy or sampl ing error . Test perfo rmed by [facility], d/b/a Arnold darnell, [address] [place] [address], [place] [address] , Regis Decker ra, DO, Labor atorHypemarks Direc tor. Not Available [facility] ([facility]) [address] [place] [address] [address], [place], [address], 03/12/2020 17:00:34 03/08/20 20 03/10/2020 HPV DNA, high- risk HPV high risk NOT DETECT ED normal The human papil lomav irus (HPV) High Risk Phoebe faust is an FDA-a pprov ed in-vi tro ampli fied nucle ic acid test for the quali tativ e detec tion of E6/E7 viral mRNA. Resul ts shoul d be corre lated with patie nt prese ntati on, histo ry, cervi marleen cytol ogy and other clini marleen and labor atory findi ngs. See https ://NetPlenish/s ites/ defau lt/fi les/2 018-0 3/AW- 37350 _002_ 01.pd f for nestor faust. Test perfo rmed by [facility], d/b/a PathJonathan darnell, [address], [place] [address] , Regis Decker ra, DO, Labor atory Dire tor. Not Available [facility] ([facility]) [address], [place], [address], 03/12/2020 17:00:34 10/16/19 23 10/15/2022 IMAGE GUIDE D PAP AND HPV REGAR DLESS image guided Pap, HPV regardless of Pap result SEE RESULT S BELOW CASE REPOR T: Cytol ogy Gynec ologi marleen Repor t Case: [id number] Autho inessa gould Provi debby: John Trammell Colle cted: 10/15 1106 CURATOR HERBARIUM Order ing Locat ion: [place] Path[facility] Recei sully: 10/16 0224 First Scree n: Tim García , CT Speci men: Scree jesse Pap - Image d, Cervi x STATE MENT OF ADEQU ACY: Satis facto ry for evalu ation Trans forma tion zone compo nent prese nt Parti ally obscu ring infla mmati on prese nt. FINAL DIAGN OSIS: Negat renard for Intra epith elial Sharita faust or Ugo lobo (NIL) . Atrop hy prese nt. Elect robby boyer allan d by Tim García , CT on 2022 at 11:20 AM ----- ----- ----- ----- ----- ----- ----- ----- ----- ----- ----- ----- ----- ----- ----- ----- ----- ---- HPV RESUL TS: HPV mRNA E6/E7 : No HPV mRNA Detec mara NOTE: This high risk HPV mRNA assay detec ts fourt een high- risk HPV types (16, 18, 31, 33, 35, 39, 45, 51, 52, 56, 58, 59, 66, 68) witho ut diffe renti ation . COMME NT: This speci men was revie wed by a Cytot echno logis t and/o r Patho logis t (as indic ated in this repor t) after evalu ation using the Thinp rep Imagi ng Syste m. CLINI MARLEEN INFOR MATIO N: Menst rual Statu s: LMP (if appli cable ): Clini marleen Histo ry/Pr eviou s Pap: Type of Neopl dony (if appli cable ): Signi fican t Clini marleen Findi ngs: Other Histo ry: Hormo radha (if appli cable ): PAP EDUCA KISHORE L NOTE: The Pap Test is a scree jesse test with an inher ent false negat renard rate. Liqui d-bas ed sampl ing may decre ase, but will not elimi vernell, false negat renard resul ts. A negat renard resul t does not precl ude the prese nce and/o r devel opmen t of disea se, since the prese nce of abnor mal cells in the sampl e depen ds on the locat ion of the lesio n and sampl ing techn ique. Lucina nued regul ar scree jesse is the best metho d of cance r preve ntion . If repor mara cytol ogic findi ng do not corre late with physi marleen and/o r histo rical findi ngs, furth er inves tigat ion is recom charo d, as clini justus warrjoyce nted. Not Available [facility] (Lab) [address], [place], [address], 10/19/2022 12:22:35 11/22/19 23 11/19/2022 MAMMO , scree jesse, bilat eral No observ ation record ed. [email or web address] [facility] (Radiology) [address], [place], [address], 11/27/2022 10:25:22 Result Notes None recorded. Problems Name Problem SNOMED Code Status Onset Date Resolution Date Notes Provider Name and Address Organization Details Recorded Time Speciali zed medical examinat ion Active 2012 Gynecolo gical Examinat ion;Sae rded Elsewher e: No Locat ion: [facility] S ource: EHR Medical Sales Specialist noreen: N Practi ce ID: [id number] Giovanni lable Time: 03:15:00 PM Not Available [facility] 0 16:00:46 Screenin g for malignan t neoplasm of cervix Active 2012 Pap Smear;Pr actice ID: [id number] Not Available [facility] 0 16:00:46 Screenin g for malignan t neoplasm of rectum Active 2012 Screenin g for malignan t neoplasm s of the rectum;P ractice ID: [id number] Not Available [facility] 0 16:00:46 Leukocyt osis [id number] Active 2014 LEUKOCYT OSIS NOS;Prac david ID: [id number] Not Available [facility] 0 16:00:46 Adult health examinat ion Active 2014 Routine general medical examinat ion at a health care facility ;Practic e ID: [id number] Not Available [facility] 0 16:00:[address] Concept Active 2016 Encntr for general adult medical exam w/o abnormal findings ;Recorde d Elsewher e: No Locat ion: [facility] S ource: EHR Medical Sales Specialist noreen: N Practi ce ID: [id number] Giovanni lable Time: 10:30:00 AM Not Available [facility] 0 16:00:[address] Concept Active 2016 Encntr for trial manager exam (general ) (routine ) w/o abn findings ;Practic e ID: 0001 Not Available [facility] 0 16:00:46 Sexually transmit mara infectio us disease 1240757 Completed 201903/08/2020 Augusta Rocha [facility] 0 15:42:20 Problem Notes None recorded. Procedures Surgical History Date Name Laterality Status Provider Name and Address Organization Details Recorded Time 06/22/19 21 Date of Last Mammogram completed [facility] 10/15/2022 09:49:41 03/08/20 20 Date of Last Pap Smear completed [facility] 10/15/2022 09:51:25 07/05/19 19 Partial Hysterectomy completed [facility] 10/15/2022 09:49:52 06/22/19 19 total replacement of hip completed [facility] 03/14/2020 23:47:11 06/22/19 16 Mastoidectomy completed [facility] 03/14/2020 23:45:29 06/22/19 16 cholecystectomy completed [facility] 03/14/2020 23:45:51 06/22/19 10 Partial Hysterectomy completed [facility] 03/14/2020 23:46:44 06/22/19 00 augmentation mammoplasty completed [facility] 03/14/2020 23:46:25 06/22/18 84 ligation of bilateral fallopian tubes completed [facility] 03/14/2020 23:46:07 Imaging Results None recorded. Procedure Notes None recorded. Medical Equipment None Reported. Allergies Allergen ID Allergen Name Allergen Category Reaction Reaction Severity Criticality Documentation Date Start Date Code Code System Note Provider Name and Address Organization Details Recorded Time 55114 nitrofura ntoin medicatio n Not available Not available Not available 06/08/2020 7454 RxNorm Comme nt: [facility]at [facility] Cau sativ e Agent : Macro bid; Not Available [facility] 0 14:17:52 60572 ciproflox acin medicatio n Not available Not available Not available 06/08/2020 2551 RxNorm Comme nt: [facility]at [facility] Cau sativ e Agent : Cipro ; Not Available [facility] 0 14:17:52 2053 Product containin g penicilli n (product) medicatio n Not available Not available Not available 03/08/2020 90210 8001 SNOMED Augusta alanis, [facility] 0 15:19:09 2054 Substance with sulfonami de structure and antibacte rial mechanism of action (substanc e) medicatio n Not available Not available Not available 03/08/2020 37631 8003 SNOMED Augusta alanis, [facility] 0 15:19:17 2055 Macrobid medicatio n Not available Not available Not available 03/08/2020 00393 1 RxNorm Augusta alanis, [facility] 0 15:19:26 2056 Bactrim medicatio n Not available Not available Not available 03/08/2020 19545 9 RxNorm Augusta alanis, [facility] 0 15:19:37 2057 Cipro medicatio n Not available Not available Not available 03/08/2020 01908 3 RxNorm Augusta alanis, [facility] 0 15:19:48 Medications Name Sig Start Date Stop Date Status Note LastModified by Organization Details LastModified Time Xanax 0.5 mg tablet take 1 tablet by oral route 3 times every day 10/15 completed Prescrib ed Elsewher e: Yes Loca tion: [facility] M odify By: shell Dickinson ncounter DateTime : 04/22/20 17 10:30:00 AM Not Available Not Available Not Available omeprazol e 40 mg capsule,d elayed release Take 1 capsule every day by oral route. active Not Available Not Available No t Available nystatin- triamcino lone 100,000 unit/gram -0.1 % topical ointment APPLY TO THE AFFECTED AREA(S) BY TOPICAL ROUTE 2 TIMES PER DAY PRN 2022 active Not Available Not Available Not Avai lable Synthroid 25 mcg tablet take 1 tablet by oral route every day 10/04 completed Prescrib ed Elsewher e: Yes Loca [facility]ion[facility] odify By: john singh DateTime : 10/05/19 15 09:30:00 AM Not Available Not Available Not Available Xanax 0.25 mg tablet Take 1 tablet as needed by oral route. active Not Available Not Available No t Available hydrochlo rothiazid e 12.5 mg capsule take 2 capsule by oral route every day 10/04 completed Prescrib ed Elsewher e: Yes [facility] odify By: john singh DateTime : 01/05/20 13 03:15:00 PM Not Available Not Available Not Available Synthroid active Not Available Not Iris ilable Not Available Aleve 220 mg capsule active Prescrib ed Elsewher e: Yes Loca tion: [facility] odify By: john singh DateTime : 10/05/19 15 09:30:00 AM Not Available Not Available Not Available Vitals Date Recorded Body mass index (BMI) Body height Systolic And Diastolic Provider Name and Address Organization Details Last Updated DateTime 10/15/2022 31.6 kg/m2 159.39 cm 128/80 mm[Hg] Angelina Corona, [facility]- [address], [place], [address], [facility] 10/15/2022 10:18:23 Date Recorded Body weight Provider Name an d Address Organization Details Last Updated DateTime 10/15/2022 28155.85 g Karly Estrada [facility] 10/15/2022 09:49:08 Date Recorded Body height Body mass index (BMI) Body weight Systolic And Diastolic Provider Name and Address Organization Details Last Updated DateTime 03/08/2020 159.39 cm 30.2 kg/m2 28351.11 g 118/70 mm[Hg] Augusta Rocha [facility] 03/08/2020 15:19:01 Social History Question Answer Notes LastModified by [employer] Details LastModified Time Tobacco Smoking Status Never Smoker Ashley Novakoh [facility] 10/15/2022 09:40:53 In The 14 Days Before Symptom Onset, Have You Had Close Contact With A Laboratory-confirm ed COVID-19 While That Case Was Ill? No Information n ot available 10/15/2022 In The 14 Days Before Symptom Onset, Have You Had Close Contact With A Person Who Is Under Investigation For COVID-19 While That Person Was Ill? No Information not available 10/15/2022 Have You Been To An Area Known To Be High Risk For COVID-19? No Information not available 10/15/2022 What Was The Date Of Your Most Recent Tobacco Screening? 03/08/2020 [email or web address] Information not available 10/15/2022 How Much Tobacco Do You Smoke? No [id number] Information not available 04/24/2020 Sex: Unknown Functional Status Question Answer Note LastModified by [employer] Details LastModified Time What is your level of alcohol consumption? Occasional [id number] Information not available 04/24/2020 Do you or have you ever used smokeless tobacco? Never used smokeless tobacco [email or web address] Information not available 10/15/2022 Do you or have you ever used e-cigarettes or vape? Never used electronic cigarettes [email or web address] Information not available 10/15/2022 What is your exercise level? Occasional [id number] Information not available 04/24/2020 Mental Status None recorded. Family History Relationship Description Onset Age of this Age Resolved Age Notes LastModified by Organization Details LastModified Time Maternal Aunt Malignant neoplasm of breast Not available 2022 09:49:19 Maternal Aunt Malignant neoplasm of pancreas Not available 2022 09:49:19 Maternal Uncle Malignant melanoma Not available 2022 09:49:19 Paternal Uncle Myocardial infarction Not available 10/15 09:49:20 Notes:Maternal aunt: Cancer, pancreatic, Cancer, breast Maternal uncle: Melanoma Paternal uncle's: Myocardial infarction Medical History Condition Response Anxiety Disorder Y Arthritis Y Breast Problem Y Thyroid Problems Y GI Problems Y Gynecological History Statement/Question Response Abnormal Pap N Date of Last Mammogram 06/22/2020 Date of LMP 06/22/2011 On BCP's at Conception? N N STIs/STDs N HPV Vaccine N 52 Current Control Method Hysterectom y If Post Menopausal, Age at Menopause 52 Date of Last Colonoscopy Sexually Active? Y Sterilization Menses Monthly N Date of DEXA bone scan 06/22/2021 Age of first menstrual cycle 12 Date of Last Pap Smear 03/08/2020 Sexual Problems? N N Obstetrics History GPAL:G 0 P 0 0 0 0 Past Encounters Encounter ID Performer Location Encounter Start Date Encounter Closed Date Diagnosis/Indication Diagnosis SNOMED-CT Code Diagnosis ICD10 Code Diagnosis IMO Codes Diagnosis Note Jorge A Rossi MD [address] [address] 03/08/2020 15:04:06 03/11/2020 12:22:16 Gynecologic examination 47763654 Z01.419 This patient is here for her annual exam. A thorough history was taken. A physical exam was performed. Age appropriat e routine health screening was ordered, performed, and discussed. Recommende d testing was ordered. She was asked to follow up in one year. She will be informed of any test results. Mammogram - [ done] Colonoscop y - [ done] Cholestero l - none[ ] Pap - today patient reports changes in vulvar symptoms in discharge. We took samples to analyze her skin discharge and STD testing. She will get a comprehens renard STD testing. [id number] Angelina Corona , [facility] [address] [address] 10/15/2022 09:39:16 10/15/2022 11:01:00 Gynecologic examination 43732330 Z01.419 Take Calcium with Vitamin D 12-1500mg daily. Do monthly self breast exams. It is advised to get annual flu shot in the fall and she could obtain at [facility] or [facility] take care clinic. If you haven't received the Tdap vaccine in the last 10 years you should obtain one as well. Have mammogram yearly, bone density every 2-3 years and colonoscop y every 5-10 years depending on findings and history. Engage in daily exercise of low impact aerobic exercise 45-60 minutes 4-5 times weekly. Avoid tobacco and illicit drugs as well as using moderation with alcohol intake less than 1-2 8 oz beverages daily. This lifestyle behavior pattern will lead to less health conditions and longer life span. If BMI greater than 25 weight watchers or dietary consult advised. Questions have been answered. Patient appears to understand instructio ns, but if you have any further questions call or respond to this email Pap/hpv sentSTD Screen declinedGe netic Screen discussedC olon Screen UTD PCPDexa Screen UTD PCPRoutine Labs UTD PCPMammo ordered Screening mammography 24 265116 Z12.31 Vulval irritation 994016 003 N90.89 Use PRN for vulvar irritation if crisco & baking soda soaks aren't enough. Health Concerns Section Related Observation LastModified by Organization Detai ls LastModified Time None Recorded Concern Status LastModified by Organization Details LastModified Time None Recorded Advance Directives Directive None Recorded Payers Insurance Date Sequence Insurance Name Policy Number Policy Sam Covered Member ID Sam Member ID Guarantor Name 10/14/2022 1 [place] [id number] Ciera Aggarwal [id number] 02/10/2023 1 [place] [id number] D Price Jasen [id number] Notes Date Note Type Note Provider Name and Address Organization Details Recorded Time 0 text/html Annual GYNReported by PatientGenitourinary symptomsFor menstrual cycle, patient reportsnormal menses. For urinary symptoms, patient reportsno hematuriaandno incontinence. For vulva, patient reportsno genital lesion. For vagina, patient reportsnormal vaginal discharge.Breast symptomsFor breast, patient reportsno breast pain,no breast lump, andno nipple discharge.Endocrine symptomsFor sexual complaints, patient reportsno sexual complaints,no pain during intercourse, andnormal libido. For menopausal symptoms, patient reportsno menopausal symptomsandnormal vaginal lubrication.Psychological symptomsFor psychological symptoms, patient reportsno depression,no anxiety, andno pmdd. Vaginal/Vulvar ProblemReported by Patient Jorge A Rossi MD [address], [place], [address], [facility] 03/08/2020 15:39:01 3 text/html Annual Director Cpg Post-MenopausalReported by PatientGenitourinary symptomsFor menopausal symptoms, patient reportsno menopausal symptomsandnormal vaginal lubrication. For vaginal bleeding, patient reportshistory of menopause having occurredandno history of post menopausal bleeding. For urinary symptoms, patient reportsno hematuria,no incontinence,no nocturia, andno urinary frequency. For vulva, patient reportsno genital lesionandno vulvar atrophy. For vagina, patient reportsnormal vaginal dischargeandno vaginal atrophy.Breast symptomsFor breast, patient reportsno breast lump,no nipple discharge, andno breast pain.Psychological symptomsFor sexual complaints, patient reportsno sexual complaints. For psychological symptoms, patient reportsno depressionandno anxiety.Preventative measuresFor preventive measures, patient reportsencourage regular mammograms starting age 40,encourage self breast examination,encourage regular exercise,encourage no tobacco use,needs to schedule mammogram, andhistory of recent colonoscopy. Angelina Corona, NP-BC [address], [place], [address], [facility] 10/15/2022 10:19:51 OBGyn Episode No OBEpisode recorded.
--- OUTSIDE RECORDS SUMMARY | 2025-05-31 00:38 | XMS_ITS | Clinical Summary ---
Author Organization [facility] [address] Address [address] [place] [address] Care Team Providers Care Homeworker Name Role Phone Marylou Petejaycee HUGHES Primary Care Pr ovider Colby Llamas MD Unavailable [phone] Allergies Active Allergy Reactions Criticality Noted Date Comments Ciprofloxacin Swelling Medium 06/18/2018 Nitrofurantoin Nitrofurantoin Swelling Medium 06/18/2018 Penicillins Penicillins Rash Medium 06/18/2018 Sulfa (Sulfonamide Antibiotics) Sulfa (Sulfonamide Antibiotics) Anaphylaxis High 04/08/2021 Sulfamethoxazole-Trimethopri m Swelling Medium 06/18/2018 Facial swelling, was on Bactrim, Cipro & Macrobid for ear infection-so not sure which one I was allergic to Medications ALPRAZolam (XANAX) 0.25 mg tablet Take 1 tablet (0.25 mg total) by mouth 3 (three) times a day as needed Active levothyroxine (SYNTHROID) 100 mcg tablet Take 1 tablet (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 30 tablet 6 3 Active Active Problems Problem Noted Date Diagnosed Date Primary osteoarthritis of right hip 07/15/2018 Palpitations 01/12/2015 Overview (09/26/2016): Palpitations Anxiety 01/12/2015 Overview (09/26/2016): Anxiety Ventricular premature beats 01/12/2015 Overview (09/26/2016): PVCs (premature ventricular contractions) Hypothyroidism Assessment & Plan (08/26/2022 4:13 PM 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): I have recommended to continue levothyroxine 112 mcg daily to take for 6 days, none on Sundays which would be equivalent to 96 mcg daily, Check TSH today and repeat in 3 months F/u in 6 m Surgical History Surgery Date Site/Laterality Comments CHOLECYSTECTOMY Cholecystectomy APPENDECTOMY Appendectomy ADENOIDECTOMY 06/22/1963 HYSTERECTOMY 11/21/2011 Medical History Medical History Date Comments Disorder of thyroid Thyroid dise ase Arthritis Arthritis; Comme nts: [facility] 01/12/2015 - Hx Other Medical Breast augmenta tion; Comments: [facility] 01/15/2015 - Hx Other Medical Bilateral oopho rectomy; Comments: [facility] 01/15/2015 - Hx Other Medical Indigestion; Co mments: [facility] 01/15/2015 - Hypothyroidism HL (hearing loss) 05/22/21 Dental disease 06/22/2009 GERD (gastroesophageal reflux disease) 11/2021 Tinnitus 11/20/2021 Family History Medical History Relation Name Comments Hearing loss Father Ed Hyperlipidemia Father Ed Other Father Ed Alive and well; Hearing loss Maternal Grandfather Alejandro Heart failure Mother Taya Other Mother Taya Alive and well; Thyroid disease Mother Taya Cancer Mother's Brother Herb Relation Name Status Comments Father Ed Alive Maternal Grandfather Alejandro Mother Taya Alive Mother's Brother Herb Social History Tobacco Use Types Packs/Day Years Used Date Smoking Tobacco: Never Tobacco Cessation:Counseling Given: Not Answered Alcohol Use Standard Drinks/Week Comments No 0 (1 standard drink = 0.6 oz pur e alcohol) AUDIT-C Answer Date Recorded Q1: How often do you have a drink containing alc ohol? Monthly or less 08/26/2022 Average Number of Drinks Not on file 023 Q3: How often do you have si x or more drinks on one occasion? Less than monthly 08/26/2022 Comments Unknown Sex and Gender Information Value Date Recorded Sex Assigned at Not on file Legal Sex Female 2:40 PM CDT Gender Identity Female 01/13/2023 9:29 AM CDT Sexual Orientation Not on file Last Filed Vital Signs Vital Sign Reading Time Taken Comments Blood Pressure 146/89 01/20/2023 9:58 AM CDT Pulse 71 01/20/2023 9:58 AM CDT Temperature - - Respiratory Rate 14 08/26/2022 3:01 PM 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 Oxygen Saturation - - Inhaled Oxygen Concentration - - Weight 78.9 kg (174 lb) 01/20/2023 9:58 AM CDT Height 160 cm (5' 3) 01/20/2023 9:58 AM CDT Body Mass Index 30.82 01/20/2023 9:58 AM CDT Plan of Treatment Health Maintenance Due Date Last Done Comments Breast Cancer Screening-Mammogram 1960 Colon Cancer Screening-Colonoscopy 1960 Depression Screening 1960 Fall Risk Assessment 1960 Hepatitis C Screening 1960 Osteoporosis Screening-Bone Density Scan 1960 Hepatitis B Screening 02/08/1978 Pneumococcal vaccine 65+ (1 of 1 - PCV) 02/08/2010 Zoster Vaccine (1 of 2) 02/08/2010 DTaP/Tdap/Td Vaccine (2 - Td or Tdap) 09/15/2023 Well Visit 65+ 02/08/2025 Influenza Vaccine (#1) 2025 Insurance [employer] OOS Member Subscriber Plan / Payer (Ef fective 2020-Present) Name:Merritt Aggarwal Relation to Subscriber:Self Name:Merritt Aggarwal Payer ID:[id number] (NAIC) Type: CHYNA Address: [facility] [id number] [place] [phone] InboundWriter ACCESS OOS InboundWriter ACCESS OOS Care Teams Homeworker Relationship Specialty Start Date End Date Toma Pete PA PCP - General Physician [facility] Letter [employer]rier 03/21/21 Colby Llamas MD 03/21/21
--- OUTSIDE RECORDS SUMMARY | 2025-05-31 00:38 | XMS_ITS | Data Portability ---
Author Organization [place] [facility] [employer], Main Office Address [address] [place] [address] Assessment No assessment recorded. Plan of Treatment Reminders Order Date Submit Date Provider Last Modified By Organization Details Last Modified Time Details Appointments None recorded. Lab None recorded. Referral it analyst referral 2022 023 [email or web address] Jimbo Garay Jr DPM, [address], [place], [address], 4 08:56:42 Procedures leena maneuver (PROC) 2024 025 [facility]), [address] [place] [address], [address], 5 17:08:44 Surgeries None recorded. Imaging videonystag mograph 2024 025 [facility] (Imaging), [address] [place] [address], [address], 5 04:10:19 Medication Orders alprazolam 0.25 mg tablet 2022 023 [facility], [facility] [place], [address], 3 13:09:03 omeprazole 40 mg capsule,del ayed release 2022 023 [facility], [facility] [place], [address], 13:09:01 Patient TargetsNo targets recorded. Patient Instructions Encounter Date Encounter Id Patient Instructions Last Modified By Organization Details Last Modified Time 08/28/2022 [id number] this patient jory l undergo an audiogram and bilateral eustachian tube balloon dilatation Not available 08/28/2022 11:01:02 01/26/2025 [id number] her symptoms are not consistent with benign paroxysmal positional vertigo and she will undergo a full VNG Not available 01/26/2025 15:29:50 02/22/2025 [id number] nelson-hallpike test* MARITA Not available 03/10/2025 12:27:30 we will continue to await the VNG but in the meantime she will undergo Leena maneuver and Spangler-Hallpike testing Not available 02/22/2025 11:07:09 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 [email or web address] [facility] [address] [facility] [place], [address], 09/16/2022 11:59:03 10/03/19 23 09/09/2022 audio gram + tympa nogra m No observ ation record ed. [email or web address] [facility] [address], [place], [address], 10/03/2022 11:07:20 11/13/19 23 audio gram + tympa nogra m No observ ation record ed. [email or web address] [facility] [address] [facility] [place], [address], 11/12/2022 17:22:14 11/15/19 23 audio gram + tympa nogra m No observ ation record ed. [email or web address] [facility] [address], [place], [address], 11/14/2022 10:07:17 11/19/[address], tempo ral bone, w/o contr ast No observ ation record ed. [email or web address] [facility] (Imaging) [address] [place], [address], 11/19/2022 08:19:04 11/26/[address], tempo ral bone, w/o contr ast No observ ation record ed. [email or web address] [facility] (Imaging) [address] [place], [address], 12/02/2022 16:49:34 11/27/19 23 11/19/2022 MAMMO , scree jesse, digit al, bilat eral No observ ation record ed. BARCODE Not Available 2022 12:27:31 06/12/20 23 06/12/2023 XR, chest , 2 view No observ ation record ed. [email or web address] Not Available 06/12 15:21:23 02/02/20 25 01/27/2025 audio gram + tympa lyndon m No observ ation record ed. BARCODE Not Available 2024 08:49:49 04/14/20 25 04/14/2025 [place], modif ied [facility] No observ ation record ed. BARCODE Not Available 2024 11:45:59 05/29/20 25 05/23/2025 MRI, inter nal audit ory canal , w/wo contr ast No observ ation record ed. [email or web address] [facility] - Radiology New Fax # As Of 10/12/23) [address] [place], [address], 05/30/2025 16:51:10 Result Notes None recorded. Problems Name Problem SNOMED Code Status Onset Date Resolution Date Notes Provider Name and Address Organization Details Recorded Time Anti-nucle ar factor detected 629268514 Active Not Available [facility] 3 17:13:39 Ventricula r premature beats 55266426 Active Not Available [facility] 3 17:13:39 Generalize d anxiety disorder 52568627 Active Not Available [facility] 3 17:13:39 Feeling stressed 736160056 Active Not Available [facility] 3 17:13:39 Panic attack 836403521 Active Not Available [facility] 3 17:13:39 Osteoarthr itis of hip 288400938 Active Not Available [facility] 3 17:13:39 Degenerati on of lumbar interverte bral disc 09308253 Active Not Available [facility] 3 17:13:39 Shoulder joint pain 971478776 Active Not Available [facility] 3 17:13:39 Thoracic back pain 056282343 Active Not Available [facility] 3 17:13:39 Pain of multiple joints 32847773 Active Not Available [facility] 3 17:13:40 Cholesteat anahi 923113144 Active Not Available [facility] 3 17:13:40 Migraine 64812652 Active Not Available [facility] 3 17:13:40 Hypothyroi dism 43504801 Active Not Available [facility] 3 17:13:40 Viral syndrome 572070151 Active Not Available [facility] 3 17:13:40 Pain of hip region 83161504 Active Not Available [facility] 3 17:13:41 Cervical radiculopa thy 29524941 Active Not Available [facility] 3 17:13:41 Pain of joint 90606042 Active Not Available [facility] 3 17:13:41 Otitis media 21495119 Active Not Available [facility] 3 17:13:41 Muscle pain 26393735 Active Not Available [facility] 3 17:13:41 Dysfunctio n of bilateral eustachian tubes 0246278540067 100 Active 2021 Not Available [facility] 3 17:13:39 Hearing loss 00648914 Active 2021 Not Available [facility] 3 17:13:39 Sensorineu ral hearing loss of bilateral ears 541226083 Active 2021 Not Available [facility] 3 17:13:39 Anxiety 55178543 Active 2021 Not Available [facility] 3 17:13:40 Lumbar spondylosi s 668268078 Active 2021 Not Available [facility] 3 17:13:39 Paresthesi a of lower extremity 965670341 Active 2021 Not Available [facility] 3 17:13:40 Paresthesi a of upper limb 10196022 Active 2021 Not Available [facility] 3 17:13:41 Mixed anxiety and depressive disorder 293536814 Active 2021 Not Available [facility] 3 17:13:39 Goiter 2893504 Active 2021 Not Available [facility] 3 17:13:40 Impaired fasting glycemia 326807394 Active 2021 Not Available [facility] 3 17:13:40 Right sided abdominal pain 765193349 Active 2021 Not Available [facility] 3 17:13:40 Gastro-eso phageal reflux disease with esophagiti s 965733829 Active 2021 Not Available [facility] 3 17:13:39 Abnormal radiograph ic imaging of pancreas 915531516 Active 2021 Not Available [facility] 3 17:13:41 Sensorineu ral hearing loss 25260686 Active 2022 Dyan White RN null, [facility] 3 11:03:08 Dysfunctio n of eustachian tube 36802524 Active 2022 Teresa Man null, [place] [facility] 3 16:31:27 Cholesteat anahi 372423755 Active 2022 Dyan White RN null, [facility] 3 16:57:00 Pain in bilateral feet 5571599829521 9102 Active 2022 SAUL Yu [address] [facility], [facility] [address], [place], [address] , [facility] 3 13:06:12 Gastroesop hageal reflux disease without esophagiti s 077076247 Active 2022 SAUL Yu [address] [facility], [place], [address] , [facility] 3 13:07:09 Serum creatinine above reference range 599568160 Active 2022 SAUL Yu [address] [facility], [facility] [address], [place], [address] , [facility] 3 14:57:04 Benign paroxysmal positional vertigo 771533169 Active [address] [facility], [facility] 5 15:24:22 Vertigo 733953730 Active 2024 Karlos Childers MD [address] [facility], [place] [address], [place], [address] , [facility] 5 15:29:33 Problem Notes None recorded. Procedures Surgical History Date Name Laterality Status Provider Name and Address Organization Details Recorded Time 04/05/20 21 Most Recent Bone Density completed Not Available [facility] 08/20/2022 17:12:47 10/11/19 17 Carpal tunnel surgery completed Not Available [facility] 08/20/2022 17:12:47 Orthopedic Surgery completed Not Available [facility] 08/20/2022 17:12:47 Cholecystectomy completed Not Available [facility] 08/20/2022 17:12:47 other completed Not Available [facility] 08/20/2022 17:12:47 Mastoidectomy completed Not Available [facility] 08/20/2022 17:12:47 Appendectomy completed Not Available [facility] 08/20/2022 17:12:47 Hysterectomy, Partial completed Not Available [facility] 08/20/2022 17:12:47 ENT Surgery completed Not Available [facility] 08/20/2022 17:12:47 Tubal Ligation completed Not Available [facility] 08/20/2022 17:12:47 Breast Implants completed Not Available [facility] 08/20/2022 17:12:47 excision of cholesteatoma completed Not Available [facility] 08/20/2022 17:12:47 Imaging Results None recorded. Procedure Notes None recorded. Medical Equipment None Reported. Allergies Allergen ID Allergen Name Allergen Category Reaction Reaction Severity Criticality Documentation Date Start Date Code Code System Note Provider Name and Address Organization Details Recorded Time 76062 trimethop rim medicatio n rash Not available Not available 08/20/2022 34189 RxNorm Not Available [facility] 3 17:14:58 53835 Substance with sulfonami de structure and antibacte rial mechanism of action (substanc e) medicatio n rash Not available Not available 08/20/2022 31853 8003 SNOMED Not Available [facility] 3 17:14:58 60193 Product containin g penicilli n (product) medicatio n rash Not available Not available 08/20/2022 70791 8001 SNOMED Not Available [facility] 3 17:14:58 79243 nitrofura ntoin medicatio n rash Not available Not available 08/20/2022 7454 RxNorm Not Available [facility] 3 17:14:59 05298 Macrobid medicatio n Not available Not available Not available 08/20/2022 87748 1 RxNorm Not Available [facility] 3 17:14:59 69820 Cipro medicatio n rash Not available Not available 08/20/2022 01051 3 RxNorm Not Available [facility] 3 17:14:59 Medications Name Sig Start Date Stop Date Status Note LastModified by Organization Details LastModified Time Ceftin 500 mg tablet Take 1 tablet every 12 hours by oral route. active Not Available Not Available No t Available citalopram 10 mg tablet Take 1 tablet every day by oral route in the evening. 11/25 completed Not Available Not Available Not Available Synthroid 125 mcg tablet TAKE ONE TABLET BY MOUTH EVERY DAY 11/25 completed Not Available Not Available Not Available Floxin 0.3 % ear drops INSTILL 10 DROPS INTO left EAR BY OTIC ROUTE 2 TIMES PER DAY 12/05 completed Not Available Not Available Not Available omeprazole 40 mg capsule,del ayed release Take 1 capsule every day by oral route. 2022 active Not Available Not Available Not Avai lable levothyroxi ne 100 mcg tablet Take 1 tablet every day by oral route. 01/26 completed Not Available Not Available Not Available levothyroxi ne 88 mcg tablet Take 1 tablet every day by oral route in the morning. 12/20 completed Not Available Not Available Not Available alprazolam 0.25 mg tablet Take 1 tablet 3 times a day by oral route as needed. 2022 active Not Available Not Available Not Avai lable meclizine 25 mg tablet Take 1 tablet 3 times a day by oral route as needed. 2024 active Not Available Not Available Not Avai lable diclofenac sodium 75 mg tablet,marky yed release TAKE ONE TABLET BY MOUTH TWICE A DAY WITH MEALS NEEDED 12/08 completed Not Available Not Available Not Available Cipro HC 0.2 %-1 % ear drops,suspe nsion INSTILL 3 DROPS INTO AFFECTED EAR(S) BY OTIC ROUTE EVERY 12 HOURS active Not Available Not Available No t Available levofloxaci n 500 mg tablet Take 1 tablet every 24 hours by oral route as directed. 03/25 completed Not Available Not Available Not Available levothyroxi ne 112 mcg tablet take one tablet by mouth once daily 09/19 completed Not Available Not Available Not Available Prilosec OTC take as needed. 2014 active Not Available Not Available Not Avai lable levothyroxi ne 112 mcg capsule Take 1 capsule every day by oral route. active Not Available Not Available No t Available Vitals Date Recorded Body height Body mass index (BMI) Body weight Body temperature Provider Name and Address Organization Details Last Updated DateTime 08/28/2022 160.02 cm 30.8 kg/m2 04028.64 g 98.1 [degF] Dyan White RN [place] [facility] 08/28/2022 10:46:13 Date Recorded Body height Body mass index (BMI) Body weight Body temperature Provider Name and Address Organization Details Last Updated DateTime 09/24/2022 160.02 cm 31 kg/m2 22188.66 g 97.6 [degF] Zehra Pearson CMA [facility] 09/24/2022 12:23:50 Date Recorded Body height Body mass index (BMI) Body weight Body temperature Provider Name and Address Organization Details Last Updated DateTime 01/26/2025 160.02 cm 30.5 kg/m2 35729.32 g 97.6 [degF] Susan Higgins CNA [facility] [employer] 01/26/2025 15:15:19 Date Recorded Body height Body mass index (BMI) Body weight Body temperature Provider Name and Address Organization Details Last Updated DateTime 02/22/2025 160.02 cm 30.9 kg/m2 13651.79 g 97.8 [degF] Dyan White RN [facility] [employer] 02/22/2025 11:04:27 Date Recorded Body height Body mass index (BMI) Body weight Body temperature Heart rate Oxygen saturation Systolic And Diastolic Provider Name and Address Organization Details Last Updated DateTime 160.02 cm 30.5 kg/m2 65370.8 9 g 98.3 [degF] 83 /min 99 % 112/78 mm[Hg] Nahomy Contreras RN [facility] [employer] 12:33:57 Social History Question Answer Notes LastModified by Organizat ion Details LastModified Time Tobacco Smoking Status Never Smoker Not Available [facility] 08/20/2022 17:12:43 What Is Your Level Of Caffeine Consumption? Occasional MIGRATION.62501 [id number] Information not available 08/20/2022 How Much Tobacco Do You Chew? None MIGRATION.45789 76058 Information not available 08/20/2022 In The 14 Days Before Symptom Onset, Have You Had Close Contact With A Laboratory-confir med COVID-19 While That Case Was Ill? No MIGRATION.74592 [id number] Information not available 08/20/2022 In The 14 Days Before Symptom Onset, Have You Had Close Contact With A Person Who Is Under Investigation For COVID-19 While That Person Was Ill? No MIGRATION.21405 39515 Information not available 08/20/2022 What Type Of Diet Are You Following? REGULAR MIGRATION.49235 23152 Information not available 08/20/2022 Which Illicit Or Recreational Drugs Have You Used? None MIGRATION.33917 36340 Information not available 08/20/2022 Have There Been Any Changes To Your Family Or Social Situation? No MIGRATION.71726 89215 Information not available 08/20/2022 What Is The Fluoride Status Of Your Home? Unknown MIGRATION.85209 70082 Information not available 08/20/2022 Are There Any Guns Present In Your Home? No MIGRATION.51616 21725 Information not available 08/20/2022 Do You Use Insect Repellent Routinely? No MIGRATION.32321 52394 Information not available 08/20/2022 Where Do You Live? [place]House MIGRATION.82309 21374 Information not available 08/20/2022 What Was The Date Of Your Most Recent Tobacco Screening? 01/26/2025 Information not available 01/26/2025 Do You Have Any Pets? Yes MIGRATION.18324 96199 Information not available 08/20/2022 What Is Your Relationship Status? Single MIGRATION.89430 21097 Information not available 08/20/2022 Do You Use Your Seat Belt Or Car Seat Routinely? Yes MIGRATION.05174 57305 Information not available 08/20/2022 Do You Have Smoke And Carbon Monoxide Detectors In Your Home? Yes MIGRATION.49571 79155 Information not available 08/20/2022 Are You Passively Exposed To Smoke? No MIGRATION.55699 21315 Information not available 08/20/2022 Are There Any Smokers In Your House? No MIGRATION.54605 38784 Information not available 08/20/2022 How Much Tobacco Do You Smoke? No MIGRATION.42667 72732 Information not available 08/20/2022 Do You Use Sunscreen Routinely? Yes MIGRATION.89302 97300 Information not available 08/20/2022 Have You Recently Traveled Abroad? No MIGRATION.31548 12752 Information not available 08/20/2022 Do You Have Any Dietary Restrictions? No MIGRATION.01087 77345 Information not available 08/20/2022 Sex: Female Functional Status Question Answer Note LastModified by Organizat ion Details LastModified Time Do you use any illicit or recreational drugs? No MIGRATION.119606 6670 Information not available 08/20/2022 Do you or have you ever used any other forms of tobacco or nicotine? No MIGRATION.513625 3942 Information not available 08/20/2022 What is your level of alcohol consumption? Occasional Information not available 01/26/2025 Do you or have you ever used smokeless tobacco? Never used smokeless tobacco MIGRATION.606755 3110 Information not available 08/20/2022 Are you currently employed? 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 Never used electronic cigarettes MIGRATION.548666 8468 Information not available 08/20/2022 What is your exercise level? None MIGRATION.675397 4394 Information not available 08/20/2022 Mental Status Question Answer Note LastModified by Organizat ion Details LastModified Time Do you feel stressed (tense, restless, nervous, or anxious, or unable to sleep at night)? [id number] MIGRATION.[id number] 6 Information not available 08/20/2022 Family History Relationship Description Onset Age of this Age Resolved Age Notes LastModified by Organization Details LastModified Time Father Hyperlipidem ia MIGRATION.[id number] Not available 08/20/2022 17:12:47 Unspecified Relation Anxiety MIGRATION.679 [id number] Not available 08/20/2022 17:12:48 Maternal Grandfather Chronic deafness [email or web address] Not available 2022 10:49:35 Mother Hearing loss [email or web address] Not avail able 08/28/2022 10:49:45 Medical History Condition Response MRSA N SLEEP APNEA N ALLERGIES/HAYFEVER N LUNG DISEASE/DISORDER N HISTORY OF DRUG ABUSE N INSOMNIA N COPD N RADIATION / CHEMOTHERAPY N HIGH CHOLESTEROL / HYPERLIPIDEMIA N HYPERTHYROIDISM N BLOOD DISEASES N EAR OR HEARING PROBLEMS Y HYPOTHYROIDISM Y SHINGLES N DEPRESSION (INCLUDING POST ) N BACK / NECK PROBLEMS Y HAVE YOU BEEN HOSPITALIZED OR SEEN IN [facility] IN THE PAST YEAR ? Y STROKE/TIA N ULCERS N OBESITY N ANEURYSM N HISTORY WITH COMPLICATIONS WITH ANESTHES IA ? N USE OF BLOOD THINNERS N NO SIGNIFICANT PAST MEDICAL HISTORY N DIABETES, TYPE N PARATHYROID DISEASE N ENT N SEASONAL ALLERGIES N HEARTBURN / REFLUX Y HEPATITIS / LIVER DISEASE N ASTHMA N SLEEP DISORDER N SEIZURES/EPILEPSY N HEADACHES/MIGRAINES N CHF N PACEMAKER N DIZZINESS N HEART DISEASE/HEART PROBLEMS N AIDS/HIV N FRACTURES N HYPERTENSION N CARDIAC ARRHYTHMIA N CANCER: SPECIFY N TOURETTE'S N ANXIETY DISORDER Y BLOOD TRANSFUSION N ANEMIA/BLOOD DISORDER N ANESTHESIA COMPLICATIONS N CHRONIC EAR INFECTIONS N TUBERCULOSIS N Gynecological History Statement/Question Response Date of Last Pap 09/20/2020 Date of Last Mammogram 09/20/2020 Current Control Method Hysterectom y Most Recent Bone Density 04/05/2021 Date of LMP Sexually Active? N Obstetrics History GPAL:G 4 P 0 0 1 4 Type Value Multiple Births 1 Induced 1 Living 4 Total 4 Past Encounters Encounter ID Performer Location Encounter Start Date Encounter Closed Date Diagnosis/Indication Diagnosis SNOMED-CT Code Diagnosis ICD10 Code Diagnosis IMO Codes Diagnosis Note [id number] SAUL Yu [facility] [place] [address] [place] [address] 01/03/2021 00:00:00 01/18/2021 17:29:57 [id number] SAUL Yu [facility] [place] [address] [place] [address] 03/21/2021 00:00:00 03/21/2021 14:39:01 [id number] SAUL Yu [facility] [place] [address] [place] [address] 05/31/2021 00:00:00 06/20/2021 15:09:01 [id number] Karlos Childers MD [facility] [place] [address] [place] [address] 07/30/2021 00:00:00 07/30/2021 10:31:07 [id number] Karlos Childers MD [facility] [place] [address] [place] [address] 08/29/2021 00:00:00 08/29/2021 10:23:10 [id number] SAUL Yu [facility] [place] [address] [place] [address] 09/20/2021 00:00:00 10/16/2021 13:59:23 [id number] Brooke Villalobos MD [facility] [place] [address] [place] [address] 11/25/2021 00:00:00 11/25/2021 14:07:39 [id number] Izaiah Garces MD [facility] [place] [address] [place] [address] 12/02/2021 00:00:00 12/19/2021 16:18:49 [id number] [facility] [place] [address] [place] [address] 03/12/2022 00:00:00 03/12/2022 18:34:02 [id number] SAUL Yu [facility] [place] [address] [place] [address] 03/24/2022 00:00:00 04/21/2022 17:29:06 [id number] SAUL Yu [facility] [place] [address] [place] [address] 07/29/2022 00:00:00 08/19/2022 18:55:03 [id number] Karlos Childers MD [facility] [place] [address] [place] [address] 08/28/2022 10:35:36 08/28/2022 11:06:48 Dysfunction of bilateral eustachian tubes 0644143868 158804 H69.93 [id number] Karlos Childers MD [facility] [place] [address] [place] [address] 09/24/2022 11:45:19 09/24/2022 13:59:04 Dysfunction of bilateral eustachian tubes 4287580523 751855 H69.93 [id number] SAUL Yu [facility] [place] [address] [place] [address] 04/27/2023 12:17:55 04/27/2023 13:09:32 Pain in bilateral feet 3407066730 [id number] M79.672 M79.671 refer to it analyst for evaluation of bilat. foot pain Generalize d anxiety disorder 16233193 F41.1 refill on alprazolam 0.25mg tid PRN Hypothyroidism 49363725 E03.9 stable on levothyrox ine 100mcg dailyl Gastroesop hageal reflux disease without esophagitis 023370337 K21.9 Rx for omeprazole 40mg daily. Long-term drug therapy 339837060 Z79.899 labs reviewed. [id number] Karlos Childers MD [facility] [place] [address] [place] [address] 01/26/2025 14:58:21 01/27/2025 08:39:01 Vertigo [id number] Karlos Childers MD [facility] [place] [address] [place] [address] 02/22/2025 10:10:23 02/23/2025 08:45:57 Benign paroxysmal positional vertigo [id number] H81.10 [id number] Vertigo [id number] [id number] Health Concerns Section Related Observation LastModified by Organization Detai ls LastModified Time None Recorded Concern Status LastModified by Organization Details LastModified Time None Recorded Advance Directives Directive None Recorded Payers Insurance Date Sequence Insurance Name Policy Number Policy Sam Covered Member ID Sam Member ID Guarantor Name 01/26/2025 1 [place] [id number] Chong Aggarwal [id number] Merritt Aggarwal 02/20/2025 1 [place] Ciera Aggarwal [id number] Merritt Aggarwal Notes Date Note Type Note Provider Name and Address Organization Details Recorded Time 3 text/html This patient had canceled her eustachian tube balloon dilatation for medical reasons and is ready to reschedule. She reports that her hearing has decreased since her last visit. She has a history of cholesteatoma on the left with tympanomastoidectomy on the left side. She has an indwelling T-tube on the right side. Karlos Childers MD [address], [place], [address], [facility] 08/28/2022 11:01:24 3 text/html patient reports that she is hearing better and is doing very well following eustachian tube balloon dilatation Karlos Childers MD [address], [place], [address], [employer] [facility] [employer] 09/24/2022 12:43:07 3 text/html Anxiety/DepressionReporte d by PatientHPIFor severity, patient reportsdenies suicidal ideations,able to maintain relationships, anddoes not interfere with activities of daily living. For context, patient reportsno major life stressors. For associated symptoms, patient reportsdenies homicidal ideations,no significant weight gain,no significant weight loss,no visual/auditory hallucinations,no delusions, andno shortness of breath. HypothyroidismReported by PatientHPIFor onset/timing, patient reportsbetter. For context/risk, patient reportsnormal thyroid levels,no history of head or neck radiation during childhood,no history of thyroid disease,no history of hypothyroidism,no history of hyperthyroidism, andno excess iron exposure. For exercise, patient reportsgets exercise. For associated symptoms, patient reportsno cold intolerance,no heat intolerance,no weight loss,no weight gain,no double vision,no dry eyes,no hoarseness,no difficulty swallowing,no neck masses,no deepening of the voice,no fast heart rate,no increased blood pressure,no palpitations,no chest pain,no chest tightess or pressure,no constipation,no diarrhea,no vomiting,no decreased appetite,no loose stools,no irregular menstrual periods,no excessive sweating,no joint pain,no numbness,no tingling of the hands or feet,no dry skin,no tremor,no nervousness,no anxiety,no depression,no fatigue,no sleep difficulties,no skin changes, andno hair changes. routine visit SAUL Yu [address], [place], [address], [employer] [facility] [employer] 05/21/2023 21:53:05 5 text/html this patient has a history of bilateral sensorineural hearing loss but her left is far worse. A cochlear cochlear implant was discussed but not recommended ultimately. She has a history of a cholesteatoma also on the left. A recent CT and CT angio revealed that the cholesteatoma had not recurred. She has severe vertigo which is helped by meclizine and Xanax. She has had the Leena maneuvers done but does not believe that it was helpful. She was recently admitted to the hospital for vertigo not a went head CT as well which was normal. Karlos Childers MD [address], [place], [address], [employer] 01/26/2025 15:30:19 5 text/html This patient reports vertigo and her VNG is not scheduled until July. Her vertigo is worse at night and is positional. She responds to Xanax and meclizine. Karlos Childers MD [address], [place], [address], [employer] 02/22/2025 11:07:51 OBGyn Episode No OBEpisode recorded.
--- OUTSIDE RECORDS SUMMARY | 2025-05-31 00:38 | XMS_ITS | Clinical Summary ---
Author Organization [facility] Address [facility] [place] [address] Care Team Providers Care County Historian Name Role Phone Toma Plaza Primary Care Provider [phone] Allergies Active Allergy Reactions Criticality Noted Date [...] Encounters Date Type Department Care Team Description 05/23/2025 10:00 AM LOADING MANAGER - 05/23/2025 11:59 PM LOADING MANAGER Hospital Encounter [facility] [address] [place] [address] Jenny Koo MD Discharge Disposition: Home or Self Care (Routine Discharge) 05/23/2025 Travel 04/05/2025 12:13 PM CDT - 04/05/2025 11:59 PM CDT Hospital Encounter [facility] [address] [place] [address] Toma Plaza PA Discharge Disposition: Home or Self Care (Routine Discharge) 04/05/2025 Travel 04/03/2025 Travel from Last 3 Months Family History [...] AM CDT Legal Sex Female 11:19 PM LOADING MANAGER Gender Identity Female 11/04/2022 9:01 AM CDT Sexual Orientation Straight 11/04/2022 9: 01 AM CDT Last Filed Vital Signs Vital Sign Reading Time Taken Comments Blood Pressure 140/90 06/07/2019 11:31 AM LOADING MANAGER Pulse 96 06/07/2019 11:31 AM LOADING MANAGER Temperature 37 C (98.6 F) 06/07/2019 11:31 AM LOADING MANAGER Respiratory Rate 16 06/07/2019 11:31 AM LOADING MANAGER Oxygen Saturation 98% 06/07/2019 11:31 AM LOADING MANAGER Inhaled Oxygen Concentration - - Weight 78.9 kg (174 lb) 07/15/2018 3:59 PM LOADING MANAGER Height 157.5 cm (5' 2) 06/07/2019 11:31 AM LOADING MANAGER Body Mass Index 31.83 07/15/2018 3:59 PM LOADING MANAGER Plan of Treatment Health Maintenance Due Date Last Done Comments Colorectal Cancer Screening Colonoscopy (10 Years) 1960 Hepatitis C 02/08/1978 Pneumococcal Vaccine: 50+ Years (1 of 1 - PCV) 02/08/2010 Zoster Vaccines (1 of 2) 02/08/2010 Mammogram Screening 11/19/2024 11/19/2022, 06/06/2019 Dexa Scan (General) 02/08/2025 COVID-19 Vaccine (1 - 2024-2 6 season) 2025 Influenza Adult (#1) 2025 DTaP, Tdap and Td Vaccines ( 3 - Td or Tdap) 03/09/2033 03/09/2023, 09/14/2013 RSV Immunization or 60+ Years (1 - 1-dose 75+ series) 02/08/2035 Hepatitis A Vaccines Aged Out No long er eligible based on patient's age to complete this topic Meningococcal B Vaccine Aged Out No l onger eligible based on patient's age to complete this topic Meningococcal Vaccine Aged Out No osman dov eligible based on patient's age to complete this topic RSV Immunizations Under 20 Months Aged Out No longer eligible b ased on patient's age to complete this topic Medical Devices Implanted Type Area Compliance Testing Analyst Device Identifier Shelf Expiration Date Model / Serial / Lot Shell Heath Continuum Tm Ch 48mm Gg - [id number] Implanted:Qty: 1 on 07/15/2018 by Chong Aviles MD at [facility] Right: Hip [employer] 04/21/2028 [id number] / / [id number] Continium Trilogy Poly Implanted:Qty: 1 on 07/15/2018 by Chong Aviles MD at [facility] Right: Hip [employer] 07/22/2022 [id number] / / [id number] Screw Heath Bone 30mm - [id number] Implanted:Qty: 1 on 07/15/2018 by Chong Aviles MD at [facility] Right: Hip [employer] 09/20/2027 [id number] / / [id number] Screw Heath Bone 30mm - [id number] Implanted:Qty: 1 on 07/15/2018 by Chong Aviles MD at [facility] Right: Hip [employer] 04/21/2028 [id number] / / [id number] Femoral Stem Implanted:Qty: 1 on 07/15/2018 by Chong Aviles MD at [facility] Right: Hip [employer] 10/20/2027 [id number] / / [id number] Head Femoral Biolox Option Ceramic Heath - [id number] Implanted:Qty: 1 on 07/15/2018 by Chong Aviles MD at [facility] Right: Hip [employer] 03/21/2028 [id number] / / [id number] Explanted Type Area Compliance Testing Analyst Device Identifier Shelf Expiration Date Model / Serial / Lot Disposable Bit Explanted:Qty: 1 on 07/15/2018 at [facility] Right: Hip [employer] [id number] / / Procedures Procedure Name Priority Date/Time Associated Diagnosis Comments MRI IAC WWO CON Routine 05/23/2025 12:07 PM LOADING MANAGER Sensorineural hearing loss XR ESOPHAGRAM/BARIUM SWALLOW Routine 04/05/2025 1:38 PM CDT Dysphagia US THYROID Routine 04/03/2025 3:06 PM CDT Neck pain MG SCREENING W PATY DANIELLA DIGI Routine 11/19/2022 4:21 PM CDT Visit for screening mammogram from Last 3 Months or Most Recently Relevant to Health Maintenance Results * MRI IAC WWO CON (05/23/2025 12:07 PM LOADING MANAGER) Anatomical Region Laterality Modality Head Magnetic Resonan ce 05/27/2025 6:32 PM LOADING MANAGER Impressions 05/27/2025 6:37 PM LOADING MANAGER IMPRESSION: 1. No definite mass lesion or abnormal enhancement seen along the internal auditory canals, cranial nerve VII and VIII complexes, or elsewhere in the brain. 2. Mild small vessel disease and volume loss. 3. Surgical changes of prior left mastoidectomy. Referred By: JENNY KOO Interpreted By: Joseph Scott MD, 05/27/2025 6:32 PM Narrative 05/27/2025 6:37 PM LOADING MANAGER [facility] [address] [place] [address] INDICATION: History of left-sided cholesteatoma. Hearing loss and dizziness. Sensorineural hearing loss. EXAMINATION: MRI brain/IACs with and without contrast. TECHNIQUE: Multiplanar and multisequence MRI images of the brain/IACs were obtained before and after administration of 10 mL Dotarem intravenously without adverse event. COMPARISON: 02/06/2023 FINDINGS: Post surgical changes of left mastoidectomy. No definite mass lesion or abnormal enhancement identified along the cerebellopontine angle cisterns, internal auditory canals, or cranial nerve VII and VIII complexes. There is preserved fluid signal intensity within the cochlea and semicircular apparatus bilaterally. No diffusion restriction or evidence of acute infarct. There are a few punctate foci of FLAIR hyperintensity seen in the hemispheric white matter, likely due to mild small vessel disease. Mild volume loss with enlargement of the ventricles and extra-axial/subarachnoid spaces. No extra-axial collections. Proximal portions of the major intracranial arterial flow voids are patent. The remainder of the postcontrast images reveal no abnormal enhancement elsewhere in the brain. Craniocervical junction, sellar content, pineal region are unremarkable. Minimal fluid few scattered mastoid air cells. Mild mucosal thickening in the paranasal sinuses. Visualized orbits unremarkable. Procedure Note Joseph Scott MD - 05/27/2025 [facility] [address] [place] [address] INDICATION: History of left-sided cholesteatoma. Hearing loss anddizziness. Sensorineural hearing loss. EXAMINATION: MRI brain/IACs with and without contrast. TECHNIQUE: Multiplanar and multisequence MRI images of the brain/IACs wereobtained before and after administration of 10 mL Dotarem intravenouslywithout adverse event. COMPARISON: 02/06/2023 FINDINGS: Post surgical changes of left mastoidectomy. No definite mass lesion orabnormal enhancement identified along the cerebellopontine angle cisterns,internal auditory canals, or cranial nerve VII and VIII complexes. Thereis preserved fluid signal intensity within the cochlea and semicircularapparatus bilaterally. No diffusion restriction or evidence of acute infarct. There are a fewpunctate foci of FLAIR hyperintensity seen in the hemispheric whitematter, likely due to mild small vessel disease. Mild volume loss withenlargement of the ventricles and extra-axial/subarachnoid spaces. Noextra-axial collections. Proximal portions of the major intracranialarterial flow voids are patent. The remainder of the postcontrast imagesreveal no abnormal enhancement elsewhere in the brain. Craniocervical junction, sellar content, pineal region are unremarkable.Minimal fluid few scattered mastoid air cells. Mild mucosal thickening inthe paranasal sinuses. Visualized orbits unremarkable. IMPRESSION: 1. No definite mass lesion or abnormal enhancement seen along the internalauditory canals, cranial nerve VII and VIII complexes, or elsewhere in thebrain. 2. Mild small vessel disease and volume loss. 3. Surgical changes of prior left mastoidectomy. Referred By: JENNY KOO Interpreted By: Joseph Scott MD, 05/27/2025 6:32 PM us Jenny Koo MD MRI Final Resul t * XR ESOPHAGRAM/BARIUM SWALLOW (04/05/2025 1:38 PM CDT) Anatomical Region Laterality Modality Chest, Abdomen Radiographic Mary Jo ging, Radiographic Imaging 04/05/2025 1:36 PM CDT Impressions 04/05/2025 1:40 PM CDT IMPRESSION: 1. Intraesophageal reflux is present. Tertiary contractions within the esophagus. Narrowing of the distal esophagus. GI consultation is recommended for direct visualization of this area of slight narrowing of the distal esophagus. 2. No fluoroscopic etiology for the patient's symptomatology in the hypopharynx. ENT consultation recommended. Ordered By: TOMA PLAZA Interpreted By: Ricco Albarado MD, 04/05/2025 1:36 PM Narrative 04/05/2025 1:40 PM CDT [facility] [address] [place] [address] EXAMINATION: Esophagram/barium swallow. EXAM DATE/TIME: 04/03/2025 2:34 PM REASON FOR EXAM: dysphagea COMPARISON: None Dose: 103.9 mGy. Images: 11 cine series. TECHNIQUE: Fluoroscopic evaluation of the esophagus is performed. FINDINGS: The patient was given barium to ingest. The proximal esophagus is of normal size and caliber. The patient was given a barium tablet to ingest. This did lodge temporarily at the esophagogastric junction. GI consultation is recommended for direct visualization in this area of narrowing of the distal esophagus. The tablet did subsequently pass. There are tertiary contractions present within the esophagus. Intraesophageal reflux is present during the examination. For the patient's area of soreness in the region of the hypopharynx ENT consultation recommended. The patient's radiation exposure time was 2.4 minutes for this procedure. Procedure Note Ricco Albarado MD - 04/05/2025 [facility] [address] [place] [id number] EXAMINATION: Esophagram/barium swallow. EXAM DATE/TIME: 04/03/2025 2:34 PM REASON FOR EXAM: dysphagea COMPARISON: None Dose: 103.9 mGy. Images: 11 cine series. TECHNIQUE: Fluoroscopic evaluation of the esophagus is performed. FINDINGS: The patient was given barium to ingest. The proximal esophagusis of normal size and caliber. The patient was given a barium tablet toingest. This did lodge temporarily at the esophagogastric junction. GIconsultation is recommended for direct visualization in this area ofnarrowing of the distal esophagus. The tablet did subsequently pass. There are tertiary contractions present within the esophagus.Intraesophageal reflux is present during the examination. For the patient's area of soreness in the region of the hypopharynx ENTconsultation recommended. The patient's radiation exposure time was 2.4 minutes for thisprocedure. IMPRESSION: 1. Intraesophageal reflux is present. Tertiary contractions within theesophagus. Narrowing of the distal esophagus. GI consultation isrecommended for direct visualization of this area of slight narrowing ofthe distal esophagus. 2. No fluoroscopic etiology for the patient's symptomatology in thehypopharynx. ENT consultation recommended. Ordered By: TOMA PLAZA Interpreted By: Ricco Albarado MD, 04/05/2025 1:36 PM us Toma Plaza PA FLUOROSCOPY Final Result * US THYROID (04/03/2025 3:06 PM CDT) Anatomical Region Laterality Modality Neck Ultrasound 04/06/2025 9:21 AM CDT Impressions 04/06/2025 9:22 AM CDT IMPRESSION: No thyromegaly. Slightly heterogeneous echotexture of thyroid gland. No focal nodules. Referred By: TOMA PLAZA Interpreted By: Ricco Albarado MD, 04/06/2025 9:21 AM Narrative 04/06/2025 9:22 AM CDT [address] [place] [address] Procedure(s): US THYROID Date of service: 04/03/2025 2:52 PM Provided clinical information: 65 years, Female, neck pain Procedure and materials: Grayscale and color Doppler images of the RIGHT LEFT lobe of the thyroid gland are obtained. Comparison studies: None. Findings: Right lobe of the thyroid gland measures 3.8 x 0.9 x 1.3 cm. The LEFT lobe of thyroid gland measures 3.4 x 0.9 by 1 cm. The thyroid gland is slightly heterogeneous in echotexture. No focal thyroid lesions are present. Thyroid isthmus measures 3 mm. Procedure Note Ricco Albarado MD - 04/06/[address] [place] [address] Procedure(s): US THYROID Date of service: 04/03/2025 2:52 PM Provided clinical information: 65 years, Female, neck pain Procedure and materials: Grayscale and color Doppler images of the RIGHTLEFT lobe of the thyroid gland are obtained. Comparison studies: None. Findings: Right lobe of the thyroid gland measures 3.8 x 0.9 x 1.3 cm. The LEFT lobeof thyroid gland measures 3.4 x 0.9 by 1 cm. The thyroid gland is slightlyheterogeneous in echotexture. No focal thyroid lesions are present. Thyroid isthmus measures 3 mm. IMPRESSION: No thyromegaly. Slightly heterogeneous echotexture of thyroid gland. Nofocal nodules. Referred By: TOMA PLAZA Interpreted By: Ricco Albarado MD, 04/06/2025 9:21 AM us Toma HUGHES ULTRASOUND Final Result * MG SCREENING W PATY [...] 2 - BENIGN FINDING(S) Ordered By: ANGELINA CORONA Interpreted By: Daniel Wilhelm MD, 11/21/2022 3:32 PM us Angelina Corona CRUSHER ASSEMBLER-BC MAMMO Final Result from Last 3 Months or Most Recently Relevant to Health Maintenance Insurance MEDICARE Advance Directives * Full Code (Latest Code Status on File) Date Activated Date Inactivated Comments 07/15/2018 3:51 PM 07/16/2018 2:46 PM Care Teams County Historian Relationship Specialty Start Date End Date Toma Plaza PA PCP - General PHYSICIAN CENSUS TAKER 11/19/22
[2025-05-31 11:47] VITALS: BP 134/87; PULSE 86; RESP 18; TEMP 36.6; O2SAT 98
[2025-05-31] MEDS: LACTATED RINGERS 1,000 ML 150 ML IV CONT (11:52)
--- NOTE | 2025-05-31 12:19 | WPDANESEPPF ---
Anes - Initial Pre Proc Eval Procedure: Operation Date: 05/31/25 14:00 Proposed Procedures p Esophagogastroduodenoscopy EGD - Jeovany Ha MD Date/Time: 05/31/25 12:19 Surgeon: Jeovany Ha MD Pre Op Diagnosis: Abnormal findings on diagnostic imaging of other p Patient Data Age: 65 Gender: F Height: 1.6 m Weight: 78.3 kg Last Vital Signs Temp 36.6 C 05/31/25 11:47 Pulse 86 05/31/25 11:47 Resp 18 05/31/25 11:47 BP 134/87 05/31/25 11:47 Pulse Ox 98 05/31/25 11:47 O2 Del Method Room Air 05/31/25 11:47 Allergies Allergy/AdvReac Type Severity Reaction Status Date / Time ciprofloxacin Allergy Intermediate RASH Verified 05/31/25 11:46 SWELLING nitrofurantoin Allergy Intermediate RASH/SWELLI Verified 05/31/25 11:46 NG Penicillins Allergy Intermediate RASH/SWELLI Verified 05/31/25 11:46 NG sulfamethoxazole Allergy Intermediate RASH Verified 05/31/25 11:46 trimethoprim Allergy Intermediate RASH Verified 05/31/25 11:46 Sulfa (Sulfonamide Allergy Unknown Hives Verified 05/31/25 11:46 Antibiotics) injection with animal Allergy Unknown Uncoded 12/29/24 09:44 derivatives Home Medications ?Medication ?Instructions ?Recorded ?Confirmed ?Type alprazolam 0.25 mg tablet (Xanax) 0.25 mg PO TID PRN anxiety 06/13/24 05/31/25 History levofloxacin 500 mg tablet 500 mg PO DAILY 12/20/24 05/08/25 History levothyroxine 100 mcg capsule 112 mcg PO QAM 12/20/24 05/31/25 History meloxicam 15 mg disintegrating 15 mg PO DAILY PRN pain 12/20/24 05/08/25 History tablet omeprazole 20 mg capsule,delayed 20 mg PO BID 12/20/24 05/31/25 History release meclizine 25 mg tablet 25 mg PO QID PRN vertigo #30 tabs 12/21/24 05/31/25 Rx ondansetron 4 mg disintegrating 4 mg PO Q8H PRN nausea and 12/21/24 05/08/25 Rx tablet vomiting #30 tabs Patient hx anesthesia problems: none Family hx anesthesia problems: none Results Review: All pre-operative results and documents have been reviewed as part of the pre-operative evaluation. [facility] Past Medical History Medical History Anxiety with depression Escherichia coli urinary tract infection Cholesteatoma of attic of left ear GERD (gastroesophageal reflux disease) Panic attacks Depression Heart palpitations Chronic kidney disease Hypothyroidism Surgical History Surgical History H/O: hysterectomy History of right hip replacement History of cholecystectomy Family History Family History Mother Family history of thyroid disease Grandparent Diabetes mellitus, Onset Age: 75 Family history of congestive heart failure, Onset Age: 72 Father Family history of elevated blood lipids Other Family history of malignant neoplasm Social History Social History Smoking status: Never smoker Second hand tobacco smoke exposure: No Alcohol intake: current Drinks per week: 4 Substance use: never Substance use type: does not use Lack of Transportation: No Lack of Food: Never True Current Housing: I Have Housing Concerned About Future Housing: No Difficulty Paying Gas/Electric Bills: No Difficulty Paying for Meds: No Currently Unemployed: No Education: Don't Know Difficulty w/ Childcare or Family Care: No Living arrangements: alone Gender identity (if verbalized by the patient): Female Spiritual care concerns: No Anes - Eval Final PreProcedure Day of Procedure 05/31/25 12:19 Patient weight: obese Heart: regular rate and rhythm Lungs: clear to auscultation Airway: Mallampati scale class II Neurological: alert and oriented Last oral intake: >/= 8 hours ASA classification: III Emergent: no Anesthetic plan: proceed Anesthesia type and monitoring: general GIVS and standard monitoring Results Review: All pre-operative results and documents have been reviewed as part of the pre-operative evaluation. Informed Consent: The patient's anesthetic plan and its attendant risks and benefits were discussed with the patient/family/POA. Questions were solicited and answers provided to the satisfaction of the patient/family/POA.
--- NOTE | 2025-05-31 12:33 | PM.HPGS ---
History of Present Illness History of Present Illness Consent: Risks, benefits, and alternatives have been discussed and questions answered. Patient agrees to proceed with procedure. Chief complaint: Abnormal findings on diagnostic imaging of other p Narrative: Erika Aggarwal is a 65 year old female with gerd using omeprazole prn, also neck discomfort and vertigo (had CT scan recently), egd 2021 with ring dilated up to 20 mm Review of Systems Review of Systems: All systems reviewed & are unremarkable except as noted in HPI and below PMFSH Past Medical History Medical History (Updated 05/31/25 @ 12:34 by Jeovany Ha MD) Anxiety with depression Escherichia coli urinary tract infection Cholesteatoma of attic of left ear GERD (gastroesophageal reflux disease) Panic attacks Depression Heart palpitations Chronic kidney disease Hypothyroidism Surgical History Surgical History H/O: hysterectomy History of right hip replacement History of cholecystectomy Family History Family History Mother Family history of thyroid disease Grandparent Diabetes mellitus, Onset Age: 75 Family history of congestive heart failure, Onset Age: 72 Father Family history of elevated blood lipids Other Family history of malignant neoplasm Social History Social History Smoking status: Never smoker Second hand tobacco smoke exposure: No Alcohol intake: current Drinks per week: 4 Substance use: never Substance use type: does not use Lack of Transportation: No Lack of Food: Never True Current Housing: I Have Housing Concerned About Future Housing: No Difficulty Paying Gas/Electric Bills: No Difficulty Paying for Meds: No Currently Unemployed: No Education: Don't Know Difficulty w/ Childcare or Family Care: No Living arrangements: alone Gender identity (if verbalized by the patient): Female Spiritual care concerns: No Meds Home Medications and Allergies Home Medications ?Medication ?Instructions ?Recorded ?Confirmed ?Type alprazolam 0.25 mg tablet (Xanax) 0.25 mg PO TID PRN anxiety 06/13/24 05/31/25 History levofloxacin 500 mg tablet 500 mg PO DAILY 12/20/24 05/08/25 History levothyroxine 100 mcg capsule 112 mcg PO QAM 12/20/24 05/31/25 History meloxicam 15 mg disintegrating 15 mg PO DAILY PRN pain 12/20/24 05/08/25 History tablet omeprazole 20 mg capsule,delayed 20 mg PO BID 12/20/24 05/31/25 History release meclizine 25 mg tablet 25 mg PO QID PRN vertigo #30 tabs 12/21/24 05/31/25 Rx ondansetron 4 mg disintegrating 4 mg PO Q8H PRN nausea and 12/21/24 05/08/25 Rx tablet vomiting #30 tabs Allergies Allergy/AdvReac Type Severity Reaction Status Date / Time ciprofloxacin Allergy Intermediate RASH Verified 05/31/25 11:46 SWELLING nitrofurantoin Allergy Intermediate RASH/SWELLI Verified 05/31/25 11:46 NG Penicillins Allergy Intermediate RASH/SWELLI Verified 05/31/25 11:46 NG sulfamethoxazole Allergy Intermediate RASH Verified 05/31/25 11:46 trimethoprim Allergy Intermediate RASH Verified 05/31/25 11:46 Sulfa (Sulfonamide Allergy Unknown Hives Verified 05/31/25 11:46 Antibiotics) injection with animal Allergy Unknown Uncoded 12/29/24 09:44 derivatives Vital Signs Vital Signs - 24 hr 05/31/25 11:47 Temperature 97.9 F Pulse Rate 86 Respiratory Rate 18 Blood Pressure 134/87 Pulse Oximetry 98 Oxygen Delivery Room Air Exam Const: General: comfortable and no acute distress HENMT: Face/Nose/Sinus: Normal nares present Eyes: General: appearance normal, both eyes and all related structures Neck: Neck: no JVD Resp: Auscultation: clear to auscultation bilaterally Cardio: Rate: regular rate Rhythm: regular rhythm GI: Inspection: non-distended GI Palp: Yes Soft to palpation Skin: General skin exam: normal color Extrem: General: normal to inspection Psych: Mental Status: mental status grossly normal Assessment and Plan Assessment and plan (1) GERD (gastroesophageal reflux disease): Code(s): K21.9 - Gastro-esophageal reflux disease without esophagitis Status: Acute Assessment and Plan: egd
[2025-05-31 12:45] VITALS: BP 119/74; PULSE 67; RESP 23; O2SAT 100
--- NOTE | 2025-05-31 12:45 | S_PTH ---
PATIENT: Erika Aggarwal LOC: [facility]#:[id number] AGE/SX: 65/F ROOM: RE05/31/[address]: Jeovany Ha MD : [id number] BED: DIS: 05/31/2025 SPEC #: [id number] RECD: 05/31/25 13:29 STATUS: KRISTYN REMaia #: [id number] OWEN: 05/31/25 12:[address]: Jeovany Ha DEPT: [facility] Surgical RECD BY: Loyda Burnett MLT, ([facility]) ENTERED: 05/31/25 13:29 SP TYPE: Surgical OTHR DR: Toma Pete, PANuzhatC Tissues: A - Gastric Biopsy Procedures: Hematoxylin and Eosin Stain Gross and Microscopic Level 4
[2025-05-31 12:55] VITALS: BP 135/92; PULSE 82; RESP 17; O2SAT 100
[2025-05-31 13:05] VITALS: BP 150/93; PULSE 72; RESP 17; O2SAT 100
== END 2025-05-31 13:21 | disposition home or self-care (01) ==
PROVIDERS: PCP Physician Assistant; Referring Provider Physician Assistant; Visit Provider Internal Medicine Gastroenterology
PROC: 0DJ08ZZ Inspection of Upper Intestinal Tract, Via Natural or Artificial Opening Endoscopic (ICD-10-PCS; CPT 43450; principal; 2025-05-31 14:00)
DX: K21.9 Gastro-esophageal reflux disease without esophagitis (principal); K29.70 Gastritis, unspecified, without bleeding; F41.8 Other specified anxiety disorders; F41.0 Panic disorder [episodic paroxysmal anxiety]; R00.2 Palpitations; E03.9 Hypothyroidism, unspecified; N18.9 Chronic kidney disease, unspecified; H71.02 Cholesteatoma of attic, left ear; E66.9 Obesity, unspecified; Z68.30 Body mass index [BMI] 30.0-30.9, adult; Z98.890 Other specified postprocedural states; Z90.49 Acquired absence of other specified parts of digestive tract; Z80.9 Family history of malignant neoplasm, unspecified; Z82.49 Family history of ischemic heart disease and other diseases of the circulatory system
CPT/HCPCS: 43450; 43239; 88305; J2704; J7120